=== PATIENT | female | born 1985 ===

== ENCOUNTER 2019-12-27 10:35 | Outpatient (REF) | payer MEDICARE, MEDICAID, SELFPAY ==
--- NOTE | 2019-12-27 | US_ITS ---
EXAMINATION:US transvaginal, US pelvic complete CLINICAL INFORMATION: Reason for Exam COMPLEX CYST OF LEFT OVARY COMPARISON: No priors available. LMP: End November 2019 FINDINGS: UTERUS: The uterus is anteverted. Size: 7.4 x 2.7 x 4.9 cm. Uterine mass: There is no uterine mass. Cervix: Grossly unremarkable. Endometrium: No ultrasound evidence of endometrial lesion. endometrial thickness measures 0.4 cm ADNEXA: Normal Right ovary: Normal in size. Small amount of free fluid adjacent to the ovary. Left ovary: Normal in size. Mildly complex cystic structure found in the left ovary 3.7 x 2.8 x 2.9 cm might be hemorrhagic cyst. FREE FLUID: Trace amount of free fluid. OTHER FINDINGS: None IMPRESSION: Mildly complex cystic structure in the left ovary 3.7 cm could be a hemorrhagic cyst. Attention to follow-up recommended. Consider follow-up ultrasound in 6-12 weeks Ultrasound otherwise normal.
== END 2019-12-27 10:36 | disposition home or self-care (01) ==
LOC: HO.US 10:35
PROVIDERS: Visit Provider Obstetrics & Gynecology
DX: N83.292 Other ovarian cyst, left side (principal)
CPT/HCPCS: 76830; 76856

== ENCOUNTER 2020-01-10 15:30 | Outpatient (REF) | payer MEDICARE, MEDICAID, SELFPAY ==
[2020-01-12 22:27] LABS: CA-125 14 U/mL (<35)
== END 2020-01-10 15:31 | disposition home or self-care (01) ==
LOC: HO.LAB 15:30
PROVIDERS: PCP Internal Medicine; Referring Provider Internal Medicine; Visit Provider Obstetrics & Gynecology
DX: N83.292 Other ovarian cyst, left side (principal)
CPT/HCPCS: 86304; 99212

== ENCOUNTER 2020-03-04 12:41 | Outpatient (REF) | payer MEDICARE, MEDICAID, SELFPAY ==
--- NOTE | 2020-03-04 | US_ITS ---
EXAMINATION: US PELVIS COMPLETE US PELVIS TRANSVAGINAL CLINICAL INFORMATION: Follow up left ovarian cyst. COMPARISON: Ultrasound pelvis 12/27/2019. TECHNIQUE: Transabdominal and transvaginal ultrasound of the pelvis is performed. FINDINGS: The uterus is anteverted measuring 8.4 cm in length, 3.2 cm in AP and 5.0 cm in transverse dimension. Endometrial thickness is 0.7 cm. The uterus is homogeneous in echotexture. The right ovary measures 3.1 x 2.5 x 1.8 cm and volume 7.3 mL. There is a prominent follicular cyst measuring 1.6 x 1.3 x 1.3 cm. Previously, the right ovary measured 3.3 x 3.0 2.8 cm and volume 14.8 mL. The left ovary measures 4.5 x 2.8 x 3.2 cm and volume 21.1 mL. There is a complex cyst measuring 2.3 x 2.3 x 2.7 cm. Previously, the cyst measured 3.7 x 2.8 x 2.9 cm. There is trace free fluid in the right adnexa. US/US transvaginal IMPRESSION: 1. Slight improvement in left ovarian complex cyst from 3.7 to 2.7 cm. 2. Small follicular right ovarian cyst measuring 1.6 cm. 3. Minimal free fluid in the right adnexa. 4. Unremarkable uterus.
--- NOTE | 2020-03-04 | US_ITS ---
EXAMINATION: US PELVIS COMPLETE US PELVIS TRANSVAGINAL CLINICAL INFORMATION: Follow up left ovarian cyst. COMPARISON: Ultrasound pelvis 12/27/2019. TECHNIQUE: Transabdominal and transvaginal ultrasound of the pelvis is performed. FINDINGS: The uterus is anteverted measuring 8.4 cm in length, 3.2 cm in AP and 5.0 cm in transverse dimension. Endometrial thickness is 0.7 cm. The uterus is homogeneous in echotexture. The right ovary measures 3.1 x 2.5 x 1.8 cm and volume 7.3 mL. There is a prominent follicular cyst measuring 1.6 x 1.3 x 1.3 cm. Previously, the right ovary measured 3.3 x 3.0 2.8 cm and volume 14.8 mL. The left ovary measures 4.5 x 2.8 x 3.2 cm and volume 21.1 mL. There is a complex cyst measuring 2.3 x 2.3 x 2.7 cm. Previously, the cyst measured 3.7 x 2.8 x 2.9 cm. There is trace free fluid in the right adnexa. US/US pelvic complete IMPRESSION: 1. Slight improvement in left ovarian complex cyst from 3.7 to 2.7 cm. 2. Small follicular right ovarian cyst measuring 1.6 cm. 3. Minimal free fluid in the right adnexa. 4. Unremarkable uterus.
== END 2020-03-04 12:42 | disposition home or self-care (01) ==
LOC: HO.US 12:41
PROVIDERS: PCP Internal Medicine; Visit Provider Obstetrics & Gynecology Gynecologic Oncology
DX: N83.292 Other ovarian cyst, left side (principal)
CPT/HCPCS: 76830; 76856

== ENCOUNTER 2020-04-25 08:10 | Outpatient (REF) | payer MEDICARE, MEDICAID, SELFPAY ==
[2020-04-25 11:23] LABS: MANUAL DIFF FLAG NO
[2020-04-25 11:35] LABS: Basophils Absolute Auto 0.1 X10*3/uL (0.0-0.2); Basophils Percent Auto 0.6 % (0-2); Eosinophils Absolute Auto 0.3 X10*3/uL (0.0-0.4); Eosinophils Percent Auto 3.7 % (0-4); Hemoglobin 12.5 g/dl (12.0-16.0); Imm Gran Abs Auto 0.02 X10*3/uL (0.00-0.03); Imm Gran Pct Auto 0.3 % (0.0-0.4); Lymphocytes Absolute Auto 3.9 X10*3/uL (1.2-4.9); Lymphocytes Percent Auto 49.7 % (20-40); Mean Corpuscular HGB Conc 32.1 g/dl (31.0-35.0); Mean Corpuscular Hemoglobin 30.3 pg (27.0-33.0); Mean Corpuscular Volume 94.4 fL (80-98); Mean Platelet Volume 12.1 fL (9.4-12.3); Monocytes Absolute Auto 0.5 X10*3/uL (0.1-1.2); Monocytes Percent Auto 6.2 % (2-11); Neutrophils Absolute Auto 3.1 X10*3/uL (2.0-8.3); Neutrophils Percent Auto 39.5 % (45-73); Platelet Count 190 X10*3/uL (160-400); Red Blood Count 4.13 X10*6/uL (4.20-5.50); White Blood Count 7.9 X10*3/uL (4.8-10.8)
[2020-04-25 11:56] LABS: Alanine Aminotransferase 13 U/L (0-31); Albumin Level 4.2 g/dL (3.5-5.0); Alkaline Phosphatase 55 U/L (39-117); Anion Gap 11 (12-20); Aspartate Amino Transferase 12 U/L (5-31); Bilirubin Total 0.5 mg/dL (0.0-1.0); Blood Urea Nitrogen 14 mg/dL (9-16); Calcium 8.9 mg/dL (8.4-10.2); Carbon Dioxide 29 mmol/L (22-29); Chloride 103 mmol/L (96-108); Estimated Glomerular Filt Rate > 60; Glucose Fasting 82 mg/dL (60-99); Potassium 3.6 mmol/L (3.3-5.1); Sodium 139 mmol/L (135-145); Total Protein 6.8 g/dL (6.5-8.0)
[2020-04-25 12:21] LABS: Ferritin 21 ng/mL (10-122); TSH reflex Free T4 0.63 uIU/mL (0.32-4.0)
[2020-05-01 11:11] LABS: Vitamin D 25-OH, D2 <4 ng/mL; Vitamin D 25-OH, D3 13 ng/mL; Vitamin D 25-OH, Total 13 ng/mL (30-100)
== END 2020-04-25 08:11 | disposition home or self-care (01) ==
LOC: HO.HMGCLDS 08:10
PROVIDERS: PCP Internal Medicine; Visit Provider Nurse Practitioner Family
DX: R42 Dizziness and giddiness (principal)
CPT/HCPCS: 36415; 80053; 82306; 82728; 84443; 85025

== ENCOUNTER 2020-05-13 15:39 | Outpatient (REF) | payer MEDICARE, MEDICAID, SELFPAY ==
--- NOTE | ~2020-05-13 | XR_ITS ---
EXAMINATION: XR CHEST CLINICAL INFORMATION: Chest pain. COMPARISON: CT chest 04/30/2019 and chest x-ray 04/30/2019 TECHNIQUE: 2 views of the chest were obtained. FINDINGS: No significant abnormality is noted involving the heart, lungs, mediastinum, bony thorax or soft tissues. XR/XR chest 2V IMPRESSION: Unremarkable chest exam.
== END 2020-05-13 15:40 | disposition home or self-care (01) ==
LOC: HO.HMGCX 15:39
PROVIDERS: PCP Internal Medicine; Visit Provider Nurse Practitioner Family
DX: R07.89 Other chest pain (principal)
CPT/HCPCS: 71046

== ENCOUNTER 2020-05-22 09:11 | Outpatient (REF) | payer MEDICARE, MEDICAID, SELFPAY ==
[2020-05-23 09:19] LABS: BV Int Neg Control Negative (Negative); BV Int Pos Control Positive (Positive)
== END 2020-05-22 09:12 | disposition home or self-care (01) ==
LOC: HO.LAB 09:11
PROVIDERS: PCP Internal Medicine; Visit Provider Obstetrics & Gynecology
DX: Z01.419 Encounter for gynecological examination (general) (routine) without abnormal findings (principal); N83.292 Other ovarian cyst, left side; N89.8 Other specified noninflammatory disorders of vagina; Z91.040 Latex allergy status; Z88.5 Allergy status to narcotic agent; Z88.8 Allergy status to other drugs, medicaments and biological substances; Z91.018 Allergy to other foods
CPT/HCPCS: 87480; 87510; 87660

== ENCOUNTER 2020-06-12 07:59 | Outpatient (REF) | payer MEDICARE, MEDICAID, SELFPAY ==
--- NOTE | ~2020-06-12 | XR_ITS ---
EXAMINATION: RIGHT HIP AND RIGHT KNEE CLINICAL INFORMATION: Pain right hip and right knee. COMPARISON: Right-sided 05/11/2017 TECHNIQUE: 2 views right hip. 4 views right knee. FINDINGS: RIGHT HIP: There is no visible acute fracture, dislocation or subluxation seen. No bony erosive changes. The soft tissues are normal. RIGHT KNEE: There is no visible acute fracture, dislocation or subluxation seen. No abnormal joint effusion. No bony erosive changes. XR/XR hip RT min 2V IMPRESSION: Unremarkable right hip exam. Unremarkable right knee exam.
--- NOTE | ~2020-06-12 | XR_ITS ---
EXAMINATION: RIGHT HIP AND RIGHT KNEE CLINICAL INFORMATION: Pain right hip and right knee. COMPARISON: Right-sided 05/11/2017 TECHNIQUE: 2 views right hip. 4 views right knee. FINDINGS: RIGHT HIP: There is no visible acute fracture, dislocation or subluxation seen. No bony erosive changes. The soft tissues are normal. RIGHT KNEE: There is no visible acute fracture, dislocation or subluxation seen. No abnormal joint effusion. No bony erosive changes. XR/XR knee RT 3V IMPRESSION: Unremarkable right hip exam. Unremarkable right knee exam.
[2020-06-13 14:42] LABS: Antibody to SS-A Antigen <1.0 NEG AI (<1.0 NEG); Antibody to SS-B Antigen <1.0 NEG AI (<1.0 NEG)
== END 2020-06-12 08:00 | disposition home or self-care (01) ==
LOC: HO.LAB 07:59
PROVIDERS: PCP Internal Medicine; Visit Provider Student in an Organized Health Care Education/Training Program
DX: M25.551 Pain in right hip (principal); M25.561 Pain in right knee; M79.7 Fibromyalgia; H04.123 Dry eye syndrome of bilateral lacrimal glands; Z79.899 Other long term (current) drug therapy
CPT/HCPCS: 36415; 73502; 73562; 86235; 99212

== ENCOUNTER → 2020-06-18 08:19 | Outpatient (BNVA) | payer MEDICARE, MEDICAID, SELFPAY | PROVIDERS: PCP Internal Medicine; Visit Provider Student in an Organized Health Care Education/Training Program | DX: M25.551 Pain in right hip (principal); M25.561 Pain in right knee; H04.123 Dry eye syndrome of bilateral lacrimal glands | CPT/HCPCS: 99212 ==

== ENCOUNTER → 2020-08-05 09:42 | Outpatient (BNVA) | payer MEDICARE, MEDICAID, SELFPAY | PROVIDERS: PCP Internal Medicine; Visit Provider Obstetrics & Gynecology | DX: R10.32 Left lower quadrant pain (principal); N92.6 Irregular menstruation, unspecified | CPT/HCPCS: 99212 ==

== ENCOUNTER 2020-08-05 10:19 | Outpatient (REF) | payer MEDICARE, MEDICAID, SELFPAY ==
[2020-08-05 15:18] LABS: HCG Quantitative < 2 mIU/mL; TSH reflex Free T4 0.14 uIU/mL (0.32-4.0)
[2020-08-06 15:47] LABS: Follicle Stimulating Hormone 5.4 mIU/mL; Prolactin 8.5 ng/mL
[2020-08-06 18:56] LABS: DHEA Sulfate 123 mcg/dL (23-266)
== END 2020-08-05 10:20 | disposition home or self-care (01) ==
LOC: HO.WFDLDS 10:19
PROVIDERS: PCP Internal Medicine; Visit Provider Obstetrics & Gynecology
DX: N91.2 Amenorrhea, unspecified (principal)
CPT/HCPCS: 36415; 82627; 83001; 83498; 84146; 84402; 84403; 84439; 84443; 84702

== ENCOUNTER 2020-08-08 14:26 | Outpatient (REF) | payer MEDICARE, MEDICAID, SELFPAY ==
--- NOTE | ~2020-08-08 | US_ITS ---
EXAMINATION: US PELVIC COMPLETE CLINICAL INFORMATION: Left ovarian cyst. COMPARISON: None TECHNIQUE: Transabdominal and transvaginal imaging of the pelvis is performed. FINDINGS: The uterus is anteverted and anteflexed measuring 8.24 cm in length, 3.4 cm AP and 5.18 cm in transverse dimension. The endometrial thickness is 0.48 cm. There is no focal lesion seen. Cervix is closed measuring 1.65 cm. The right ovary measures 3.27 x 1.78 x 2.84 cm and volume 8.66 mL. There are 2 simple cysts seen measuring 2.1 x 1.5 x 2.0 cm and 0.53 x 0.58 x 0.62 cm. Previously right ovary measured 3.1 x 2.5 x 1.8 cm. Left ovary measures 2.60 x 1.99 x 2.52 cm and volume 7.21 mL. There is a complex echogenic cyst measuring 1.5 x 1.6 x 1.5 cm and a simple anechoic cyst measuring 0.90 x 0.94 x 1.0 cm. There is no free fluid in cul-de-sac. US/US pelvic and transvaginal IMPRESSION: Simple right ovarian cyst. Simple and complex cyst left ovary. The uterus is unremarkable. There is no free fluid in the cul-de-sac.
== END 2020-08-08 14:27 | disposition home or self-care (01) ==
LOC: HO.US 14:26
PROVIDERS: PCP Internal Medicine; Visit Provider Obstetrics & Gynecology
DX: N83.292 Other ovarian cyst, left side (principal)
CPT/HCPCS: 76830; 76856

== ENCOUNTER 2020-08-15 08:00 | Outpatient (RCR) | payer MEDICARE, MEDICAID, SELFPAY ==
--- NOTE | 2020-08-15 11:34 | MHC.PT.RE ---
[facility] [place] Office [place] Office [place] Office [address] Shannan Mcmanus [address] [phone] F: [phone] F: [phone] F: [phone] F: [phone] Physical Therapy Re-evaluation Diagnosis: RIGHT KNEE AND HIP PAIN Date of Surgery: NA Date of Evaluation: 06/20/20 Treatments to Date: 10 Cancellations to Date: 0 No Shows to Date: 0 Subjective: Re eval performed today. Pt arrived after completing 8 visits of PT for her hips and back with some improvement but pain still remained. The patient reports urinary incontinence with extreme force, laughing, coughing. She wears a panty liner most days. The patient also reports painful intercourse. She feels a spasm at the end of penetrative intercourse that is painful. The patient reports intermittent sharp achiness that is felt deep in her pelvis. It limits her activity levels. She also reports a long history with IBS with constipation. The patient reports going average of 4-5 days without a BM and then sometimes she will have liquid stool for two days. Pain Score: 3 Pain Location: Objective Measures: Patient consent for treatment. Pt declined an option to have a second person in the room. Patient gave consent for internal exam today. Tightness and spasm felt on right side of ishiocavernosus, OI, and ishicoccygeus. Pt had 1/5 strength initially. Endurance 2 seconds. Repeated contraction 2 reps. quick contraction 4 reps. Pt had poor contraction in the levator ani. Assessment: Patient consent for treatment. Pt declined an option to have a second person in the room. Patient gave consent for internal exam today. Tightness and spasm felt on right side of ishiocavernosus, OI, and ishicoccygeus. Pt had 1/5 strength. No pelvic organ prolapse noted. Uterus palpable at 3 knuckles. Endurance 2 seconds. Repeated contraction 2 reps. quick contraction 4 reps. Pt had poor contraction in the levator ani. Pt has poor breathing mechanics and tends to be a chest breather. She has intermittent palpable spasms in her levator ani which relaxed with manual therapy and breathing exercises. Pt will benefit from pelvic floor PT in order to address her current pain and stress urinary incontinence. Short Term Goals: 1. Pt to be able to correctly activate her PFM to allow improved support to bowel and bladder. 2. 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 TO DEMONSTRATE FULL KNEE AND HIPROM, EQUAL STAR 2. TO DEMONSTRATE FULL LE STRENGTH, EQUAL STAR 3. TO ASCEND AND DESCEND STAIRS WITHOUT PAIN GREATER THAN 2/10 4. TO AMBULATE AD [place] ON LEVEL AND UNEVEN SURFACES FOR FITNESS WITHOUT PAIN GREATER THAN 2/10 5. LTG met for functional squat new goals for pelvic floor PT 1. The patient to be able to report no pain in her pelvis during house chore, and ADL's to help return to PLOF. 2. Pt to be able to improve PFM contraction to include a lift in the PFM to improve supportive function of the pelvic floor. 3. Pt to be able to return to normal sexual activity without pain. Frequency and Duration: The patient will be seen 2 X WEEK FOR 4 WEEKS Treatment Plan: Therapeutic Exercise Dynamic Therapeutic Activities Neuromuscular Re-ed Manual Therapies Home Exercise Program Patient Education Pelvic Floor Therapy Reviewed/ Agreed with Student Documentation: Therapist: Electronically signed by: Kirsten Barboza PT DPT Please sign and return to therapist. Thank you for your referral.
== END 2020-08-26 10:00 | disposition home or self-care (01) ==
LOC: HO.PT 08:00
PROVIDERS: Visit Provider Student in an Organized Health Care Education/Training Program
DX: M25.561 Pain in right knee (principal); M25.551 Pain in right hip
CPT/HCPCS: 97110; 97112; 97140; 97162; 97530

== ENCOUNTER → 2020-08-20 10:30 | Outpatient (BNVA) | payer MEDICARE, MEDICAID, SELFPAY | PROVIDERS: PCP Internal Medicine; Visit Provider Obstetrics & Gynecology | DX: N83.292 Other ovarian cyst, left side (principal); R79.89 Other specified abnormal findings of blood chemistry | CPT/HCPCS: Q3014 ==

== ENCOUNTER 2020-08-21 08:16 | Outpatient (REF) | payer MEDICARE, MEDICAID, SELFPAY ==
[2020-08-22 16:01] LABS: Triiodothyronine T3 Free 2.3 pg/mL (2.3-4.2)
== END 2020-08-21 08:17 | disposition home or self-care (01) ==
LOC: HO.LAB 08:16
PROVIDERS: PCP Internal Medicine; Visit Provider Obstetrics & Gynecology
DX: R94.6 Abnormal results of thyroid function studies (principal)
CPT/HCPCS: 36415; 84481

== ENCOUNTER 2020-08-23 08:09 | Outpatient (REF) | payer MEDICARE, MEDICAID, SELFPAY ==
[2020-08-27 16:08] LABS: Testosterone, Free 2.7 pg/mL (0.1-6.4); Testosterone, Total 20 ng/dL (2-45)
== END 2020-08-23 08:10 | disposition home or self-care (01) ==
LOC: HO.LAB 08:09
PROVIDERS: PCP Internal Medicine; Visit Provider Obstetrics & Gynecology
DX: N91.2 Amenorrhea, unspecified (principal)
CPT/HCPCS: 36415; 84402; 84403

== ENCOUNTER → 2020-10-09 12:16 | Outpatient (BNVA) | payer MEDICARE, MEDICAID, SELFPAY | PROVIDERS: Visit Provider Obstetrics & Gynecology | CPT/HCPCS: Q3014 ==

== ENCOUNTER 2020-10-14 09:30 | Outpatient (REF) | payer MEDICARE, MEDICAID, SELFPAY ==
[2020-10-15 09:36] LABS: CA-125 11 U/mL (<35)
== END 2020-10-14 09:31 | disposition home or self-care (01) ==
LOC: HO.LAB 09:30
PROVIDERS: PCP Internal Medicine; Visit Provider Obstetrics & Gynecology
DX: N83.299 Other ovarian cyst, unspecified side (principal)
CPT/HCPCS: 36415; 86304

== ENCOUNTER 2020-11-12 09:12 | Outpatient (REF) | payer MEDICARE, MEDICAID, SELFPAY ==
--- NOTE | ~2020-11-12 | US_ITS ---
EXAMINATION: US VENOUS ULTRASOUND WITH DOPPLER LOWER EXTREMITY, RIGHT CLINICAL INFORMATION: Pain in right leg. COMPARISON: None. TECHNIQUE: Ultrasound of the deep veins is performed from the hip to the calf with compression sonography and color and pulse Doppler assessment. Spectral analysis with color-flow imaging is performed. FINDINGS: There is normal venous compression and respiratory variation and augmented flow. The visualized common femoral vein, superficial femoral vein, profunda femoral vein, popliteal vein, and paired peroneal and posterior tibial veins show no evidence of deep venous thrombosis. There is no significant popliteal fossa cyst. US/US venous duplex LE RT IMPRESSION: No DVT demonstrated in the right lower extremity.
== END 2020-11-12 09:13 | disposition home or self-care (01) ==
LOC: HO.HMGCX 09:12
PROVIDERS: PCP Internal Medicine; Visit Provider Internal Medicine
DX: M79.604 Pain in right leg (principal)
CPT/HCPCS: 93971

== ENCOUNTER 2020-11-19 09:53 | Outpatient (REF) | payer MEDICARE, MEDICAID, SELFPAY ==
[2020-11-19 10:50] LABS: MANUAL DIFF FLAG NO
[2020-11-19 11:01] LABS: Basophils Percent Auto 0.3 % (0-2); Eosinophils Absolute Auto 0.2 X10*3/uL (0.0-0.4); Eosinophils Percent Auto 2.4 % (0-4); Hematocrit 35.7 % (37-47); Hemoglobin 11.5 g/dl (12.0-16.0); Imm Gran Abs Auto 0.01 X10*3/uL (0.00-0.03); Imm Gran Pct Auto 0.2 % (0.0-0.4); Lymphocytes Percent Auto 31.5 % (20-40); Mean Corpuscular HGB Conc 32.2 g/dl (31.0-35.0); Mean Corpuscular Hemoglobin 30.3 pg (27.0-33.0); Mean Corpuscular Volume 93.9 fL (80-98); Mean Platelet Volume 11.8 fL (9.4-12.3); Monocytes Absolute Auto 0.4 X10*3/uL (0.1-1.2); Neutrophils Absolute Auto 3.7 X10*3/uL (2.0-8.3); Neutrophils Percent Auto 59.6 % (45-73); Platelet Count 180 X10*3/uL (160-400); Red Cell Distribution Width 13.2 % (11.0-16.0); White Blood Count 6.2 X10*3/uL (4.8-10.8)
[2020-11-19 11:37] LABS: Alanine Aminotransferase 13 U/L (0-31); Albumin Level 4.1 g/dL (3.5-5.0); Alkaline Phosphatase 57 U/L (39-117); Anion Gap 8 (12-20); Aspartate Amino Transferase 11 U/L (5-31); Bilirubin Total 0.6 mg/dL (0.0-1.0); Blood Urea Nitrogen 9 mg/dL (9-16); Calcium 8.8 mg/dL (8.4-10.2); Carbon Dioxide 27 mmol/L (22-29); Chloride 105 mmol/L (96-108); Estimated Glomerular Filt Rate > 60; Glucose Random 90 mg/dL (60-115); Potassium 4.2 mmol/L (3.3-5.1); Sodium 136 mmol/L (135-145); Total Protein 6.6 g/dL (6.5-8.0)
[2020-11-19 12:03] LABS: TSH reflex Free T4 0.98 uIU/mL (0.32-4.0)
== END 2020-11-19 09:54 | disposition home or self-care (01) ==
LOC: HO.LAB 09:53
PROVIDERS: PCP Internal Medicine; Visit Provider Internal Medicine
DX: B00.1 Herpesviral vesicular dermatitis (principal); E03.8 Other specified hypothyroidism; G43.109 Migraine with aura, not intractable, without status migrainosus; J30.9 Allergic rhinitis, unspecified; J45.990 Exercise induced bronchospasm; K21.9 Gastro-esophageal reflux disease without esophagitis; R11.0 Nausea
CPT/HCPCS: 36415; 80053; 84443; 85025

== ENCOUNTER 2020-11-22 08:56 | Outpatient (REF) | payer MEDICARE, MEDICAID, SELFPAY ==
--- NOTE | ~2020-11-22 | XR_ITS ---
EXAMINATION: XR TIBIA AND FIBULA, RIGHT CLINICAL INFORMATION: Pain in right leg COMPARISON: None TECHNIQUE: AP and lateral views of the right tibia and fibula were obtained. FINDINGS: The bones and soft tissues are normal. No fracture. No osseous lesions. XR/XR tibia fibula RT 2V IMPRESSION: Normal right tibia and fibula.
== END 2020-11-22 08:57 | disposition home or self-care (01) ==
LOC: HO.HMGCX 08:56
PROVIDERS: PCP Internal Medicine; Visit Provider Internal Medicine
DX: Z13.89 Encounter for screening for other disorder (principal)
CPT/HCPCS: 73590

== ENCOUNTER 2021-01-01 09:18 | Outpatient (REF) | payer MEDICARE, MEDICAID, SELFPAY ==
--- NOTE | 2021-01-01 09:23 | EMG_ITS ---
This is a 35-year-old woman with a several year history of right lower extremity numbness and pain. PHYSICAL EXAMINATION: On examination, she is alert and oriented with normal intellectual functions. Cranial nerves II through XII are normal. Muscle tone and strength are normal. IMPRESSION: Rule out lumbar radiculopathy, rule out peripheral neuropathy. Nerve conduction EMG study: Normal electrodiagnostic study of the right lower extremity. No evidence of nerve entrapment or generalized peripheral neuropathy. Normal EMG of the right L4-S1 innervated muscles. MD AMISHA Polk/SOPHIA / [id number]
== END 2021-01-01 09:19 | disposition home or self-care (01) ==
LOC: HO.NEURO 09:18
PROVIDERS: Visit Provider Internal Medicine
DX: M79.604 Pain in right leg (principal)
CPT/HCPCS: 95886; 95910

== ENCOUNTER 2021-01-14 08:49 | Outpatient (REF) | payer MEDICARE, MEDICAID, SELFPAY ==
--- NOTE | ~2021-01-14 | MR_ITS ---
EXAMINATION: MR LUMBAR SPINE WITHOUT CONTRAST CLINICAL INFORMATION: 35-year-old with right L5-S1 radiculopathy. Persistent right lower extremity pain and cramping. COMPARISON: None. TECHNIQUE: MRI of the lumbar spine was obtained using routine sequences without contrast. FINDINGS: Coronal Alignment: Normal. Sagittal Alignment: Normal. Lumbosacral Junction: Normal. Vertebral Bodies: Normal height. Disc Spaces and Endplates: The intervertebral disc space heights are well maintained throughout the lumbar spine. There is disc desiccation at the L5-S1 level and there is a Schmorl's node along the superior endplate of L3. No significant spondylosis. Spinal Canal: No abnormal developmental findings. Bone Marrow: No significant marrow-replacing process or bone marrow edema. Conus Medullaris: Terminates at L1. Morphology and signal is normal. Intradural Nerve Roots: Within normal limits. L5-S1: No disc bulge or herniation. No significant facet arthrosis, canal or neuroforaminal stenosis. L4-L5: No disc bulge or herniation. No significant facet arthrosis, canal or neuroforaminal stenosis. The remaining lumbar levels demonstrate no disc bulge or herniation and no significant facet arthrosis, canal or neuroforaminal stenosis. Paraspinal/Retroperitoneal: The paravertebral soft tissues appear unremarkable. MR/MR lumbar spine wo con IMPRESSION: Mild discogenic degenerative changes at L5-S1. No lumbar disc bulging or herniations are identified and there is no significant DJD, canal or neuroforaminal stenosis.
== END 2021-01-14 08:50 | disposition home or self-care (01) ==
LOC: HO.MRI 08:49
PROVIDERS: Visit Provider Psychiatry & Neurology Neurology
DX: M54.16 Radiculopathy, lumbar region (principal)
CPT/HCPCS: 72148

== ENCOUNTER 2021-02-17 10:42 | Outpatient (REF) | payer MEDICARE, MEDICAID, SELFPAY ==
--- NOTE | ~2021-02-17 | US_ITS ---
EXAMINATION: US PELVIS CLINICAL INFORMATION: Ovarian cyst. COMPARISON: Ultrasound 08/08/2020. TECHNIQUE: Ultrasound of the pelvis is performed using both transabdominal and transvaginal transducers along with Doppler. Transvaginal imaging is performed due to inadequate visualization transabdominally. FINDINGS: Uterus: The uterus is anteverted, anteflexed and measures 8.7 x 3.4 x 6.0 cm. The double wall endometrial thickness is 0.5 cm. The uterus is smooth in contour and has normal myometrial echogenicity. No visible fibroid. Small nabothian cysts seen in the cervix. Adnexa: Both ovaries are visualized. There is normal color flow to the adnexa. There is no ovarian torsion. There is no pelvic ascites or fluid collection. Right ovary measures 2.6 x 2.2 x 1.9 cm and volume 5.7 mL. There is an echogenic calcification measuring 0.2 x 0.1 x 0.2 cm. Left ovary measures 3.5 x 1.9 x 1.9 cm and volume 6.6 mL. There is a corpus luteal cyst measuring 1.2 x 1.3 x 1.1 cm with surrounding increased vascularity with a simple cyst measuring 1.7 x 1.2 x 1.4 cm. US/US pelvic and transvaginal IMPRESSION: Small nabothian cysts seen in the cervix. The uterus is unremarkable. Simple cyst and a corpus luteal cyst left ovary. A simple and complex cyst was seen on the previous ultrasound 08/01/2020. Not sure if this is the same cyst. Echogenic calcification seen in the right ovary.
== END 2021-02-17 10:43 | disposition home or self-care (01) ==
LOC: HO.US 10:42
PROVIDERS: PCP Internal Medicine; Visit Provider Obstetrics & Gynecology
DX: N83.299 Other ovarian cyst, unspecified side (principal)
CPT/HCPCS: 76830; 76856

== ENCOUNTER → 2021-02-25 13:53 | Outpatient (BNVA) | payer MEDICARE, MEDICAID, SELFPAY | PROVIDERS: PCP Internal Medicine; Visit Provider Obstetrics & Gynecology | DX: N83.292 Other ovarian cyst, left side (principal) | CPT/HCPCS: Q3014 ==

== ENCOUNTER 2021-04-02 12:59 | Outpatient (REF) | payer MEDICARE, MEDICAID, SELFPAY ==
--- NOTE | ~2021-04-02 | XR_ITS ---
EXAMINATION: XR SHOULDER, RIGHT CLINICAL INFORMATION: Pain COMPARISON: Previous x-ray December 2015 TECHNIQUE: AP external rotation, Grashey, scapular Y, and axillary views of the right shoulder. FINDINGS: The bones and soft tissues are normal. No fracture. Glenohumeral and acromioclavicular alignment is anatomic with normal joint space. No abnormal soft tissue calcifications. XR/XR shoulder RT min 2V IMPRESSION: Normal right shoulder.
== END 2021-04-02 13:00 | disposition home or self-care (01) ==
LOC: HO.HMGCX 12:59
PROVIDERS: PCP Internal Medicine; Visit Provider Internal Medicine
DX: M25.511 Pain in right shoulder (principal)
CPT/HCPCS: 73030

== ENCOUNTER 2021-06-04 08:33 | Outpatient (REF) | payer MEDICARE, MEDICAID, SELFPAY ==
[2021-06-07 17:02] LABS: HPV mRNA E6/E7 rflx Not Detected (Not Detected)
== END 2021-06-04 08:34 | disposition home or self-care (01) ==
LOC: HO.LAB 08:33
PROVIDERS: PCP Internal Medicine; Visit Provider Advanced Practice Midwife
DX: Z01.419 Encounter for gynecological examination (general) (routine) without abnormal findings (principal); Z11.51 Encounter for screening for human papillomavirus (HPV)
CPT/HCPCS: 87624; 88142

== ENCOUNTER 2021-07-08 12:39 | Outpatient (REF) | payer MEDICARE, MEDICAID, SELFPAY ==
--- NOTE | ~2021-07-08 | XR_ITS ---
EXAMINATION: XR LUMBOSACRAL SPINE CLINICAL INFORMATION: Low back pain COMPARISON: Previous exam May 2014 TECHNIQUE: Three views of the lumbosacral spine. FINDINGS: The vertebral bodies and posterior elements are normal. The disc spaces are preserved and the vertebral alignment is normal. The paraspinal soft tissues are normal. XR/XR lumbar spine 2-3V IMPRESSION: Unremarkable examination.
== END 2021-07-08 12:40 | disposition home or self-care (01) ==
LOC: HO.HMGCX 12:39
PROVIDERS: PCP Internal Medicine; Visit Provider Nurse Practitioner Acute Care
DX: M54.50 Low back pain, unspecified (principal)
CPT/HCPCS: 72100

== ENCOUNTER 2021-07-22 09:08 | Outpatient (REF) | payer MEDICARE, MEDICAID, SELFPAY ==
[2021-07-22 09:21] LABS: MANUAL DIFF FLAG NO
[2021-07-22 09:53] LABS: Basophils Percent Auto 0.8 % (0-2); Eosinophils Absolute Auto 0.2 X10*3/uL (0.0-0.4); Eosinophils Percent Auto 4.7 % (0-4); Hematocrit 37.1 % (37.0-47.0); Hemoglobin 12.1 g/dl (12.0-16.0); Imm Gran Abs Auto 0.01 X10*3/uL (0.00-0.03); Imm Gran Pct Auto 0.2 % (0.0-0.4); Lymphocytes Absolute Auto 1.4 X10*3/uL (1.2-4.9); Lymphocytes Percent Auto 27.8 % (20-40); Mean Corpuscular HGB Conc 32.6 g/dl (31.0-35.0); Mean Corpuscular Hemoglobin 30.9 pg (27.0-33.0); Mean Corpuscular Volume 94.6 fL (80.0-98.0); Mean Platelet Volume 12.6 fL (9.4-12.3); Monocytes Absolute Auto 0.4 X10*3/uL (0.1-1.2); Monocytes Percent Auto 7.1 % (2-11); Neutrophils Absolute Auto 2.9 x10*3/uL (2.0-8.3); Neutrophils Percent Auto 59.4 % (45-73); Platelet Count 141 X10*3/uL (160-400); Red Blood Count 3.92 X10*6/uL (4.20-5.50); Red Cell Distribution Width 12.2 % (11.0-16.0); White Blood Count 4.9 X10*3/uL (4.8-10.8)
[2021-07-22 10:17] LABS: Anion Gap 11 (12-20); Blood Urea Nitrogen 14 mg/dL (9-16); Calcium 9.5 mg/dL (8.4-10.2); Carbon Dioxide 24 mmol/L (22-29); Chloride 109 mmol/L (96-108); Estimated Glomerular Filt Rate > 60; Glucose Random 92 mg/dL (60-115); Potassium 4.1 mmol/L (3.3-5.1); Sodium 140 mmol/L (135-145)
== END 2021-07-22 09:09 | disposition home or self-care (01) ==
LOC: HO.LAB 09:08
PROVIDERS: PCP Internal Medicine; Visit Provider Psychiatry & Neurology Neurology
DX: S49.90XA Unspecified injury of shoulder and upper arm, unspecified arm, initial encounter (principal)
CPT/HCPCS: 36415; 80048; 85025

== ENCOUNTER → 2021-08-19 10:34 | Outpatient (BNVA) | payer MEDICARE, MEDICAID, SELFPAY | PROVIDERS: PCP Internal Medicine; Visit Provider Nurse Practitioner Family | DX: M79.7 Fibromyalgia (principal) | CPT/HCPCS: 99212 ==

== ENCOUNTER 2021-08-20 08:00 | Outpatient (RCR) | payer MEDICARE, MEDICAID, SELFPAY ==
--- NOTE | 2021-06-05 09:48 | MHC.PT.EP ---
[facility] [place] Office [place] Office [place] Office [address] Shannan Mcmanus [address] [phone] F: [phone] F: [phone] F: [phone] F: [phone] Physical Therapy Plan of Care Date of Evaluation: Date of Surgery: Diagnosis: pain in R shoulder Assessment: 36 y/o RHD female referred to PT with R shoulder pain. She injured her R shoulder 6 weeks ago when reaching into backseat of car to help unbuckle her son's car seat. Currently pain and difficulty with long-lever arm positions, grooming, reaching overhead, carrying, lifting, pushing and pulling. Examination shows decreased R shoulder AROM, normal PROM, decreased R shoulder strength, pain, and impaired postural awareness. S/s consistent with strain and ?labral involvement. Recommend PT 2x/week for 6 weeks to address impairments, implement HEP, and optimize functional mobility. Frequency and Duration: The patient will be seen 2x/week for 6 weeks Short Term Goals: 3 weeks 1. I with HEP 2. Improve R shoulder AROM to 150 wiht pain < 3/10 Emergency Care Attendant Goals: 6 weeks 1. I with HEP and self management of sx 2. Pt will be able to perform grooming with B UE and pain < 3/10 3. Pt will be able to reach behind back with pain < 3/10 Treatment Plan: Modalities to reduce pain, spasms and effusion. Manual therapy to restore motion and function. Therapeutic exercise to improve strength and flexibility. Neuromuscular re-education for posture and balance. Therapeutic activities to return to functional activities of daily living. Electronically signed by: Mindy Mckeon PT Please sign and return to therapist. Thank you for your referral.
--- NOTE | 2021-08-20 09:15 | MHC.PT.DC ---
[facility] [place] Office [place] Office [place] Office [address] Shannan Mcmanus [address] [phone] F: [phone] F: [phone] F: [phone] F: [phone] Physical Therapy Discharge Report Diagnosis: pain in R shoulder Date of Surgery: Date of Evaluation: 06/05/21 Date of Discharge: 08/20/21 Treatments to Date: 14 Cancellations to Date: 2 No Shows to Date: 0 Discharge Status: Achieved Goals Improved Function Independent with HEP Discharge Summary: She continues with good exercise technique and body awareness. We discussed continuing with HEP for further gains and endurance. She is appropriate for d/c secondary to meeting all goals and I with HEP. No further questions at this time. Electronically signed by: Mindy Mckeon PT Please sign and return to therapist. Thank you for your referral.
== END 2021-08-20 09:16 | disposition home or self-care (01) ==
LOC: HO.PT 08:00
PROVIDERS: PCP Internal Medicine; Visit Provider Internal Medicine
DX: M25.511 Pain in right shoulder (principal)
CPT/HCPCS: 97110; 97112; 97140; 97161

== ENCOUNTER 2021-10-21 15:24 | Outpatient (REF) | payer MEDICARE, MEDICAID, SELFPAY ==
[2021-10-21 15:39] LABS: MANUAL DIFF FLAG NO
[2021-10-21 15:47] LABS: Basophils Absolute Auto 0.1 X10*3/uL (0.0-0.2); Basophils Percent Auto 0.9 % (0-2); Eosinophils Absolute Auto 0.2 X10*3/uL (0.0-0.4); Eosinophils Percent Auto 3.6 % (0-4); Hematocrit 37.8 % (37.0-47.0); Hemoglobin 12.3 g/dl (12.0-16.0); Imm Gran Abs Auto 0.01 X10*3/uL (0.00-0.03); Imm Gran Pct Auto 0.2 % (0.0-0.4); Lymphocytes Percent Auto 36.6 % (20-40); Mean Corpuscular HGB Conc 32.5 g/dl (31.0-35.0); Mean Corpuscular Hemoglobin 30.5 pg (27.0-33.0); Mean Corpuscular Volume 93.8 fL (80.0-98.0); Mean Platelet Volume 11.7 fL (9.4-12.3); Monocytes Absolute Auto 0.4 X10*3/uL (0.1-1.2); Monocytes Percent Auto 6.7 % (2-11); Neutrophils Absolute Auto 2.9 x10*3/uL (2.0-8.3); Platelet Count 155 X10*3/uL (160-400); Red Blood Count 4.03 X10*6/uL (4.20-5.50); White Blood Count 5.5 X10*3/uL (4.8-10.8)
[2021-10-21 16:09] LABS: Anion Gap 11 (12-20); Blood Urea Nitrogen 15 mg/dL (9-16); Calcium 9.3 mg/dL (8.4-10.2); Carbon Dioxide 28 mmol/L (22-29); Chloride 104 mmol/L (96-108); Estimated Glomerular Filt Rate > 60; Glucose Random 81 mg/dL (60-115); Iron 63 mcg/dL (30-160); Percent Iron Saturation 20 % (15-50); Potassium 4.2 mmol/L (3.3-5.1); Sodium 139 mmol/L (135-145); Total Iron Binding Capacity 313 mcg/dL (228-428); Unsaturated Iron Binding 250 ug/dL
[2021-10-21 16:30] LABS: Thyroid Stimulating Hormone 2.29 uIU/mL (0.32-4.0)
[2021-10-21 16:46] LABS: Erythrocyte Sedimentation Rate 13 MM/HR (0-20)
== END 2021-10-21 15:25 | disposition home or self-care (01) ==
LOC: HO.LAB 15:24
PROVIDERS: PCP Internal Medicine; Visit Provider Psychiatry & Neurology Neurology
DX: G43.909 Migraine, unspecified, not intractable, without status migrainosus (principal)
CPT/HCPCS: 36415; 80048; 83540; 84443; 85025; 85652

== ENCOUNTER 2021-11-26 11:38 | Outpatient (REF) | payer MEDICARE, MEDICAID, SELFPAY ==
[2021-11-26 12:35] LABS: Alanine Aminotransferase 15 U/L (0-31); Albumin Level 4.3 g/dL (3.5-5.0); Alkaline Phosphatase 82 U/L (39-117); Amylase 72 U/L (28-100); Anion Gap 12 (12-20); Aspartate Amino Transferase 15 U/L (5-31); Bilirubin Total 0.5 mg/dL (0.0-1.0); Blood Urea Nitrogen 12 mg/dL (9-16); Calcium 9.1 mg/dL (8.4-10.2); Carbon Dioxide 25 mmol/L (22-29); Chloride 105 mmol/L (96-108); Estimated Glomerular Filt Rate > 60; Glucose Random 91 mg/dL (60-115); Lipase 30 U/L (8-78); Potassium 3.9 mmol/L (3.3-5.1); Sodium 138 mmol/L (135-145); Total Protein 7.1 g/dL (6.5-8.0)
[2021-11-26 12:55] LABS: TSH reflex Free T4 1.31 uIU/mL (0.32-4.0)
[2021-11-28 14:02] LABS: Transglutaminase Ab IgG <1.0 U/mL; Transglutaminase IgA <1.0 U/mL
== END 2021-11-26 11:39 | disposition home or self-care (01) ==
LOC: HO.LAB 11:38
PROVIDERS: Visit Provider Nurse Practitioner
DX: R10.13 Epigastric pain (principal); R11.0 Nausea; K59.04 Chronic idiopathic constipation; E73.9 Lactose intolerance, unspecified
CPT/HCPCS: 36415; 80053; 82150; 83690; 84443; 86364; 99202; 99212

== ENCOUNTER 2021-12-02 09:01 | Outpatient (REF) | payer MEDICARE, MEDICAID, SELFPAY ==
[2021-12-09 15:36] LABS: Pancreatic Elastase-1 >500 mcg/g
== END 2021-12-02 09:02 | disposition home or self-care (01) ==
LOC: HO.LNP 09:01
PROVIDERS: Visit Provider Nurse Practitioner
DX: R10.13 Epigastric pain (principal); R11.0 Nausea
CPT/HCPCS: 82656; 87338

== ENCOUNTER 2021-12-31 12:22 | Outpatient (REF) | payer MEDICARE, MEDICAID, SELFPAY | END 2021-12-31 12:23 | disposition home or self-care (01) | LOC: HO.LAB 12:22 | PROVIDERS: PCP Internal Medicine; Visit Provider Nurse Practitioner | DX: R10.13 Epigastric pain (principal); R10.9 Unspecified abdominal pain; R11.0 Nausea; K59.00 Constipation, unspecified | CPT/HCPCS: 36415; 86003; 99212 ==

== ENCOUNTER → 2022-01-21 12:48 | Outpatient (BNVA) | payer MEDICARE, MEDICAID, SELFPAY | PROVIDERS: PCP Internal Medicine; Visit Provider Nurse Practitioner | DX: K58.2 Mixed irritable bowel syndrome (principal); K59.04 Chronic idiopathic constipation; K21.9 Gastro-esophageal reflux disease without esophagitis; R14.0 Abdominal distension (gaseous); Z91.018 Allergy to other foods; E73.9 Lactose intolerance, unspecified | CPT/HCPCS: 99212 ==

== ENCOUNTER 2022-01-28 09:57 | Outpatient (REF) | payer MEDICARE, MEDICAID, SELFPAY ==
--- NOTE | ~2022-01-28 | US_ITS ---
EXAMINATION: US ABDOMEN COMPLETE CLINICAL INFORMATION: Constipation, unspecified. Epigastric pain. COMPARISON: CT abdomen and pelvis 03/02/2019. Renal ultrasound 01/20/2019. Ultrasound abdomen complete with elastography 01/04/2019. TECHNIQUE: Real-time imaging of the abdominal viscera. FINDINGS: PANCREAS: Normal. ABDOMINAL AORTA: The proximal, mid, and distal segments are normal in caliber. INFERIOR VENA CAVA: Visualized portions are normal. LIVER: Normal. The liver is normal in size. The liver contour is normal. Parenchymal echogenicity is normal. No focal hepatic lesion. There is no intrahepatic biliary duct dilatation seen. GALLBLADDER: Normal. The gallbladder is physiologically distended without evidence of stones, sludge, polyps, or pericholecystic fluid. COMMON BILE DUCT: Normal in caliber measuring 0.3 cm in diameter. RIGHT KIDNEY: Normal. No hydronephrosis. No renal calculi or focal parenchymal lesions. The kidney measures 11.3 cm in maximum dimension. LEFT KIDNEY: Small peripelvic cysts. No hydronephrosis. No renal calculi or focal parenchymal lesions. The kidney measures 13.0 cm in maximum dimension. SPLEEN: Normal. The spleen measures 11.1 cm in maximum dimension. FREE FLUID: None. US/US abdomen complete IMPRESSION: Small left renal peripelvic cysts.
== END 2022-01-28 09:58 | disposition home or self-care (01) ==
LOC: HO.HMGCX 09:57
PROVIDERS: PCP Internal Medicine; Visit Provider Nurse Practitioner
DX: R10.13 Epigastric pain (principal); R11.0 Nausea; K59.00 Constipation, unspecified
CPT/HCPCS: 76700

== ENCOUNTER 2022-01-29 09:00 | Outpatient (RCR) | payer MEDICARE, MEDICAID, SELFPAY ==
--- NOTE | 2021-12-29 12:47 | MHC.PT.EP ---
[facility] [place] Office [place] Office [place] Office [address] Shannan Mcmanus [address] [phone] F: [phone] F: [phone] F: [phone] F: [phone] Physical Therapy Plan of Care Date of Evaluation: Date of Surgery: Diagnosis: low back pain Assessment: Patient is pleasant 36 y.o female who presents to PT with dx of LBP that presents as occurring from muscle imbalances in R hip/low back also result of known joint hypermobility. She has pain and weakness and difficulty with prolonged sitting, standing, with cleaning (mopping, sweeping), walking. She will benefit from skilled PT to manage pain and improve mobility. Frequency and Duration: The patient will be seen 2x/week for 4 weeks Short Term Goals: 2 weeks Patient demonstrates independence with HEP to self manage symptoms. Patient demonstrates improved gait pattern, normalized. Fdc Goals: 4 weeks Patient presents with increased R hip glute med strength 4+/5 to improved prolonged standing. Patient presents with increased lumbar spine AROM extension 20 degrees to clean without symptoms. Treatment Plan: Modalities to reduce pain, spasms and effusion. Manual therapy to restore motion and function. Therapeutic exercise to improve strength and flexibility. Neuromuscular re-education for posture and balance. Therapeutic activities to return to functional activities of daily living. Electronically signed by: Ja Alberts, PT, DPT Please sign and return to therapist. Thank you for your referral.
--- NOTE | 2022-02-25 13:54 | MHC.PT.DC ---
[facility] [place] Office [place] Office [place] Office [address] Shannan Mcmanus [address] [phone] F: [phone] F: [phone] F: [phone] F: [phone] Physical Therapy Discharge Report Diagnosis: low back pain Date of Surgery: Date of Evaluation: 12/29/21 Date of Discharge: Treatments to Date: 9 Cancellations to Date: No Shows to Date: Discharge Status: Achieved Goals Independent with HEP Discharge Summary: From last session 01/29/22: Pt has met all goals and demonstrated progress with HEP and consistency with symptom management. D/C I with HEP. Electronically signed by: Ja Alberts, PT, DPT Please sign and return to therapist. Thank you for your referral.
== END 2022-02-25 13:56 | disposition home or self-care (01) ==
LOC: HO.PT 09:00
PROVIDERS: Visit Provider Nurse Practitioner Family
DX: M54.50 Low back pain, unspecified (principal)
CPT/HCPCS: 97110; 97140; 97161; 97530

== ENCOUNTER 2022-03-04 11:42 | Outpatient (REF) | payer MEDICARE, MEDICAID, SELFPAY ==
[2022-03-04 12:50] LABS: Influenza A PCR NEGATIVE (Negative); Influenza B PCR NEGATIVE (Negative); Resp Syncy Virus RNA Qual PCR NEGATIVE (Negative); SARS COV2 PCR INHOUSE POSITIVE (Negative)
== END 2022-03-04 11:43 | disposition home or self-care (01) ==
LOC: HO.LNP 11:42
PROVIDERS: Visit Provider Nurse Practitioner Family
DX: Z20.822 Contact with and (suspected) exposure to COVID-19 (principal); R09.89 Other specified symptoms and signs involving the circulatory and respiratory systems
CPT/HCPCS: 0241U

== ENCOUNTER → 2022-04-09 07:52 | Outpatient (BNVA) | payer MEDICARE, MEDICAID, SELFPAY | PROVIDERS: PCP Internal Medicine; Referring Provider Internal Medicine; Visit Provider Nurse Practitioner | DX: K58.2 Mixed irritable bowel syndrome (principal); R14.0 Abdominal distension (gaseous) | CPT/HCPCS: 99212 ==

== ENCOUNTER 2022-04-11 10:56 | Outpatient (REF) | payer MEDICARE, MEDICAID, SELFPAY ==
--- NOTE | ~2022-04-11 | XR_ITS ---
EXAMINATION: XR RIBS, RIGHT CLINICAL INFORMATION: Pleurodynia COMPARISON: Chest x-ray May 13, 2020 TECHNIQUE: 3 views of the right ribs were obtained. FINDINGS: Cardiac silhouette is normal in size. The lungs are well aerated. There is no lobar consolidation. No pleural effusion or pneumothorax. No right-sided rib fracture. XR/XR ribs RT min 3V w CXR1V IMPRESSION: No right-sided rib fracture.
== END 2022-04-11 10:57 | disposition home or self-care (01) ==
LOC: HO.HMGCX 10:56
PROVIDERS: PCP Internal Medicine; Visit Provider Nurse Practitioner Family
DX: R07.81 Pleurodynia (principal)
CPT/HCPCS: 71101

== ENCOUNTER 2022-05-29 13:28 | Outpatient (REF) | payer MEDICARE, MEDICAID, SELFPAY ==
--- NOTE | ~2022-05-29 | XR_ITS ---
EXAMINATION: XR HAND, LEFT CLINICAL INFORMATION: Pain in left fingers. COMPARISON: None available. TECHNIQUE: PA, lateral, and oblique views of the left hand. FINDINGS: The bones and soft tissues are normal. No fracture. Alignment is anatomic. Joint spaces are maintained. No erosions or soft tissue calcifications. XR/XR hand LT min 3V IMPRESSION: Unremarkable left hand.
[2022-05-29 15:03] LABS: TSH reflex Free T4 12.38 uIU/mL (0.32-4.0)
== END 2022-05-29 13:29 | disposition home or self-care (01) ==
LOC: HO.HMGCLDS 13:28
PROVIDERS: Visit Provider Internal Medicine
DX: M79.645 Pain in left finger(s) (principal); R79.89 Other specified abnormal findings of blood chemistry; E03.9 Hypothyroidism, unspecified
CPT/HCPCS: 36415; 73130; 84439; 84443

== ENCOUNTER → 2022-06-04 08:43 | Outpatient (BNVA) | payer MEDICARE, MEDICAID, SELFPAY | PROVIDERS: PCP Internal Medicine; Visit Provider Nurse Practitioner | DX: K58.2 Mixed irritable bowel syndrome (principal); K21.9 Gastro-esophageal reflux disease without esophagitis; R10.9 Unspecified abdominal pain | CPT/HCPCS: 36415; 80053; 84439; 84443; 85025; 86800; 99212 ==

== ENCOUNTER 2022-06-04 09:49 | Outpatient (REF) | payer MEDICARE, MEDICAID, SELFPAY ==
[2022-06-04 09:59] LABS: MANUAL DIFF FLAG NO
[2022-06-04 10:44] LABS: Basophils Absolute Auto 0.1 X10*3/uL (0.0-0.2); Basophils Percent Auto 1.1 % (0-2); Eosinophils Absolute Auto 0.1 X10*3/uL (0.0-0.4); Eosinophils Percent Auto 2.7 % (0-4); Hematocrit 38.2 % (37.0-47.0); Hemoglobin 12.2 g/dl (12.0-16.0); Imm Gran Abs Auto 0.01 X10*3/uL (0.00-0.03); Imm Gran Pct Auto 0.2 % (0.0-0.4); Lymphocytes Absolute Auto 1.6 X10*3/uL (1.2-4.9); Lymphocytes Percent Auto 30.5 % (20-40); Mean Corpuscular HGB Conc 31.9 g/dl (31.0-35.0); Mean Corpuscular Hemoglobin 30.5 pg (27.0-33.0); Mean Corpuscular Volume 95.5 fL (80.0-98.0); Mean Platelet Volume 12.1 fL (9.4-12.3); Monocytes Absolute Auto 0.4 X10*3/uL (0.1-1.2); Monocytes Percent Auto 6.7 % (2-11); Neutrophils Absolute Auto 3.1 x10*3/uL (2.0-8.3); Neutrophils Percent Auto 58.8 % (45-73); Platelet Count 162 X10*3/uL (160-400); Red Cell Distribution Width 12.7 % (11.0-16.0); White Blood Count 5.3 X10*3/uL (4.8-10.8)
[2022-06-04 11:21] LABS: Alanine Aminotransferase 14 U/L (0-31); Albumin Level 4.6 g/dL (3.5-5.0); Alkaline Phosphatase 78 U/L (39-117); Anion Gap 12 (12-20); Aspartate Amino Transferase 17 U/L (5-31); Bilirubin Total 0.6 mg/dL (0.0-1.0); Blood Urea Nitrogen 13 mg/dL (9-16); Carbon Dioxide 25 mmol/L (22-29); Chloride 106 mmol/L (96-108); Estimated Glomerular Filt Rate > 60; Glucose Random 88 mg/dL (60-115); Potassium 4.4 mmol/L (3.3-5.1); Sodium 139 mmol/L (135-145); Total Protein 7.4 g/dL (6.5-8.0)
[2022-06-04 11:26] LABS: TSH reflex Free T4 5.56 uIU/mL (0.32-4.0)
[2022-06-04 12:22] LABS: Free T4 (Free Thyroxine) 0.94 ng/dL (0.71-1.85)
[2022-06-09 11:33] LABS: Thyroglobulin Antibodies 1 IU/mL (< or = 1)
== END 2022-06-04 09:50 | disposition home or self-care (01) ==
LOC: HO.LAB 09:49
PROVIDERS: PCP Internal Medicine; Visit Provider Internal Medicine
DX: Z13.89 Encounter for screening for other disorder (principal)
CPT/HCPCS: 36415; 80053; 84439; 84443; 85025; 86800

== ENCOUNTER → 2022-06-10 08:56 | Outpatient (BNVA) | payer MEDICARE, MEDICAID, SELFPAY | PROVIDERS: PCP Internal Medicine; Visit Provider Advanced Practice Midwife ==

== ENCOUNTER 2022-06-17 09:36 | Outpatient (REF) | payer MEDICARE, MEDICAID, SELFPAY ==
[2022-06-17 11:14] LABS: TSH reflex Free T4 2.84 uIU/mL (0.32-4.0)
== END 2022-06-17 09:37 | disposition home or self-care (01) ==
LOC: HO.LAB 09:36
PROVIDERS: PCP Internal Medicine; Visit Provider Internal Medicine
DX: R94.6 Abnormal results of thyroid function studies (principal)
CPT/HCPCS: 36415; 84443

== ENCOUNTER 2022-06-25 13:03 | Outpatient (REF) | payer MEDICARE, MEDICAID, SELFPAY ==
[2022-06-25 15:04] LABS: Free T4 (Free Thyroxine) 1.11 ng/dL (0.71-1.85); Thyroid Stimulating Hormone 1.65 uIU/mL (0.32-4.0)
[2022-06-29 13:24] LABS: Thyroglobulin Antibodies 1 IU/mL (< or = 1); Thyroid Peroxidase Antibodies 470 IU/mL (<9)
[2022-07-01 14:53] LABS: Thyrotropin Receptor Antibody 1.06 IU/L (<=2.00)
[2022-07-01 15:53] LABS: Thyroid Stimulating Immunoglob 160 % baseline (<140)
== END 2022-06-25 13:04 | disposition home or self-care (01) ==
LOC: HO.LAB 13:03
PROVIDERS: PCP Internal Medicine; Visit Provider Internal Medicine
DX: E03.9 Hypothyroidism, unspecified (principal); E04.9 Nontoxic goiter, unspecified
CPT/HCPCS: 36415; 83520; 84439; 84443; 84445; 86376; 86800; 99212

== ENCOUNTER 2022-07-14 08:22 | Outpatient (REF) | payer MEDICARE, MEDICAID, SELFPAY ==
--- NOTE | ~2022-07-14 | US_ITS ---
EXAMINATION: US THYROID CLINICAL INFORMATION: Hypothyroidism, unspecified. COMPARISON: None available. TECHNIQUE: Linear transducer grayscale and color Doppler examination with attention to the region of the thyroid. FINDINGS: SIZE: Measurements of the thyroid lobes and nodules are given in sagittal, anteroposterior and transverse dimensions respectively. Right Thyroid Lobe: 2.5 x 0.7 x 0.8 cm, volume 0.7 mL. Parenchyma: The gland echotexture is heterogeneous. Thyroid vascularity is increased. Left Thyroid Lobe: 4.0 x 1.0 x 1.0 cm, volume 2.1 mL. Parenchyma: The gland echotexture is heterogeneous. Thyroid vascularity is increased. Isthmus: 0.2 cm in maximum AP dimension. No focal thyroid nodule is seen. NODES: No lymphadenopathy is seen in the tissue surrounding the thyroid gland. US/US thyroid IMPRESSION: Heterogeneous hypervascular thyroid compatible with thyroiditis. ACR TI-RADS RECOMMENDATION REFERENCE: Ultrasound-guided fine-needle aspiration, followup ultrasound, no further follow up. * TR1 (0 point) and TR2 (2 points): No FNA or follow up. * TR3 (3 points): FNA if more than or equal to 2.5 cm in maximum dimension, followup ultrasound in 1, 3 and 5 years if 1.5 to 2.4 cm in maximum dimension. * TR4 (4-6 points): FNA if more than or equal to 1.5 cm in maximum dimension, followup ultrasound in 1, 2, 3 and 5 years if 1 to 1.4 cm in maximum dimension. * TR5 (more than or equal to 7 points): FNA if more than or equal to 1 cm in maximum dimension, followup ultrasound every year for 5 years if 0.5 to 0.9 cm in maximum dimension. * TR3, TR4 or TR5 nodules that are below the size threshold for followup receive no follow up.
--- NOTE | ~2022-07-14 | CT_ITS ---
EXAMINATION: CT SOFT TISSUE NECK WITHOUT CONTRAST CLINICAL INFORMATION: Goiter COMPARISON: Previous thyroid ultrasound from the same day TECHNIQUE: Helical imaging was performed in the axial plane with generation of coronal and sagittal reformatted images. This CT examination was performed using dose optimization techniques as appropriate, variously including the following: *Automated exposure control *Adjustment of mA and/or kV according to patient size (this includes techniques or standardized protocols for targeted exams where dose is matched to indication/reason for exam; i.e. extremities or head) *Use of iterative reconstruction technique DLP: 284 mGy-cm FINDINGS: The thyroid gland is small. Note nodule is appreciated. There is diffuse shotty cervical lymphadenopathy. No enlarged cervical lymph nodes. There is mild soft tissue opacification of the sphenoid sinus. There is minimal soft tissue opacification of the left frontal and bilateral ethmoid sinuses. The maxillary sinuses, mastoid air cells and middle ear are clear. Visualized intracranial structures are normal. The visualized orbits are normal. The temporomandibular joints are normal. The naso, parker-and hypopharynx and larynx are normal. The salivary glands are normal. The superior mediastinum is normal. Visualized lung apices are clear. Bony structures are normal. CT/CT soft tissue neck wo IV con IMPRESSION: Small thyroid gland. No thyroid nodule appreciated by CT. Diffuse shotty cervical lymphadenopathy. Mild sinus disease, greatest in the sphenoid sinus.
== END 2022-07-14 08:23 | disposition home or self-care (01) ==
LOC: HO.US 08:22
PROVIDERS: PCP Internal Medicine; Visit Provider Internal Medicine
DX: E03.9 Hypothyroidism, unspecified (principal); E04.9 Nontoxic goiter, unspecified
CPT/HCPCS: 70490; 76536

== ENCOUNTER 2022-07-15 09:00 | Outpatient (RCR) | payer MEDICARE, MEDICAID, SELFPAY | END 2022-07-15 11:55 | disposition home or self-care (01) | LOC: HO.OT 09:00 | PROVIDERS: PCP Internal Medicine; Visit Provider Internal Medicine | DX: M79.645 Pain in left finger(s) (principal) | CPT/HCPCS: 29130; 97018; 97110; 97165; 97760 ==

== ENCOUNTER → 2022-07-30 10:40 | Outpatient (BNVA) | payer MEDICARE, MEDICAID, SELFPAY | PROVIDERS: PCP Internal Medicine; Visit Provider Nurse Practitioner | DX: K58.2 Mixed irritable bowel syndrome (principal); K21.9 Gastro-esophageal reflux disease without esophagitis; R10.13 Epigastric pain | CPT/HCPCS: 99212 ==

== ENCOUNTER 2022-08-06 07:56 | Outpatient (REF) | payer MEDICARE, MEDICAID, SELFPAY ==
[2022-08-06 09:14] LABS: Free T4 (Free Thyroxine) 0.93 ng/dL (0.71-1.85); Thyroid Stimulating Hormone 3.82 uIU/mL (0.32-4.0)
[2022-08-08 12:39] LABS: Triiodothyronine T3 Total 64 ng/dL (76-181)
== END 2022-08-06 07:57 | disposition home or self-care (01) ==
LOC: HO.LAB 07:56
PROVIDERS: PCP Internal Medicine; Visit Provider Internal Medicine
DX: E03.9 Hypothyroidism, unspecified (principal)
CPT/HCPCS: 36415; 84439; 84443; 84480

== ENCOUNTER 2022-08-21 08:56 | Outpatient (REF) | payer MEDICARE, MEDICAID, SELFPAY ==
[2022-08-21 14:13] LABS: CT PCR NOT DETECTED (Not Detect.); NG PCR NOT DETECTED (Not Detect.)
== END 2022-08-21 08:57 | disposition home or self-care (01) ==
LOC: HO.LNP 08:56
PROVIDERS: PCP Internal Medicine; Visit Provider Advanced Practice Midwife
DX: Z30.430 Encounter for insertion of intrauterine contraceptive device (principal); Z20.2 Contact with and (suspected) exposure to infections with a predominantly sexual mode of transmission
CPT/HCPCS: 0353U; 58300; 81025; 99212; J7298

== ENCOUNTER → 2022-09-10 09:15 | Outpatient (BNVA) | payer MEDICARE, MEDICAID, SELFPAY | PROVIDERS: PCP Internal Medicine; Visit Provider Internal Medicine Rheumatology | DX: M79.7 Fibromyalgia (principal); M79.671 Pain in right foot; M79.672 Pain in left foot; M70.61 Trochanteric bursitis, right hip | CPT/HCPCS: 99212 ==

== ENCOUNTER 2022-09-11 07:40 | Outpatient (REF) | payer MEDICARE, MEDICAID, SELFPAY ==
--- NOTE | ~2022-09-11 | XR_ITS ---
EXAMINATION: XR foot LT min 3V, XR foot RT min 3V CLINICAL INFORMATION: None COMPARISON: None TECHNIQUE: 3 views of the bilateral feet FINDINGS: RIGHT FOOT: No fracture or dislocation. Mild hallux valgus deformity with soft tissue swelling overlying the medial first MTP joint and minimal associated degenerative change. No cortical erosion. No joint effusion. LEFT FOOT: No fracture or dislocation. Hallux valgus deformity with mild degenerative changes of the first metatarsophalangeal joint and soft tissue swelling along the medial aspect of the toe. No cortical erosion. No joint effusion. XR/XR foot LT min 3V IMPRESSION: 1. Bilateral hallux valgus deformity, left greater than right with mild degenerative changes of the first metatarsophalangeal joints and mild soft tissue swelling medial to the first MTP joints.
--- NOTE | ~2022-09-11 | XR_ITS ---
EXAMINATION: XR foot LT min 3V, XR foot RT min 3V CLINICAL INFORMATION: None COMPARISON: None TECHNIQUE: 3 views of the bilateral feet FINDINGS: RIGHT FOOT: No fracture or dislocation. Mild hallux valgus deformity with soft tissue swelling overlying the medial first MTP joint and minimal associated degenerative change. No cortical erosion. No joint effusion. LEFT FOOT: No fracture or dislocation. Hallux valgus deformity with mild degenerative changes of the first metatarsophalangeal joint and soft tissue swelling along the medial aspect of the toe. No cortical erosion. No joint effusion. XR/XR foot RT min 3V IMPRESSION: 1. Bilateral hallux valgus deformity, left greater than right with mild degenerative changes of the first metatarsophalangeal joints and mild soft tissue swelling medial to the first MTP joints.
== END 2022-09-11 07:41 | disposition home or self-care (01) ==
LOC: HO.XRAY 07:40
PROVIDERS: PCP Internal Medicine; Visit Provider Internal Medicine Rheumatology
DX: M79.671 Pain in right foot (principal); M79.672 Pain in left foot
CPT/HCPCS: 73630

== ENCOUNTER 2022-09-17 07:26 | Outpatient (REF) | payer MEDICARE, MEDICAID, SELFPAY | END 2022-09-17 07:27 | disposition home or self-care (01) | LOC: HO.LAB 07:26 | PROVIDERS: PCP Internal Medicine; Visit Provider Internal Medicine | DX: E03.9 Hypothyroidism, unspecified (principal) | CPT/HCPCS: 36415; 84439; 84443 ==

== ENCOUNTER 2022-10-01 10:06 | Outpatient (AMB) | payer MEDICARE, MEDICAID, SELFPAY ==
[2022-10-01 10:15] VITALS: BP 117/61; PULSE 69; BMI 29.9
--- NOTE | 2022-10-01 10:15 | A.OFFVIS_ITS ---
Intake Vital Signs 10/01/22 10:15 Height 5 ft 11 in Weight 214 lb 11.684 oz BMI 29.9 BP 117/61 Blood Pressure Location Lt brachial Position Sitting Pulse 69 Intake Visit Reasons: 8 weeks F/U Intake Note: Kayla presents in the office as a 8 week follow up. CC: She reports Creon's new dose has been helping when she eats. She states her BM get worse when she is in her period. She had IUD inserted on August 21 and had only one light period after that. Denies other GI symptoms. 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 Allergies adhesive tape Allergy (Mild, Verified 09/10/22 09:23) RASH ketorolac [From TORADOL] Allergy (Mild, Verified 09/10/22 09:23) HIVES latex [LATEX] Allergy (Mild, Verified 09/10/22 09:23) RASH oxycodone Allergy (Unknown, Verified 09/10/22 09:23) itching FRUIT Allergy (Intermediate, Uncoded 09/10/22 09:23) HIVES Adhesive Bandages Allergy (Unknown, Uncoded 09/10/22 09:23) rash, swelling adhesive tape Allergy (Unknown, Uncoded 09/10/22 09:23) hives apples, citrus, vegatables w s Allergy (Unknown, Uncoded 09/10/22 09:23) hives Ketorolac & Bupivacaine & Lido Allergy (Unknown, Uncoded 09/10/22 09:23) hives HPI 8 weeks F/U HPI Details Assessment & Plan (1) Irritable bowel syndrome with both constipation and diarrhea: ?Code(s): K58.2 - Mixed irritable bowel syndrome ?Plan: She is doing better with her bowel regularity, taking 2 senna qhs and at times 1 during the day - which is fine. She even had one week of daily BM s. But she still has trouble with lettuce and dairy products with loose stools. She may be dosed too low on the creon at 6,000, she is agreeable to increasing the dose. She also continues on dicyclomine, omeprazole and famotidine because if I wake up at noc with HB I can breath fire! The weeks of her menses really throws her bowels off with multiple BM's. ROV 8 weeks. (2) Epigastric pain: ?Code(s): R10.13 - Epigastric pain (3) Chronic GERD: ?Code(s): K21.9 - Gastro-esophageal reflux disease without esophagitis ? ? ? Medications: New blocua-grwlfnvx-gj ylase 24,000-76,00 0 -120,000 unit (Lesia peterson) ?? administe r with meals and/o r snacks 1 cap? PO QID 30 d ays 120 caps 6RF K58.9 - Irritable bowel syndrome wit hout diarrhea ? Changed From sennosides (senna) 17.2 mg (2 x 8.6 m g) PO BID PRN 120 tabs 6RF constipat ion K58.2 - Mixed irri table bowel syndro me ? To sennosides (senna) 25.8 mg (3 x 8.6 m g) PO BID PRN 120 tabs 6RF constipat ion K58.2 - Mixed irri table bowel syndro me ? From sennosides (senna) 25.8 mg (3 x 8.6 m g) PO BID PRN 120 tabs 6RF constipat ion K58.2 - Mixed irri table bowel syndro me ? To sennosides (senna) 25.8 mg (3 x 8.6 m g) PO BID 120 tabs 6RF constipation C K58.2 - Mixed irri table bowel syndro me ? Refilled famotidine 40 mg? PO BEDTIME 30 days 30 tabs 6R F ? ? omeprazole 20 mg? PO DAILY 30 caps 6RF ? ? dicyclomine 40 mg (2 x 20 mg) PO TID 30 days 180 tabs 6RF R10.9 - Unspecifie d abdominal pain ? Discontinued xuvxxt-flwycejo-iv ylase 6,000-19,000 -30,000 unit (Cre on) ?? do not exce ed 10,000 unit/kg lipase per 24 hrs ?? Discontinued Re ason:? Doctor's Or jerald 1 cap? PO .tidac 9 0 caps 6RF K58.2 - Mixed irri table bowel syndro me ? TODAY'S VISIT She has been very busy and fatigued running her children around for their summer activities. Her daughter is getting ready to go to college. She is having trouble titrating the senna, alt with CIC vs diarrhea after hard stools. She has taken 2 senna qhs and at times 1 qam. I think the senna may be too weak to allow complete 1 time bowel movement, we will try progressing to bisacodyl. She received the creon and this has helped with the overnight GERD and she is no longer breathing fire. She continues on her omeprazole, dicyclomine and famotidine. She just had an IUD placed for her severe menses cramps, this may help with the hormonal severe cramping and diarrhea. She has not been through a cycle to manager progressive care this now. ROV 3 mos [facility] Medical History (Updated 10/01/22 @ 10:24 by RIDGE Kevin) Abnormal thyroid stimulating hormone (TSH) level Asthma Cervical cancer screening Chest pain Constipation Constipation Eczema Elevated TSH Epigastric pain Fibromyalgia Goiter Heart murmur Hypothyroidism Ill feeling Knee pain Medicare annual wellness visit, initial Medicare annual wellness visit, subsequent Migraines Neck pain Patella francisco j Well woman exam with routine gynecological exam Surgical History H/O shoulder surgery History of appendectomy [place] teeth removed Family History Mother Graves disease Hypothyroidism Father CHF (congestive heart failure) Other Substance use disorder Social History Housing: Apartment Alcohol intake: never Patient Tobacco Use Status: Never used Tobacco e-Cigarette/Vaping Use: Never Used Second Hand Smoke Exposure: Yes (as a child only) service: No Current occupational status: disabled Sexual orientation: Straight/Heterosexual Gender identity: Female Cognitive needs: No Hearing needs: No Vision needs: Yes Female Reproductive History Menstrual Age of Menarche: 15 Review of Systems Const Denies fatigue, Denies fever(s), Denies night sweats, Denies poor appetite and Denies weight loss Eyes Details: glasses Reports requires corrective lenses ENT Reports Normal hearing present, Denies dental pain, Denies dysphagia, Denies hearing loss, Denies mouth pain, Denies odynophagia, Denies throat swelling, Denies tongue swelling and Reports other (Dentition adequate) Card Reports no additional complaints Resp Reports no additional complaints GI Denies abdominal pain, Denies melena, Reports bloating, Denies hematochezia, Reports constipation, Reports GI cramping, Denies dysphagia, Denies excessive flatus, Denies early satiety, Reports heartburn, Reports diarrhea, Denies nausea, Denies odynophagia, Denies vomiting and Denies hematemesis Skin/Breast Denies pruritus, Denies lesions, Denies rash and Denies jaundice Neuro Reports Normal hearing present and Denies Abnormal speech present Endo Denies fatigue Aller/Immun Denies throat swelling and Denies tongue swelling Physical Exam Vital Signs: Last Vital Signs Pulse 69 10/01/22 10:15 BP 117/61 10/01/22 10:15 BMI result Body Mass Index 29.9 Const General: cooperative, no acute distress, well developed and well groomed Nutritional Appearance: well nourished and overweight Orientation/consciousness: oriented to person, oriented to place and oriented to time Limitations: No language barrier HEENT Head: Yes normocephalic and Yes atraumatic Eyes General: appearance normal, both eyes and all related structures Pupils: Equal, round and reactive pupils present Neck Neck: Yes normal visual inspection and Yes no lymphadenopathy Thyroid: Thyroid normal Resp Effort & Inspection: normal respiratory effort and able to speak in complete sentences Auscultation: clear to auscultation bilaterally Cardio Rate: regular rate Rhythm: regular rhythm Heart sounds: Normal, physiologic split S2 sound present Peripheral pulses: radial pulses present and posterior tibial pulses present GI Inspection: No distended, No Abdominal panniculus present and Yes obesity Palpation (GI): Soft to palpation, nontender, no guarding, not rigid and No hepatosplenomegaly present Percussion: Yes normal to percussion Auscultation: normal bowel sounds Rectal Exam - Female: deferred Skin General skin exam: no rashes or lesions noted, turgor normal, skin not dry, no jaundice, No spider nevi and no striae Rashes: no rashes Nails: normal Neuro General: oriented to person, oriented to place and oriented to time Cranial nerves: Yes Equal, round and reactive pupils present and Yes Normal hearing present Speech: No Abnormal speech present Extrem General: Yes normal to inspection, No clubbing, No cyanosis and No edema Psych Appearance: grossly normal and well kempt Mental Status: mental status grossly normal Speech and movement: Normal speech and movement present Affect: normal affect Attitude: cooperative Thought process: Normal thought process present and not confabulating Thought content: Normal thought content present Insight: Fair insight present (Psych) Judgement: Fair judgement present (Psych) Assessment & Plan Assessment & Plan (1) Irritable bowel syndrome with both constipation and diarrhea: Code(s): K58.2 - Mixed irritable bowel syndrome Plan: She has been very busy and fatigued running her children around for their summer activities. Her daughter is getting ready to go to college. She is having trouble titrating the senna, alt with CIC vs diarrhea after hard s tools. She has taken 2 senna qhs and at times 1 qam. I think the senna may be too weak to allow complete 1 time bowel movement, we will try progressing to bisacodyl. She received the creon and this has helped with the overnight GERD and she is no longer breathing fire. She continues on her omeprazole, dicyclomine and famotidine. She just had an IUD placed for her severe menses cramps, this may help with the hormonal severe cramping and diarrhea. She has not been through a cycle to manager progressive care this now. ROV 3 mos (2) Epigastric discomfort: Code(s): R10.13 - Epigastric pain (3) Chronic GERD: Code(s): K21.9 - Gastro-esophageal reflux disease without esophagitis (4) Lactose intolerance: Code(s): E73.9 - Lactose intolerance, unspecified (5) Multiple food allergies: Code(s): Z91.018 - Allergy to other foods Medications: New bisacodyl (Dulcolax (bisacodyl)) 10 mg (2 x 5 mg) PO BEDTIME 30 days 60 tabs 3RF K58.2 - Mixed irritable bowel syndrome On Hold sennosides (senna) Hold Comment: Doctor's Order 25.8 mg (3 x 8.6 mg) PO BID 120 tabs 6RF constipation K58.2 - Mixed irritable bowel syndrome Coding Level of Care Code Est Pt Level 3 (89096) Diagnoses Irritable bowel syndrome with both constipation and diarrhea K58.2 Epigastric discomfort R10.13 Chronic GERD K21.9 Lactose intolerance E73.9 Multiple food allergies Z91.018
== END 2022-10-01 10:43 | disposition home or self-care (01) ==
PROVIDERS: PCP Internal Medicine; Visit Provider Nurse Practitioner
DX: K58.2 Mixed irritable bowel syndrome (principal); R10.13 Epigastric pain; K21.9 Gastro-esophageal reflux disease without esophagitis; E73.9 Lactose intolerance, unspecified; Z91.018 Allergy to other foods
CPT/HCPCS: 99213

== ENCOUNTER → 2022-10-01 10:06 | Outpatient (BNVA) | payer MEDICARE, MEDICAID, SELFPAY | PROVIDERS: PCP Internal Medicine; Visit Provider Nurse Practitioner | DX: K58.2 Mixed irritable bowel syndrome (principal); R10.13 Epigastric pain; K21.9 Gastro-esophageal reflux disease without esophagitis; E73.9 Lactose intolerance, unspecified; Z91.018 Allergy to other foods | CPT/HCPCS: 99212 ==

== ENCOUNTER 2022-10-08 10:41 | Outpatient (AMB) | payer MEDICARE, MEDICAID, SELFPAY ==
--- NOTE | 2022-10-08 10:42 | A.OFFVIS_ITS ---
Intake Intake Visit Reasons: F/U Hypothyroidism, needs 30 minutes Allergies adhesive tape Allergy (Mild, Verified 10/08/22 12:17) RASH ketorolac [From TORADOL] Allergy (Mild, Verified 10/08/22 12:17) HIVES latex [LATEX] Allergy (Mild, Verified 10/08/22 12:17) RASH oxycodone Allergy (Unknown, Verified 10/08/22 12:17) itching FRUIT Allergy (Intermediate, Uncoded 10/08/22 12:17) HIVES Adhesive Bandages Allergy (Unknown, Uncoded 10/08/22 12:17) rash, swelling adhesive tape Allergy (Unknown, Uncoded 10/08/22 12:17) hives apples, citrus, vegatables w s Allergy (Unknown, Uncoded 10/08/22 12:17) hives Ketorolac & Bupivacaine & Lido Allergy (Unknown, Uncoded 10/08/22 12:17) hives Medication List - Last Reconciled 10/08/22 by Pastora Mobley DO acetaminophen-codeine 300-30 mg 1 tab PO BID PRN albuterol sulfate 90 mcg/actuation (Ventolin HFA) 1 inh inhalation QID PRN 30 days amitriptyline 25 mg PO BEDTIME azelastine intranasal betamethasone, augmented 0.05 % topical bisacodyl (Dulcolax (bisacodyl)) 10 mg (2 x 5 mg) PO BEDTIME 30 days dicyclomine 40 mg (2 x 20 mg) PO TID 30 days diphenhydramine HCl (Benadryl Allergy) 25 mg PO BID epinephrine IM famotidine 40 mg PO BEDTIME 30 days fluticasone furoate-vilanterol 100-25 mcg/dose (Breo Ellipta) 1 inh inhalation DAILY 60 days [IB Guard 1 cap PO .qac] levothyroxine (Synthroid) 125 mcg PO DAILY 30 days vvklwb-mvugcrtw-tdickhg 24,000-76,000 -120,000 unit (Creon) 1 cap PO QID 30 days omeprazole 20 mg PO DAILY ondansetron HCl 8 mg PO ONCE PRN 30 days sennosides (senna) 25.8 mg (3 x 8.6 mg) PO BID sodium chloride 0.65% (Saline Nasal) 1 spray intranasal BID PRN 4 days topiramate (Topamax) 50 mg PO BID valacyclovir 2,000 mg PO BID HPI HPI Comments History of Present Illness Details 37 YO Female with a PMHx of hypothyroidism who is seen in F/U. Patient developed hyperthyroidism shortly after delivery of her daughter 18 years ago. This then progressed to hypothyroidism, and it was thought she developed thyroiditis which then progressed. She was started on levothyroxine 112 mcg PO daily and has continued on this usp. In late May 2022 labs were checked routinely and this revealed hypothyroidism with TSH of 12. Labs were repeated 1 week later, and TSH had declined to 5. Labs were repeated 1-2 weeks later and were WNL with TSH of 2.84. She does report multiple symptoms such as fatigue, hyperactivity, insomnia, as well as hair loss. She also reports night sweats. She also reports hoarseness of voice. CT of the neck revealed a small thyroid. Thyroid antibodies were assessed, with elevated TPO and TSI antibodies. Mom has a history of Grave's disease, but otherwise no other family members with thyroid disease. CT Neck: 07/14/2022 FINDINGS: The thyroid gland is small. Note nodule is appreciated. There is diffuse shotty cervical lymphadenopathy. No enlarged cervical lymph nodes. There is mild soft tissue opacification of the sphenoid sinus. There is minimal soft tissue opacification of the left frontal and bilateral ethmoid sinuses. The maxillary sinuses, mastoid air cells and middle ear are clear. Visualized intracranial structures are normal. The visualized orbits are normal. The temporomandibular joints are normal. The naso, parker-and hypopharynx and larynx are normal. The salivary glands are normal. The superior mediastinum is normal. Visualized lung apices are clear. Bony structures are normal. CT/CT soft tissue neck wo IV con IMPRESSION: Small thyroid gland. No thyroid nodule appreciated by CT. Diffuse shotty cervical lymphadenopathy. Mild sinus disease, greatest in the sphenoid sinus. Labs: Laboratory Tests 06/25/22 09/17/22 13:53 07:34 TSH 5.35 H Free T4 0.89 Thyroid Stim Immun oglob 160 H Thyroglobulin Anti body 1 Thyroid Peroxidase Ab 470 H TSH Receptor Ab 1.06 [facility] Medical History Abnormal thyroid stimulating hormone (TSH) level Asthma Cervical cancer screening Chest pain Constipation Constipation Eczema Elevated TSH Epigastric pain Fibromyalgia Goiter Heart murmur Hypothyroidism Ill feeling Knee pain Medicare annual wellness visit, initial Medicare annual wellness visit, subsequent Migraines Neck pain Patella francisco j Well woman exam with routine gynecological exam Surgical History H/O shoulder surgery History of appendectomy [place] teeth removed Family History Mother Graves disease Hypothyroidism Father CHF (congestive heart failure) Other Substance use disorder Social History Housing: Apartment Alcohol intake: never Patient Tobacco Use Status: Never used Tobacco e-Cigarette/Vaping Use: Never Used Second Hand Smoke Exposure: Yes (as a child only) service: No Current occupational status: disabled Sexual orientation: Straight/Heterosexual Gender identity: Female Cognitive needs: No Hearing needs: No Vision needs: Yes Female Reproductive History Menstrual Age of Menarche: 15 Assessment & Plan Assessment & Plan (1) Hypothyroidism: Code(s): E03.9 - Hypothyroidism, unspecified Plan: Patient with a history of hypothyroidism. She has a adeline-grave's picture which is leading to frequent fluctuations in her thyroid function depending on which antibodies are dominant. We did increase her levothyroxine to 125 mcg PO daily as labs revealed hypothyroidism. Will repeat levels in 6 weeks and I will call her with results. She will then F/U in 3 months time. All questions were answered. She is in agreement with this plan of care. I spent 20 minutes in reviewing the record, seeing the patient and documenting in the medical record, including 5 minutes on the phone with the Patient. Telehealth Telehealth Location of provider rendering services: practice address Location of patient: address on file Patient Identification confirmed using: Name, : Yes Telehealth method: voice only Patient verbally consented to treatment: Yes Patient verbally consented to billing insurance company: Yes Patient informed of any privacy concerns related to visit: Yes Coding Level of Care Code Tele Est Pt Level 3 (21523) Diagnoses Hypothyroidism E03.9
== END 2022-10-08 13:04 | disposition home or self-care (01) ==
LOC: HO.ENCR 10:41
PROVIDERS: PCP Internal Medicine; Visit Provider Internal Medicine
DX: E03.9 Hypothyroidism, unspecified (principal)
CPT/HCPCS: 99441

== ENCOUNTER → 2022-10-08 10:41 | Outpatient (BNVA) | payer MEDICARE, MEDICAID, SELFPAY | PROVIDERS: PCP Internal Medicine; Visit Provider Internal Medicine ==

== ENCOUNTER 2022-10-14 07:31 | Outpatient (REF) | payer MEDICARE, MEDICAID, SELFPAY ==
--- NOTE | ~2022-10-14 | XR_ITS ---
EXAMINATION: XR RIGHT HIP WITH AP PELVIS CLINICAL INFORMATION: Pain in unspecified hip COMPARISON: None available. TECHNIQUE: AP view of the pelvis and single views of each hip were obtained. FINDINGS: No fracture. Hip joint spaces are maintained. Alignment is anatomic. Sacroiliac joints and pubic symphysis are normal. No abnormal soft tissue calcifications. A T-shaped IUD is seen in the center the pelvis. A few surgical clips are seen in the right side of the abdomen and pelvis XR/XR hip RT w PEL1V IMPRESSION: No bony abnormality.
== END 2022-10-14 07:32 | disposition home or self-care (01) ==
LOC: HO.HOSX 07:31
PROVIDERS: Visit Provider Physician Assistant
DX: M70.61 Trochanteric bursitis, right hip (principal)
CPT/HCPCS: 73502; 99202

== ENCOUNTER 2022-10-14 11:26 | Outpatient (AMB) | payer MEDICARE, MEDICAID, SELFPAY ==
[2022-10-14 11:30] VITALS: BMI 29.8
--- NOTE | 2022-10-14 11:30 | A.OFFVIS_ITS ---
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 Hx of PT/home exercises with mild relief. No Hx of injection. Patient reports having ongoing pain for many years. She states that her pain is mostly located on the lateral aspect of her right hip but can occasionally radiate into the groin area. She states that she is unable to sleep at night due to having a burning sensation in her hip when she lays on that area. The patient states that she does spend a fair amount of time on the floor at home playing with her 8-year-old son. Allergies adhesive tape Allergy (Mild, Verified 10/14/22 11:33) RASH ketorolac [From TORADOL] Allergy (Mild, Verified 10/14/22 11:33) HIVES latex [LATEX] Allergy (Mild, Verified 10/14/22 11:33) RASH oxycodone Allergy (Unknown, Verified 10/14/22 11:33) itching FRUIT Allergy (Intermediate, Uncoded 10/08/22 12:17) HIVES Adhesive Bandages Allergy (Unknown, Uncoded 10/08/22 12:17) rash, swelling adhesive tape Allergy (Unknown, Uncoded 10/08/22 12:17) hives apples, citrus, vegatables w s Allergy (Unknown, Uncoded 10/08/22 12:17) hives Ketorolac & Bupivacaine & Lido Allergy (Unknown, Uncoded 10/08/22 12:17) hives ON LICENSE OF [facility] Medical History Abnormal thyroid stimulating hormone (TSH) level Asthma Cervical cancer screening Chest pain Constipation Constipation Eczema Elevated TSH Epigastric pain Fibromyalgia Goiter Heart murmur Hypothyroidism Ill feeling Knee pain Medicare annual wellness visit, initial Medicare annual wellness visit, subsequent Migraines Neck pain Patella francisco j Well woman exam with routine gynecological exam Surgical History H/O shoulder surgery History of appendectomy [place] teeth removed Family History Mother Graves disease Hypothyroidism Father CHF (congestive heart failure) Other Substance use disorder Social History Housing: Apartment Alcohol intake: never Patient Tobacco Use Status: Never used Tobacco e-Cigarette/Vaping Use: Never Used Second Hand Smoke Exposure: Yes (as a child only) service: No Current occupational status: disabled Sexual orientation: Straight/Heterosexual Gender identity: Female Cognitive needs: No Hearing needs: No Vision needs: Yes Female Reproductive History Menstrual Age of Menarche: 15 Physical Exam Vital Signs: BMI result Body Mass Index 29.8 Const Other: Well-nourished well-developed very friendly female awake alert and oriented x3 in no acute distress Extrem Other: Bilateral lower extremity examination shows good capillary refill, no skin lesions noted, normal sensation light touch Right hip examination shows decreased range of motion when compared to her left hip, minimal discomfort with range of motion, tenderness over her bursa, no overlying skin lesions Results Reviewed Results Reviewed: X-rays of the patient's right hip taken today show mild diffuse joint space narrowing, no acute bony abnormalities Assessment & Plan Assessment & Plan (1) Trochanteric bursitis of right hip: Code(s): M70.61 - Trochanteric bursitis, right hip Plan Ms. Ortega presents with right hip pain most likely due to greater trochanteric bursitis. I had a lengthy discussion with the patient regarding the treatment options. I did give her a prescription for a Medrol Dosepak. We will hold off on a cortisone injection for now. She will continue with her home stretching program. She will follow up with me on an as-needed basis should her symptoms not plateau at an unacceptable level over the next few weeks. At that time we will further discuss the risks and benefits of a cortisone injection. If she fails continued non operative treatments I will order an MRI of her right hip to rule out avascular necrosis of her femoral head. Feel free to call me at any time should questions regarding her orthopedic management arise. Thank you very much for asking me to see this very friendly patient. Orders: Orders XR hip RT w [id number] Today M25.559 - Pain in unspecified hip Darwin-Shelly Jones PA-C XR hip RT min 2V Today M25.551 - Pain in right hip Isai Driver MD Medications: New methylprednisolone (Medrol (Jayy)) PO PER PKG DIR 21 ea 0RF Isai Driver MD Coding Level of Care Code New Pt Level 2 (60831) Diagnoses Trochanteric bursitis of right hip M70.61
== END 2022-10-14 12:23 | disposition home or self-care (01) ==
PROVIDERS: PCP Internal Medicine; Visit Provider Orthopaedic Surgery
DX: M70.61 Trochanteric bursitis, right hip (principal)
CPT/HCPCS: 99202

== ENCOUNTER 2022-11-10 07:02 | Outpatient (REF) | payer MEDICARE, MEDICAID, SELFPAY ==
[2022-11-10 07:57] LABS: Free T4 (Free Thyroxine) 0.89 ng/dL (0.71-1.85); Thyroid Stimulating Hormone 2.76 uIU/mL (0.32-4.0)
== END 2022-11-10 07:03 | disposition home or self-care (01) ==
LOC: HO.LAB 07:02
PROVIDERS: PCP Internal Medicine; Visit Provider Internal Medicine
DX: E03.8 Other specified hypothyroidism (principal)
CPT/HCPCS: 36415; 84439; 84443

== ENCOUNTER 2022-11-11 08:46 | Outpatient (AMB) | payer MEDICARE, MEDICAID, SELFPAY ==
--- NOTE | 2022-11-11 08:47 | MHC.OFFVIS ---
Intake Vital Signs 11/11/22 08:50 Height 5 ft 11 in Weight 214 lb BMI 29.8 Intake Visit Reasons: Right Hip Intake Note: Kayla is a 37 year old female who presents today for a follow up for her right hip pain. She describes her hip pain as severe and sharp in nature. Most of her pain is along the anterior and lateral aspects of her hip. She has tried Tylenol, anti-inflammatory medicines as well as a Medrol Dosepak which gave her only temporary relief. The patient has done physical therapy for 12 weeks over the last 6 months which aggravated her pain. She has had injections in the past which gave her minimal relief. Allergies adhesive tape Allergy (Mild, Verified 11/11/22 08:49) RASH ketorolac [From TORADOL] Allergy (Mild, Verified 11/11/22 08:49) HIVES latex [LATEX] Allergy (Mild, Verified 11/11/22 08:49) RASH oxycodone Allergy (Unknown, Verified 11/11/22 08:49) itching FRUIT Allergy (Intermediate, Uncoded 10/08/22 12:17) HIVES Adhesive Bandages Allergy (Unknown, Uncoded 10/08/22 12:17) rash, swelling adhesive tape Allergy (Unknown, Uncoded 10/08/22 12:17) hives apples, citrus, vegatables w s Allergy (Unknown, Uncoded 10/08/22 12:17) hives Ketorolac & Bupivacaine & Lido Allergy (Unknown, Uncoded 10/08/22 12:17) hives Medication List - Last Reconciled 11/11/22 by Isai Driver MD acetaminophen-codeine 300-30 mg 1 tab PO BID PRN albuterol sulfate 90 mcg/actuation (Ventolin HFA) 1 inh inhalation QID PRN 30 days amitriptyline 25 mg PO BEDTIME azelastine intranasal betamethasone, augmented 0.05 % topical bisacodyl (Dulcolax (bisacodyl)) 10 mg (2 x 5 mg) PO BEDTIME 30 days dicyclomine 40 mg (2 x 20 mg) PO TID 30 days diphenhydramine HCl (Benadryl Allergy) 25 mg PO BID epinephrine IM famotidine 40 mg PO BEDTIME 30 days fluticasone furoate-vilanterol 100-25 mcg/dose (Breo Ellipta) 1 inh inhalation DAILY 60 days [IB Guard 1 cap PO .qac] levothyroxine (Synthroid) 125 mcg PO DAILY 30 days [id number] 24,000-76,000 -120,000 unit (Creon) 1 cap PO QID 30 days methylprednisolone (Medrol (Jayy)) PO PER PKG DIR omeprazole 20 mg PO DAILY ondansetron HCl 8 mg PO ONCE PRN 30 days sennosides (senna) 25.8 mg (3 x 8.6 mg) PO BID sodium chloride 0.65% (Saline Nasal) 1 spray intranasal BID PRN 4 days topiramate (Topamax) 50 mg PO BID valacyclovir 2,000 mg PO BID PFSH Medical History Abnormal thyroid stimulating hormone (TSH) level Asthma Cervical cancer screening Chest pain Constipation Constipation Eczema Elevated TSH Epigastric pain Fibromyalgia Goiter Heart murmur Hypothyroidism Ill feeling Knee pain Medicare annual wellness visit, initial Medicare annual wellness visit, subsequent Migraines Neck pain Patella francisco j Well woman exam with routine gynecological exam Surgical History H/O shoulder surgery History of appendectomy [place] teeth removed Family History Mother Graves disease Hypothyroidism Father CHF (congestive heart failure) Other Substance use disorder Social History Housing: Apartment Alcohol intake: never Patient Tobacco Use Status: Never used Tobacco e-Cigarette/Vaping Use: Never Used Second Hand Smoke Exposure: Yes (as a child only) service: No Current occupational status: disabled Sexual orientation: Straight/Heterosexual Gender identity: Female Cognitive needs: No Hearing needs: No Vision needs: Yes Female Reproductive History Menstrual Age of Menarche: 15 Physical Exam Vital Signs: BMI result Body Mass Index 29.8 Const Other: Well-nourished well-developed very friendly female awake alert and oriented x3 in no acute distress Extrem Other: Bilateral lower extremity examination shows good capillary refill, no skin lesions noted, normal sensation light touch Right hip examination shows decreased range of motion when compared to her left hip, pain with range of motion, increased pain with forward flexion and internal rotation, mild tenderness to palpation over her greater trochanteric bursa, no overlying skin lesions Results Reviewed Results Reviewed: X-rays of the patient's right hip show mild diffuse joint space narrowing, no acute bony abnormalities Assessment & Plan Assessment & Plan (1) Acetabular labrum tear: Code(s): S73.199A - Other sprain of unspecified hip, initial encounter Plan: Ms. Ortega presents with progressively worsening right hip pain most likely due to an acetabular labral tear. Thus, I will send her for an MRI arthrogram of her right hip. I will contact her by phone once the MRI results are available. She will continue with her activity modifications in the meantime. Feel free to call me at any time should questions regarding her orthopedic management arise. I spent 22 minutes in reviewing the patient's records and imaging studies, seeing the patient and documenting in the medical record. Orders: Orders MR hip RT wo/w con Today S73.199A - Other sprain of unspecified hip, initial encounter [place] arthrogram hip RT Today S73.199A - Other sprain of unspecified hip, initial encounter Coding Level of Care Code Est Pt Level 2 (36882) Diagnoses Acetabular labrum tear S73.199A
[2022-11-11 08:50] VITALS: BMI 29.8
== END 2022-11-11 09:11 | disposition home or self-care (01) ==
PROVIDERS: PCP Internal Medicine; Visit Provider Orthopaedic Surgery
DX: S73.199A Other sprain of unspecified hip, initial encounter (principal)
CPT/HCPCS: 99212

== ENCOUNTER → 2022-11-11 08:46 | Outpatient (BNVA) | payer MEDICARE, MEDICAID, SELFPAY | PROVIDERS: PCP Internal Medicine; Visit Provider Orthopaedic Surgery | DX: S73.191A Other sprain of right hip, initial encounter (principal) | CPT/HCPCS: 99212 ==

== ENCOUNTER 2022-11-19 10:35 | Outpatient (AMB) | payer MEDICARE, MEDICAID, SELFPAY ==
--- NOTE | 2022-11-19 10:37 | A.OFFVIS_ITS ---
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 ([place]) Allergies adhesive tape Allergy (Mild, Verified 11/19/22 10:41) RASH ketorolac [From TORADOL] Allergy (Mild, Verified 11/19/22 10:41) HIVES latex [LATEX] Allergy (Mild, Verified 11/19/22 10:41) RASH oxycodone Allergy (Unknown, Verified 11/19/22 10:41) itching FRUIT Allergy (Intermediate, Uncoded 10/08/22 12:17) HIVES Adhesive Bandages Allergy (Unknown, Uncoded 10/08/22 12:17) rash, swelling adhesive tape Allergy (Unknown, Uncoded 10/08/22 12:17) hives apples, citrus, vegatables w s Allergy (Unknown, Uncoded 10/08/22 12:17) hives Ketorolac & Bupivacaine & Lido Allergy (Unknown, Uncoded 10/08/22 12:17) hives Medication List - Last Reconciled 11/19/22 by Kayy Gross CNM acetaminophen-codeine 300-30 mg 1 tab PO BID PRN albuterol sulfate 90 mcg/actuation (Ventolin HFA) 1 inh inhalation QID PRN 30 days amitriptyline 25 mg PO BEDTIME azelastine intranasal betamethasone, augmented 0.05 % topical bisacodyl (Dulcolax (bisacodyl)) 10 mg (2 x 5 mg) PO BEDTIME 30 days dicyclomine 40 mg (2 x 20 mg) PO TID 30 days diphenhydramine HCl (Benadryl Allergy) 25 mg PO BID epinephrine IM famotidine 40 mg PO BEDTIME 30 days fluticasone furoate-vilanterol 100-25 mcg/dose (Breo Ellipta) 1 inh inhalation DAILY 60 days [IB Guard 1 cap PO .qac] levonorgestrel (Mirena) intrauterine levothyroxine (Synthroid) 125 mcg PO DAILY 30 days knhqit-ggtxleco-howoqri 24,000-76,000 -120,000 unit (Creon) 1 cap PO QID 30 days omeprazole 20 mg PO DAILY ondansetron HCl 8 mg PO ONCE PRN 30 days sennosides (senna) 25.8 mg (3 x 8.6 mg) PO BID sodium chloride 0.65% (Saline Nasal) 1 spray intranasal BID PRN 4 days topiramate (Topamax) 50 mg PO BID valacyclovir 2,000 mg PO BID Is last menstrual period known: Yes (bled for 16 days) Last menstrual period: 10/20/22 HPI iud check HPI Details Patient is here for an IUD check she had her IUD inserted August 21. She had some spotting from October 20 to about the and she did have sharp issue little pain on her left side around the 17 see the teen. The spotting was around the time she would have expected her menses but it just lasted longer. She has not had any difficulty with the Mirena. [facility] Medical History Abnormal thyroid stimulating hormone (TSH) level Asthma Cervical cancer screening Chest pain Constipation Constipation Eczema Elevated TSH Epigastric pain Fibromyalgia Goiter Heart murmur Hypothyroidism Ill feeling Knee pain Medicare annual wellness visit, initial Medicare annual wellness visit, subsequent Migraines Neck pain Patella francisco j Well woman exam with routine gynecological exam Surgical History H/O shoulder surgery History of appendectomy [place] teeth removed Family History Mother Graves disease Hypothyroidism Father CHF (congestive heart failure) Other Substance use disorder Social History Housing: Apartment Alcohol intake: never Patient Tobacco Use Status: Never used Tobacco e-Cigarette/Vaping Use: Never Used Second Hand Smoke Exposure: Yes (as a child only) service: No Current occupational status: disabled Sexual orientation: Straight/Heterosexual Gender identity: Female Cognitive needs: No Hearing needs: No Vision needs: Yes Female Reproductive History Menstrual Age of Menarche: 15 Date of last menstrual period: 10/20/22 control method: progestin IUCD (Mirena 08/21/22) Physical Exam Vital Signs: BMI result Body Mass Index 29.8 Other: Cervix multiparous pink healthy clear mucus Mirena string visible no abnormal discharge. External Female Exam: normal external appearance and normal appearance of the urethra Speculum Exam - Vagina: normal appearance of the vagina and normal vaginal discharge Speculum Exam - Cervix: normal appearance of the cervix and Cervical os closed Assessment & Plan Assessment & Plan (1) History of irregular menstrual cycles: Code(s): Z87.42 - Personal history of other diseases of the female genital tract (2) Presence of 52 mg levonorgestrel-releasing intrauterine device (IUD): Code(s): Z97.5 - Presence of (intrauterine) contraceptive device Plan Reviewed the side effects of the Mirena and what she seems to be experiencing sounds in line with what is the usual to be expected. She she will keep an eye on any other untoward symptoms that might happen and call us for any problems but otherwise can see her in a year for her annual exam which she has already scheduled. She is a [id number] mom been doing very well and her daughter has just started college at [employer] and is in close contact with her which is very reassuring. Discussed her excellent self-care and stretching. RTC next year. Coding Level of Care Code Est Pt Level 3 (46477) Diagnoses History of irregular menstrual cycles Z87.42 Presence of 52 mg levonorgestrel-releasing intrauterine device (IUD) Z97.5
[2022-11-19 10:40] VITALS: BP 126/82; BMI 29.8
== END 2022-11-19 11:05 | disposition home or self-care (01) ==
PROVIDERS: PCP Internal Medicine; Visit Provider Advanced Practice Midwife
DX: Z87.42 Personal history of other diseases of the female genital tract (principal); Z97.5 Presence of (intrauterine) contraceptive device
CPT/HCPCS: 99213

== ENCOUNTER → 2022-11-19 10:35 | Outpatient (BNVA) | payer MEDICARE, MEDICAID, SELFPAY | PROVIDERS: PCP Internal Medicine; Visit Provider Advanced Practice Midwife | DX: Z97.5 Presence of (intrauterine) contraceptive device (principal); Z87.42 Personal history of other diseases of the female genital tract | CPT/HCPCS: 99212 ==

== ENCOUNTER 2022-12-01 08:45 | Outpatient (AMB) | payer MEDICARE, MEDICAID, SELFPAY ==
--- NOTE | 2022-12-01 08:56 | MHC.OFFVIS ---
Intake Vital Signs 12/01/22 08:57 Height 5 ft 11 in Weight 214 lb BMI 29.8 Intake Visit Reasons: OV - MRI review, right hip Intake Note: Kayla is a 37 year old female who presents today for a follow up for her right hip pain. She describes her hip pain as severe and sharp in nature. Most of her pain is along the anterior and lateral aspects of her hip. She has tried Tylenol, anti-inflammatory medicines as well as a Medrol Dosepak which gave her only temporary relief. The patient has done physical therapy for 12 weeks over the last 6 months which aggravated her pain. She has had injections in the past which gave her minimal relief. Allergies adhesive tape Allergy (Mild, Verified 12/01/22 08:57) RASH ketorolac [From TORADOL] Allergy (Mild, Verified 12/01/22 08:57) HIVES latex [LATEX] Allergy (Mild, Verified 12/01/22 08:57) RASH oxycodone Allergy (Unknown, Verified 12/01/22 08:57) itching FRUIT Allergy (Intermediate, Uncoded 12/01/22 08:57) HIVES Adhesive Bandages Allergy (Unknown, Uncoded 12/01/22 08:57) rash, swelling adhesive tape Allergy (Unknown, Uncoded 12/01/22 08:57) hives apples, citrus, vegatables w s Allergy (Unknown, Uncoded 12/01/22 08:57) hives Ketorolac & Bupivacaine & Lido Allergy (Unknown, Uncoded 12/01/22 08:57) hives [facility] Medical History Abnormal thyroid stimulating hormone (TSH) level Asthma Cervical cancer screening Chest pain Constipation Constipation Eczema Elevated TSH Epigastric pain Fibromyalgia Goiter Heart murmur Hypothyroidism Ill feeling Knee pain Medicare annual wellness visit, initial Medicare annual wellness visit, subsequent Migraines Neck pain Patella francisco j Well woman exam with routine gynecological exam Surgical History H/O shoulder surgery [place] teeth removed History of appendectomy Family History Mother Graves disease Hypothyroidism Father CHF (congestive heart failure) Other Substance use disorder Social History Housing: Apartment Alcohol intake: never Patient Tobacco Use Status: Never used Tobacco e-Cigarette/Vaping Use: Never Used Second Hand Smoke Exposure: Yes (as a child only) service: No Current occupational status: disabled Sexual orientation: Straight/Heterosexual Gender identity: Female Cognitive needs: No Hearing needs: No Vision needs: Yes Female Reproductive History Menstrual Age of Menarche: 15 Physical Exam Vital Signs: BMI result Body Mass Index 29.8 Const Other: Well-nourished well-developed very friendly female awake alert and oriented x3 in no acute distress Extrem Other: Bilateral lower extremity examination shows good capillary refill, no skin lesions noted, normal sensation light touch Right hip examination shows decreased range of motion when compared to left hip, pain with range of motion, minimal tenderness over her bursa, increased pain with right hip forward flexion and internal rotation Results Reviewed Results Reviewed: MRI arthrogram of the patient's right hip shows a small tear in the anterior labrum, no evidence of acute bony abnormality or avascular necrosis Assessment & Plan Assessment & Plan (1) Acetabular labrum tear: Code(s): S73.199A - Other sprain of unspecified hip, initial encounter Plan: Ms. Ortega presents with right hip pain most likely due to an anterior labral tear. I had a lengthy discussion with the patient regarding the treatment options. At this point she appears to be failing continued non operative treatments. She may be a candidate for right hip arthroscopic surgery. I did give her the contact information for to orthopedic surgeons to perform this type of surgery. She will contact our offices to make a follow-up appointment. She will follow up with me on an as-needed basis. Feel free to call me at any time should questions regarding her orthopedic management arise. I spent 22 minutes in reviewing the patient's records and imaging studies, seeing the patient and documenting in the medical record. Coding Level of Care Code Est Pt Level 2 (02470) Diagnoses Acetabular labrum tear S73.199A
[2022-12-01 08:57] VITALS: BMI 29.8
== END 2022-12-01 09:23 | disposition home or self-care (01) ==
PROVIDERS: PCP Internal Medicine; Visit Provider Orthopaedic Surgery
DX: S73.199A Other sprain of unspecified hip, initial encounter (principal)
CPT/HCPCS: 99212

== ENCOUNTER → 2022-12-01 08:45 | Outpatient (BNVA) | payer MEDICARE, MEDICAID, SELFPAY | PROVIDERS: PCP Internal Medicine; Visit Provider Orthopaedic Surgery | DX: M25.551 Pain in right hip (principal); S73.191A Other sprain of right hip, initial encounter; X58.XXXA Exposure to other specified factors, initial encounter; Y93.9 Activity, unspecified; Y92.9 Unspecified place or not applicable; Y99.8 Other external cause status | CPT/HCPCS: 99212 ==

== ENCOUNTER 2023-01-19 14:44 | Outpatient (AMB) | payer MEDICARE, MEDICAID, SELFPAY ==
[2023-01-19 14:45] VITALS: BP 128/76; PULSE 77; O2SAT 99; BMI 32.0
--- NOTE | 2023-01-19 14:45 | A.OFFPC_ITS ---
Vital Signs 01/19/23 14:45 Height 5 ft 11 in Weight 229 lb 4 oz BMI 32.0 BP 128/76 Blood Pressure Location Rt brachial Position Sitting Pulse 77 Pulse Source Pulse Oximeter Pulse Oximetry (%) 99 Oxygen Delivery Method Room Air Intake Visit Reasons: Flutters In Chest~ Allergies adhesive tape Allergy (Mild, Verified 01/19/23 14:45) RASH ketorolac [From TORADOL] Allergy (Mild, Verified 01/19/23 14:45) HIVES latex [LATEX] Allergy (Mild, Verified 01/19/23 14:45) RASH oxycodone Allergy (Unknown, Verified 01/19/23 14:45) itching FRUIT Allergy (Intermediate, Uncoded 12/01/22 08:57) HIVES Adhesive Bandages Allergy (Unknown, Uncoded 12/01/22 08:57) rash, swelling adhesive tape Allergy (Unknown, Uncoded 12/01/22 08:57) hives apples, citrus, vegatables w s Allergy (Unknown, Uncoded 12/01/22 08:57) hives Ketorolac & Bupivacaine & Lido Allergy (Unknown, Uncoded 12/01/22 08:57) hives Medication List - Last Reconciled 01/19/23 by Karen Broussard MD acetaminophen-codeine 300-30 mg 1 tab PO BID PRN albuterol sulfate 90 mcg/actuation (Ventolin HFA) 1 inh inhalation QID PRN 30 days amitriptyline 25 mg PO BEDTIME azelastine intranasal betamethasone, augmented 0.05 % topical bisacodyl (Dulcolax (bisacodyl)) 10 mg (2 x 5 mg) PO BEDTIME 30 days dicyclomine 40 mg (2 x 20 mg) PO TID 30 days diphenhydramine HCl (Benadryl Allergy) 25 mg PO BID epinephrine IM famotidine 40 mg PO BEDTIME 30 days fluticasone furoate-vilanterol 100-25 mcg/dose (Breo Ellipta) 1 inh inhalation DAILY 60 days levonorgestrel (Mirena) intrauterine yohair-ekutewmn-gvyymdw 24,000-76,000 -120,000 unit (Creon) 1 cap PO QID 30 days omeprazole 20 mg PO DAILY ondansetron HCl 8 mg PO ONCE PRN 30 days sennosides (senna) 25.8 mg (3 x 8.6 mg) PO BID sodium chloride 0.65% (Saline Nasal) 1 spray intranasal BID PRN 4 days Synthroid (levothyroxine) 125 mcg PO DAILY NS topiramate (Topamax) 50 mg PO BID valacyclovir 1,000 mg PO BID Tobacco use date assessed: 01/19/23 Dental Screening Dental Screen Date: 01/19/23 Did you have a dental visit in the last 12 months?: Yes Did you have a dental problem in the last 6 months where you did not have access to dental care?: No Was dental information given to patient?: Patient has dentist HPI Flutters In Chest~ HPI Details Patient is a 37-year-old female came in today to be evaluated for fluttering/palpitations patient is having for the past 10 days Patient says that she has had palpitations before but this time they are different When it happened, she loses her breath and feels pain but they only last for few seconds In between she is fine We did the EKG today which shows normal sinus rhythm 74 beats per minute R are better in in lead 3 and aVL I have ordered a Holter monitor for the patient And she will be seeing cardiology for further evaluation [facility] Medical History Goiter Elevated TSH Medicare annual wellness visit, subsequent Constipation Ill feeling Epigastric pain Constipation Cervical cancer screening Well woman exam with routine gynecological exam Medicare annual wellness visit, initial Abnormal thyroid stimulating hormone (TSH) level Patella francisco j Knee pain Neck pain Chest pain Migraines Eczema Fibromyalgia Heart murmur Asthma Hypothyroidism Surgical History H/O shoulder surgery [place] teeth removed History of appendectomy Family History Mother Graves disease Hypothyroidism Father CHF (congestive heart failure) Other Substance use disorder Social History Housing: Apartment Alcohol intake: never Patient Tobacco Use Status: Never used Tobacco e-Cigarette/Vaping Use: Never Used Second Hand Smoke Exposure: Yes (as a child only) service: No Current occupational status: disabled Sexual orientation: Straight/Heterosexual Gender identity: Female Cognitive needs: No Hearing needs: No Vision needs: Yes Female Reproductive History Menstrual Age of Menarche: 15 Questionnaire PHQ-9 Over the last 2 weeks, how often have you been bothered by any of the following problems? 1. Little interest or pleasure in doing things: several days 2. Feeling down, depressed, or hopeless: several days 3. Trouble falling or staying asleep, or sleeping too much: several days 4. Feeling tired or having little energy: several days 5. Poor appetite or overeating: several days 6. Feeling bad about yourself - or that you are a failure or have let yourself or your family down: not at all 7. Trouble concentrating on things, such as reading the newspaper or watching television: several days 8. Moving or speaking so slowly that other people could have noticed. Or the opposite - being so fidgety or restless that you have been moving around a lot more than usual: not at all 9. Thoughts that you would be better off or of hurting yourself in some way: not at all Total score: 6 Depression Screening Interpretation: Negative Depression Screening Done: Yes 26654 - PHQ-9 Billing: Yes Source: Developed by Drs. Oswald Alexandre, Raquel Kelly, Sascha Milton and colleagues, with an educational chai from [employer]. Thrive Questionnaire Date Thrive assessed: 01/19/23 I am a: Patient What is your living situation today?: I have a steady place to live Within the past 12 months, did the food you bought not last and you didn't have the money to get more?: Never true Within the past 12 months, did you worry whether your food would run out before you got money to buy more?: Never true Do you have trouble paying for medicines?: No Do you have trouble getting transportation to medical appointments?: No Do you have trouble paying your heating and electricity bill?: No Do you have trouble taking care of your child, family member or friend?: No Do you have trouble with day-to-day activities such as bathing, preparing meals, shopping, managing finances, etc.?: No Are you currently unemployed and looking for a job?: No Are you interested in more education?: No Please select the resources that you would like help with: None Currently or been in a relationship where the following occur: no concerns reported AUDIT C Alcohol Use Questionnaire (AUDIT-C) 1. How often do you have a drink containing alcohol?: Never 3. How often do you have six or more drinks on one occasion?: Never Total Score: 0 Score Reviewed/Action Taken: Yes LAW-7 AMB Questionnaire LAW-7 Date LAW - 7 assessed: 01/19/23 Feeling nervous, anxious, or on edge: 1 = Several days Not being able to stop or control worryin = Not at all Worrying too much about different things: 0 = Not at all Trouble relaxin = Several days Being so restless that it is hard to sit still: 1 = Several days Becoming easily annoyed or irritable: 1 = Several days Feeling afraid as if something awful might happen: 0 = Not at all Total LAW-7 score (0-4 normal; 5-9 mild; 10-14 moderate; 15-21 severe): 4 Source: Developed by Drs. Oswald Alexandre, Raquel Kelly, Sascha Milton and colleagues, with an educational chai from [employer]. LAW-7 Assessment Billing LAW-7 Assessment Tool: LAW-7 Assessment 45024 Review of Systems Const Denies chills and Denies fever(s) ENT Denies epistaxis and Denies nasal discharge Resp Denies chest congestion, Denies cough and Denies hemoptysis GI Denies diarrhea and Denies nausea Skin/Breast Denies rash Neuro Reports no additional complaints Psych Reports no additional complaints Endo Reports no additional complaints Physical exam (Primary Care) Vital Signs: Last Vital Signs Pulse 77 01/19/23 14:45 BP 128/76 01/19/23 14:45 Pulse Ox 99 01/19/23 14:45 Oxygen Delivery Method Room Air 01/19/23 14:45 BMI result Body Mass Index 32.0 Tobacco/Smoking Status: Tobacco use Status Tobacco use date assessed 01/19/23 01/19/23 14:47 Patient Tobacco Use Status Never used Tobacco 01/19/23 14:47 e-Cigarette/Vaping Use Never Used 01/19/23 14:47 PHQ-9: PHQ-9 Score PHQ-9: Total score 6 01/19/23 15:18 Depression Screening Interpretation: Negative Thrive Assessment: Date of Thrive Assessment Date Thrive assessed 01/19/23 01/19/23 15:18 Currently or been in a relationship where the following occur: no concerns reported Const General: cooperative, comfortable and no acute distress Orientation/consciousness: patient oriented x3 HENMT Head: Yes normocephalic Eyes General: appearance normal, both eyes and all related structures Neck Neck: Yes supple Resp Effort & Inspection: normal respiratory effort, no cough and no stridor Cardio Rhythm: regular rhythm Heart sounds: S1 normal heart sound present and S2 normal heart sound present Skin General skin exam: turgor normal Neuro General: patient oriented x3, tone normal and moves all extremities Extrem Right lower extremity: no edema Left lower extremity: no edema Office Procedures EKG [id number], Complete Assessment and Plan Assessment & Plan (1) Palpitations: Code(s): R00.2 - Palpitations (2) Abnormal EKG: Code(s): R94.31 - Abnormal electrocardiogram [ECG] [EKG] Plan Patient is a 37-year-old female came in today to be evaluated for fluttering/palpitations patient is having for the past 10 days Patient says that she has had palpitations before but this time they are differe nt When it happened, she loses her breath and feels pain but they only last for few seconds In between she is fine We did the EKG today which shows normal sinus rhythm 74 beats per minute R are better in in lead 3 and aVL I have ordered a Holter monitor for the patient And she will be seeing cardiology for further evaluation Orders: Orders ECG holter monitor 24 hour Today R00.2 - Palpitations, R94.31 - Abnormal electrocardiogram [ECG] [EKG] AMB EKG-In Office Today R00.2 - Palpitations Referrals Cardiology Referral R00.2 - Palpitations, R94.31 - Abnormal electrocardiogram [ECG] [EKG] Coding Level of Care Code Est Pt Level 4 (55832) Diagnoses Palpitations R00.2 Abnormal EKG R94.31 CPT Codes EKG - CPT: 13164-[id number], Complete ([id number]) Additional Codes LAW-7 Assessment Billing - LAW-7 Assessment Tool: LAW-7 Assessment 36634 ([id number])
== END 2023-01-19 16:06 | disposition home or self-care (01) ==
PROVIDERS: PCP Internal Medicine; Visit Provider Internal Medicine
DX: R00.2 Palpitations (principal); R94.31 Abnormal electrocardiogram [ECG] [EKG]
CPT/HCPCS: 93000; 99214

== ENCOUNTER → 2023-01-22 11:25 | Outpatient (REF) | payer MEDICARE, MEDICAID, SELFPAY ==
--- NOTE | 2023-01-22 14:30 | HM_ITS ---
Conclusion: 1. Patient was monitored for total period of 1 day 2. Baseline was normal sinus rhythm with average heart of 72 beats per minute 3. No significant pauses noted 4. No significant arrhythmias noted 5. Patient marked events 5 time with symptoms of palpitation sharp pain all correlating with sinus rhythm MTDD
== END ==
LOC: HO.CARD 11:25
PROVIDERS: PCP Internal Medicine; Visit Provider Internal Medicine
DX: R00.2 Palpitations (principal); R94.31 Abnormal electrocardiogram [ECG] [EKG]
CPT/HCPCS: 93225

== ENCOUNTER → 2023-01-22 14:30 | Outpatient (BNV) | payer MEDICARE, MEDICAID, SELFPAY | PROVIDERS: PCP Internal Medicine; Visit Provider Internal Medicine Cardiovascular Disease | DX: R00.2 Palpitations (principal); R94.31 Abnormal electrocardiogram [ECG] [EKG] | CPT/HCPCS: 93227 ==

== ENCOUNTER 2023-02-12 12:25 | Outpatient (AMB) | payer MEDICARE, MEDICAID, SELFPAY ==
[2023-02-12 12:32] VITALS: BP 124/78; PULSE 60; O2SAT 100; BMI 32.1
--- NOTE | 2023-02-12 12:32 | A.OFFPC_ITS ---
Vital Signs 02/12/23 12:32 Height 5 ft 11 in Weight 230 lb 8 oz BMI 32.1 BP 124/78 Blood Pressure Location Rt brachial Position Sitting Pulse 60 Pulse Source Pulse Oximeter Pulse Oximetry (%) 100 Oxygen Delivery Method Room Air Intake Visit Reasons: Annual PE/Sec insurance covers Allergies adhesive tape Allergy (Mild, Verified 02/12/23 12:33) RASH ketorolac [From TORADOL] Allergy (Mild, Verified 02/12/23 12:33) HIVES latex [LATEX] Allergy (Mild, Verified 02/12/23 12:33) RASH oxycodone Allergy (Unknown, Verified 02/12/23 12:33) itching FRUIT Allergy (Intermediate, Uncoded 12/01/22 08:57) HIVES Adhesive Bandages Allergy (Unknown, Uncoded 12/01/22 08:57) rash, swelling adhesive tape Allergy (Unknown, Uncoded 12/01/22 08:57) hives apples, citrus, vegatables w s Allergy (Unknown, Uncoded 12/01/22 08:57) hives Ketorolac & Bupivacaine & Lido Allergy (Unknown, Uncoded 12/01/22 08:57) hives Medication List - Last Reconciled 02/12/23 by Karen Broussard MD acetaminophen-codeine 300-30 mg 1 tab PO BID PRN albuterol sulfate 90 mcg/actuation (Ventolin HFA) 1 inh inhalation QID PRN 30 d ays amitriptyline 25 mg PO BEDTIME azelastine intranasal bisacodyl (Laxative (bisacodyl)) 10 mg (2 x 5 mg) PO BEDTIME dicyclomine 40 mg (2 x 20 mg) PO TID 30 days epinephrine IM famotidine 40 mg PO BEDTIME 30 days fluticasone furoate-vilanterol 100-25 mcg/dose (Breo Ellipta) 1 inh inhalation DAILY 60 days levonorgestrel (Mirena) intrauterine qzvcka-vonneixs-orbbckw 24,000-76,000 -120,000 unit (Creon) 1 cap PO QID omeprazole 20 mg PO DAILY ondansetron HCl 8 mg PO ONCE PRN 30 days propranolol 80 mg PO BID sennosides (senna) 25.8 mg (3 x 8.6 mg) PO BID sodium chloride 0.65% (Saline Nasal) 1 spray intranasal BID PRN 4 days Synthroid (levothyroxine) 125 mcg PO DAILY NS topiramate (Topamax) 50 mg PO BID valacyclovir 1,000 mg PO BID Tobacco use date assessed: 02/12/23 Dental Screening Dental Screen Date: 02/12/23 Did you have a dental visit in the last 12 months?: Yes Did you have a dental problem in the last 6 months where you did not have access to dental care?: No Was dental information given to patient?: Patient has dentist HPI Annual PE/Sec insurance covers HPI Details Patient is a 38-year-old female Established with OBGYN for breast exam and Pap smear Seeing Endocrinology [facility] for hypothyroidism Asthma is stable History of migraine headache palpitations arthrosis, IBS, GERD, recurrent cold sores Obesity with BMI of 32.1 Patient has developed right-sided hip labral tear she is under care of orthopedic and is in need of surgery MRI was done November of this year Medication list reviewed [facility] Medical History Goiter Elevated TSH Medicare annual wellness visit, subsequent Constipation Ill feeling Epigastric pain Constipation Cervical cancer screening Well woman exam with routine gynecological exam Medicare annual wellness visit, initial Abnormal thyroid stimulating hormone (TSH) level Patella francisco j Knee pain Neck pain Chest pain Migraines Eczema Fibromyalgia Heart murmur Asthma Hypothyroidism Surgical History H/O shoulder surgery [place] teeth removed History of appendectomy Family History Mother Graves disease Hypothyroidism Father CHF (congestive heart failure) Other Substance use disorder Social History Housing: Apartment Alcohol intake: never Patient Tobacco Use Status: Never used Tobacco e-Cigarette/Vaping Use: Never Used Second Hand Smoke Exposure: Yes (as a child only) service: No Current occupational status: disabled Sexual orientation: Straight/Heterosexual Gender identity: Female Cognitive needs: No Hearing needs: No Vision needs: Yes Female Reproductive History Menstrual Age of Menarche: 15 Questionnaire Thrive Questionnaire Date Thrive assessed: 01/19/23 AUDIT C Alcohol Use Questionnaire (AUDIT-C) 1. How often do you have a drink containing alcohol?: Never 3. How often do you have six or more drinks on one occasion?: Never Total Score: 0 Score Reviewed/Action Taken: Yes LAW-7 AMB Questionnaire LAW-7 Date LAW - 7 assessed: 01/19/23 Source: Developed by Drs. Oswald Alexandre, Raquel Kelly, Sascha Milton and colleagues, with an educational chai from [employer]. Review of Systems Const Denies chills, Denies fever(s) and Denies headache(s) Eyes Denies blurry vision ENT Denies headache(s), Denies nasal discharge, Denies nasal obstruction, Denies odynophagia and Denies sinus pain Card Denies chest pain at rest and Denies chest pain with activity Resp Denies cough and Denies hemoptysis GI Denies diarrhea, Denies odynophagia, Denies vomiting and Denies hematemesis Reports as per HPI Musc Denies abnormal gait Skin/Breast Reports as per HPI Neuro Denies Neuro-related abnormal movements, Denies Abnormal speech present, Denies abnormal gait, Denies headache(s) and Denies Sensory deficit (Neuro) Psych Denies mood swings and Denies paranoia Endo Reports as per HPI Sixto/Lymph Reports as per HPI Aller/Immun Reports as per HPI Physical exam (Primary Care) Vital Signs: Last Vital Signs Pulse 60 02/12/23 12:32 BP 124/78 02/12/23 12:32 Pulse Ox 100 02/12/23 12:32 Oxygen Delivery Method Room Air 02/12/23 12:32 BMI result Body Mass Index 32.1 Tobacco/Smoking Status: Tobacco use Status Tobacco use date assessed 02/12/23 02/12/23 12:35 Patient Tobacco Use Status Never used Tobacco 02/12/23 12:35 e-Cigarette/Vaping Use Never Used 02/12/23 12:35 Thrive Assessment: Date of Thrive Assessment Date Thrive assessed 01/19/23 02/12/23 12:35 Const General: cooperative, comfortable and no acute distress Orientation/consciousness: patient oriented x3 HENMT Head: Yes normocephalic and Yes atraumatic Eyes General: appearance normal, both eyes and all related structures Pupils: Equal, round and reactive pupils present EOM: EOMs intact bilaterally Neck Neck: Yes supple and No lymphadenopathy Thyroid: Thyroid normal Lymphatic: no lymphadenopathy noted Resp Effort & Inspection: normal respiratory effort and able to speak in complete sentences Auscultation: clear to auscultation bilaterally Cardio Heart sounds: S1 normal heart sound present and S2 normal heart sound present GI Palpation (GI): Soft to palpation and nontender Auscultation: normal bowel sounds General: Yes no CVA tenderness Back/Spine/Pelvis Back: no CVA tenderness Skin General skin exam: elasticity normal and turgor normal Neuro General: patient oriented x3 and gait normal Cranial nerves: Yes Equal, round and reactive pupils present Speech: No Abnormal speech present Sensory Exam: No Sensory deficit (Neuro) Coordination: tandem gait normal and Romberg test negative Extrem Other: Limited range of motion right hip secondary to pain General: Yes normal exam except as noted and No edema Assessment and Plan Assessment & Plan (1) Encounter for general adult medical examination with abnormal findings: Code(s): Z00.01 - Encounter for general adult medical examination with abnormal findings (2) Palpitations: Code(s): R00.2 - Palpitations (3) Hypothyroidism: Code(s): E03.9 - Hypothyroidism, unspecified Qualifiers: Hypothyroidism type: unspecified Qualified Code(s): E03.9 - Hypothyroidism, unspecified (4) Goiter: Code(s): E04.9 - Nontoxic goiter, unspecified (5) Labral tear of right hip joint: Code(s): S73.191A - Other sprain of right hip, initial encounter Qualifiers: Encounter type: sequela Qualified Code(s): S73.191S - Other sprain of right hip, sequela (6) Eczema: Code(s): L30.9 - Dermatitis, unspecified Qualifiers: Eczema type: intrinsic Qualified Code(s): L20.84 - Intrinsic (allergic) eczema (7) Asthma, moderate persistent: Code(s): J45.40 - Moderate persistent asthma, uncomplicated Qualifiers: Asthma complication type: uncomplicated Qualified Code(s): J45.40 - Moderate persistent asthma, uncomplicated (8) Irritable bowel syndrome with both constipation and diarrhea: Code(s): K58.2 - Mixed irritable bowel syndrome (9) Lactose intolerance: Code(s): E73.9 - Lactose intolerance, unspecified (10) Multiple food allergies: Code(s): Z91.018 - Allergy to other foods (11) Fibromyalgia: Code(s): M79.7 - Fibromyalgia (12) Arthrosis: Code(s): M19.90 - Unspecified osteoarthritis, unspecified site (13) Migraine headache with aura: Code(s): G43.109 - Migraine with aura, not intractable, without status migrainosus Qualifiers: Status migrainosus presence: without status migrainosus Intractability: intractable Qualified Code(s): G43.119 - Migraine with aura, intractable, without status migrainosus (14) Allergic rhinitis: Code(s): J30.9 - Allergic rhinitis, unspecified Qualifiers: Allergic rhinitis trigger: pollen Allergic rhinitis seasonality: non- seasonal Qualified Code(s): J30.1 - Allergic rhinitis due to pollen (15) Chronic GERD: Code(s): K21.9 - Gastro-esophageal reflux disease without esophagitis (16) Shortness of breath: Code(s): R06.02 - Shortness of breath Plan Patient is a 38-year-old female Established with OBGYN for breast exam and Pap smear Seeing Endocrinology [facility] for hypothyroidism Asthma is stable History of migraine headache palpitations arthrosis, IBS, GERD, recurrent cold sores Obesity with BMI of 32.1 Asthma, in spite of taking Breo inhaler regularly continued to feel short of breath, I have ordered pulmonary function test Patient will be seeing software test specialist after that Patient has developed right-sided hip labral tear she is under care of orthopedic and is in need of surgery MRI was done November of this year Medication list reviewed Orders: Orders Comprehensive [place]. Panel Fast Today E03.9 - Hypothyroidism, unspecified, E04.9 - Nontoxic goiter, unspecified, E73.9 - Lactose intolerance, unspecified, G43.109 - Migraine with aura, not intractable, without status migrainosus, J30.9 - Allergic rhinitis, unspecified, J45.40 - Moderate persistent asthma, uncomplicated, K21.9 - Gastro-esophageal reflux disease without esophagitis, K58.2 - Mixed irritable bowel syndrome, L30.9 - Dermatitis, unspecified, M19.90 - Unspecified osteoarthritis, unspecified site, M79.7 - Fibromyalgia, R00.2 - Palpitations, Z00.01 - Encounter for general adult medical examination with abnormal findings, Z91.018 - Allergy to other foods Lipid Panel Today E03.9 - Hypothyroidism, unspecified, E04.9 - Nontoxic goiter, unspecified, E73.9 - Lactose intolerance, unspecified, G43.109 - Migraine with aura, not intractable, without status migrainosus, J30.9 - Allergic rhinitis, unspecified, J45.40 - Moderate persistent asthma, uncomplicated, K21.9 - Gastro- esophageal reflux disease without esophagitis, K58.2 - Mixed irritable bowel syndrome, L30.9 - Dermatitis, unspecified, M19.90 - Unspecified osteoarthritis, unspecified site, M79.7 - Fibromyalgia, R00.2 - Palpitations, Z00.01 - Encounter for general adult medical examination with abnormal findings, Z91.018 - Allergy to other foods Complete Blood Count Auto Diff Today E03.9 - Hypothyroidism, unspecified, E04.9 - Nontoxic goiter, unspecified, E73.9 - Lactose intolerance, unspecified, G43.109 - Migraine with aura, not intractable, without status migrainosus, J30.9 - Allergic rhinitis, unspecified, J45.40 - Moderate persistent asthma, uncom plicated, K21.9 - Gastro-esophageal reflux disease without esophagitis, K58.2 - Mixed irritable bowel syndrome, L30.9 - Dermatitis, unspecified, M19.90 - Unspecified osteoarthritis, unspecified site, M79.7 - Fibromyalgia, R00.2 - Palpitations, Z00.01 - Encounter for general adult medical examination with abnormal findings, Z91.018 - Allergy to other foods PFT pulmonary function test Today J45.40 - Moderate persistent asthma, uncomplicated, R06.02 - Shortness of breath Referrals Pulmonary Medicine Referral J45.40 - Moderate persistent asthma, uncomplicated, R06.02 - Shortness of breath Coding Level of Care Code Est Pt [facility] Care 18-39y([id number]) Diagnoses Encounter for general adult medical examination with abnormal findings Z00.01 Palpitations R00.2 Hypothyroidism, unspecified type E03.9 Hypothyroidism type: unspecified Goiter E04.9 Tear of right acetabular labrum, sequela S73.191S Encounter type: sequela Intrinsic eczema L20.84 Eczema type: intrinsic Moderate persistent asthma without complication J45.40 Asthma complication type: uncomplicated Irritable bowel syndrome with both constipation and diarrhea K58.2 Lactose intolerance E73.9 Multiple food allergies Z91.018 Fibromyalgia M79.7 Arthrosis M19.90 Intractable migraine with aura without status migrainosus G43.119 Status migrainosus presence: without status migrainosus Intractability: intractable Non-seasonal allergic rhinitis due to pollen J30.1 Allergic rhinitis trigger: pollen Allergic rhinitis seasonality: non-seasonal Chronic GERD K21.9 Shortness of breath R06.02
== END 2023-02-12 14:29 | disposition home or self-care (01) ==
PROVIDERS: PCP Internal Medicine; Visit Provider Internal Medicine
DX: Z00.01 Encounter for general adult medical examination with abnormal findings (principal); R00.2 Palpitations; E03.9 Hypothyroidism, unspecified; E04.9 Nontoxic goiter, unspecified; S73.191S Other sprain of right hip, sequela; L20.84 Intrinsic (allergic) eczema; J45.40 Moderate persistent asthma, uncomplicated; K58.2 Mixed irritable bowel syndrome; E73.9 Lactose intolerance, unspecified; R06.02 Shortness of breath; Z91.018 Allergy to other foods; M79.7 Fibromyalgia
CPT/HCPCS: 99395

== ENCOUNTER 2023-02-15 07:58 | Outpatient (REF) | payer MEDICARE, MEDICAID, SELFPAY ==
[2023-02-15 08:10] LABS: MANUAL DIFF FLAG NO
[2023-02-15 08:36] LABS: Basophils Absolute Auto 0.1 X10*3/uL (0.0-0.2); Eosinophils Absolute Auto 0.1 X10*3/uL (0.0-0.4); Eosinophils Percent Auto 2.4 % (0-4); Hematocrit 37.2 % (37.0-47.0); Hemoglobin 11.9 g/dl (12.0-16.0); Imm Gran Abs Auto 0.01 X10*3/uL (0.00-0.03); Imm Gran Pct Auto 0.2 % (0.0-0.4); Lymphocytes Absolute Auto 1.7 X10*3/uL (1.2-4.9); Lymphocytes Percent Auto 34.3 % (20-40); Mean Corpuscular Hemoglobin 29.9 pg (27.0-33.0); Mean Corpuscular Volume 93.5 fL (80.0-98.0); Mean Platelet Volume 11.7 fL (9.4-12.3); Monocytes Absolute Auto 0.4 X10*3/uL (0.1-1.2); Neutrophils Absolute Auto 2.8 x10*3/uL (2.0-8.3); Neutrophils Percent Auto 55.1 % (45-73); Platelet Count 163 X10*3/uL (160-400); Red Blood Count 3.98 X10*6/uL (4.20-5.50); Red Cell Distribution Width 13.2 % (11.0-16.0)
[2023-02-15 09:01] LABS: Alanine Aminotransferase 13 U/L (0-31); Albumin Level 4.1 g/dL (3.5-5.0); Alkaline Phosphatase 70 U/L (39-117); Anion Gap 9 (12-20); Aspartate Amino Transferase 13 U/L (5-31); Bilirubin Total 0.4 mg/dL (0.0-1.0); Blood Urea Nitrogen 13 mg/dL (9-16); Calcium 9.1 mg/dL (8.4-10.2); Carbon Dioxide 23 mmol/L (22-29); Chloride 111 mmol/L (96-108); Cholesterol 162 mg/dL (<200); Estimated Glomerular Filt Rate > 60; Glucose Fasting 94 mg/dL (60-99); HDL Cholesterol 67 mg/dL (>40); LDL Cholesterol Calculated 84 mg/dL (<100); Potassium 4.1 mmol/L (3.3-5.1); Sodium 139 mmol/L (135-145); Total Protein 7.1 g/dL (6.5-8.0); Triglycerides 58 mg/dL (<150)
== END 2023-02-15 07:59 | disposition home or self-care (01) ==
LOC: HO.LAB 07:58
PROVIDERS: PCP Internal Medicine; Visit Provider Internal Medicine
DX: Z00.01 Encounter for general adult medical examination with abnormal findings (principal); R00.2 Palpitations; E03.9 Hypothyroidism, unspecified; E04.9 Nontoxic goiter, unspecified; L30.9 Dermatitis, unspecified; J45.40 Moderate persistent asthma, uncomplicated; K58.2 Mixed irritable bowel syndrome; M79.7 Fibromyalgia; G43.109 Migraine with aura, not intractable, without status migrainosus; K21.9 Gastro-esophageal reflux disease without esophagitis
CPT/HCPCS: 36415; 80053; 80061; 85025

== ENCOUNTER 2023-02-16 09:57 | Outpatient (AMB) | payer MEDICARE, MEDICAID, SELFPAY ==
[2023-02-16 10:00] VITALS: BP 108/62; PULSE 52; O2SAT 100; BMI 32.4
--- NOTE | 2023-02-16 10:00 | A.OFFVIS_ITS ---
Intake Vital Signs 02/16/23 10:00 Height 5 ft 11 in Weight 232 lb BMI 32.4 BP 108/62 Blood Pressure Location Rt brachial Position Sitting Pulse 52 Pulse Source Pulse Oximeter Pulse Oximetry (%) 100 Oxygen Delivery Method Room Air Intake Visit Reasons: short of breath Support Representative Required: No Paper Latcher: Paper Latcher offered & declined Accompanied by: Self / Same As Patient Allergies adhesive tape Allergy (Mild, Verified 02/16/23 10:06) RASH ketorolac [From TORADOL] Allergy (Mild, Verified 02/16/23 10:06) HIVES latex [LATEX] Allergy (Mild, Verified 02/16/23 10:06) RASH oxycodone Allergy (Unknown, Verified 02/16/23 10:06) itching FRUIT Allergy (Intermediate, Uncoded 02/16/23 10:06) HIVES Adhesive Bandages Allergy (Unknown, Uncoded 02/16/23 10:06) rash, swelling adhesive tape Allergy (Unknown, Uncoded 02/16/23 10:06) hives apples, citrus, vegatables w s Allergy (Unknown, Uncoded 02/16/23 10:06) hives Ketorolac & Bupivacaine & Lido Allergy (Unknown, Uncoded 02/16/23 10:06) hives Medication List - Last Reconciled 02/16/23 by Pastora Kim LPN acetaminophen-codeine 300-30 mg 1 tab PO BID PRN albuterol sulfate 90 mcg/actuation (Ventolin HFA) 1 inh inhalation QID PRN 30 days amitriptyline 25 mg PO BEDTIME azelastine intranasal bisacodyl (Laxative (bisacodyl)) 10 mg (2 x 5 mg) PO BEDTIME dicyclomine 40 mg (2 x 20 mg) PO TID 30 days epinephrine IM famotidine 40 mg PO BEDTIME levonorgestrel (Mirena) intrauterine kadulu-vpvlruwu-kjoatbb 24,000-76,000 -120,000 unit (Creon) 1 cap PO QID omeprazole 20 mg PO DAILY ondansetron HCl 8 mg PO ONCE PRN 30 days propranolol 80 mg PO BID sennosides (senna) 25.8 mg (3 x 8.6 mg) PO BID sodium chloride 0.65% (Saline Nasal) 1 spray intranasal BID PRN 4 days Synthroid (levothyroxine) 125 mcg PO DAILY NS topiramate (Topamax) 50 mg PO BID valacyclovir 1,000 mg PO BID HPI short of breath HPI Details Kayla is a pleasant 38 year old female, never smoker, with underlying asthma since teenager, atopic dermatitis, environmental allergies, allergic rhinitis and GERD. She was referred by her PCP for pulmonary evaluation. She is under the care of ENT receiving immunotherapy to multiple environmental allergens and uses Flonase/Azelastine with moderate effect. GERD is managed by GI with omeprazole and famotidine. She continues to report heartburn and sourtaste in mouth, but denies cough. At baseline, she has been using symbicort 160 with suboptimal effect. She reports persistent wheezing and chest tightness as well as intermittent pleuritic chest pain. She uses her albuterol infrequently due to tremors and h/o palpitations which increase with use. She denies any pertinent family history. She denies any occupational exposures. She also reports loud snoring, PND and daytime fatigue. [facility] Medical History Goiter Elevated TSH Medicare annual wellness visit, subsequent Constipation Ill feeling Epigastric pain Constipation Cervical cancer screening Well woman exam with routine gynecological exam Medicare annual wellness visit, initial Abnormal thyroid stimulating hormone (TSH) level Patella francisco j Knee pain Neck pain Chest pain Migraines Eczema Fibromyalgia Heart murmur Asthma Hypothyroidism Surgical History H/O shoulder surgery [place] teeth removed History of appendectomy Family History Mother Graves disease Hypothyroidism Father CHF (congestive heart failure) Other Substance use disorder Social History (Updated 02/16/23 @ 10:14 by Pastora Kim LPN) Housing: Apartment Alcohol intake: never Patient Tobacco Use Status: Never used Tobacco e-Cigarette/Vaping Use: Never Used Second Hand Smoke Exposure: Yes (as a child only) service: No Current occupational status: disabled Sexual orientation: Straight/Heterosexual Gender identity: Female Cognitive needs: No Hearing needs: No Vision needs: Yes Female Reproductive History Menstrual Age of Menarche: 15 Review of Systems Const Denies chills, Denies excessive sweating, Denies fever(s), Denies headache(s), Denies night sweats and Reports snoring Eyes Denies dry eyes, Denies irritation and Denies itchy eyes ENT Reports Normal hearing present, Denies headache(s), Reports nasal congestion, Denies nasal discharge, Reports post nasal drip and Denies sore throat Card Denies chest pain at rest, Denies chest pain with activity, Denies claudication, Denies leg edema, Reports dyspnea on exertion, Reports orthopnea and Reports paroxysmal nocturnal dyspnea Resp Denies chest congestion, Denies cough, Denies excessive phlegm production, Denies pain with cough, Reports dyspnea on exertion, Reports snoring, Denies stridor and Denies wheezing Musc Denies myalgias Neuro Reports Normal hearing present and Denies headache(s) Endo Denies excessive sweating Sixto/Lymph Denies lymphadenopathy Aller/Immun Denies itchy eyes, Denies seasonal rhinorrhea and Denies wheezing Physical Exam Vital Signs: Last Vital Signs Pulse 52 02/16/23 10:00 BP 108/62 02/16/23 10:00 Pulse Ox 100 02/16/23 10:00 Oxygen Delivery Method Room Air 02/16/23 10:00 BMI result Body Mass Index 32.4 Const General: cooperative, healthy appearing, comfortable, no acute distress, well developed and alert Orientation/consciousness: patient oriented x3 Limitations: no limitations HEENT Head: Yes normal to inspection, Yes normocephalic and Yes atraumatic Ears: hearing grossly normal bilaterally and external ears normal Eyes General: appearance normal, both eyes and all related structures Eyelids: Yes eyelids normal Sclerae: sclerae normal EOM: EOMs intact bilaterally Neck Neck: Yes normal visual inspection and Yes no lymphadenopathy Lymphatic: no lymphadenopathy noted Chest Chest palpation & inspection: normal inspection of the chest Resp Effort & Inspection: normal respiratory effort, able to speak in complete sentences, no audible wheezes, no cough, no stridor, not tachypneic, no tripod positioning and no use of accessory muscles Auscultation: clear to auscultation bilaterally Cardio Jugular venous distension: no JVD Rate: regular rate Rhythm: regular rhythm Skin Other: warm, dry General skin exam: no rashes or lesions noted Neuro General: patient oriented x3 Cranial nerves: Yes Normal hearing present Cognition (Neuro): normal cognition Gait exam (Neuro): Normal gait present Extrem General: Yes normal to inspection, Yes capillary refill normal, Yes no clubbing, cyanosis or edema and Yes no pedal edema Psych Appearance: grossly normal and well kempt Speech and movement: Normal speech and movement present and Clear speech present Affect: normal affect Attitude: cooperative Thought process: Normal thought process present Thought content: Normal thought content present Insight: Good insight present (Psych) Judgement: Good judgement present (Psych) Assessment & Plan Assessment & Plan (1) Asthma, moderate persistent: Code(s): J45.40 - Moderate persistent asthma, uncomplicated Qualifiers: Asthma complication type: uncomplicated Qualified Code(s): J45.40 - Moderate persistent asthma, uncomplicated (2) Chronic GERD: Code(s): K21.9 - Gastro-esophageal reflux disease without esophagitis (3) Pleuritic pain: Code(s): R07.81 - Pleurodynia (4) Environmental allergies: Code(s): Z91.09 - Other allergy status, other than to drugs and biological substances (5) Daytime somnolence: Code(s): R40.0 - Somnolence Plan Kayla's symptoms are likely related to poorly controlled asthma with an allergic component. Her PCP has already entered an order for PFT, will follow up to review results. At this time, advised patient to continue symbicort and will send in levalbuterol MDI as well as solution for nebulizer to use in place of albuterol MDI PRN. She notes h/o palpitations which worsen with albuterol use. She was given a nebulizer in office and signed required paperwork. Will send for RAST and IgE, as she may be a candidate for biologics. Will also send for home sleep study as she reports symptoms suggestive of DESIREE. Patient also reported intermittent pleuritic chest pain, will send for CXR. All questions were answered and patient is in agreement of plan. Will follow up in 4-6 weeks. Orders: Orders XR chest 2V Today R07.81 - Pleurodynia Immunoglobulin E Today Z91.09 - Other allergy status, other than to drugs and biological substances RT home sleep study Today R40.0 - Somnolence Rast Allergen Today Z91.09 - Other allergy status, other than to drugs and biological substances Medications: New levalbuterol tartrate 45 mcg/actuation 1 puff inhalation Q4-6H PRN 15 grams 3RF shortness of breath levalbuterol HCl 1.25 mg (3 mL) inhalation Q4-6H PRN 75 mL 0RF shortness of breath or wheezing Coding Level of Care Code New Pt Level 4 (21950) Diagnoses Moderate persistent asthma without complication J45.40 Asthma complication type: uncomplicated Chronic GERD K21.9 Pleuritic pain R07.81 Environmental allergies Z91.09 Daytime somnolence R40.0
== END 2023-02-16 10:51 | disposition home or self-care (01) ==
PROVIDERS: PCP Internal Medicine; Referring Provider Internal Medicine; Visit Provider Nurse Practitioner Family
DX: J45.40 Moderate persistent asthma, uncomplicated (principal); K21.9 Gastro-esophageal reflux disease without esophagitis; R07.81 Pleurodynia; Z91.09 Other allergy status, other than to drugs and biological substances; R40.0 Somnolence
CPT/HCPCS: 99204; 99214

== ENCOUNTER 2023-02-16 09:57 | Outpatient (REF) | payer MEDICARE, MEDICAID, SELFPAY ==
--- NOTE | ~2023-02-16 | XR_ITS ---
EXAMINATION: XR CHEST CLINICAL INFORMATION: Pleurodynia COMPARISON: Chest radiograph from 05/13/2020 TECHNIQUE: 2 views of the chest were obtained. FINDINGS: No focal consolidation. No pneumothorax. Trachea is midline. Cardiac mediastinal silhouette is not enlarged. No large pleural effusion. Osseous structures are intact. Soft tissues are unremarkable. XR/XR chest 2V IMPRESSION: No acute cardiopulmonary process.
== END 2023-02-16 09:58 | disposition home or self-care (01) ==
LOC: HO.XRAY 09:57
PROVIDERS: PCP Internal Medicine; Referring Provider Internal Medicine; Visit Provider Nurse Practitioner Family
DX: R07.81 Pleurodynia (principal); J45.40 Moderate persistent asthma, uncomplicated; K21.9 Gastro-esophageal reflux disease without esophagitis; R40.0 Somnolence; Z91.09 Other allergy status, other than to drugs and biological substances
CPT/HCPCS: 36415; 71046; 82785; 86003; 99202

== ENCOUNTER 2023-02-16 11:02 | Outpatient (REF) | payer MEDICARE, MEDICAID, SELFPAY ==
[2023-02-19 15:48] LABS: Immunoglobulin E 103 kU/L (<OR=114)
== END 2023-02-16 11:03 | disposition home or self-care (01) ==
LOC: HO.WFDLDS 11:02
PROVIDERS: Visit Provider Nurse Practitioner Family
DX: Z13.89 Encounter for screening for other disorder (principal)
CPT/HCPCS: 36415; 82785

== ENCOUNTER 2023-02-19 08:50 | Outpatient (AMB) | payer MEDICARE, MEDICAID, SELFPAY ==
--- NOTE | 2023-02-19 08:55 | A.OFFVIS_ITS ---
Intake Vital Signs 02/19/23 09:00 Height 5 ft 11 in Weight 230 lb 2.601 oz BMI 32.1 BP 116/78 Blood Pressure Location Lt brachial Position Sitting Pulse 60 Intake Visit Reasons: Follow up 3 months Intake Note: Kayla presents in the office today in 3 months follow up. CC: She reports she continues to do the same and is sometimes able to eat without taking her medication without having pain. She states occasional constipation. Denies any new GI symptoms. Furniture Removalist'S Assistant Required: No Accompanied by: Self / Same As Patient Allergies adhesive tape Allergy (Mild, Verified 02/19/23 09:12) RASH ketorolac [From TORADOL] Allergy (Mild, Verified 02/19/23 09:12) HIVES latex [LATEX] Allergy (Mild, Verified 02/19/23 09:12) RASH oxycodone Allergy (Unknown, Verified 02/19/23 09:12) itching FRUIT Allergy (Intermediate, Uncoded 02/16/23 10:06) HIVES Adhesive Bandages Allergy (Unknown, Uncoded 02/16/23 10:06) rash, swelling adhesive tape Allergy (Unknown, Uncoded 02/16/23 10:06) hives apples, citrus, vegatables w s Allergy (Unknown, Uncoded 02/16/23 10:06) hives Ketorolac & Bupivacaine & Lido Allergy (Unknown, Uncoded 02/16/23 10:06) hives HPI Follow up 3 months HPI Details Assessment & Plan (1) Irritable bowel syndrome with both c onstipation and diarrhea: ?Code(s): K58.2 - Mixed irritable bowel syndrome ?Plan: She is doing better with her bowel regularity, taking 2 senna qhs and at times 1 during the day - which is fine. She even had one week of daily BM s. But she still has trouble with lettuce and dairy products with loose stools. She may be dosed too low on the creon at 6,000, she is agreeable to increasing the dose. She also continues on dicyclomine, omeprazole and famotidine because if I wake up at noc with HB I can breath fire! The weeks of her menses really throws her bowels off with multiple BM's. ROV 8 weeks. (2) Epigastric pain: ?Code(s): R10.13 - Epigastric pain (3) Chronic GERD: ?Code(s): K21.9 - Gastro-esophageal reflux disease without esophagitis ? ? ? Medications: New qskysm-ncigzcxy-wb ylase 24,000-76,00 0 -120,000 unit (Lesia peterson) ?? administe r with meals and/o r snacks 1 cap? PO QID 30 d ays 120 caps 6RF K58.9 - Irritable bowel syndrome wit hout diarrhea ? Changed From sennosides (senna) 17.2 mg (2 x 8.6 m g) PO BID PRN 120 tabs 6RF constipat ion K58.2 - Mixed irri table bowel syndro me ? To sennosides (senna) 25.8 mg (3 x 8.6 m g) PO BID PRN 120 tabs 6RF constipat ion K58.2 - Mixed irri table bowel syndro me ? From sennosides (senna) 25.8 mg (3 x 8.6 m g) PO BID PRN 120 tabs 6RF constipat ion K58.2 - Mixed irri table bowel syndro me ? To sennosides (senna) 25.8 mg (3 x 8.6 m g) PO BID 120 tabs 6RF constipation D K58.2 - Mixed irri table bowel syndro me ? Refilled famotidine 40 mg? PO BEDTIME 30 days 30 tabs 6R F ? ? omeprazole 20 mg? PO DAILY 30 caps 6RF ? ? dicyclomine 40 mg (2 x 20 mg) PO TID 30 days 180 tabs 6RF R10.9 - Unspecifie d abdominal pain ? Discontinued qbeolv-aiywcdhy-qr ylase 6,000-19,000 -30,000 unit (Cre on) ?? do not exce ed 10,000 unit/kg lipase per 24 hrs ?? Discontinued Re ason:? Doctor's Or jerald 1 cap? PO .tidac 9 0 caps 6RF K58.2 - Mixed irri table bowel syndro me ? TODAY'S VISIT She is doing better generally with postprandial borborygmi S and urgency, she has even been able to skip her meds when she forgets to take it with her and get away with it at times. So this is good progress. Her biggest problem now is that she still has nausea and severe heartburn at night ?like I breathing fire. ? It is when she eats her largest meal so I think were going to try changing her from omeprazole 20 mg to pantoprazole 40 mg and add a small dose of Reglan at bedtime. We also review the fact that she can take the Creon 2 tabs the morning and 2 tabs at night to simplify the dosing regimen. Unfortunately I can not do the same with the dicyclomine. She still struggling with constipation alternating with diarrhea even though this was improving in the past. However she has been under quite a lot of life time stressors lately her daughter has a lot of GI problems and her son is autistic and in new school and of course it is the holiday season! This causes us to discuss the relationship between the neural hormonal reaction to the fight or flight instinct and the gut. This is a harder thing to treat. She also has noticed that she has gained an abnormal amount of weight. This is despite the fact she has not changed her diet and she works out twice a day. She has gained 16 lb or more since May. It is hard to say since she is a hypothyroid patient if this is related to insufficient medication, or to some other hormonal fluctuations since she just had Mirena installed in May. We will get some thyroid test to see where she is at. She also had a period of time where she was switch from brand name Synthroid to levothyroxine; and as we know this can make a dramatic difference with absorption with this particular medication. She does not have any other symptoms of hypothyroid such as dry skin thinning hair etc.. Return office visit in 6-8 weeks to evaluate her response. [facility], [facility] Medical History (Updated 02/19/23 @ 09:48 by RIDGE Kevin) Encounter for general adult medical examination with abnormal findings Encounter for IUD insertion Nausea Upper respiratory infection Leg pain, right Nausea Other specified hypothyroidism Otitis media Right hip pain Chest wall pain Lightheaded Acute sinusitis Goiter Elevated TSH Medicare annual wellness visit, subsequent Constipation Ill feeling Epigastric pain Constipation Cervical cancer screening Well woman exam with routine gynecological exam Medicare annual wellness visit, initial Abnormal thyroid stimulating hormone (TSH) level Patella francisco j Knee pain Neck pain Chest pain Migraines Eczema Fibromyalgia Heart murmur Asthma Hypothyroidism Surgical History H/O shoulder surgery [place] teeth removed History of appendectomy Family History Mother Graves disease Hypothyroidism Father CHF (congestive heart failure) Other Substance use disorder Social History (Updated 02/16/23 @ 10:14 by Pastora Kim LPN) Housing: Apartment Alcohol intake: never Patient Tobacco Use Status: Never used Tobacco e-Cigarette/Vaping Use: Never Used Second Hand Smoke Exposure: Yes (as a child only) service: No Current occupational status: disabled Sexual orientation: Straight/Heterosexual Gender identity: Female Cognitive needs: No Hearing needs: No Vision needs: Yes Female Reproductive History Menstrual Age of Menarche: 15 Review of Systems Const Denies fatigue, Denies fever(s), Denies night sweats, Denies poor appetite, Reports weight gain and Denies weight loss Eyes Details: glasses Reports requires corrective lenses ENT Reports Normal hearing present, Denies dental pain, Denies dysphagia, Denies hearing loss, Denies mouth pain, Denies odynophagia, Denies throat swelling, Denies tongue swelling and Reports other (Dentition adequate) Card Reports no additional complaints Resp Reports no additional complaints GI Denies abdominal pain, Denies melena, Denies bloating, Denies hematochezia, Reports constipation, Denies GI cramping, Denies dysphagia, Denies excessive flatus, Denies early satiety, Reports heartburn, Reports diarrhea, Reports nausea, Denies odynophagia, Denies vomiting and Denies hematemesis Musc Reports arthralgias Skin/Breast Denies pruritus, Denies lesions, Denies rash and Denies jaundice Neuro Reports Normal hearing present and Denies Abnormal speech present Psych Reports anxiety Endo Denies fatigue Aller/Immun Denies throat swelling and Denies tongue swelling Physical Exam Vital Signs: Last Vital Signs Pulse 60 02/19/23 09:00 BP 116/78 02/19/23 09:00 BMI result Body Mass Index 32.1 Const General: cooperative, no acute distress, well developed and well groomed Nutritional Appearance: well nourished and obese Orientation/consciousness: oriented to person, oriented to place and oriented to time Limitations: No language barrier HEENT Head: Yes normocephalic and Yes atraumatic Eyes General: appearance normal, both eyes and all related structures Pupils: Equal, round and reactive pupils present Neck Neck: Yes normal visual inspection and Yes no lymphadenopathy Thyroid: Thyroid normal Resp Effort & Inspection: normal respiratory effort and able to speak in complete sentences Auscultation: clear to auscultation bilaterally Cardio Rate: regular rate Rhythm: regular rhythm Heart sounds: Normal, physiologic split S2 sound present Peripheral pulses: radial pulses present and posterior tibial pulses present GI Inspection: No distended, Yes Abdominal panniculus present and Yes obesity Palpation (GI): Soft to palpation, nontender, no guarding, not rigid and No hepatosplenomegaly present Percussion: Yes normal to percussion Auscultation: normal bowel sounds Rectal Exam - Female: deferred Skin General skin exam: no rashes or lesions noted, turgor normal, skin not dry, no jaundice, No spider nevi and no striae Rashes: no rashes Nails: normal Neuro General: oriented to person, oriented to place and oriented to time Cranial nerves: Yes Equal, round and reactive pupils present and Yes Normal hearing present Speech: No Abnormal speech present Extrem General: Yes normal to inspection, No clubbing, No cyanosis and No edema Psych Appearance: grossly normal and well kempt Mental Status: mental status grossly normal Speech and movement: Normal speech and movement present Affect: normal affect Attitude: cooperative Thought process: Normal thought process present and not confabulating Thought content: Normal thought content present Insight: Fair insight present (Psych) Judgement: Fair judgement present (Psych) Assessment & Plan Assessment & Plan (1) Irritable bowel syndrome with both constipation and diarrhea: Code(s): K58.2 - Mixed irritable bowel syndrome (2) Chronic GERD: Code(s): K21.9 - Gastro-esophageal reflux disease without esophagitis (3) Epigastric discomfort: Code(s): R10.13 - Epigastric pain (4) Multiple food allergies: Code(s): Z91.018 - Allergy to other foods (5) Lactose intolerance: Code(s): E73.9 - Lactose intolerance, unspecified (6) Abnormal weight gain: Code(s): R63.5 - Abnormal weight gain Plan She is doing better generally with postprandial borborygmi S and urgency, she has even been able to skip her meds when she forgets to take it with her and get away with it at times. So this is good progress. Her biggest problem now is that she still has nausea and severe heartburn at night ?like I breathing fire. ? It is when she eats her largest meal so I think were going to try changing her from omeprazole 20 mg to pantoprazole 40 mg and add a small dose of Reglan at bedtime. We also review the fact that she can take the Creon 2 tabs the morning and 2 tabs at night to simplify the dosing regimen. Unfortunately I can not do the same with the dicyclomine. She still struggling with constipation alternating with diarrhea even though this was improving in the past. However she has been under quite a lot of life time stressors lately her daughter has a lot of GI problems and her son is autistic and in new school and of course it is the holiday season! This causes us to discuss the relationship between the neural hormonal reaction to the fight or flight instinct and the gut. This is a harder thing to treat. She also has noticed that she has gained an abnormal amount of weight. This is despite the fact she has not changed her diet and she works out twice a day. She has gained 16 lb or more since May. It is hard to say since she is a hypothyroid patient if this is related to insufficient medication, or to some other hormonal fluctuations since she just had Mirena installed in May. We will get some thyroid test to see where she is at. She also had a period of time where she was switch from brand name Synthroid to levothyroxine; and as we know this can make a dramatic difference with absorption with this particular medication. She does not have any other symptoms of hypothyroid such as dry skin thinning hair etc.. Return office visit in 6-8 weeks to evaluate her response. Orders: Orders TSH reflex Free T4 Today R63.5 - Abnormal weight gain Medications: New pantoprazole (Protonix) 40 mg PO DAILY 30 days 30 tabs 6RF K21.9 - Gastro- esophageal reflux disease without esophagitis metoclopramide HCl (Reglan) 5 mg PO BEDTIME 30 tabs 3RF K21.9 - Gastro- esophageal reflux disease without esophagitis Refilled dicyclomine 40 mg (2 x 20 mg) PO TID 30 days 180 tabs 6RF R10.9 - Unspecified abdominal pain Discontinued ondansetron HCl Discontinued Reason: Doctor's Order 8 mg PO ONCE 30 days PRN 30 tabs 0RF nausea and vomiting R11.0 - Nausea omeprazole Discontinued Reason: Doctor's Order 20 mg PO DAILY 90 caps 2RF Resumed sennosides (senna) 25.8 mg (3 x 8.6 mg) PO BID 120 tabs 6RF constipation K58.2 - Mixed irritable bowel syndrome Coding Level of Care Code Est Pt Level 4 (17535) Diagnoses Irritable bowel syndrome with both constipation and diarrhea K58.2 Chronic GERD K21.9 Epigastric discomfort R10.13 Multiple food allergies Z91.018 Lactose intolerance E73.9 Abnormal weight gain R63.5
[2023-02-19 09:00] VITALS: BP 116/78; PULSE 60; BMI 32.1
== END 2023-02-19 10:49 | disposition home or self-care (01) ==
PROVIDERS: PCP Internal Medicine; Visit Provider Nurse Practitioner
DX: K58.2 Mixed irritable bowel syndrome (principal); K21.9 Gastro-esophageal reflux disease without esophagitis; R10.13 Epigastric pain; Z91.018 Allergy to other foods; E73.9 Lactose intolerance, unspecified; R63.5 Abnormal weight gain
CPT/HCPCS: 99214

== ENCOUNTER → 2023-02-19 08:50 | Outpatient (BNVA) | payer MEDICARE, MEDICAID, SELFPAY | PROVIDERS: PCP Internal Medicine; Visit Provider Nurse Practitioner | DX: K58.2 Mixed irritable bowel syndrome (principal); K21.9 Gastro-esophageal reflux disease without esophagitis; R10.13 Epigastric pain; E73.9 Lactose intolerance, unspecified; R63.5 Abnormal weight gain; Z91.018 Allergy to other foods | CPT/HCPCS: 99212 ==

== ENCOUNTER 2023-02-22 08:02 | Outpatient (REF) | payer MEDICARE, MEDICAID, SELFPAY ==
[2023-02-22 11:07] LABS: TSH reflex Free T4 1.47 uIU/mL (0.32-4.0)
== END 2023-02-22 08:03 | disposition home or self-care (01) ==
LOC: HO.LAB 08:02
PROVIDERS: PCP Internal Medicine; Visit Provider Nurse Practitioner
DX: R63.5 Abnormal weight gain (principal)
CPT/HCPCS: 36415; 84443

== ENCOUNTER → 2023-03-31 07:21 | Outpatient (BNV) | payer MEDICARE, MEDICAID, SELFPAY | PROVIDERS: PCP Internal Medicine; Visit Provider Psychiatry & Neurology Neurology | DX: R06.83 Snoring (principal) | CPT/HCPCS: 95806 ==

== ENCOUNTER → 2023-03-31 14:47 | Outpatient (REF) | payer MEDICARE, MEDICAID, SELFPAY | LOC: HO.SL 14:47 | PROVIDERS: PCP Internal Medicine; Visit Provider Nurse Practitioner Family | DX: G47.33 Obstructive sleep apnea (adult) (pediatric) (principal) | CPT/HCPCS: 95806 ==

== ENCOUNTER 2023-04-06 12:50 | Outpatient (AMB) | payer MEDICARE, MEDICAID, SELFPAY ==
--- NOTE | 2023-04-06 12:51 | A.OFFVIS_ITS ---
Intake Vital Signs 04/06/23 12:56 Height 5 ft 11 in Weight 233 lb 11.04 oz BMI 32.6 BP 132/62 Blood Pressure Location Lt brachial Position Sitting Pulse 65 Intake Visit Reasons: NPV/Abnormal EKG/Bobo Intake Note: NPV Orientation And Mobility Specialist Required: No Accompanied by: Self / Same As Patient Allergies adhesive tape Allergy (Mild, Verified 04/06/23 12:56) RASH ketorolac [From TORADOL] Allergy (Mild, Verified 04/06/23 12:56) HIVES latex [LATEX] Allergy (Mild, Verified 04/06/23 12:56) RASH oxycodone Allergy (Unknown, Verified 04/06/23 12:56) itching FRUIT Allergy (Intermediate, Uncoded 04/06/23 12:56) HIVES Adhesive Bandages Allergy (Unknown, Uncoded 04/06/23 12:56) rash, swelling adhesive tape Allergy (Unknown, Uncoded 04/06/23 12:56) hives apples, citrus, vegatables w s Allergy (Unknown, Uncoded 04/06/23 12:56) hives Ketorolac & Bupivacaine & Lido Allergy (Unknown, Uncoded 04/06/23 12:56) hives Medication List - Last Reconciled 04/06/23 by Juan Pablo Conroy MD acetaminophen-codeine 300-30 mg 1 tab PO BID PRN albuterol sulfate 90 mcg/actuation (Ventolin HFA) 1 inh inhalation QID PRN 30 days amitriptyline 25 mg PO BEDTIME azelastine intranasal bisacodyl (Laxative (bisacodyl)) 10 mg (2 x 5 mg) PO BEDTIME dicyclomine 40 mg (2 x 20 mg) PO TID 30 days epinephrine IM famotidine 40 mg PO BEDTIME galcanezumab-gnlm (Emgality Pen) mg subcut levalbuterol HCl 1.25 mg (3 mL) inhalation Q4-6H PRN levalbuterol tartrate 45 mcg/actuation 1 puff inhalation Q4-6H PRN levonorgestrel (Mirena) intrauterine fcwfjm-yaqpxywy-tjhwvov 24,000-76,000 -120,000 unit (Creon) 1 cap PO QID metoclopramide HCl (Reglan) 5 mg PO BEDTIME pantoprazole (Protonix) 40 mg PO DAILY 30 days propranolol 60 mg PO BID sennosides (senna) 25.8 mg (3 x 8.6 mg) PO BID sodium chloride 0.65% (Saline Nasal) 1 spray intranasal BID PRN 4 days Synthroid (levothyroxine) 125 mcg PO DAILY NS topiramate (Topamax) 50 mg PO BID valacyclovir 1,000 mg PO BID HPI HPI Comments History of Present Illness Details Kayla is here for consultation regarding palpitations and question of abnormal EKG. She is clearly overweight. No known cardiac issues in the past. She states that she gets random sensations of chest pains where she feels as though there is a sharp twinge in the chest. This can happen any time. Nothing exertional. She also feels her heart fluttering frequently. When she had the Holter monitor on, she was complaining of palpitations but underlying rhythm was still sinus only. Otherwise, some shortness of breath off and on but she states that she also has asthma. [facility] Medical History (Updated 04/06/23 @ 13:25 by Juan Pablo Conroy MD) Encounter for general adult medical examination with abnormal findings Encounter for IUD insertion Nausea Upper respiratory infection Leg pain, right Nausea Other specified hypothyroidism Otitis media Right hip pain Chest wall pain Lightheaded Acute sinusitis Goiter Elevated TSH Medicare annual wellness visit, subsequent Constipation Ill feeling Epigastric pain Constipation Cervical cancer screening Well woman exam with routine gynecological exam Medicare annual wellness visit, initial Abnormal thyroid stimulating hormone (TSH) level Patella francisco j Knee pain Neck pain Chest pain Migraines Eczema Fibromyalgia Heart murmur Asthma Hypothyroidism Surgical History H/O shoulder surgery [place] teeth removed History of appendectomy Family History (Updated 04/06/23 @ 12:57 by Katalina Kilpatrick) Mother Graves disease Hypothyroidism Father CHF (congestive heart failure) Other Substance use disorder Social History Housing: Apartment Alcohol intake: never Patient Tobacco Use Status: Never used Tobacco e-Cigarette/Vaping Use: Never Used Second Hand Smoke Exposure: Yes (as a child only) service: No Current occupational status: disabled Sexual orientation: Straight/Heterosexual Gender identity: Female Cognitive needs: No Hearing needs: No Vision needs: Yes Female Reproductive History Menstrual Age of Menarche: 15 Review of Systems Const Denies chills, Denies daytime sleepiness, Denies fatigue, Denies fever(s), Denies frequent falls, Denies night sweats, Denies snoring, Denies weakness, Denies weight gain and Denies weight loss Eyes Denies loss of vision ENT Denies dizziness and Denies hearing loss Card Denies chest pain, Denies chest pain with activity, Denies syncope, Denies rapid heart rate, Denies edema, Denies claudication, Denies leg edema, Denies lightheadedness, Denies palpitations and Denies orthopnea Resp Denies cough, Denies excessive phlegm production, Denies snoring and Denies wheezing GI Denies abdominal pain, Denies hematochezia, Denies change in bowel habits, Denies change in stool character, Denies heartburn, Denies nausea and Denies vomiting Denies hematuria, Denies urinary frequency and Denies dysuria Musc Denies arthralgias, Denies muscle weakness, Denies numbness and Denies tingling Skin/Breast Denies nail changes and Denies rash Neuro Denies Abnormal speech present, Denies dizziness, Denies syncope, Denies frequent falls, Denies loss of vision, Denies memory loss, Denies numbness, Denies tingling and Denies weakness Psych Denies depression and Denies memory loss Endo Denies fatigue and Denies palpitations Aller/Immun Denies wheezing Physical Exam Vital Signs: Last Vital Signs Pulse 65 04/06/23 12:56 BP 132/62 04/06/23 12:56 BMI result Body Mass Index 32.6 Const General: comfortable and no acute distress Orientation/consciousness: patient oriented x3 HEENT Other: Unremarkable Head: Yes normal to inspection Neck Neck: Yes normal visual inspection Chest Chest palpation & inspection: normal inspection of the chest Resp Auscultation: clear to auscultation bilaterally Cardio Palpation: normal PMI Heart sounds: S1 normal heart sound present, S2 normal heart sound present, no gallops, no murmurs and no rubs GI Palpation (GI): Soft to palpation Back/Spine/Pelvis Other: unremarkable Skin General skin exam: no rashes or lesions noted Neuro General: patient oriented x3 Speech: No Abnormal speech present Extrem General: Yes normal to inspection Psych Mental Status: mental status grossly normal Assessment & Plan Assessment & Plan (1) Palpitations: Code(s): R00.2 - Palpitations (2) Atypical chest pain: Code(s): R07.89 - Other chest pain (3) Shortness of breath: Code(s): R06.02 - Shortness of breath Plan EKG shows underlying sinus rhythm at 74/Min; can not exclude old anterior infarct but much more likely from body habitus. Normal MT and corrected QT. In the Holter, underlying rhythm was sinus average rate of 72/Min. Extremely rare PVCs. Episodes of palpitations, pain described in diary correlate with sinus rhythm. Findings discussed with patient and also showed her the strips where she complained of various symptoms but the rhythm was still sinus only. Anxiety could certainly play a role. We will also get an echocardiogram to ensure there is no structural findings. Otherwise, mainly reassurance. Orders: Orders CA echo transthoracic complete Today R06.02 - Shortness of breath Coding Level of Care Code New Pt Level 3 (06841) Diagnoses Palpitations R00.2 Atypical chest pain R07.89 Shortness of breath R06.02
[2023-04-06 12:56] VITALS: BP 132/62; PULSE 65; BMI 32.6
== END 2023-04-06 13:14 | disposition home or self-care (01) ==
PROVIDERS: PCP Internal Medicine; Visit Provider Internal Medicine
DX: R00.2 Palpitations (principal); R07.89 Other chest pain; R06.02 Shortness of breath
CPT/HCPCS: 99203

== ENCOUNTER → 2023-04-06 12:50 | Outpatient (BNVA) | payer MEDICARE, MEDICAID, SELFPAY | PROVIDERS: PCP Internal Medicine; Visit Provider Internal Medicine | DX: R00.2 Palpitations (principal); R07.89 Other chest pain; R06.02 Shortness of breath | CPT/HCPCS: 99202 ==

== ENCOUNTER 2023-04-10 07:49 | Outpatient (REF) | payer MEDICARE, MEDICAID, SELFPAY ==
--- NOTE | 2023-04-10 08:38 | PFT_ITS ---
Flows: FEV1: 90 % of predicted at 3.47 L FVC: 93 % of predicted at 4.41 L FEV1/FVC: 79 % Bronchodilator response: Absent Volumes: Total lung capacity: 81 % of predicted at 5.29 L Residual volume: 73 % of predicted at 1.17 L Slow vital capacity: 83 % of predicted at 4.12 L Expiratory reserve volume: 60 % of predicted at 1.16 L Diffusion capacity: Normal Impression: No obstructive or restrictive ventilatory defect. No bronchodilator response. Essentially normal pulmonary function test. MTDD
== END 2023-04-10 07:50 | disposition home or self-care (01) ==
LOC: HO.RESP 07:49
PROVIDERS: PCP Internal Medicine; Visit Provider Internal Medicine
DX: J45.40 Moderate persistent asthma, uncomplicated (principal); R06.02 Shortness of breath
CPT/HCPCS: 94010; 94727; 94729

== ENCOUNTER → 2023-04-10 08:38 | Outpatient (BNV) | payer MEDICARE, MEDICAID, SELFPAY | PROVIDERS: PCP Internal Medicine; Visit Provider Internal Medicine Pulmonary Disease | DX: J45.40 Moderate persistent asthma, uncomplicated (principal) | CPT/HCPCS: 94060; 94727; 94729 ==

== ENCOUNTER 2023-04-16 12:52 | Outpatient (AMB) | payer MEDICARE, MEDICAID, SELFPAY ==
[2023-04-16 12:59] VITALS: BP 130/80; PULSE 58; TEMP 36.4; O2SAT 99; BMI 33.1
--- NOTE | 2023-04-16 12:59 | MHC.OFFWIV ---
Intake Vital Signs 04/16/23 12:59 Height 5 ft 11 in Weight 237 lb BMI 33.1 BP 130/80 Blood Pressure Location Lt brachial Position Sitting Pulse 58 Pulse Source Pulse Oximeter Temp 97.6 F Temp Source Temporal Artery Scan Pulse Oximetry (%) 99 Oxygen Delivery Method Room Air Intake Visit Reasons: EP Sinus pressure/Ear Intake Note: pt is here today for sinus pressure and ear started Patient Tobacco Use Status: Never used Tobacco Allergies adhesive tape Allergy (Mild, Verified 04/16/23 12:59) RASH ketorolac [From TORADOL] Allergy (Mild, Verified 04/16/23 12:59) HIVES latex [LATEX] Allergy (Mild, Verified 04/16/23 12:59) RASH oxycodone Allergy (Unknown, Verified 04/16/23 12:59) itching FRUIT Allergy (Intermediate, Uncoded 04/06/23 12:56) HIVES Adhesive Bandages Allergy (Unknown, Uncoded 04/06/23 12:56) rash, swelling adhesive tape Allergy (Unknown, Uncoded 04/06/23 12:56) hives apples, citrus, vegatables w s Allergy (Unknown, Uncoded 04/06/23 12:56) hives Ketorolac & Bupivacaine & Lido Allergy (Unknown, Uncoded 04/06/23 12:56) hives Do you need a note to return to daycare/school/sports/work: Yes HPI HPI Comments History of Present Illness Details 38 y/o female patient presents to walk in clinic with c/o URI symptoms. Reports throat pain with swallowing and talking. Chest pain with coughing, wheezing. H/o Asthma, has been using Rescue inhaler frequently. Denies fevers or chills. Denies Anorexia. [facility] Medical History (Updated 04/06/23 @ 13:25 by Juan Pablo Conroy MD) Encounter for general adult medical examination with abnormal findings Encounter for IUD insertion Nausea Upper respiratory infection Leg pain, right Nausea Other specified hypothyroidism Otitis media Right hip pain Chest wall pain Lightheaded Acute sinusitis Goiter Elevated TSH Medicare annual wellness visit, subsequent Constipation Ill feeling Epigastric pain Constipation Cervical cancer screening Well woman exam with routine gynecological exam Medicare annual wellness visit, initial Abnormal thyroid stimulating hormone (TSH) level Patella francisco j Knee pain Neck pain Chest pain Migraines Eczema Fibromyalgia Heart murmur Asthma Hypothyroidism Surgical History H/O shoulder surgery [place] teeth removed History of appendectomy Family History (Updated 04/06/23 @ 12:57 by Katalina Kilpatrick) Mother Graves disease Hypothyroidism Father CHF (congestive heart failure) Other Substance use disorder Social History Housing: Apartment Alcohol intake: never Patient Tobacco Use Status: Never used Tobacco e-Cigarette/Vaping Use: Never Used Second Hand Smoke Exposure: Yes (as a child only) service: No Current occupational status: disabled Sexual orientation: Straight/Heterosexual Gender identity: Female Cognitive needs: No Hearing needs: No Vision needs: Yes Female Reproductive History Menstrual Age of Menarche: 15 Review of Systems Const All systems reviewed & are unremarkable except as noted in HPI and below Physical Exam Vital Signs: Last Vital Signs Temp 97.6 F 04/16/23 12:59 Pulse 58 04/16/23 12:59 BP 130/80 04/16/23 12:59 Pulse Ox 99 04/16/23 12:59 Oxygen Delivery Method Room Air 04/16/23 12:59 BMI result Body Mass Index 33.1 Const General: comfortable and no acute distress HEENT Head: Yes normocephalic Ears: external ears normal and TM's normal bilaterally General nose exam: Normal external nose present, No nasal polyps present, Abnormal mucous membranes and turbinates present boggy and erythematous and Nasal discharge present Face and sinus: Yes sinuses nontender Mouth: Abnormal oral and palatal mucosa present erythematous and white patches Throat: Yes posterior oropharynx normal and Yes postnasal drainage Resp Effort & Inspection: normal respiratory effort Auscultation: clear to auscultation bilaterally Cardio Rate: regular rate Rhythm: regular rhythm Assessment & Plan Assessment & Plan (1) Acute rhinosinusitis: Code(s): J01.90 - Acute sinusitis, unspecified Plan: - OTC cold remedies -rest - warm fluids - RTC if symptoms worse in 72 hours (2) Cough in adult: Code(s): R05.9 - Cough, unspecified Plan: -OTC couugh/cold remedies -warm fluids -rest - Acetaminophen for pain relief Orders: Orders SARS-CoV2/FLU/RSV Today J01.90 - Acute sinusitis, unspecified Medications: New kwbckwkxwjwqt-LS-jmqvengirpx 5-10-100 mg/5 mL (Adult Robitussin Peak Cold M-S) 10 mL PO Q4H PRN 237 mL 0RF cold symptoms R05.9 - Cough, unspecified benzonatate 200 mg (2 x 100 mg) PO TID 90 caps 0RF R05.9 - Cough, unspecified Coding Level of Care Code Est Pt Level 3 (83333) Diagnoses Acute rhinosinusitis J01.90 Cough in adult R05.9 Time Spent (min) 15
== END 2023-04-16 13:36 | disposition home or self-care (01) ==
PROVIDERS: PCP Internal Medicine; Visit Provider Nurse Practitioner Family
DX: J01.90 Acute sinusitis, unspecified (principal); R05.9 Cough, unspecified
CPT/HCPCS: 99213

== ENCOUNTER 2023-04-16 17:06 | Outpatient (REF) | payer MEDICARE, MEDICAID, SELFPAY ==
[2023-04-16 17:51] LABS: Influenza A PCR NEGATIVE (Negative); Influenza B PCR NEGATIVE (Negative); Resp Syncy Virus RNA Qual PCR NEGATIVE (Negative); SARS COV2 PCR INHOUSE NEGATIVE (Negative)
== END 2023-04-16 17:07 | disposition home or self-care (01) ==
LOC: HO.HMGCLNP 17:06
PROVIDERS: Visit Provider Nurse Practitioner Family
DX: Z11.52 Encounter for screening for COVID-19 (principal); Z20.822 Contact with and (suspected) exposure to COVID-19; J01.90 Acute sinusitis, unspecified
CPT/HCPCS: 0241U

== ENCOUNTER 2023-04-20 09:29 | Outpatient (AMB) | payer MEDICARE, MEDICAID, SELFPAY ==
[2023-04-20 09:30] VITALS: BP 112/60; PULSE 66; O2SAT 100; BMI 33.1
--- NOTE | 2023-04-20 09:30 | A.OFFVIS_ITS ---
Intake Vital Signs 04/20/23 09:30 Height 5 ft 11 in Weight 237 lb BMI 33.1 BP 112/60 Blood Pressure Location Rt brachial Position Sitting Pulse 66 Pulse Source Pulse Oximeter Pulse Oximetry (%) 100 Intake Visit Reasons: asthma: f/u results Metal Box Maker Required: No Extension Service Specialist: Extension Service Specialist offered & declined Accompanied by: Self / Same As Patient Allergies adhesive tape Allergy (Mild, Verified 04/16/23 12:59) RASH ketorolac [From TORADOL] Allergy (Mild, Verified 04/16/23 12:59) HIVES latex [LATEX] Allergy (Mild, Verified 04/16/23 12:59) RASH oxycodone Allergy (Unknown, Verified 04/16/23 12:59) itching FRUIT Allergy (Intermediate, Uncoded 04/06/23 12:56) HIVES Adhesive Bandages Allergy (Unknown, Uncoded 04/06/23 12:56) rash, swelling adhesive tape Allergy (Unknown, Uncoded 04/06/23 12:56) hives apples, citrus, vegatables w s Allergy (Unknown, Uncoded 04/06/23 12:56) hives Ketorolac & Bupivacaine & Lido Allergy (Unknown, Uncoded 04/06/23 12:56) hives Medication List - Last Reconciled 04/20/23 by Pastora Kim LPN acetaminophen-codeine 300-30 mg 1 tab PO BID PRN albuterol sulfate 90 mcg/actuation (Ventolin HFA) 1 inh inhalation QID PRN 30 days amitriptyline 25 mg PO BEDTIME azelastine intranasal benzonatate 200 mg (2 x 100 mg) PO TID cyclosporine 0.05% (Restasis) drps ophthalmic (eye) dicyclomine 40 mg (2 x 20 mg) PO TID 30 days epinephrine IM famotidine 40 mg PO BEDTIME galcanezumab-gnlm (Emgality Pen) mg subcut levalbuterol HCl 1.25 mg (3 mL) inhalation Q4-6H PRN levalbuterol tartrate 45 mcg/actuation 1 puff inhalation Q4-6H PRN levonorgestrel (Mirena) intrauterine rhjcba-aiusvgsj-rwuxmeq 24,000-76,000 -120,000 unit (Creon) 1 cap PO QID metoclopramide HCl (Reglan) 5 mg PO BEDTIME pantoprazole (Protonix) 40 mg PO DAILY 30 days veybamdgpantu-LK-vdrhplbzjjn 5-10-100 mg/5 mL (Adult Robitussin Peak Cold M-S) 10 mL PO Q4H PRN propranolol 60 mg PO BID sennosides (senna) 25.8 mg (3 x 8.6 mg) PO BID sodium chloride 0.65% (Saline Nasal) 1 spray intranasal BID PRN 4 days Synthroid (levothyroxine) 125 mcg PO DAILY NS topiramate (Topamax) 50 mg PO BID valacyclovir 1,000 mg PO BID HPI asthma: f/u results HPI Details Kayla is a pleasant 38 year old female, never smoker, with underlying asthma since teenager, atopic dermatitis, environmental allergies, allergic rhinitis and GERD. She is under the care of ENT receiving immunotherapy to multiple environmental allergens and uses Flonase/Azelastine with moderate effect. GERD is managed by GI with omeprazole and famotidine. Since the last visit, she has been using symbicort once daily with suboptimal control. Of note. she was recently seen in urgent care with sinusitis, increased wheezing, dyspnea and productive cough with yellowish sputum. Supportive measures recommended. Today she presents to review home sleep study, RAST and PFT results. [facility] Medical History (Updated 04/06/23 @ 13:25 by Juan Pablo Conroy MD) Encounter for general adult medical examination with abnormal findings Encounter for IUD insertion Nausea Upper respiratory infection Leg pain, right Nausea Other specified hypothyroidism Otitis media Right hip pain Chest wall pain Lightheaded Acute sinusitis Goiter Elevated TSH Medicare annual wellness visit, subsequent Constipation Ill feeling Epigastric pain Constipation Cervical cancer screening Well woman exam with routine gynecological exam Medicare annual wellness visit, initial Abnormal thyroid stimulating hormone (TSH) level Patella francisco j Knee pain Neck pain Chest pain Migraines Eczema Fibromyalgia Heart murmur Asthma Hypothyroidism Surgical History H/O shoulder surgery [place] teeth removed History of appendectomy Family History (Updated 04/06/23 @ 12:57 by Katalina Kilpatrick) Mother Graves disease Hypothyroidism Father CHF (congestive heart failure) Other Substance use disorder Social History (Updated 04/20/23 @ 09:37 by Pastora Kim LPN) Housing: Apartment Alcohol intake: never Patient Tobacco Use Status: Never used Tobacco e-Cigarette/Vaping Use: Never Used Second Hand Smoke Exposure: Yes (as a child only) service: No Current occupational status: disabled Sexual orientation: Straight/Heterosexual Gender identity: Female Cognitive needs: No Hearing needs: No Vision needs: Yes Female Reproductive History Menstrual Age of Menarche: 15 Review of Systems Const Denies chills, Denies excessive sweating, Denies fever(s) and Denies night sweats Eyes Denies dry eyes, Denies irritation and Denies itchy eyes ENT Reports Normal hearing present, Denies nasal discharge and Denies post nasal drip Card Denies chest pain, Denies chest pain at rest, Denies chest pain with activity, Denies claudication, Denies leg edema, Denies orthopnea and Denies paroxysmal nocturnal dyspnea Resp Denies excessive phlegm production, Denies pain on inspiration, Denies pain with cough and Denies stridor Musc Denies myalgias Neuro Reports Normal hearing present Endo Denies excessive sweating Sixto/Lymph Denies lymphadenopathy Aller/Immun Denies itchy eyes and Denies seasonal rhinorrhea Physical Exam Vital Signs: Last Vital Signs Pulse 66 04/20/23 09:30 BP 112/60 04/20/23 09:30 Pulse Ox 100 04/20/23 09:30 BMI result Body Mass Index 33.1 Const General: cooperative, healthy appearing, comfortable, no acute distress, well developed and alert Nutritional Appearance: obese Orientation/consciousness: patient oriented x3 Limitations: no limitations HEENT Head: Yes normal to inspection, Yes normocephalic and Yes atraumatic Ears: hearing grossly normal bilaterally and external ears normal Eyes General: appearance normal, both eyes and all related structures Eyelids: Yes eyelids normal Sclerae: sclerae normal EOM: EOMs intact bilaterally Neck Neck: Yes normal visual inspection and Yes no lymphadenopathy Lymphatic: no lymphadenopathy noted Chest Chest palpation & inspection: normal inspection of the chest Resp Effort & Inspection: normal respiratory effort, able to speak in complete sentences, no audible wheezes, no cough, no stridor, not tachypneic, no tripod positioning and no use of accessory muscles Auscultation: clear to auscultation bilaterally Cardio Jugular venous distension: no JVD Rate: regular rate Rhythm: regular rhythm Skin Other: warm, dry General skin exam: no rashes or lesions noted Neuro General: patient oriented x3 Cranial nerves: Yes Normal hearing present Cognition (Neuro): normal cognition Gait exam (Neuro): Normal gait present Extrem General: Yes normal to inspection, Yes capillary refill normal, Yes no clubbing, cyanosis or edema and Yes no pedal edema Psych Appearance: grossly normal and well kempt Speech and movement: Normal speech and movement present and Clear speech present Affect: normal affect Attitude: cooperative Thought process: Normal thought process present Thought content: Normal thought content present Insight: Good insight present (Psych) Judgement: Good judgement present (Psych) Assessment & Plan Assessment & Plan (1) Asthma, moderate persistent: Code(s): J45.40 - Moderate persistent asthma, uncomplicated Qualifiers: Asthma complication type: uncomplicated Qualified Code(s): J45.40 - Moderate persistent asthma, uncomplicated (2) Chronic GERD: Code(s): K21.9 - Gastro-esophageal reflux disease without esophagitis (3) Environmental allergies: Code(s): Z91.09 - Other allergy status, other than to drugs and biological substances Plan Will treat bronchitic symptoms with azithromyin. Patient is aware if symptoms do not improve to call office. Advised patient to use symbicort 2 inhalations BID for better asthma control. Will send in refills. Reviewed home sleep study which was negative for DESIREE. Reviewed PFT which did not reveal an obstructive or restrictive defect. There was no response to bronchodilators, except in small to medium airways. TLC and DLCO normal. Reviewed RAST which revealed multiple allergens. Will follow up in 3 months to review response to symbicort or sooner if needed. All questions were answered and patient is in agreement of plan. Medications: New azithromycin For 250 mg dose pack: take 500 mg today (day 1), then 250 mg for 4 days (days 2-5) PO 6 tabs 0RF budesonide-formoterol 160-4.5 mcg/actuation (Symbicort) 2 puffs inhalation Q12H 10.2 grams 3RF Coding Level of Care Code Est Pt Level 4 (43644) Diagnoses Moderate persistent asthma without complication J45.40 Asthma complication type: uncomplicated Chronic GERD K21.9 Environmental allergies Z91.09
== END 2023-04-20 10:00 | disposition home or self-care (01) ==
PROVIDERS: PCP Internal Medicine; Visit Provider Nurse Practitioner Family
DX: J45.40 Moderate persistent asthma, uncomplicated (principal); K21.9 Gastro-esophageal reflux disease without esophagitis; Z91.09 Other allergy status, other than to drugs and biological substances
CPT/HCPCS: 99214

== ENCOUNTER → 2023-04-20 09:29 | Outpatient (BNVA) | payer MEDICARE, MEDICAID, SELFPAY | PROVIDERS: PCP Internal Medicine; Visit Provider Nurse Practitioner Family | DX: J45.40 Moderate persistent asthma, uncomplicated (principal); K21.9 Gastro-esophageal reflux disease without esophagitis; Z91.09 Other allergy status, other than to drugs and biological substances | CPT/HCPCS: 99212 ==

== ENCOUNTER → 2023-04-29 09:59 | Outpatient (REF) | payer MEDICARE, MEDICAID, SELFPAY ==
--- NOTE | 2023-04-29 10:02 | CA_ITS ---
Transthoracic Echocardiogram Patient (Last, First, Middle): Kayla Ortega, Gender: Female Date of : 1985 Age: 38 Procedure Date: 04/29/2023 Procedure Type: Transthoracic Echocardiogram Location: OP Height: 180.34 cm Weight: 103.87 kg BSA: 2.23 m2 Heart Rate: bpm BP: 110 / 70 mmHg User Experience Manager: TO Referring MD: Juan Pablo Conroy MD Banking Attorney: Brandon Alanis MD Symptoms: R06.02 - Shortness of breath Study Quality: Adequate ECG Rhythm: Sinus Conclusions: - Normal study Findings Left Ventricle Normal left ventricular size, thickness, and systolic function. The visually estimated ejection fraction is between 55-60%. Spectral Doppler is indicative of a normal filling pattern. Peak GLS is -18.8%, within normal limits. Right Ventricle Normal right ventricular cavity size and systolic function. Atria Both atria are normal in size. There is no evidence of interatrial shunt. Aortic Valve Normal aortic valve structure and function. There is no aortic valve stenosis. There is no aortic valve regurgitation. Mitral Valve Normal mitral valve structure and function. There is trace mitral valve regurgitation. There is no mitral valve stenosis. Pulmonic Valve The pulmonic valve is likely normal. Tricuspid Valve Normal tricuspid valve structure. There is trace tricuspid valve regurgitation. The right ventricular systolic pressure is normal. The right ventricular systolic pressure is 21 mmHg. Normal right atrial pressure. There is no evidence of pulmonary hypertension. Great Vessels All visible segments of the aorta are normal in size. The pulmonary artery was not well visualized. Venous The inferior vena cava is normal in size and collapses greater than 50% with inspiration. Pericardium/Pleural There is no evidence of pericardial effusion. Measurements 2D Linear Measurements IVSd: 0.94 0.6-0.9/0.6-1.0 cm LVIDd: 4.98 3.9-5.3/4.2-5.9 cm LVIDd Index: 2.23 2.4-3.2/2.2-3.1 cm/m2 LVIDs: 3.70 2.0-3.6 cm LVPWd: 0.87 0.7-1.1 cm LA Diam: 3.50 2.7-3.8/3.0-4.0 cm LAIDs Index: 1.57 1.5-2.3 cm/m2 LV Mass: 196.69 67-162/88-224 g LV Mass Index: 88.20 43-95/49-115 g/m2 LVOT Diam: 2.20 3.0+(-)1.3 cm 2D Systolic Function EF 4C: 57.00 >55% EF 2C: 57.00 >55% EF BiP: 58.00 >55% Mitral Valve MV Pk E: 0.62 MV PK A: 0.37 MV Decel Time: 223.00 E/A: 1.70 E'Lateral: 12.10 E'Medial: 8.16 E/E' Med: 7.60 E/E' Lat: 5.10 PHT: 65.00 MVA PHT: 3.38 Decel [place]: 2.79 Aortic Valve AoV Pk Kiran: 1.23 AoV Mn Kiran: 0.77 AoV VTI: 0.29 AoV Pk Grad: 6.00 Aov Mn Grad: 3.00 MAR Cont.VTI: 2.80 LVOT LVOT Pk Kiran: 0.89 LVOT Mn Kiran: 0.59 LVOT VTI: 0.22 LVOT Pk Grad: 3.00 LVOT Mn Grad: 2.00 LVOT Diam: 2.20 LVOT Area: 3.80 Diastolic Function MV Pk E: 0.62 MV Pk A: 0.37 E/A: 1.70 E'Medial: 8.16 E/E' Med: 7.60 E' Laterial: 12.10 E/E' Lat: 5.10 Right Ventricle TAPSE (mm): 23.50 TVS' Kiran: 12.50 Tricuspid Valve TR Pk Kiran: 1.79 TR Pk Grad: 13.00 RA Press: 8.00 RVSP: 21.00 Great Vessels Aorta Sinus of Valsalva: 3.35 2.0-3.5 cm Ao Asc: 3.00 2.1-3.4 cm Ao Arch: 2.90 Updated in Other Vendor System with Status of Final Brandon Alanis MD electronically signed on 04/30/2023 2:35:28 PM with status of Final
== END ==
LOC: HO.CARD 09:59
PROVIDERS: PCP Internal Medicine; Visit Provider Internal Medicine
DX: R06.02 Shortness of breath (principal)
CPT/HCPCS: 93306; 93356

== ENCOUNTER → 2023-04-29 10:02 | Outpatient (BNV) | payer MEDICARE, MEDICAID, SELFPAY | PROVIDERS: PCP Internal Medicine; Visit Provider Internal Medicine Cardiovascular Disease | DX: R06.02 Shortness of breath (principal) | CPT/HCPCS: 93306 ==

== ENCOUNTER 2023-05-20 08:48 | Outpatient (AMB) | payer MEDICARE, MEDICAID, SELFPAY ==
--- NOTE | 2023-05-20 08:51 | A.OFFVIS_ITS ---
Intake Vital Signs 05/20/23 08:52 Height 5 ft 11 in Weight 233 lb 11.04 oz BMI 32.6 BP 119/60 Blood Pressure Location Lt brachial Position Sitting Pulse 71 Intake Visit Reasons: Weight loss Intake Note: Kayla presents in the office today in follow up of GERD. CC: She c/o really bad heartburn despite taking her Famotidine and Pantoprazole. Denies other GI symptoms today. Club Licensee Required: No Accompanied by: Self / Same As Patient Allergies adhesive tape Allergy (Mild, Verified 05/20/23 09:05) RASH ketorolac [From TORADOL] Allergy (Mild, Verified 05/20/23 09:05) HIVES latex [LATEX] Allergy (Mild, Verified 05/20/23 09:05) RASH oxycodone Allergy (Unknown, Verified 05/20/23 09:05) itching FRUIT Allergy (Intermediate, Uncoded 04/06/23 12:56) HIVES Adhesive Bandages Allergy (Unknown, Uncoded 04/06/23 12:56) rash, swelling adhesive tape Allergy (Unknown, Uncoded 04/06/23 12:56) hives apples, citrus, vegatables w s Allergy (Unknown, Uncoded 04/06/23 12:56) hives Ketorolac & Bupivacaine & Lido Allergy (Unknown, Uncoded 04/06/23 12:56) hives HPI Weight loss HPI Details Assessment & Plan (1) Irritable bowel syndrome with both c onstipation and diarrhea: Code(s): K58.2 - Mixed irritable bowel syndrome (2) Chronic GERD: Code(s): K21.9 - Gastro-esophageal reflux disease without esophagitis (3) Epigastric discomfort: Code(s): R10.13 - Epigastric pain (4) Multiple food allergies: Code(s): Z91.018 - Allergy to other foods (5) Lactose intolerance: Code(s): E73.9 - Lactose intolerance, unspecified (6) Abnormal weight gain: Code(s): R63.5 - Abnormal weight gain Plan She is doing better generally with postprandial borborygmi S and urgency, she has even been able to skip her meds when she forgets to take it with her and get away with it at times. So this is good progress. Her biggest problem now is that she still has nausea and severe heartburn at night ?like I breathing fire. ? It is when she eats her largest meal so I think were going to try changing her from omeprazole 20 mg to pantoprazole 40 mg and add a small dose of Reglan at bedtime. We also review the fact that she can take the Creon 2 tabs the morning and 2 tabs at night to simplify the dosing regimen. Unfortunately I can not do the same with the dicyclomine. She still struggling with constipation alternating with diarrhea even though this was improving in the past. However she has been under quite a lot of life time stressors lately her daughter has a lot of GI problems and her son is autistic and in new school and of course it is the holiday season! This causes us to discuss the relationship between the neural hormonal reaction to the fight or flight instinct and the gut. This is a harder thing to treat. She also has noticed that she has gained an abnormal amount of weight. This is despite the fact she has not changed her diet and she works out twice a day. She has gained 16 lb or more since May. It is hard to say since she is a hypothyroid patient if this is related to insufficient medication, or to some other hormonal fluctuations since she just had Mirena installed in May. We will get some thyroid test to see where she is at. She also had a period of time where she was switch from brand name Synthroid to levothyroxine; and as we know this can make a dramatic difference with absorption with this particular medication. She does not have any other symptoms of hypothyroid such as dry skin thinning hair etc.. Return office visit in 6-8 weeks to evaluate her response. Orders: Orders TSH reflex Free T4 Today R63.5 - Abnormal w eight gain Medications: New pantoprazole (Prot ute) 40 mg PO DAILY 30 days 30 tabs 6RF K21.9 - Gastro-eso phageal reflux dis ease without esoph agitis metoclopramide HCl (Reglan) 5 mg PO BEDTIME 3 0 tabs 3RF K21.9 - Gastro-eso phageal reflux dis ease without esoph agitis Refilled dicyclomine 40 mg (2 x 20 mg) PO TID 30 days 180 tabs 6RF R10.9 - Unspecifie d abdominal pain Discontinued ondansetron HCl Discontinued Reas on: Doctor's Orde r 8 mg PO ONCE 30 d ays PRN 30 tabs 0R F nausea and vomit ing R11.0 - Nausea omeprazole Disc ontinued Reason: Doctor's Order 20 mg PO DAILY 90 caps 2RF Resumed sennosides (senna) 25.8 mg (3 x 8.6 m g) PO BID 120 tabs 6RF constipation K58.2 - Mixed irri table bowel syndro me LABS: Laboratory Tests 02/22/23 08:17 TSH 1.47 TODAY'S VISIT Her current regimen consists dicyclomine 40 mg 3 times a day, famotidine at bedtime, Creon 2 tabs twice a day, Reglan 5 mg at bedtime, pantoprazole 40 mg in the morning, senna 3 tabs twice a day. Using the pantoprazole and the qhs reglan worked at first, but then my HB came back with a vengeance. The only change is weight gain and increasing her propra nolol. She also had to stop her allergy shots because they are fearful they will not detect any tachycardia of an adverse reaction to injections. She struggles to lose weight but is not finding success. We review her TSH which is normal now. Will order EGD to assess her odyonophagia with food and burning just below the sternal notch. Consider barium swallow going forward depending on results. Changing form pantroprazole to lansoprazole and increasing reglan to 10mg qhs. She will be going for surgery in 2 weeks for a hip labral tear. [facility], [facility] Medical History (Updated 05/20/23 @ 10:40 by RIDGE Kevin) Chronic GERD Encounter for general adult medical examination with abnormal findings Encounter for IUD insertion Nausea Upper respiratory infection Leg pain, right Nausea Other specified hypothyroidism Otitis media Right hip pain Chest wall pain Lightheaded Acute sinusitis Goiter Elevated TSH Medicare annual wellness visit, subsequent Constipation Ill feeling Epigastric pain Constipation Cervical cancer screening Well woman exam with routine gynecological exam Medicare annual wellness visit, initial Abnormal thyroid stimulating hormone (TSH) level Patella francisco j Knee pain Neck pain Chest pain Migraines Eczema Fibromyalgia Heart murmur Asthma Hypothyroidism Surgical History H/O shoulder surgery [place] teeth removed History of appendectomy Family History Mother Graves disease Hypothyroidism Father CHF (congestive heart failure) Other Substance use disorder Social History Housing: Apartment Alcohol intake: never Patient Tobacco Use Status: Never used Tobacco e-Cigarette/Vaping Use: Never Used Second Hand Smoke Exposure: Yes (as a child only) service: No Current occupational status: disabled Sexual orientation: Straight/Heterosexual Gender identity: Female Cognitive needs: No Hearing needs: No Vision needs: Yes Female Reproductive History Menstrual Age of Menarche: 15 Review of Systems Const Denies fatigue, Denies fever(s), Denies night sweats, Denies poor appetite, Reports weight gain and Denies weight loss Eyes Details: glasses Reports itchy eyes and Reports requires corrective lenses ENT Reports Normal hearing present, Denies dental pain, Denies dysphagia, Denies hearing loss, Denies mouth pain, Denies odynophagia, Denies throat swelling, Denies tongue swelling and Reports other (Dentition adequate) Card Reports no additional complaints Resp Reports no additional complaints GI Details: Denies abdominal pain, Denies melena, Denies bloating, Denies hematochezia, Reports constipation, Denies GI cramping, Denies dysphagia, Denies excessive flatus, Denies early satiety, Reports heartburn, Denies diarrhea, Denies nausea, Denies odynophagia, Denies vomiting and Denies hematemesis Skin/Breast Denies pruritus, Denies lesions, Denies rash and Denies jaundice Neuro Reports Normal hearing present and Denies Abnormal speech present Psych Reports anxiety Endo Denies fatigue Aller/Immun Reports itchy eyes, Reports seasonal rhinorrhea, Denies throat swelling and Denies tongue swelling Physical Exam Vital Signs: Last Vital Signs Pulse 71 05/20/23 08:52 BP 119/60 05/20/23 08:52 BMI result Body Mass Index 32.6 Const General: cooperative, no acute distress, well developed and well groomed Nutritional Appearance: well nourished and obese Orientation/consciousness: oriented to person, oriented to place and oriented to time Limitations: No language barrier HEENT Head: Yes normocephalic and Yes atraumatic Eyes General: appearance normal, both eyes and all related structures Pupils: Equal, round and reactive pupils present Neck Neck: Yes normal visual inspection and Yes no lymphadenopathy Thyroid: Thyroid normal Resp Effort & Inspection: normal respiratory effort and able to speak in complete s entences Auscultation: clear to auscultation bilaterally Cardio Rate: regular rate Rhythm: regular rhythm Heart sounds: Normal, physiologic split S2 sound present Peripheral pulses: radial pulses present and posterior tibial pulses present GI Inspection: No distended, No Abdominal panniculus present and Yes obesity Palpation (GI): Soft to palpation, nontender, no guarding, not rigid and No hepatosplenomegaly present Percussion: Yes normal to percussion Auscultation: normal bowel sounds Rectal Exam - Female: deferred Skin General skin exam: no rashes or lesions noted, turgor normal, skin not dry, no jaundice, No spider nevi and no striae Rashes: no rashes Nails: normal Neuro General: oriented to person, oriented to place and oriented to time Cranial nerves: Yes Equal, round and reactive pupils present and Yes Normal hearing present Speech: No Abnormal speech present Extrem General: Yes normal to inspection, No clubbing, No cyanosis and No edema Psych Appearance: grossly normal and well kempt Mental Status: mental status grossly normal Speech and movement: Normal speech and movement present Affect: normal affect Attitude: cooperative Thought process: Normal thought process present and not confabulating Thought content: Normal thought content present Insight: Fair insight present (Psych) Judgement: Fair judgement present (Psych) Results Reviewed Results Reviewed: Laboratory Tests 02/15/23 08:05 WBC 5.0 RBC 3.98 L Hgb 11.9 L Hct 37.2 MCV 93.5 Plt Count 163 Estimated GFR > 60 Total Bilirubin 0.4 AST 13 ALT 13 Alkaline Phosphatase 70 02/22/23 08:17TSH 1.47 Assessment & Plan Assessment & Plan (1) Irritable bowel syndrome with both constipation and diarrhea: Code(s): K58.2 - Mixed irritable bowel syndrome (2) Epigastric discomfort: Code(s): R10.13 - Epigastric pain (3) Abnormal weight gain: Code(s): R63.5 - Abnormal weight gain (4) GERD with esophagitis: Code(s): K21.00 - Gastro-esophageal reflux disease with esophagitis, without bleeding (5) Odynophagia: Code(s): R13.10 - Dysphagia, unspecified (6) Pre-op examination: Code(s): Z01.818 - Encounter for other preprocedural examination Plan Her current regimen consists dicyclomine 40 mg 3 times a day, famotidine at bedtime, Creon 2 tabs twice a day, Reglan 5 mg at bedtime, pantoprazole 40 mg in the morning, senna 3 tabs twice a day. Using the pantoprazole and the qhs reglan worked at first, but then my HB came back with a vengeance. The only change is weight gain and increasing her propranolol. She also had to stop her allergy shots because they are fearful t hey will not detect any tachycardia of an adverse reaction to injections. She struggles to lose weight but is not finding success. We review her TSH which is normal now. Will order EGD to assess her odyonophagia with food and burning just below the sternal notch. Consider barium swallow going forward depending on results. Changing form pantroprazole to lansoprazole and increasing reglan to 10mg qhs. She will be going for surgery in 2 weeks for a hip labral tear. Orders: Orders EGD with Che - GI Use Only Today R13.10 - Dysphagia, unspecified Medications: New lansoprazole 30 mg PO BID 30 caps 3RF K21.00 - Gastro-esophageal reflux disease with esophagitis, without bleeding, R63.5 - Abnormal weight gain metoclopramide HCl (Reglan) 10 mg PO BEDTIME 30 tabs 3RF K21.00 - Gastro- esophageal reflux disease with esophagitis, without bleeding On Hold pantoprazole (Protonix) Hold Comment: Doctor's Order 40 mg PO DAILY 30 days 30 tabs 6RF K21.9 - Gastro-esophageal reflux disease without esophagitis metoclopramide HCl (Reglan) Hold Comment: Doctor's Order 5 mg PO BEDTIME 30 tabs 3RF K21.9 - Gastro- esophageal reflux disease without esophagitis Coding Level of Care Code Est Pt Level 4 (30278) Diagnoses Irritable bowel syndrome with both constipation and diarrhea K58.2 Epigastric discomfort R10.13 Abnormal weight gain R63.5 GERD with esophagitis K21.00 Odynophagia R13.10 Pre-op examination Z01.818
[2023-05-20 08:52] VITALS: BP 119/60; PULSE 71; BMI 32.6
== END 2023-05-20 09:34 | disposition home or self-care (01) ==
PROVIDERS: PCP Internal Medicine; Visit Provider Nurse Practitioner
DX: K58.2 Mixed irritable bowel syndrome (principal); R10.13 Epigastric pain; R63.5 Abnormal weight gain; K21.00 Gastro-esophageal reflux disease with esophagitis, without bleeding; R13.10 Dysphagia, unspecified; Z01.818 Encounter for other preprocedural examination
CPT/HCPCS: 99214

== ENCOUNTER → 2023-05-20 08:48 | Outpatient (BNVA) | payer MEDICARE, MEDICAID, SELFPAY | PROVIDERS: PCP Internal Medicine; Visit Provider Nurse Practitioner | DX: Z01.818 Encounter for other preprocedural examination (principal); K58.2 Mixed irritable bowel syndrome; K21.00 Gastro-esophageal reflux disease with esophagitis, without bleeding; R10.13 Epigastric pain; R63.5 Abnormal weight gain; R13.10 Dysphagia, unspecified | CPT/HCPCS: 99212 ==

== ENCOUNTER 2023-05-25 11:17 | Outpatient (AMB) | payer MEDICARE, MEDICAID, SELFPAY ==
--- NOTE | 2023-05-25 11:20 | A.OFFVIS_ITS ---
Intake Vital Signs 05/25/23 11:21 Height 5 ft 11 in Weight 234 lb BMI 32.6 BP 120/68 Intake Visit Reasons: Vaginal Discharge Intake Note: Has been having some pale yellow discharge and thicker than her normal discharge on going for a week now nd very constant and irritating. Underwear feels wet and having skin irritation Psychological Assistant Required: No Information Interpreted: non-clinical & clinical Retail Link Analyst: Retail Link Analyst Present (Aidyn) Allergies adhesive tape Allergy (Mild, Verified 05/25/23 11:28) RASH ketorolac [From TORADOL] Allergy (Mild, Verified 05/25/23 11:28) HIVES latex [LATEX] Allergy (Mild, Verified 05/25/23 11:28) RASH oxycodone Allergy (Unknown, Verified 05/25/23 11:28) itching FRUIT Allergy (Intermediate, Uncoded 05/25/23 11:28) HIVES Adhesive Bandages Allergy (Unknown, Uncoded 05/25/23 11:28) rash, swelling adhesive tape Allergy (Unknown, Uncoded 05/25/23 11:28) hives apples, citrus, vegatables w s Allergy (Unknown, Uncoded 05/25/23 11:28) hives Ketorolac & Bupivacaine & Lido Allergy (Unknown, Uncoded 05/25/23 11:28) hives Medication List - Last Reconciled 05/25/23 by Kayy Gross CNM acetaminophen-codeine 300-30 mg 1 tab PO BID PRN albuterol sulfate 90 mcg/actuation (Ventolin HFA) 1 inh inhalation QID PRN 30 days amitriptyline 25 mg PO BEDTIME azelastine intranasal cyclosporine 0.05% (Restasis) drps ophthalmic (eye) dicyclomine 40 mg (2 x 20 mg) PO TID 30 days epinephrine IM famotidine 40 mg PO BEDTIME fluticasone furoate-vilanterol 200-25 mcg/dose (Breo Ellipta) 1 inh inhalation DAILY galcanezumab-gnlm (Emgality Pen) mg subcut lansoprazole 30 mg PO BID levalbuterol HCl 1.25 mg (3 mL) inhalation Q4-6H PRN levalbuterol tartrate 45 mcg/actuation 1 puff inhalation Q4-6H PRN levonorgestrel (Mirena) intrauterine rmxgvj-[id number]-kljeygb 24,000-76,000 -120,000 unit (Creon) 1 cap PO QID metoclopramide HCl (Reglan) 5 mg PO BEDTIME metoclopramide HCl (Reglan) 10 mg PO BEDTIME pantoprazole (Protonix) 40 mg PO DAILY 30 days [id number] 5-10-100 mg/5 mL (Adult Robitussin Peak Cold M-S) 10 mL PO Q4H PRN propranolol 60 mg PO BID sennosides (senna) 25.8 mg (3 x 8.6 mg) PO BID sodium chloride 0.65% (Saline Nasal) 1 spray intranasal BID PRN 4 days Synthroid (levothyroxine) 125 mcg PO DAILY NS topiramate (Topamax) 50 mg PO BID valacyclovir 1,000 mg PO BID Is last menstrual period known: No (no menses Mirena) Post menopausal: No HPI Vaginal Discharge HPI Details Patient is here because she has been having a yellowish discharge and her vagina has felt kind of wet all the time plus sort of hot she does not have itching. No particular worries about anything else. Other than she is getting surgery on her hip next Wednesday that has been a long-time getting evaluated and giving her trouble she has a labral tear. She has a Mirena IUD that was inserted last summer and seems to be doing fine. The end of the visit she shared that she has been wearing nylon briefs at night and when she got uncomfortable with this discharge she switch to cotton and that is when things started getting better, in the last few days her symptoms have resolved somewhat but she still wanted to get checked. [facility] Medical History Chronic GERD Encounter for general adult medical examination with abnormal findings Encounter for IUD insertion Nausea Upper respiratory infection Leg pain, right Nausea Other specified hypothyroidism Otitis media Right hip pain Chest wall pain Lightheaded Acute sinusitis Goiter Elevated TSH Medicare annual wellness visit, subsequent Constipation Ill feeling Epigastric pain Constipation Cervical cancer screening Well woman exam with routine gynecological exam Medicare annual wellness visit, initial Abnormal thyroid stimulating hormone (TSH) level Patella francisco j Knee pain Neck pain Chest pain Migraines Eczema Fibromyalgia Heart murmur Asthma Hypothyroidism Surgical History H/O shoulder surgery [place] teeth removed History of appendectomy Family History Mother Graves disease Hypothyroidism Father CHF (congestive heart failure) Other Substance use disorder Social History Housing: Apartment Alcohol intake: never Patient Tobacco Use Status: Never used Tobacco e-Cigarette/Vaping Use: Never Used Second Hand Smoke Exposure: Yes (as a child only) service: No Current occupational status: disabled Sexual orientation: Straight/Heterosexual Gender identity: Female Cognitive needs: No Hearing needs: No Vision needs: Yes Female Reproductive History Menstrual Age of Menarche: 15 control method: progestin IUCD Total pregnancies: 2 Full term: 2 Number of Living Children: 2 Date of last pap smear: 06/05/21 (negative) History of abnormal pap smear: Yes (2006 [facility]) Physical Exam Vital Signs: Last Vital Signs BP 120/68 05/25/23 11:21 BMI result Body Mass Index 32.6 Other: There is a slight whitish liquidy discharge in vagina with white curds consistent with yeast. External Female Exam: normal external appearance and normal appearance of the urethra Speculum Exam - Vagina: normal appearance of the vagina and normal vaginal discharge Speculum Exam - Cervix: normal appearance of the cervix and Cervical os closed Assessment & Plan Assessment & Plan (1) Labral tear of right hip joint: Code(s): S73.191A - Other sprain of right hip, initial encounter Qualifiers: Encounter type: sequela Qualified Code(s): S73.191S - Other sprain of right hip, sequela (2) Presence of 52 mg levonorgestrel-releasing intrauterine device (IUD): Code(s): Z97.5 - Presence of (intrauterine) contraceptive device (3) Yeast infection of the vagina: Code(s): B37.31 - Acute candidiasis of vulva and vagina Plan Discussed her upcoming surgery She has not due for Pap smear I did see the Mirena string so she can put off her next visit. Her symptoms and visual description are completely consistent with yeast which is now getting better because she switched from the nylon underwear. Discussed how it traps moisture and encourages yeast I am giving her prescriptions with refills for Monistat 7 that she can use until she feels better and any time she feels symptoms return. She is going to reschedule her June appointment to further out past surgery. Medications: New miconazole nitrate 2% (Miconazole-7) 1 appful vaginal BEDTIME 7 days 45 grams 2RF Coding Level of Care Code Est Pt Level 3 (48761) Diagnoses Tear of right acetabular labrum, sequela S73.191S Encounter type: sequela Presence of 52 mg levonorgestrel-releasing intrauterine device (IUD) Z97.5 Yeast infection of the vagina B37.31
[2023-05-25 11:21] VITALS: BP 120/68; BMI 32.6
== END 2023-05-25 13:38 | disposition home or self-care (01) ==
LOC: HO.HWSM 11:17
PROVIDERS: PCP Internal Medicine; Visit Provider Advanced Practice Midwife
DX: B37.31 Acute candidiasis of vulva and vagina (principal); Z97.5 Presence of (intrauterine) contraceptive device
CPT/HCPCS: 99213

== ENCOUNTER 2023-05-25 11:17 | Outpatient (REF) | payer MEDICARE, MEDICAID, SELFPAY ==
[2023-05-26 06:12] LABS: CT PCR NOT DETECTED (Not Detect.); NG PCR NOT DETECTED (Not Detect.)
[2023-05-26 13:36] LABS: BV Int Neg Control Negative (Negative); BV Int Pos Control Positive (Positive)
== END 2023-05-25 11:18 | disposition home or self-care (01) ==
LOC: HO.LNP 11:17
PROVIDERS: PCP Internal Medicine; Visit Provider Advanced Practice Midwife
DX: B37.31 Acute candidiasis of vulva and vagina (principal); N89.8 Other specified noninflammatory disorders of vagina; Z97.5 Presence of (intrauterine) contraceptive device
CPT/HCPCS: 0353U; 87480; 87510; 87660; 99212

== ENCOUNTER 2023-06-17 09:05 | Outpatient (REF) | payer MEDICARE, MEDICAID, SELFPAY ==
[2023-06-17 11:03] LABS: Free T4 (Free Thyroxine) 1.02 ng/dL (0.71-1.85); Thyroid Stimulating Hormone 2.98 uIU/mL (0.32-4.0)
== END 2023-06-17 09:06 | disposition home or self-care (01) ==
LOC: HO.LAB 09:05
PROVIDERS: PCP Internal Medicine; Visit Provider Internal Medicine Endocrinology, Diabetes & Metabolism
DX: E03.9 Hypothyroidism, unspecified (principal)
CPT/HCPCS: 36415; 84439; 84443

== ENCOUNTER 2023-06-24 08:33 | Outpatient (AMB) | payer MEDICARE, MEDICAID, SELFPAY ==
[2023-06-24 08:39] VITALS: BP 128/82; PULSE 65
--- NOTE | 2023-06-24 08:39 | A.OFFVIS_ITS ---
Intake Vital Signs 06/24/23 08:39 Height 5 ft 11 in BMI Reason not done Patient refused/unable BP 128/82 Blood Pressure Location Lt brachial Position Sitting Pulse 65 Pulse Source Pulse Oximeter Intake Visit Reasons: Hypothyroidism-left message Intake Note: Patient present today for Hypothyroidism follow up visit. 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 Accompanied by: Self / Same As Patient Allergies adhesive tape Allergy (Mild, Verified 06/24/23 08:40) RASH ketorolac [From TORADOL] Allergy (Mild, Verified 06/24/23 08:40) HIVES latex [LATEX] Allergy (Mild, Verified 06/24/23 08:40) RASH oxycodone Allergy (Unknown, Verified 06/24/23 08:40) itching FRUIT Allergy (Intermediate, Uncoded 06/24/23 08:40) HIVES Adhesive Bandages Allergy (Unknown, Uncoded 06/24/23 08:40) rash, swelling adhesive tape Allergy (Unknown, Uncoded 06/24/23 08:40) hives apples, citrus, vegatables w s Allergy (Unknown, Uncoded 06/24/23 08:40) hives Ketorolac & Bupivacaine & Lido Allergy (Unknown, Uncoded 06/24/23 08:40) hives HPI HPI Comments History of Present Illness Details 38 YO Female with a PMHx of hypothyroidi who is seen in F/U. The patient last saw Dr. Galo on 10/08/2022 Patient developed hyperthyroidism shortly after delivery of her daughter 18 years ago. This then progressed to hypothyroidism, and it was thought she developed thyroiditis which then progressed. She was started on levothyroxine 112 mcg PO daily and has continued on this retirement. In late May 2022 labs were checked routinely and this revealed hypothyroidism with TSH of 12. Labs were repeated 1 week later, and TSH had declined to 5. Labs were repeated 1-2 weeks later and were WNL with TSH of 2.84. She is currently on Synthroid 125 mcg QD She does report multiple symptoms such as fatigue, hyperactivity, insomnia, as well as hair loss. She also reports night sweats. She also reports hoarseness of voice. CT of the neck revealed a small thyroid. Thyroid antibodies were assessed, with elevated TPO and TSI antibodies. Mom has a history of Grave's disease, but otherwise no other family members with thyroid disease. CT Neck: 07/14/2022 FINDINGS: The thyroid gland is small. Note nodule is appreciated. There is diffuse shotty cervical lymphadenopathy. No enlarged cervical lymph nodes. There is mild soft tissue opacification of the sphenoid sinus. There is minimal soft tissue opacification of the left frontal and bilateral ethmoid sinuses. The maxillary sinuses, mastoid air cells and middle ear are clear. Visualized intracranial structures are normal. The visualized orbits are normal. The temporomandibular joints are normal. The naso, parker-and hypopharynx and larynx are normal. The salivary glands are normal. The superior mediastinum is normal. Visualized lung apices are clear. Bony structures are normal. CT/CT soft tissue neck wo IV con IMPRESSION: Small thyroid gland. No thyroid nodule appreciated by CT. Diffuse shotty cervical lymphadenopathy. Mild sinus disease, greatest in the sphenoid sinus. Labs: Laboratory Tests 06/25/22 09/17/22 13:53 07:34 TSH 5.35 H Free T4 0.89 Thyroid Stim Immun oglob 160 H Thyroglobulin Anti body 1 Thyroid Peroxidase Ab 470 H TSH Receptor Ab 1.06 PFSH Medical History (Updated 05/25/23 @ 12:00 by Kayy Gross CNM) Chronic GERD Encounter for general adult medical examination with abnormal findings Encounter for IUD insertion Nausea Upper respiratory infection Leg pain, right Nausea Other specified hypothyroidism Otitis media Right hip pain Chest wall pain Lightheaded Acute sinusitis Goiter Elevated TSH Medicare annual wellness visit, subsequent Constipation Ill feeling Epigastric pain Constipation Cervical cancer screening Well woman exam with routine gynecological exam Medicare annual wellness visit, initial Abnormal thyroid stimulating hormone (TSH) level Patella francisco j Knee pain Neck pain Chest pain Migraines Eczema Fibromyalgia Heart murmur Asthma Hypothyroidism Surgical History History of hip surgery H/O shoulder surgery [place] teeth removed History of appendectomy Family History Mother Graves disease Hypothyroidism Father CHF (congestive heart failure) Other Substance use disorder Social History Housing: Apartment Alcohol intake: never Patient Tobacco Use Status: Never used Tobacco e-Cigarette/Vaping Use: Never Used Second Hand Smoke Exposure: Yes (as a child only) service: No Current occupational status: disabled Sexual orientation: Straight/Heterosexual Gender identity: Female Cognitive needs: No Hearing needs: No Vision needs: Yes Female Reproductive History Menstrual Age of Menarche: 15 Physical Exam Const Other: Thyroid gland is normal size weighs about 15 g. There are no thyroid nodules palpable Assessment & Plan Assessment & Plan (1) Hypothyroidism: Code(s): E03.9 - Hypothyroidism, unspecified Qualifiers: Hypothyroidism type: unspecified Qualified Code(s): E03.9 - Hypothyroidism, unspecified Plan: This is a 38-year-old female with a history of hypothyroidism due to Di's thyroiditis. She appears to be clinically and biochemically euthyroid on Synthroid 125 mcg Plan is to continue the current therapy. At this point, patient returned to the care of her primary care provider returned back to endocrinology as necessary Coding Level of Care Code Est Pt Level 3 (99385) Diagnoses Hypothyroidism, unspecified type E03.9 Hypothyroidism type: unspecified
== END 2023-06-24 09:12 | disposition home or self-care (01) ==
PROVIDERS: PCP Internal Medicine; Visit Provider Internal Medicine Endocrinology, Diabetes & Metabolism
DX: E03.9 Hypothyroidism, unspecified (principal)
CPT/HCPCS: 99213

== ENCOUNTER → 2023-06-24 08:33 | Outpatient (BNVA) | payer MEDICARE, MEDICAID, SELFPAY | PROVIDERS: PCP Internal Medicine; Visit Provider Internal Medicine Endocrinology, Diabetes & Metabolism | DX: E03.9 Hypothyroidism, unspecified (principal); Z79.899 Other long term (current) drug therapy | CPT/HCPCS: 99212 ==

== ENCOUNTER 2023-07-21 10:01 | Day surgery (SDC) | payer MEDICARE, MEDICAID, SELFPAY ==
[2023-07-20 07:45] VITALS: BMI 32.5
--- NOTE | 2023-07-20 08:34 | P.CONAN_ITS ---
Documented by User: Kassy Malcolm NP 07/20/23 08:35 HPI - Anesthesia Eval Consult details Narrative: 38yo F for Upper Endoscopy PMFSH Active Problems Active Problems: All Active Problems Yeast infection of the vagina (Acute) Pre-op examination (Acute) Odynophagia (Acute) GERD with esophagitis (Acute) Atypical chest pain (Acute) Abnormal weight gain (Acute) Daytime somnolence (Acute) Environmental allergies (Acute) Pleuritic pain (Acute) Labral tear of right hip joint (Acute) Shortness of breath (Acute) Abnormal EKG (Acute) Palpitations (Acute) Presence of 52 mg levonorgestrel-releasing intrauterine device (IUD) (Acute) Acetabular labrum tear (Acute) Trochanteric bursitis of right hip (Acute) Foot pain, bilateral (Acute) Contusion of chest (Acute) Goiter (Acute) Hypothyroidism (Acute) Eczema (Acute) History of irregular menstrual cycles (Acute) Asthma, moderate persistent (Acute) Pain of left thumb (Acute) Rib pain on right side (Acute) Bilateral otitis media with effusion (Acute) Irritable bowel syndrome with both constipation and diarrhea (Acute) Abdominal cramping (Acute) Left shoulder strain (Acute) Lactose intolerance (Acute) Epigastric discomfort (Acute) Multiple food allergies (Acute) Bloating (Acute) Cellulitis (Acute) Fibromyalgia (Acute) Acute lumbar back pain (Acute) Right shoulder pain (Acute) Arthrosis (Acute) Lumbar radiculopathy (Acute) Metrorrhagia (Acute) Herpes labialis (Acute) Migraine headache with aura (Acute) Exercise-induced asthma (Acute) Allergic rhinitis (Acute) Amenorrhea (Acute) Dry eyes (Acute) Right knee pain (Acute) Complex cyst of left ovary (Acute) Past Medical History Medical History Chronic GERD Encounter for general adult medical examination with abnormal findings Encounter for IUD insertion Nausea Upper respiratory infection Leg pain, right Nausea Other specified hypothyroidism Otitis media Right hip pain Chest wall pain Lightheaded Acute sinusitis Goiter Elevated TSH Medicare annual wellness visit, subsequent Constipation Ill feeling Epigastric pain Constipation Cervical cancer screening Well woman exam with routine gynecological exam Medicare annual wellness visit, initial Abnormal thyroid stimulating hormone (TSH) level Patella francisco j Knee pain Neck pain Chest pain Migraines Eczema Fibromyalgia Heart murmur Asthma Hypothyroidism Family History Family History Mother Graves disease Hypothyroidism Father CHF (congestive heart failure) Other Substance use disorder Surgical History Surgical History History of hip surgery H/O shoulder surgery [place] teeth removed History of appendectomy Social History Social History Housing: Apartment Alcohol intake: never Patient Tobacco Use Status: Never used Tobacco e-Cigarette/Vaping Use: Never Used Second Hand Smoke Exposure: Yes (as a child only) Are you DNR?: No Advance Directives: No Advance Directives Information Provided: Yes Nutrition Risks: No Nutritional Risk service: No Current occupational status: disabled Sexual orientation: Straight/Heterosexual Gender identity: Female Cognitive needs: No Hearing needs: No Vision needs: Yes Meds Allergies Allergy/AdvReac Type Severity Reaction Status Date / Time oxycodone Allergy Intermediate itching Verified 07/20/23 07:49 adhesive tape Allergy Mild RASH Verified 06/24/23 08:40 ketorolac [From TORADOL] Allergy Mild HIVES Verified 06/24/23 08:40 latex [LATEX] Allergy Mild RASH Verified 06/24/23 08:40 fruit with skin Allergy Intermediate Hives Uncoded 07/20/23 07:41 Home Medications ?Medication ?Instructions ?Recorded ?Confirmed ?Last Taken ?Type acetaminophen 300 mg-codeine 30 mg 1 tab PO BID PRN Pain 02/09/20 07/20/23 Unknown History tablet topiramate 50 mg tablet (Topamax) 50 mg PO BID 06/12/20 07/20/23 Unknown History epinephrine 0.3 mg/0.3 mL 0.3 mg IM ONCE PRN Anaphylaxis 08/19/21 07/20/23 Unknown History injection, auto-injector amitriptyline 25 mg tablet 25 mg PO BEDTIME 11/26/21 07/20/23 Unknown History azelastine 137 mcg (0.1 %) nasal 1 spray intranasal DAILY 06/04/22 07/20/23 Unknown History spray aerosol levonorgestrel 21 mcg/24 hours (8 intrauterine 11/19/22 05/25/23 Unknown History yrs) 52 mg intrauterine device (Mirena) galcanezumab-gnlm 120 mg/mL mg subcut 02/19/23 05/25/23 Unknown History subcutaneous pen injector (Emgality Pen) propranolol 60 mg tablet 60 mg PO BID 04/06/23 07/20/23 Unknown History cyclosporine 0.05 % eye drops in a drp ophthalmic (eye) 04/16/23 05/25/23 Unknown History dropperette (Restasis) Exam Height,Weight and Vital Signs: Height 5 ft 11 in Weight 105.687 kg Assessment and Plan Assessment Anesthesia Assessment: Chart Reviewed Documented by User: Yancy Castillo MD 07/21/23 10:44 PMFSH Past Medical History Medical History Chronic GERD Encounter for general adult medical examination with abnormal findings Encounter for IUD insertion Nausea Upper respiratory infection Leg pain, right Nausea Other specified hypothyroidism Otitis media Right hip pain Chest wall pain Lightheaded Acute sinusitis Goiter Elevated TSH Medicare annual wellness visit, subsequent Constipation Ill feeling Epigastric pain Constipation Cervical cancer screening Well woman exam with routine gynecological exam Medicare annual wellness visit, initial Abnormal thyroid stimulating hormone (TSH) level Patella francisco j Knee pain Neck pain Chest pain Migraines Eczema Fibromyalgia Heart murmur Asthma Hypothyroidism Family History Family History Mother Graves disease Hypothyroidism Father CHF (congestive heart failure) Other Substance use disorder Surgical History Surgical History History of hip surgery H/O shoulder surgery [place] teeth removed History of appendectomy History of Problems with Anesthesia: No Social History Social History Housing: Apartment Alcohol intake: never Patient Tobacco Use Status: Never used Tobacco e-Cigarette/Vaping Use: Never Used Second Hand Smoke Exposure: Yes (as a child only) Are you DNR?: No Advance Directives: No Advance Directives Information Provided: Yes Nutrition Risks: No Nutritional Risk service: No Current occupational status: disabled Sexual orientation: Straight/Heterosexual Gender identity: Female Cognitive needs: No Hearing needs: No Vision needs: Yes Meds Allergies Allergy/AdvReac Type Severity Reaction Status Date / Time oxycodone Allergy Intermediate itching Verified 07/20/23 07:49 adhesive tape Allergy Mild RASH Verified 06/24/23 08:40 ketorolac [From TORADOL] Allergy Mild HIVES Verified 06/24/23 08:40 latex [LATEX] Allergy Mild RASH Verified 06/24/23 08:40 fruit with skin Allergy Intermediate Hives Uncoded 07/20/23 07:41 Home Medications ?Medication ?Instructions ?Recorded ?Confirmed ?Last Taken ?Type acetaminophen 300 mg-codeine 30 mg 1 tab PO BID PRN Pain 02/09/20 07/20/23 Unknown History tablet topiramate 50 mg tablet (Topamax) 50 mg PO BID 06/12/20 07/20/23 Unknown History epinephrine 0.3 mg/0.3 mL 0.3 mg IM ONCE PRN Anaphylaxis 08/19/21 07/20/23 Unknown History injection, auto-injector amitriptyline 25 mg tablet 25 mg PO BEDTIME 11/26/21 07/20/23 Unknown History azelastine 137 mcg (0.1 %) nasal 1 spray intranasal DAILY 06/04/22 07/20/23 Unknown History spray aerosol levonorgestrel 21 mcg/24 hours (8 intrauterine 11/19/22 05/25/23 Unknown History yrs) 52 mg intrauterine device (Mirena) galcanezumab-gnlm 120 mg/mL mg subcut 02/19/23 05/25/23 Unknown History subcutaneous pen injector (Emgality Pen) propranolol 60 mg tablet 60 mg PO BID 04/06/23 07/20/23 Unknown History cyclosporine 0.05 % eye drops in a drp ophthalmic (eye) 04/16/23 05/25/23 Unknown History dropperette (Restasis) Exam Airway Mallampati Class: II TM Dist: >3cm Neck ROM: Full Loose/Missing/Broken Teeth: No Heart: RRR Lungs: CTA Assessment and Plan Assessment Anesthesia Assessment: Anesthesia Plan Discussed Final Anesthetic Review History of Problems with Anesthesia: No NPO: Yes ASA Class: II Final Preanesthetic Review: Meds/Allgs Chart Reviewed, Consent Obtained/Reviewed and Anes Risks/Benef Reviewed Patient Risk: Low Procedure Risk: Intermediate Anesthetic Plan Anesthetic Plan: MAC: Disposition: Standard PACU
[2023-07-21 10:22] VITALS: BP 122/75; PULSE 71; RESP 18; TEMP 36.1; O2SAT 99; BMI 32.7
[2023-07-21 10:22] LABS: UPreg QC Valid YES; Urine Pregnancy NEGATIVE (NEGATIVE)
[2023-07-21] MEDS: Lactated Ringers 1,000 ML 100 ML IVCONT (10:37)
--- NOTE | 2023-07-21 10:43 | MHC.SHP ---
Pre-Procedural Eval Section A - 24 Hr Update-Section A only Date of Service: 07/21/23 Section B - Complete if H&P > 30 days Chief Complaint: Dysphagia, unspecified Relevant Family History (Specify if Yes): No Relevant Social History: None Present Medications: see Short Stay Collaborative assessment Medical History: Significant History (Chronic GERD Encounter for general adult medical examination with abnormal findings Encounter for IUD insertion Nausea Upper respiratory infection Leg pain, right Nausea Other specified hypothyroidism Otitis media Right hip pain Chest wall pain Lightheaded Acute sinusitis Goiter Elevated TSH Medicar) History of Previous Operations: Relevant previous surgery/procedure and date(s) (History of hip surgery H/O shoulder surgery [place] teeth removed History of appendectomy) Allergies: Allergies Allergy/AdvReac Type Severity Reaction Status Date / Time oxycodone Allergy Intermediate itching Verified 07/20/23 07:49 adhesive tape Allergy Mild RASH Verified 06/24/23 08:40 ketorolac [From TORADOL] Allergy Mild HIVES Verified 06/24/23 08:40 latex [LATEX] Allergy Mild RASH Verified 06/24/23 08:40 fruit with skin Allergy Intermediate Hives Uncoded 07/20/23 07:41 Review of Systems Sugical H&P ROS: Negative: Constitution, Cardiovascular, Respiratory, Neurological, Psychiatric, Hem-Onc, Allergic/Immunologic, Gastrointestinal, Genitourinary, Musculoskeletal, Integumentary, Endocrine and Eyes/Ears/Nose/Throat Exam Surgical H&P Exam: Normal: HEENT, Normal: Heart, Normal: Lungs, Normal: Extremities, Normal: Abdomen, Normal: Skin and Normal: Neurological Plan Diagnosis/Plan: Unchanged I have reviewed the history and physical and performed a pertinent physical examination on my patient. No changes have occurred unless specified. Time Spent With Patient Time: Total time managing care of this patient today ____ minutes.
--- NOTE | 2023-07-21 10:45 | W.PM.OPN ---
Operative Note Operative Note Date of Service: 07/21/23 Narrative: Procedure Description: EGD Indication: dysphagia Anesthesia: MAC FLEXIBLE TRANSORAL UPPER GASTROINTESTINAL ENDOSCOPY UPPER ENDOSCOPY Consent: Indications for the procedure and potential complications of bleeding, perforation, reaction to medications and missed diagnosis were discussed with the patient and informed consent was obtained. Instrument: Olympus GIF H 190 J mid size upper endoscope Monitoring: Vital signs and clinical assessment, continuous EKG monitoring, Pulse oximetry, Carbon Dioxide monitoring and blood pressure monitoring were done throughout the procedure. Procedure: The patient was placed in the left lateral decubitis position and pre-procedure medications were administered and a bite block was placed. The endoscope was inserted into the mouth and advanced under direct vision to the third part of duodenum. A careful inspection was made as the upper endoscope was withdrawn including a retroflexed examination of the proximal stomach; Findings and interventions are described below. Findings: Larynx:normal Esophagus: GE junction at 40 cm, diaphragm hiatus at 40 cm, normal mucosa, bx taken from GEJ, distal and proximal esophagus in separate jars --balloon dilation done at LES and UEs to 19 mm, no tears seen--LES was patulous Stomach: patchy erythema and edema in antrum and mid body . Biopsies were obtained. Grade 2 flap valve on retroflexed examination of the cardia. The pyloric outlet was tight, inflated with balloon to 19 mm, no tears seen. Duodenum: Normal bulb and descending duodenum, bx taken Intervention: Biopsies as noted above, balloon dilation Impression/Findings: gastritis patulous GEJ PLAN: ensure compliance with [facility] GERD precautions
[2023-07-21 11:32] VITALS: BP 122/64; PULSE 63; RESP 18; TEMP 36.8; O2SAT 100
[2023-07-21 11:47] VITALS: BP 131/60; PULSE 63; RESP 16; TEMP 36.2; O2SAT 100
[2023-07-21 12:02] VITALS: BP 126/68; PULSE 68; RESP 18; TEMP 36.2; O2SAT 100
== END 2023-07-21 12:11 | disposition home or self-care (01) ==
PROVIDERS: Nurse Practitioner; PCP Internal Medicine; Visit Provider Internal Medicine Gastroenterology
PROC: 0DJ08ZZ Inspection of Upper Intestinal Tract, Via Natural or Artificial Opening Endoscopic (ICD-10-PCS; CPT 43235; principal; 2023-07-21 12:40)
DX: R13.10 Dysphagia, unspecified (principal); K21.00 Gastro-esophageal reflux disease with esophagitis, without bleeding; K29.70 Gastritis, unspecified, without bleeding; Q40.3 Congenital malformation of stomach, unspecified; Z88.5 Allergy status to narcotic agent
CPT/HCPCS: 43249; 43239; 43245; 81025; 88305; 88313; 88342; C1726; J2704

== ENCOUNTER → 2023-07-21 10:01 | Outpatient (BNV) | payer MEDICARE, MEDICAID, SELFPAY | PROVIDERS: PCP Internal Medicine; Visit Provider Internal Medicine Gastroenterology | DX: R13.10 Dysphagia, unspecified (principal); K29.70 Gastritis, unspecified, without bleeding; K22.89 Other specified disease of esophagus | CPT/HCPCS: 43239; 43249 ==

== ENCOUNTER 2023-07-27 09:56 | Outpatient (AMB) | payer MEDICARE, MEDICAID, SELFPAY ==
--- NOTE | 2023-07-27 10:00 | A.OFFVIS_ITS ---
Vital Signs 07/27/23 10:02 Height 5 ft 11 in Weight 246 lb BMI 34.3 BP 110/78 Blood Pressure Location Lt brachial Position Sitting Pulse 69 Pulse Source Pulse Oximeter Pulse Oximetry (%) 100 Oxygen Delivery Method Room Air Intake Visit Reasons: asthma Allergies oxycodone Allergy (Intermediate, Verified 07/27/23 10:05) itching adhesive tape Allergy (Mild, Verified 07/27/23 10:05) RASH ketorolac [From TORADOL] Allergy (Mild, Verified 07/27/23 10:05) HIVES latex [LATEX] Allergy (Mild, Verified 07/27/23 10:05) RASH fruit with skin Allergy (Intermediate, Uncoded 07/27/23 10:05) Hives HPI HPI asthma: Details: Kayla is a pleasant 38 year old female, never smoker, with underlying asthma si nce teens, atopic dermatitis, environmental allergies, allergic rhinitis and GERD. She is under the care of ENT receiving immunotherapy to multiple environmental allergens and uses Flonase/Azelastine with moderate effect. GERD is managed by GI with omeprazole and famotidine. She was previously using symbicort once daily with suboptimal control and at the last visit increased to twice daily. She reports improvements however continues to report being triggered by allergies with intermittent dyspnea with exertion and chest tightness. She uses albuterol infrequently. She denies any cough or wheezing. Of note, she recently underwent repair of right labral tear so has been less active and attributes some symptoms to deconditioning. [facility] Medical History Chronic GERD Encounter for general adult medical examination with abnormal findings Encounter for IUD insertion Nausea Upper respiratory infection Leg pain, right Nausea Other specified hypothyroidism Otitis media Right hip pain Chest wall pain Lightheaded Acute sinusitis Goiter Elevated TSH Medicare annual wellness visit, subsequent Constipation Ill feeling Epigastric pain Constipation Cervical cancer screening Well woman exam with routine gynecological exam Medicare annual wellness visit, initial Abnormal thyroid stimulating hormone (TSH) level Patella francisco j Knee pain Neck pain Chest pain Migraines Eczema Fibromyalgia Heart murmur Asthma Hypothyroidism Surgical History History of hip surgery H/O shoulder surgery [place] teeth removed History of appendectomy Family History Mother Graves disease Hypothyroidism Father CHF (congestive heart failure) Other Substance use disorder Social History Housing: Apartment Alcohol intake: never Patient Tobacco Use Status: Never used Tobacco e-Cigarette/Vaping Use: Never Used Second Hand Smoke Exposure: Yes (as a child only) service: No Current occupational status: disabled Sexual orientation: Straight/Heterosexual Gender identity: Female Cognitive needs: No Hearing needs: No Vision needs: Yes Female Reproductive History Menstrual Age of Menarche: 15 Review of Systems Const Denies chills, Denies excessive sweating, Denies fever(s) and Denies night sweats Eyes Denies dry eyes, Denies irritation and Denies itchy eyes ENT Reports Normal hearing present, Denies nasal discharge and Denies post nasal drip Card Denies chest pain, Denies chest pain at rest, Denies chest pain with activity, Denies claudication, Denies leg edema, Denies orthopnea and Denies paroxysmal nocturnal dyspnea Resp Denies excessive phlegm production, Denies pain on inspiration, Denies pain with cough and Denies stridor Musc Denies myalgias Neuro Reports Normal hearing present Endo Denies excessive sweating Sixto/Lymph Denies lymphadenopathy Aller/Immun Denies itchy eyes and Denies seasonal rhinorrhea Physical Exam Vital Signs: Last Vital Signs Pulse 69 07/27/23 10:02 BP 110/78 07/27/23 10:02 Pulse Ox 100 07/27/23 10:02 Oxygen Delivery Method Room Air 07/27/23 10:02 BMI result Body Mass Index 34.3 Const General: cooperative, healthy appearing, comfortable, no acute distress, well developed and alert Nutritional Appearance: obese Orientation/consciousness: patient oriented x3 Limitations: no limitations HEENT Head: Yes normal to inspection, Yes normocephalic and Yes atraumatic Ears: hearing grossly normal bilaterally and external ears normal Eyes General: appearance normal, both eyes and all related structures Eyelids: Yes eyelids normal Sclerae: sclerae normal EOM: EOMs intact bilaterally Neck Neck: Yes normal visual inspection and Yes no lymphadenopathy Lymphatic: no lymphadenopathy noted Chest Chest palpation & inspection: normal inspection of the chest Resp Effort & Inspection: normal respiratory effort, able to speak in complete sentences, no audible wheezes, no cough, no stridor, not tachypneic, no tripod positioning and no use of accessory muscles Auscultation: clear to auscultation bilaterally Cardio Jugular venous distension: no JVD Rate: regular rate Rhythm: regular rhythm Skin Other: warm, dry General skin exam: no rashes or lesions noted Neuro General: patient oriented x3 Cranial nerves: Yes Normal hearing present Cognition (Neuro): normal cognition Gait exam (Neuro): Normal gait present Extrem General: Yes normal to inspection, Yes capillary refill normal, Yes no clubbing, cyanosis or edema and Yes no pedal edema Psych Appearance: grossly normal and well kempt Speech and movement: Normal speech and movement present and Clear speech present Affect: normal affect Attitude: cooperative Thought process: Normal thought process present Thought content: Normal thought content present Insight: Good insight present (Psych) Judgement: Good judgement present (Psych) Assessment & Plan Assessment & Plan (1) Asthma, moderate persistent: Code(s): J45.40 - Moderate persistent asthma, uncomplicated Category: Medical Qualifiers: Asthma complication type: uncomplicated Qualified Code(s): J45.40 - Moderate persistent asthma, uncomplicated (2) Chronic GERD: Code(s): K21.9 - Gastro-esophageal reflux disease without esophagitis Category: Medical (3) Environmental allergies: Code(s): Z91.09 - Other allergy status, other than to drugs and biological substances Category: Medical Plan Advised patient to continue symbicort as well as albuterol PRN. Will add singulair. If patient continues with suboptimal response will consider biologics in the future. All questions were answered and patient is in agreement of plan. Will follow up in three months or sooner if needed. Medications: New montelukast (Singulair) 10 mg PO BEDTIME 30 tabs 3RF Discontinued albuterol sulfate 90 mcg/actuation (Ventolin HFA) Discontinued Reason: Patient Completed Course 1 inh inhalation QID 30 days PRN 8.5 grams 5RF shortness of breath or wheezing Coding Level of Care Code Est Pt Level 4 (88403) Diagnoses Moderate persistent asthma without complication J45.40 Asthma complication type: uncomplicated Chronic GERD K21.9 Environmental allergies Z91.09
[2023-07-27 10:02] VITALS: BP 110/78; PULSE 69; O2SAT 100; BMI 34.3
== END 2023-07-27 10:45 | disposition home or self-care (01) ==
PROVIDERS: PCP Internal Medicine; Visit Provider Nurse Practitioner Family
DX: J45.40 Moderate persistent asthma, uncomplicated (principal); K21.9 Gastro-esophageal reflux disease without esophagitis; Z91.09 Other allergy status, other than to drugs and biological substances
CPT/HCPCS: 99214

== ENCOUNTER → 2023-07-27 09:56 | Outpatient (BNVA) | payer MEDICARE, MEDICAID, SELFPAY | PROVIDERS: PCP Internal Medicine; Visit Provider Nurse Practitioner Family | DX: J45.40 Moderate persistent asthma, uncomplicated (principal); K21.9 Gastro-esophageal reflux disease without esophagitis; Z91.09 Other allergy status, other than to drugs and biological substances | CPT/HCPCS: 99212 ==

== ENCOUNTER 2023-08-05 08:00 | Outpatient (AMB) | payer MEDICARE, MEDICAID, SELFPAY ==
--- NOTE | 2023-08-05 08:14 | MHC.OFFVIS ---
Intake Visit Reasons: S/p egd Intake Note: Provider roomed patient Allergies oxycodone Allergy (Intermediate, Verified 07/27/23 10:05) itching adhesive tape Allergy (Mild, Verified 07/27/23 10:05) RASH ketorolac [From TORADOL] Allergy (Mild, Verified 07/27/23 10:05) HIVES latex [LATEX] Allergy (Mild, Verified 07/27/23 10:05) RASH fruit with skin Allergy (Intermediate, Uncoded 07/27/23 10:05) Hives HPI HPI S/p egd: Details: Assessment & Plan (1) Irritable bowel syndrome with both constipation and diarrhea: Code(s): K58.2 - Mixed irritable bowel syndrome (2) Epigastric discomfort: Code(s): R10.13 - Epigastric pain (3) Abnormal weight gain: Code(s): R63.5 - Abnormal weight gain (4) GERD with esophagitis: Code(s): K21.00 - Gastro-esophageal reflux disease with esophagitis, without bleeding (5) Odynophagia: Code(s): R13.10 - Dysphagia, unspecified (6) Pre-op examination: Code(s): Z01.818 - Encounter for other preprocedural examination Plan Her current regimen consists dicyclomine 40 mg 3 times a day, famotidine at bedtime, Creon 2 tabs twice a day, Reglan 5 mg at bedtime, pantoprazole 40 mg in the morning, senna 3 tabs twice a day. Using the pantoprazole and the qhs reglan worked at first, but then my HB came back with a vengeance. The only change is weight gain and increasing her propranolol. She also had to stop her allergy shots because they are fearful they will not detect any tachycardia of an adverse reaction to injections. She struggles to lose weight but is not finding success. We review her TSH which is normal now. Will order EGD to assess her odyonophagia with food and burning just below the sternal notch. Consider barium swallow going forward depending on results. Changing form pantroprazole to lansoprazole and increasing reglan to 10mg qhs. She will be going for surgery in 2 weeks for a hip labral tear. Orders: Orders EGD with Che - GI Use Only Today R13.10 - Dysphagia, unspecified Medications: New lansoprazole 30 mg PO BID 30 caps 3RF K21.00 - Gastro-esophageal reflux disease with esophagitis, without bleeding, R63.5 - Abnormal weight gain metoclopramide HCl (Reglan) 10 mg PO BEDTIME 30 tabs 3RF K21.00 - Gastro-esophageal reflux disease with esophagitis, without bleeding On Hold pantoprazole (Protonix) Hold Comment: Doctor's Order 40 mg PO DAILY 30 days 30 tabs 6RF K21.9 - Gastro-esophageal reflux disease without esophagitis metoclopramide HCl (Reglan) Hold Comment: Doctor's Order 5 mg PO BEDTIME 30 tabs 3RF K21.9 - Gastro-esophageal reflux disease without esophagitis EGD 07/21/23 Findings: Larynx:normal Esophagus: GE junction at 40 cm, diaphragm hiatus at 40 cm, normal mucosa, bx taken from GEJ, distal and proximal esophagus in separate jars --balloon dilation done at LES and UEs to 19 mm, no tears seen--LES was patulous Stomach: patchy erythema and edema in antrum and mid body . Biopsies were obtained. Grade 2 flap valve on retroflexed examination of the cardia. The pyloric outlet was tight, inflated with balloon to 19 mm, no tears seen. Duodenum: Normal bulb and descending duodenum, bx taken Intervention: Biopsies as noted above, balloon dilation Impression/Findings: gastritis patulous GEJ PLAN: ensure compliance with PPi GERD precautions BIOPSY Received: 07/21/23 Diagnosis A. Duodenum, biopsy: Duodenal mucosa within normal limits. B. Stomach, biopsy: Antral-type and oxyntic mucosa with moderate chronic inactive inflammation; no Helicobacter organisms seen. C. GE junction, biopsy: - Cardiac-type mucosa with moderate chronic inactive inflammation; no intestinal metaplasia seen. - Active esophagitis (few eosinophils). D. Esophagus, distal, biopsy: Squamous epithelium within normal limits; no inflammation seen. E. Esophagus, proximal, biopsy: Squamous epithelium within normal limits; no inflammation seen TODAY'S VISIT She has not had any significant relief and her food still sits mid sternally after dilation and trial of bentyl. Will get barium swallow and trial of cardizem to relax the smooth muscles of the esophagus. She was told my esophagus is too loose by Dr. Cifuentes s/p procedure. she just had hip surgery and is already standing slowly - educated re: [place] with cardizem. She is less CIC since her migraine medications have been decreased. She had a history of being on propanolol but she is off that for now which is probably good given the fact that were going to give a trial of Cardizem. Increasing pantoprazole to BID already has famotidine qhs. She continues on her Reglan and after increasing it to 10 mg she has had no adverse effects but she is also uncertain how much it is helping the symptoms. Consider surgery if large HH and not medically responding. Insurance denies Lansoprazole. We could consider PA going forward depending on results of the barium swallow. ROV 4 weeks. [facility] Medical History (Updated 08/05/23 @ 15:58 by RIDGE Kevin) Amenorrhea Metrorrhagia Bloating Epigastric discomfort Shortness of breath Pre-op examination Contusion of chest Exercise-induced asthma Pain of left thumb Rib pain on right side Bilateral otitis media with effusion Left shoulder strain Cellulitis Acute lumbar back pain Right shoulder pain Arthrosis Right knee pain Complex cyst of left ovary Chronic GERD Encounter for general adult medical examination with abnormal findings Encounter for IUD insertion Nausea Upper respiratory infection Leg pain, right Nausea Other specified hypothyroidism Otitis media Right hip pain Chest wall pain Lightheaded Acute sinusitis Goiter Elevated TSH Medicare annual wellness visit, subsequent Constipation Ill feeling Epigastric pain Constipation Cervical cancer screening Well woman exam with routine gynecological exam Medicare annual wellness visit, initial Abnormal thyroid stimulating hormone (TSH) level Patella francisco j Knee pain Neck pain Chest pain Migraines Eczema Fibromyalgia Heart murmur Asthma Hypothyroidism Surgical History History of hip surgery H/O shoulder surgery [place] teeth removed History of appendectomy Family History Mother Graves disease Hypothyroidism Father CHF (congestive heart failure) Other Substance use disorder Social History Housing: Apartment Alcohol intake: never Patient Tobacco Use Status: Never used Tobacco e-Cigarette/Vaping Use: Never Used Second Hand Smoke Exposure: Yes (as a child only) service: No Current occupational status: disabled Sexual orientation: Straight/Heterosexual Gender identity: Female Cognitive needs: No Hearing needs: No Vision needs: Yes Female Reproductive History Menstrual Age of Menarche: 15 Review of Systems Const Denies fatigue, Denies fever(s), Denies night sweats, Denies poor appetite and Denies weight loss Eyes Details: glasses Reports requires corrective lenses ENT Reports Normal hearing present, Denies dental pain, Denies dysphagia, Denies hearing loss, Denies mouth pain, Denies odynophagia, Denies throat swelling, Denies tongue swelling and Reports other (Dentition adequate) Card Reports no additional complaints Resp Reports no additional complaints GI Details: Reports abdominal pain, Denies melena, Reports bloating, Denies hematochezia, Reports constipation, Reports GI cramping, Denies dysphagia, Denies excessive flatus, Denies early satiety, Reports heartburn, Reports diarrhea, Denies nausea, Denies odynophagia, Denies vomiting and Denies hematemesis Musc Reports back pain, Reports myalgias, Reports arthralgias, Reports radiating pain into limb and Reports stiffness Skin/Breast Denies pruritus, Denies lesions, Denies rash and Denies jaundice Neuro Reports Normal hearing present and Denies Abnormal speech present Endo Denies fatigue Aller/Immun Denies throat swelling and Denies tongue swelling Physical Exam Const General: cooperative, no acute distress, well developed and well groomed Nutritional Appearance: well nourished and obese Orientation/consciousness: oriented to person, oriented to place and oriented to time Limitations: No language barrier HEENT Head: Yes normocephalic and Yes atraumatic Eyes General: appearance normal, both eyes and all related structures Pupils: Equal, round and reactive pupils present Neck Neck: Yes normal visual inspection and Yes no lymphadenopathy Thyroid: Thyroid normal Resp Effort & Inspection: normal respiratory effort and able to speak in complete sentences Auscultation: clear to auscultation bilaterally Cardio Rate: regular rate Rhythm: regular rhythm Heart sounds: Normal, physiologic split S2 sound present Peripheral pulses: radial pulses present and posterior tibial pulses present GI Inspection: No distended, No Abdominal panniculus present and Yes obesity Palpation (GI): Soft to palpation, nontender, no guarding, not rigid and No hepatosplenomegaly present Percussion: Yes normal to percussion Auscultation: normal bowel sounds Rectal Exam - Female: deferred Skin General skin exam: no rashes or lesions noted, turgor normal, skin not dry, no jaundice, No spider nevi and no striae Rashes: no rashes Nails: normal Neuro General: oriented to person, oriented to place and oriented to time Cranial nerves: Yes Equal, round and reactive pupils present and Yes Normal hearing present Speech: No Abnormal speech present Extrem General: Yes normal to inspection, No clubbing, No cyanosis and No edema Psych Appearance: grossly normal and well kempt Mental Status: mental status grossly normal Speech and movement: Normal speech and movement present Affect: normal affect Attitude: cooperative Thought process: Normal thought process present and not confabulating Thought content: Normal thought content present Insight: Fair insight present (Psych) and Limited insight present (Psych) Judgement: Fair judgement present (Psych) and Limited judgement present (Psych) Results Reviewed Results Reviewed: EGD 07/21/23 Findings: Larynx:normal Esophagus: GE junction at 40 cm, diaphragm hiatus at 40 cm, normal mucosa, bx taken from GEJ, distal and proximal esophagus in separate jars --balloon dilation done at LES and UEs to 19 mm, no tears seen--LES was patulous Stomach: patchy erythema and edema in antrum and mid body . Biopsies were obtained. Grade 2 flap valve on retroflexed examination of the cardia. The pyloric outlet was tight, inflated with balloon to 19 mm, no tears seen. Duodenum: Normal bulb and descending duodenum, bx taken Intervention: Biopsies as noted above, balloon dilation Impression/Findings: gastritis patulous GEJ PLAN: ensure compliance with PPi GERD precautions BIOPSY Received: 07/21/23 Diagnosis A. Duodenum, biopsy: Duodenal mucosa within normal limits. B. Stomach, biopsy: Antral-type and oxyntic mucosa with moderate chronic inactive inflammation; no Helicobacter organisms seen. C. GE junction, biopsy: - Cardiac-type mucosa with moderate chronic inactive inflammation; no intestinal metaplasia seen. - Active esophagitis (few eosinophils). D. Esophagus, distal, biopsy: Squamous epithelium within normal limits; no inflammation seen. E. Esophagus, proximal, biopsy: Squamous epithelium within normal limits; no inflammation seen Assessment & Plan Assessment & Plan (1) Esophageal spasm: Comment: ? waiting to confirm via barium swallow Code(s): K22.4 - Dyskinesia of esophagus Category: Medical (2) GERD with esophagitis: Code(s): K21.00 - Gastro-esophageal reflux disease with esophagitis, without bleeding Category: Medical (3) Odynophagia: Code(s): R13.10 - Dysphagia, unspecified Category: Medical (4) Irritable bowel syndrome with both constipation and diarrhea: Code(s): K58.2 - Mixed irritable bowel syndrome Category: Medical Plan She has not had any significant relief and her food still sits mid sternally after dilation and trial of bentyl. Will get barium swallow and trial of cardizem to relax the smooth muscles of the esophagus. She was told my esophagus is too loose by Dr. Cifuentes s/p procedure. she just had hip surgery and is already standing slowly - educated re: [place] with cardizem. She is less CIC since her migraine medications have been decreased. She had a history of being on propanolol but she is off that for now which is probably good given the fact that were going to give a trial of Cardizem. Increasing pantoprazole to BID already has famotidine qhs. She continues on her Reglan and after increasing it to 10 mg she has had no adverse effects but she is also uncertain how much it is helping the symptoms. Consider surgery if large HH and not medically responding. Insurance denies Lansoprazole. We could consider PA going forward depending on results of the barium swallow. ROV 4 weeks. Orders: Orders [place] barium swallow Today K22.4 - Dyskinesia of esophagus Medications: New diltiazem HCl CD 120 mg PO DAILY 30 caps 3RF K22.4 - Dyskinesia of esophagus Discontinued dicyclomine Discontinued Reason: Doctor's Order 40 mg (2 x 20 mg) PO TID 30 days 180 tabs 6RF R10.9 - Unspecified abdominal pain Resumed pantoprazole (Protonix) 40 mg PO BID 60 tabs 6RF 30 days K21.9 - Gastro-esophageal reflux disease without esophagitis pantoprazole (Protonix) 40 mg PO DAILY 30 days 30 tabs 6RF K21.9 - Gastro-esophageal reflux disease without esophagitis Coding Level of Care Code Est Pt Level 3 (39588) Diagnoses Esophageal spasm K22.4 GERD with esophagitis K21.00 Odynophagia R13.10 Irritable bowel syndrome with both constipation and diarrhea K58.2
== END 2023-08-05 08:38 | disposition home or self-care (01) ==
PROVIDERS: PCP Internal Medicine; Visit Provider Nurse Practitioner
DX: K22.4 Dyskinesia of esophagus (principal); K21.00 Gastro-esophageal reflux disease with esophagitis, without bleeding; R13.10 Dysphagia, unspecified; K58.2 Mixed irritable bowel syndrome
CPT/HCPCS: 99213

== ENCOUNTER → 2023-08-05 08:00 | Outpatient (BNVA) | payer MEDICARE, MEDICAID, SELFPAY | PROVIDERS: PCP Internal Medicine; Visit Provider Nurse Practitioner | DX: K22.4 Dyskinesia of esophagus (principal); K21.00 Gastro-esophageal reflux disease with esophagitis, without bleeding; K58.2 Mixed irritable bowel syndrome; R13.10 Dysphagia, unspecified | CPT/HCPCS: 99212 ==

== ENCOUNTER 2023-08-06 08:53 | Outpatient (AMB) | payer MEDICARE, MEDICAID, SELFPAY ==
--- NOTE | 2023-08-06 08:53 | AM.OFFWIN_ITS ---
Intake Vital Signs 08/06/23 09:02 Height 5 ft 11 in Weight 246 lb BMI 34.3 BP 112/74 Blood Pressure Location Rt brachial Position Sitting Pulse 70 Pulse Source Pulse Oximeter Temp 97.9 F Temp Source Temporal Artery Scan Pulse Oximetry (%) 98 Intake Visit Reasons: EP Right Foot ankle Swollen Intake Note: pt is here for c/o right swollen ankle Patient Tobacco Use Status: Never used Tobacco Allergies oxycodone Allergy (Intermediate, Verified 08/06/23 09:02) itching adhesive tape Allergy (Mild, Verified 08/06/23 09:02) RASH ketorolac [From TORADOL] Allergy (Mild, Verified 08/06/23 09:02) HIVES latex [LATEX] Allergy (Mild, Verified 08/06/23 09:02) RASH fruit with skin Allergy (Intermediate, Uncoded 07/27/23 10:05) Hives Do you need a note to return to daycare/school/sports/work: No HPI EP Right Foot ankle Swollen HPI Details 38-year-old female patient presents toda with right ankle tenderness and swelling for the last several days. She had labral surgery on her hip back on 06/01, and has been attending PT since then. She recently was given the clearance to stop using crutch, and increase activity. She went for about a 1 mile walk this past Wednesday on a bike trail, and subsequently developed ankle tenderness and swelling. No acute trauma to ankle. Has been icing, elevating and using ibuprofen with some mild relief. [facility] Medical History Amenorrhea Metrorrhagia Bloating Epigastric discomfort Shortness of breath Pre-op examination Contusion of chest Exercise-induced asthma Pain of left thumb Rib pain on right side Bilateral otitis media with effusion Left shoulder strain Cellulitis Acute lumbar back pain Right shoulder pain Arthrosis Right knee pain Complex cyst of left ovary Chronic GERD Encounter for general adult medical examination with abnormal findings Encounter for IUD insertion Nausea Upper respiratory infection Leg pain, right Nausea Other specified hypothyroidism Otitis media Right hip pain Chest wall pain Lightheaded Acute sinusitis Goiter Elevated TSH Medicare annual wellness visit, subsequent Constipation Ill feeling Epigastric pain Constipation Cervical cancer screening Well woman exam with routine gynecological exam Medicare annual wellness visit, initial Abnormal thyroid stimulating hormone (TSH) level Patella francisco j Knee pain Neck pain Chest pain Migraines Eczema Fibromyalgia Heart murmur Asthma Hypothyroidism Surgical History History of hip surgery H/O shoulder surgery [place] teeth removed History of appendectomy Family History Mother Graves disease Hypothyroidism Father CHF (congestive heart failure) Other Substance use disorder Social History Housing: Apartment Alcohol intake: never Patient Tobacco Use Status: Never used Tobacco e-Cigarette/Vaping Use: Never Used Second Hand Smoke Exposure: Yes (as a child only) service: No Current occupational status: disabled Sexual orientation: Straight/Heterosexual Gender identity: Female Cognitive needs: No Hearing needs: No Vision needs: Yes Female Reproductive History Menstrual Age of Menarche: 15 Review of Systems Const All systems reviewed & are unremarkable except as noted in HPI and below Physical Exam Vital Signs: Last Vital Signs Temp 97.9 F 08/06/23 09:02 Pulse 70 08/06/23 09:02 BP 112/74 08/06/23 09:02 Pulse Ox 98 08/06/23 09:02 BMI result Body Mass Index 34.3 Const General: cooperative, healthy appearing and no acute distress Resp Effort & Inspection: normal respiratory effort Skin General skin exam: no rashes or lesions noted Extrem Other: Right ankle with mild swelling, particularly around medial malleolus. Mildly tender to palpation. Patient able to bear weight. Ankle ROM wnl. +DP, PT pulses. No warmth or erythema. Psych Appearance: grossly normal Mental Status: mental status grossly normal Speech and movement: Normal speech and movement present Assessment & Plan Assessment & Plan (1) Pain and swelling of right ankle: Code(s): M25.571 - Pain in right ankle and joints of right foot; M25.471 - Effusion, right ankle Plan: XR obtained in the office was normal - no fracture or dislocation. Likely mild medial sprain. We discussed use of conservative measures including NSAIDs, ice, elevation. I applied HELIO wrap in the office today. I will start her on a short course of meloxicam. She states that she took this following hip surgery with good effect. We reviewed indications, use, possible side effects of medication. Encouraged gentle ROM as tolerated, and to inform her Physical Therapist of this at next visit. If she does not improve with time and conservative measures, she should return to clinic or PCP for further evaluation. She verbalizes understanding and agrees to plan. Medications: New meloxicam 15 mg PO DAILY 7 days 7 tabs 0RF M25.471 - Effusion, right ankle, M25.571 - Pain in right ankle and joints of right foot Coding Level of Care Code Est Pt Level 4 (68418) Diagnoses Pain and swelling of right ankle M25.571; M25.471
[2023-08-06 09:02] VITALS: BP 112/74; PULSE 70; TEMP 36.6; O2SAT 98; BMI 34.3
== END 2023-08-06 10:12 | disposition home or self-care (01) ==
PROVIDERS: PCP Internal Medicine; Visit Provider Nurse Practitioner Family
DX: M25.571 Pain in right ankle and joints of right foot (principal); M25.471 Effusion, right ankle
CPT/HCPCS: 99214

== ENCOUNTER 2023-08-06 09:36 | Outpatient (REF) | payer MEDICARE, MEDICAID, SELFPAY ==
--- NOTE | ~2023-08-06 | XR_ITS ---
EXAMINATION: XR ANKLE, RIGHT CLINICAL INFORMATION: Right ankle pain. COMPARISON: 09/11/2022 TECHNIQUE: AP, lateral, and mortise views of the right ankle. FINDINGS: Alignment is anatomic. Ankle mortise is maintained. The talar dome is intact. No displaced fracture or dislocation. There is mild medial soft tissue swelling and edema. XR/XR ankle RT min 3V IMPRESSION: No acute bony abnormality.
== END 2023-08-06 09:37 | disposition home or self-care (01) ==
LOC: HO.HMGCX 09:36
PROVIDERS: PCP Internal Medicine; Visit Provider Nurse Practitioner Family
DX: M25.571 Pain in right ankle and joints of right foot (principal)
CPT/HCPCS: 73610

== ENCOUNTER 2023-08-13 08:29 | Outpatient (AMB) | payer MEDICARE, MEDICAID, SELFPAY ==
[2023-08-13 08:37] VITALS: BP 116/70; PULSE 71; TEMP 36.2; O2SAT 95; BMI 33.6
--- NOTE | 2023-08-13 08:37 | AM.OFFWIN_ITS ---
Intake Vital Signs 08/13/23 08:37 Height 5 ft 11 in Weight 241 lb BMI 33.6 BP 116/70 Blood Pressure Location Lt brachial Position Sitting Pulse 71 Pulse Source Pulse Oximeter Temp 97.2 F Temp Source Temporal Artery Scan Pulse Oximetry (%) 95 Oxygen Delivery Method Room Air Intake Visit Reasons: Est/ sinus aniya/ ear pain (lobby) Intake Note: pt is here today for sinus congestion and ear pain started yesterday Patient Tobacco Use Status: Never used Tobacco Allergies oxycodone Allergy (Intermediate, Verified 08/13/23 08:40) itching adhesive tape Allergy (Mild, Verified 08/13/23 08:40) RASH ketorolac [From TORADOL] Allergy (Mild, Verified 08/13/23 08:40) HIVES latex [LATEX] Allergy (Mild, Verified 08/13/23 08:40) RASH fruit with skin Allergy (Intermediate, Uncoded 07/27/23 10:05) Hives Do you need a note to return to daycare/school/sports/work: No HPI HPI Comments History of Present Illness Details 38 y/o female patient who presents to [facility] walk in clinic with c/o sinus congestion x 2 days. Pt has h/o Seasonal allergies. [facility] Medical History Amenorrhea Metrorrhagia Bloating Epigastric discomfort Shortness of breath Pre-op examination Contusion of chest Exercise-induced asthma Pain of left thumb Rib pain on right side Bilateral otitis media with effusion Left shoulder strain Cellulitis Acute lumbar back pain Right shoulder pain Arthrosis Right knee pain Complex cyst of left ovary Chronic GERD Encounter for general adult medical examination with abnormal findings Encounter for IUD insertion Nausea Upper respiratory infection Leg pain, right Nausea Other specified hypothyroidism Otitis media Right hip pain Chest wall pain Lightheaded Acute sinusitis Goiter Elevated TSH Medicare annual wellness visit, subsequent Constipation Ill feeling Epigastric pain Constipation Cervical cancer screening Well woman exam with routine gynecological exam Medicare annual wellness visit, initial Abnormal thyroid stimulating hormone (TSH) level Patella francisco j Knee pain Neck pain Chest pain Migraines Eczema Fibromyalgia Heart murmur Asthma Hypothyroidism Surgical History History of hip surgery H/O shoulder surgery [place] teeth removed History of appendectomy Family History Mother Graves disease Hypothyroidism Father CHF (congestive heart failure) Other Substance use disorder Social History Housing: Apartment Alcohol intake: never Patient Tobacco Use Status: Never used Tobacco e-Cigarette/Vaping Use: Never Used Second Hand Smoke Exposure: Yes (as a child only) service: No Current occupational status: disabled Sexual orientation: Straight/Heterosexual Gender identity: Female Cognitive needs: No Hearing needs: No Vision needs: Yes Female Reproductive History Menstrual Age of Menarche: 15 Review of Systems Const All systems reviewed & are unremarkable except as noted in HPI and below Physical Exam Vital Signs: Last Vital Signs Temp 97.2 F 08/13/23 08:37 Pulse 71 08/13/23 08:37 BP 116/70 08/13/23 08:37 Pulse Ox 95 08/13/23 08:37 Oxygen Delivery Method Room Air 08/13/23 08:37 BMI result Body Mass Index 33.6 Const General: comfortable and no acute distress Nutritional Appearance: obese Orientation/consciousness: patient oriented x3 HEENT Head: Yes normocephalic Ears: external ears normal and TM abnormal bulging, with fluid behind the TM bilateral and retracted; not bullous and not perforated General nose exam: No nasal discharge present Face and sinus: Yes sinuses nontender Mouth: moist mucous membranes Throat: Yes posterior oropharynx normal Neuro General: patient oriented x3 Assessment & Plan Assessment & Plan (1) Allergic rhinitis: Code(s): J30.9 - Allergic rhinitis, unspecified Qualifiers: Allergic rhinitis trigger: pollen Allergic rhinitis seasonality: non- seasonal Qualified Code(s): J30.1 - Allergic rhinitis due to pollen Plan: - F/u with an [employer] Supervisor if symptom do not improve Medications: New pseudoephedrine HCl ER (Sudafed 12 Hour) 120 mg PO Q12H 60 tabs 0RF J30.1 - Allergic rhinitis due to pollen cetirizine (Zyrtec) 10 mg PO DAILY PRN 60 tabs 0RF allergy symptoms J30.1 - Allergic rhinitis due to pollen Coding Level of Care Code Est Pt Level 3 (09799) Diagnoses Non-seasonal allergic rhinitis due to pollen J30.1 Allergic rhinitis trigger: pollen Allergic rhinitis seasonality: non-seasonal Time Spent (min) 15
== END 2023-08-13 12:40 | disposition home or self-care (01) ==
PROVIDERS: PCP Internal Medicine; Visit Provider Nurse Practitioner Family
DX: J30.1 Allergic rhinitis due to pollen (principal)
CPT/HCPCS: 99213

== ENCOUNTER 2023-08-17 08:37 | Outpatient (AMB) | payer MEDICARE, MEDICAID, SELFPAY ==
[2023-08-17 08:42] VITALS: BP 118/84; PULSE 66; O2SAT 98; BMI 34.8
--- NOTE | 2023-08-17 08:42 | MHC.OFFVIS ---
Vital Signs 08/17/23 08:42 Height 5 ft 10 in Weight 242 lb 6 oz BMI 34.8 BP 118/84 Blood Pressure Location Rt brachial Position Sitting Pulse 66 Pulse Source Pulse Oximeter Pulse Oximetry (%) 98 Oxygen Delivery Method Room Air Intake Visit Reasons: SOB, congestion Allergies oxycodone Allergy (Intermediate, Verified 08/17/23 08:45) itching adhesive tape Allergy (Mild, Verified 08/17/23 08:45) RASH ketorolac [From TORADOL] Allergy (Mild, Verified 08/17/23 08:45) HIVES latex [LATEX] Allergy (Mild, Verified 08/17/23 08:45) RASH fruit with skin Allergy (Intermediate, Uncoded 08/17/23 08:45) Hives HPI HPI SOB, congestion: Details: Kayla is a pleasant 38 year old female, never smoker, with underlying asthma since teens, atopic dermatitis, environmental allergies, allergic rhinitis and GERD. She is under the care of ENT receiving immunotherapy to multiple environmental allergens and uses Flonase/Azelastine with moderate effect. GERD is managed by GI with omeprazole and famotidine. She was previously using symbicort once daily with suboptimal control and at the last visit increased to twice daily. She reports good control with symbicort and singulair. Today she presents for an acute visit. She reports worsening respiratory symptoms over the last week with sinus pressure, persistent nonproductive cough, chest congestion, wheezing and dyspnea. She denies fever or chills. She reports son recently sick with URI. She has been using nebulizer with minimal effect. FORMERLY [facility], [facility] Medical History Amenorrhea Metrorrhagia Bloating Epigastric discomfort Shortness of breath Pre-op examination Contusion of chest Exercise-induced asthma Pain of left thumb Rib pain on right side Bilateral otitis media with effusion Left shoulder strain Cellulitis Acute lumbar back pain Right shoulder pain Arthrosis Right knee pain Complex cyst of left ovary Chronic GERD Encounter for general adult medical examination with abnormal findings Encounter for IUD insertion Nausea Upper respiratory infection Leg pain, right Nausea Other specified hypothyroidism Otitis media Right hip pain Chest wall pain Lightheaded Acute sinusitis Goiter Elevated TSH Medicare annual wellness visit, subsequent Constipation Ill feeling Epigastric pain Constipation Cervical cancer screening Well woman exam with routine gynecological exam Medicare annual wellness visit, initial Abnormal thyroid stimulating hormone (TSH) level Patella francisco j Knee pain Neck pain Chest pain Migraines Eczema Fibromyalgia Heart murmur Asthma Hypothyroidism Surgical History History of hip surgery H/O shoulder surgery [place] teeth removed History of appendectomy Family History Mother Graves disease Hypothyroidism Father CHF (congestive heart failure) Other Substance use disorder Social History Housing: Apartment Alcohol intake: never Patient Tobacco Use Status: Never used Tobacco e-Cigarette/Vaping Use: Never Used Second Hand Smoke Exposure: Yes (as a child only) service: No Current occupational status: disabled Sexual orientation: Straight/Heterosexual Gender identity: Female Cognitive needs: No Hearing needs: No Vision needs: Yes Female Reproductive History Menstrual Age of Menarche: 15 Review of Systems Const Denies chills, Denies excessive sweating, Denies fever(s), Denies headache(s) and Denies night sweats Eyes Denies dry eyes, Denies irritation and Denies itchy eyes ENT Reports Normal hearing present, Denies headache(s), Denies nasal congestion, Denies nasal discharge, Denies post nasal drip and Denies sore throat Card Denies chest pain, Denies chest pain at rest, Denies chest pain with activity, Denies claudication, Denies leg edema, Denies orthopnea and Denies paroxysmal nocturnal dyspnea Resp Denies chest congestion, Denies excessive phlegm production, Denies pain on inspiration, Denies pain with cough and Denies stridor Musc Denies myalgias Neuro Reports Normal hearing present and Denies headache(s) Endo Denies excessive sweating Sixto/Lymph Denies lymphadenopathy Aller/Immun Denies itchy eyes and Denies seasonal rhinorrhea Physical Exam Vital Signs: Last Vital Signs Pulse 66 08/17/23 08:42 BP 118/84 08/17/23 08:42 Pulse Ox 98 08/17/23 08:42 Oxygen Delivery Method Room Air 08/17/23 08:42 BMI result Body Mass Index 34.8 Const General: cooperative, no acute distress, well developed and alert Nutritional Appearance: obese Orientation/consciousness: patient oriented x3 Limitations: no limitations HEENT Head: Yes normal to inspection, Yes normocephalic and Yes atraumatic Ears: hearing grossly normal bilaterally and external ears normal Eyes General: appearance normal, both eyes and all related structures Eyelids: Yes eyelids normal Sclerae: sclerae normal EOM: EOMs intact bilaterally Neck Neck: Yes normal visual inspection and Yes no lymphadenopathy Lymphatic: no lymphadenopathy noted Chest Chest palpation & inspection: normal inspection of the chest Resp Other: postexhalation cough, persistent dry cough throughout visit Effort & Inspection: normal respiratory effort, able to speak in complete sentences, no audible wheezes, no stridor, not tachypneic, no tripod positioning and no use of accessory muscles Auscultation: no crackles and diminished lung sounds Cardio Jugular venous distension: no JVD Rate: regular rate Rhythm: regular rhythm Skin Other: warm, dry General skin exam: no rashes or lesions noted Neuro General: patient oriented x3 Cranial nerves: Yes Normal hearing present Cognition (Neuro): normal cognition Gait exam (Neuro): Normal gait present Extrem General: Yes normal to inspection, Yes capillary refill normal, Yes no clubbing, cyanosis or edema and Yes no pedal edema Psych Appearance: grossly normal and well kempt Speech and movement: Normal speech and movement present and Clear speech present Affect: normal affect Attitude: cooperative Thought process: Normal thought process present Thought content: Normal thought content present Insight: Good insight present (Psych) Judgement: Good judgement present (Psych) Assessment & Plan Assessment & Plan (1) Asthma, moderate persistent: Code(s): J45.40 - Moderate persistent asthma, uncomplicated Category: Medical Qualifiers: Asthma complication type: uncomplicated Qualified Code(s): J45.40 - Moderate persistent asthma, uncomplicated (2) Chronic GERD: Code(s): K21.9 - Gastro-esophageal reflux disease without esophagitis Category: Medical (3) Environmental allergies: Code(s): Z91.09 - Other allergy status, other than to drugs and biological substances Category: Medical Plan Will treat bronchitic symptoms with zpak and prednisone. Advised patient to continue current regimen. She is aware to call if symptoms do not improve. All questions were answered and patient is in agreement of plan. Will follow up for regularly scheduled appointment or sooner if needed. Medications: New azithromycin For 250 mg dose pack: take 500 mg today (day 1), then 250 mg for 4 days (days 2-5) PO 6 tabs 0RF prednisone 40 mg (2 x 20 mg) PO DAILY 10 tabs 0RF Coding Level of Care Code Est Pt Level 3 (97315) Diagnoses Moderate persistent asthma without complication J45.40 Asthma complication type: uncomplicated Chronic GERD K21.9 Environmental allergies Z91.09
== END 2023-08-17 09:28 | disposition home or self-care (01) ==
PROVIDERS: PCP Internal Medicine; Visit Provider Nurse Practitioner Family
DX: J45.40 Moderate persistent asthma, uncomplicated (principal); K21.9 Gastro-esophageal reflux disease without esophagitis; Z91.09 Other allergy status, other than to drugs and biological substances
CPT/HCPCS: 99213

== ENCOUNTER → 2023-08-17 08:37 | Outpatient (BNVA) | payer MEDICARE, MEDICAID, SELFPAY | PROVIDERS: PCP Internal Medicine; Visit Provider Nurse Practitioner Family | DX: J45.40 Moderate persistent asthma, uncomplicated (principal); K21.9 Gastro-esophageal reflux disease without esophagitis; Z91.09 Other allergy status, other than to drugs and biological substances | CPT/HCPCS: 99212 ==

== ENCOUNTER 2023-09-02 08:00 | Outpatient (AMB) | payer MEDICARE, MEDICAID, SELFPAY ==
[2023-09-02 08:09] VITALS: BP 119/63; PULSE 64; BMI 34.7
--- NOTE | 2023-09-02 08:09 | A.OFFVIS_ITS ---
Vital Signs 09/02/23 08:09 Height 5 ft 10 in Weight 242 lb BMI 34.7 BP 119/63 Blood Pressure Location Lt brachial Position Sitting Pulse 64 Intake Visit Reasons: 4 week follow up Intake Note: Kayla presents in the office as a 4 week follow up CC: She states that her weight is a concern - she states that she gained weight one time and has not gone down since - she said it was exactly a year ago. Offensive Coordinator Required: No Allergies oxycodone Allergy (Intermediate, Verified 09/02/23 08:12) itching adhesive tape Allergy (Mild, Verified 09/02/23 08:12) RASH ketorolac [From TORADOL] Allergy (Mild, Verified 09/02/23 08:12) HIVES latex [LATEX] Allergy (Mild, Verified 09/02/23 08:12) RASH fruit with skin Allergy (Intermediate, Uncoded 09/02/23 08:12) Hives HPI HPI 4 week follow up: Details: Assessment & Plan (1) Esophageal spasm: Comment: ? waiting to confirm via barium swallow Code(s): K22.4 - Dyskinesia of esophagus Category: Medical (2) GERD with esophagitis: Code(s): K21.00 - Gastro-esophageal reflux disease with esophagitis, without bleeding Category: Medical (3) Odynophagia: Code(s): R13.10 - Dysphagia, unspecified Category: Medical (4) Irritable bowel syndrome with both constipation and diarrhea: Code(s): K58.2 - Mixed irritable bowel syndrome Category: Medical Plan She has not had any significant relief and her food still sits mid sternally after dilation and trial of bentyl. Will get barium swallow and trial of cardizem to relax the smooth muscles of the esophagus. She was told my esophagus is too loose by Dr. Cifuentes s/p procedure. she just had hip surgery and is already standing slowly - educated re: [place] with cardizem. She is less CIC since her migraine medications have been decreased. She had a history of being on propanolol but she is off that for now which is probably good given the fact that were going to give a trial of Cardizem. Increasing pantoprazole to BID already has famotidine qhs. She continues on her Reglan and after increasing it to 10 mg she has had no adverse effects but she is also uncertain how much it is helping the symptoms. Consider surgery if large HH and not medically responding. Insurance denies Lansoprazole. We could consider PA going forward depending on results of the barium swallow. ROV 4 weeks. Orders: Orders [place] barium swallow Today K22.4 - Dyskinesia of esophagus Medications: New diltiazem HCl CD 120 mg PO DAILY 30 caps 3RF K22.4 - Dyskinesia of esophagus Discontinued dicyclomine Discontinued Reason: Doctor's Order 40 mg (2 x 20 mg) PO TID 30 days 180 tabs 6RF R10.9 - Unspecified abdominal pain Resumed pantoprazole (Protonix) 40 mg PO BID 60 tabs 6RF 30 days K21.9 - Gastro- esophageal reflux disease without esophagitis pantoprazole (Protonix) 40 mg PO DAILY 30 days 30 tabs 6RF K21.9 - Gastro- esophageal reflux disease without esophagitis BARIUM SWALLOW Scheduled for 10/07/2023 TODAY'S VISIT She is uncertain if the cardizem is helping. The barium swallow is coming up and this may be telling - to see if this is dyskinesia of the esophagus or if her HH is large and surgery should be considered. At least she has had no major choking incident so far. She continues on her pantoprazole and famotidine along with senna and Reglan. We have a long talk about wt mgmt, she has challenges r/t multiple food allergies and intolerances. We discuss lactose free protein shakes and she wants referral to Medical wt mgmt - referred to Mary. She is trying to exercise. She really gained quite a bit of weight prior to her hip replacement because she was unable to exercise. ROV after barium swallow FORMERLY [facility], [facility] Medical History Amenorrhea Metrorrhagia Bloating Epigastric discomfort Shortness of breath Pre-op examination Contusion of chest Exercise-induced asthma Pain of left thumb Rib pain on right side Bilateral otitis media with effusion Left shoulder strain Cellulitis Acute lumbar back pain Right shoulder pain Arthrosis Right knee pain Complex cyst of left ovary Chronic GERD Encounter for general adult medical examination with abnormal findings Encounter for IUD insertion Nausea Upper respiratory infection Leg pain, right Nausea Other specified hypothyroidism Otitis media Right hip pain Chest wall pain Lightheaded Acute sinusitis Goiter Elevated TSH Medicare annual wellness visit, subsequent Constipation Ill feeling Epigastric pain Constipation Cervical cancer screening Well woman exam with routine gynecological exam Medicare annual wellness visit, initial Abnormal thyroid stimulating hormone (TSH) level Patella francisco j Knee pain Neck pain Chest pain Migraines Eczema Fibromyalgia Heart murmur Asthma Hypothyroidism Surgical History History of hip surgery H/O shoulder surgery [place] teeth removed History of appendectomy Family History Mother Graves disease Hypothyroidism Father CHF (congestive heart failure) Other Substance use disorder Social History Housing: Apartment Alcohol intake: never Patient Tobacco Use Status: Never used Tobacco e-Cigarette/Vaping Use: Never Used Second Hand Smoke Exposure: Yes (as a child only) service: No Current occupational status: disabled Sexual orientation: Straight/Heterosexual Gender identity: Female Cognitive needs: No Hearing needs: No Vision needs: Yes Female Reproductive History Menstrual Age of Menarche: 15 Review of Systems Const Denies fatigue, Denies fever(s), Denies night sweats, Denies poor appetite, Reports weight gain and Denies weight loss Eyes Details: glasses Reports requires corrective lenses ENT Reports Normal hearing present, Denies dental pain, Reports dysphagia, Denies hearing loss, Denies mouth pain, Denies odynophagia, Denies throat swelling, Denies tongue swelling and Reports other (Dentition adequate) Card Reports no additional complaints Resp Reports no additional complaints GI Details: Denies abdominal pain, Denies melena, Denies bloating, Denies hematochezia, Reports constipation, Denies GI cramping, Reports dysphagia, Denies excessive flatus, Reports early satiety, Reports heartburn, Denies diarrhea, Denies nausea, Denies odynophagia, Denies vomiting and Denies hematemesis Skin/Breast Denies pruritus, Denies lesions, Denies rash and Denies jaundice Neuro Reports Normal hearing present and Denies Abnormal speech present Endo Denies fatigue Aller/Immun Denies throat swelling and Denies tongue swelling Physical Exam Vital Signs: Last Vital Signs Pulse 64 09/02/23 08:09 BP 119/63 09/02/23 08:09 BMI result Body Mass Index 34.7 Const General: cooperative, no acute distress, well developed and well groomed Nutritional Appearance: well nourished and obese Orientation/consciousness: oriented to person, oriented to place and oriented to time Limitations: No language barrier HEENT Head: Yes normocephalic and Yes atraumatic Eyes General: appearance normal, both eyes and all related structures Pupils: Equal, round and reactive pupils present Neck Neck: Yes normal visual inspection and Yes no lymphadenopathy Thyroid: Thyroid normal Resp Effort & Inspection: normal respiratory effort and able to speak in complete sentences Auscultation: clear to auscultation bilaterally Cardio Rate: regular rate Rhythm: regular rhythm Heart sounds: Normal, physiologic split S2 sound present Peripheral pulses: radial pulses present and posterior tibial pulses present GI Inspection: No distended, No Abdominal panniculus present and Yes obesity Palpation (GI): Soft to palpation, nontender, no guarding, not rigid and No hepatosplenomegaly present Percussion: Yes normal to percussion Auscultation: normal bowel sounds Rectal Exam - Female: deferred Skin General skin exam: no rashes or lesions noted, turgor normal, skin not dry, no jaundice, No spider nevi and no striae Rashes: no rashes Nails: normal Neuro General: oriented to person, oriented to place and oriented to time Cranial nerves: Yes Equal, round and reactive pupils present and Yes Normal hearing present Speech: No Abnormal speech present Extrem General: Yes normal to inspection, No clubbing, No cyanosis and No edema Psych Appearance: grossly normal and well kempt Mental Status: mental status grossly normal Speech and movement: Normal speech and movement present Affect: normal affect Attitude: cooperative Thought process: Normal thought process present and not confabulating Thought content: Normal thought content present Insight: Fair insight present (Psych) Judgement: Fair judgement present (Psych) Assessment & Plan Assessment & Plan (1) Esophageal spasm: Comment: ? waiting to confirm via barium swallow Code(s): K22.4 - Dyskinesia of esophagus Category: Medical (2) Obesity (BMI 30-39.9): Code(s): E66.9 - Obesity, unspecified Category: Medical (3) GERD with esophagitis: Code(s): K21.00 - Gastro-esophageal reflux disease with esophagitis, without bleeding Category: Medical (4) Odynophagia: Code(s): R13.10 - Dysphagia, unspecified Category: Medical (5) Irritable bowel syndrome with both constipation and diarrhea: Code(s): K58.2 - Mixed irritable bowel syndrome Category: Medical Plan She is uncertain if the cardizem is helping. The barium swallow is coming up and this may be telling - to see if this is dyskinesia of the esophagus or if her HH is large and surgery should be considered. At least she has had no major choking incident so far. She continues on her pantoprazole and famotidine along with senna and Reglan. We have a long talk about wt mgmt, she has challenges r/t multiple food allerg ies and intolerances. We discuss lactose free protein shakes and she wants referral to Medical wt mgmt - referred to Mary. She is trying to exercise. She really gained quite a bit of weight prior to her hip replacement because she was unable to exercise. ROV after barium swallow Orders: Referrals Medical Weight Management Referral E66.9 - Obesity, unspecified Coding Level of Care Code Est Pt Level 3 (12594) Diagnoses Esophageal spasm K22.4 Obesity (BMI 30-39.9) E66.9 GERD with esophagitis K21.00 Odynophagia R13.10 Irritable bowel syndrome with both constipation and diarrhea K58.2
== END 2023-09-02 08:43 | disposition home or self-care (01) ==
PROVIDERS: PCP Internal Medicine; Visit Provider Nurse Practitioner
DX: K22.4 Dyskinesia of esophagus (principal); E66.9 Obesity, unspecified; K21.00 Gastro-esophageal reflux disease with esophagitis, without bleeding; R13.10 Dysphagia, unspecified; K58.2 Mixed irritable bowel syndrome
CPT/HCPCS: 99213

== ENCOUNTER → 2023-09-02 08:00 | Outpatient (BNVA) | payer MEDICARE, MEDICAID, SELFPAY | PROVIDERS: PCP Internal Medicine; Visit Provider Nurse Practitioner | DX: K22.4 Dyskinesia of esophagus (principal); K21.00 Gastro-esophageal reflux disease with esophagitis, without bleeding; K58.2 Mixed irritable bowel syndrome; R13.10 Dysphagia, unspecified; E66.9 Obesity, unspecified; Z68.34 Body mass index [BMI] 34.0-34.9, adult | CPT/HCPCS: 99212 ==

== ENCOUNTER 2023-09-07 13:44 | Outpatient (AMB) | payer MEDICARE, MEDICAID, SELFPAY ==
--- NOTE | 2023-09-07 13:48 | MHC.OFFWIV ---
Intake Vital Signs 09/07/23 13:50 Height 5 ft 10 in Weight 242 lb BMI 34.7 BP 118/70 Blood Pressure Location Rt brachial Position Sitting Pulse 76 Pulse Source Pulse Oximeter Temp 98.6 F Temp Source Oral Pulse Oximetry (%) 97 Oxygen Delivery Method Room Air Intake Visit Reasons: EP ear ache/Sinus pressure/asthma Intake Note: pt is here for ear pain and sinus pressure Patient Tobacco Use Status: Never used Tobacco Allergies oxycodone Allergy (Intermediate, Verified 09/07/23 13:51) itching adhesive tape Allergy (Mild, Verified 09/07/23 13:51) RASH ketorolac [From TORADOL] Allergy (Mild, Verified 09/07/23 13:51) HIVES latex [LATEX] Allergy (Mild, Verified 09/07/23 13:51) RASH fruit with skin Allergy (Intermediate, Uncoded 09/02/23 08:12) Hives Do you need a note to return to daycare/school/sports/work: No HPI HPI Comments History of Present Illness Details 38-year-old female presents today complaining of sinus pain and pressure an exacerbation of her asthma the last few weeks. She states she has been using her rescue inhaler 2 or 3 times a day which is not common. FORMERLY [facility] Medical History Amenorrhea Metrorrhagia Bloating Epigastric discomfort Shortness of breath Pre-op examination Contusion of chest Exercise-induced asthma Pain of left thumb Rib pain on right side Bilateral otitis media with effusion Left shoulder strain Cellulitis Acute lumbar back pain Right shoulder pain Arthrosis Right knee pain Complex cyst of left ovary Chronic GERD Encounter for general adult medical examination with abnormal findings Encounter for IUD insertion Nausea Upper respiratory infection Leg pain, right Nausea Other specified hypothyroidism Otitis media Right hip pain Chest wall pain Lightheaded Acute sinusitis Goiter Elevated TSH Medicare annual wellness visit, subsequent Constipation Ill feeling Epigastric pain Constipation Cervical cancer screening Well woman exam with routine gynecological exam Medicare annual wellness visit, initial Abnormal thyroid stimulating hormone (TSH) level Patella francisco j Knee pain Neck pain Chest pain Migraines Eczema Fibromyalgia Heart murmur Asthma Hypothyroidism Surgical History History of hip surgery H/O shoulder surgery [place] teeth removed History of appendectomy Family History Mother Graves disease Hypothyroidism Father CHF (congestive heart failure) Other Substance use disorder Social History Housing: Apartment Alcohol intake: never Patient Tobacco Use Status: Never used Tobacco e-Cigarette/Vaping Use: Never Used Second Hand Smoke Exposure: Yes (as a child only) service: No Current occupational status: disabled Sexual orientation: Straight/Heterosexual Gender identity: Female Cognitive needs: No Hearing needs: No Vision needs: Yes Female Reproductive History Menstrual Age of Menarche: 15 Review of Systems Const All systems reviewed & are unremarkable except as noted in HPI and below Eyes Reports no additional complaints ENT Reports nasal discharge, Reports sinus pain and Reports sinus pressure Card Reports no additional complaints Resp Reports cough and Reports wheezing GI Reports no additional complaints Aller/Immun Reports wheezing Physical Exam Vital Signs: Last Vital Signs Temp 98.6 F 09/07/23 13:50 Pulse 76 09/07/23 13:50 BP 118/70 09/07/23 13:50 Pulse Ox 97 09/07/23 13:50 Oxygen Delivery Method Room Air 09/07/23 13:50 BMI result Body Mass Index 34.7 HEENT Head: Yes normal to inspection, Yes normocephalic and Yes atraumatic Ears: hearing grossly normal bilaterally, TM's normal bilaterally and EAC's normal General nose exam: Normal external nose present Face and sinus: Yes sinus tenderness and Yes Facial tenderness on exam of face and sinuses Throat: Yes posterior oropharynx normal and Yes postnasal drainage Resp Effort & Inspection: normal respiratory effort Auscultation: clear to auscultation bilaterally Cardio Rate: regular rate Rhythm: regular rhythm Heart sounds: S1 normal heart sound present and S2 normal heart sound present Assessment & Plan Assessment & Plan (1) Sinusitis: Code(s): J32.9 - Chronic sinusitis, unspecified Plan: The patient is put on antibiotic to treat her sinusitis. Also put her on a prednisone taper to calm her asthma exacerbation. She will follow up as needed Plan See plan Medications: New amoxicillin 875 mg PO BID 7 days 14 tabs 0RF prednisone prednisone 5 mg: take 8 tablets (40 mg) on Day 1; 7 tablets (35 mg) on Day 2; then decrease by 1 tablet every day until finished PO 36 ea 0RF Coding Level of Care Code Est Pt Level 3 (27502) Diagnoses Sinusitis J32.9
[2023-09-07 13:50] VITALS: BP 118/70; PULSE 76; TEMP 37; O2SAT 97; BMI 34.7
== END 2023-09-07 14:28 | disposition home or self-care (01) ==
PROVIDERS: PCP Internal Medicine; Visit Provider Physician Assistant Medical
DX: J32.9 Chronic sinusitis, unspecified (principal)
CPT/HCPCS: 99213

== ENCOUNTER 2023-09-08 10:36 | Outpatient (AMB) | payer MEDICARE, MEDICAID, SELFPAY ==
[2023-09-08 10:39] VITALS: BP 120/72; PULSE 78; BMI 34.6
--- NOTE | 2023-09-08 10:39 | A.OFFVIS_ITS ---
Vital Signs 09/08/23 10:39 Height 5 ft 10 in Weight 240 lb 15.444 oz BMI 34.6 BP 120/72 Blood Pressure Location Rt brachial Position Sitting Pulse 78 Pulse Source Pulse Oximeter Intake Visit Reasons: Fibromyalgia/cm Intake Note: Patient present today for Fibromyalgia follow up visit. Child And Adolescent Psychologist Required: No Accompanied by: Self / Same As Patient Allergies oxycodone Allergy (Intermediate, Verified 09/08/23 10:44) itching adhesive tape Allergy (Mild, Verified 09/08/23 10:44) RASH ketorolac [From TORADOL] Allergy (Mild, Verified 09/08/23 10:44) HIVES latex [LATEX] Allergy (Mild, Verified 09/08/23 10:44) RASH fruit with skin Allergy (Intermediate, Uncoded 09/08/23 10:44) Hives Medication List - Last Reconciled 09/08/23 by Milla Atkins MD acetaminophen-codeine 300-30 mg 1 tab PO BID PRN amitriptyline 25 mg PO BEDTIME amoxicillin 875 mg PO BID 7 days azelastine 1 spray intranasal DAILY cyclosporine 0.05% (Restasis) drps ophthalmic (eye) diltiazem HCl CD 120 mg PO DAILY epinephrine 0.3 mg IM ONCE PRN famotidine 40 mg PO BEDTIME fluticasone furoate-vilanterol 200-25 mcg/dose (Breo Ellipta) 1 inh inhalation DAILY galcanezumab-gnlm (Emgality Pen) mg subcut hydrocodone-acetaminophen 10-325 mg tabs PO levalbuterol HCl 1.25 mg (3 mL) inhalation Q4-6H PRN levalbuterol tartrate 45 mcg/actuation 1 puff inhalation Q4-6H PRN levonorgestrel (Mirena) intrauterine baxhun-qbzaigfj-bdnsobd 24,000-76,000 -120,000 unit (Creon) 1 cap PO QID metoclopramide HCl (Reglan) 10 mg PO BEDTIME montelukast (Singulair) 10 mg PO BEDTIME pantoprazole 40 mg PO DAILY prednisone prednisone 5 mg: take 8 tablets (40 mg) on Day 1; 7 tablets (35 mg) on Day 2; then decrease by 1 tablet every day until finished PO propranolol 60 mg PO BID sennosides (senna) 25.8 mg (3 x 8.6 mg) PO BID Synthroid (levothyroxine) 125 mcg PO DAILY NS topiramate (Topamax) 50 mg PO BID valacyclovir 1,000 mg PO BID HPI Comments Details: This is a 38-year-old female fibromyalgia who presents for follow-up. She was last seen about a year ago. She states that she is s/p right hip labral tear repair 05/2023. She states that she is recovering from that. She states that she has not been as active as she used to be since the procedure. She is working with PT. she states that she has significant dry eyes , she uses cyclosporin eyedrops and punctal plugs. Her heel cutter suggested Sjogren's testing. Denies to have intermittent body aches. Continues to have dry mouth but she chews gum regularly. She had a sleep study earlier this year and it came out unremarkable. [facility] Medical History Amenorrhea Metrorrhagia Bloating Epigastric discomfort Shortness of breath Pre-op examination Contusion of chest Exercise-induced asthma Pain of left thumb Rib pain on right side Bilateral otitis media with effusion Left shoulder strain Cellulitis Acute lumbar back pain Right shoulder pain Arthrosis Right knee pain Complex cyst of left ovary Chronic GERD Encounter for general adult medical examination with abnormal findings Encounter for IUD insertion Nausea Upper respiratory infection Leg pain, right Nausea Other specified hypothyroidism Otitis media Right hip pain Chest wall pain Lightheaded Acute sinusitis Goiter Elevated TSH Medicare annual wellness visit, subsequent Constipation Ill feeling Epigastric pain Constipation Cervical cancer screening Well woman exam with routine gynecological exam Medicare annual wellness visit, initial Abnormal thyroid stimulating hormone (TSH) level Patella francisco j Knee pain Neck pain Chest pain Migraines Eczema Fibromyalgia Heart murmur Asthma Hypothyroidism Surgical History History of hip surgery H/O shoulder surgery [place] teeth removed History of appendectomy Family History Mother Graves disease Hypothyroidism Father CHF (congestive heart failure) Other Substance use disorder Social History Housing: Apartment Alcohol intake: never Patient Tobacco Use Status: Never used Tobacco e-Cigarette/Vaping Use: Never Used Second Hand Smoke Exposure: Yes (as a child only) service: No Current occupational status: disabled Sexual orientation: Straight/Heterosexual Gender identity: Female Cognitive needs: No Hearing needs: No Vision needs: Yes Female Reproductive History Menstrual Age of Menarche: 15 Review of Systems Const Reports weakness Eyes Reports dry eyes ENT Reports dry mouth Musc Reports back pain, Reports myalgias and Reports arthralgias Neuro Reports weakness Physical Exam Vital Signs: Last Vital Signs Pulse 78 09/08/23 10:39 BP 120/72 09/08/23 10:39 BMI result Body Mass Index 34.6 Const General: cooperative, healthy appearing and comfortable Nutritional Appearance: obese Orientation/consciousness: patient oriented x3 Limitations: no limitations HEENT Head: Yes normocephalic and Yes atraumatic Mouth: moist mucous membranes Resp Effort & Inspection: normal respiratory effort and able to speak in complete sentences Auscultation: clear to auscultation bilaterally Cardio Rate: regular rate Rhythm: regular rhythm Skin General skin exam: no rashes or lesions noted Neuro General: patient oriented x3 Extrem Other: No active synovitis Normal nailfold capillaroscopy Assessment & Plan Assessment & Plan (1) Fibromyalgia: Code(s): M79.7 - Fibromyalgia Category: Medical Plan: This is a 38-year-old female with fibromyalgia who presents for follow-up. Her symptoms have been a little worse her right hip labral repair surgery. She has not been able to do her routine exercises. She states that she had a sleep study earlier this year and it was unremarkable. She follows up regularly with her psychotherapist and psychiatrist. Advised patient to try to keep up with her exercises as much as possible Follow-up p.r.n. (2) Dry eye syndrome: Code(s): H04.129 - Dry eye syndrome of unspecified lacrimal gland Category: Medical Qualifiers: Laterality: bilateral Qualified Code(s): H04.123 - Dry eye syndrome of bilateral lacrimal glands Plan: Patient uses Restasis eyedrops and ductal plugs. Her heel cutter recommended Sjogren's testing. Patient had negative Sjogren's antibodies in 2020. I do not think there is a role for further blood work however I suggested a lip biopsy to rule out Sjogren's. Patient Will think about it Plan I spent 25 minutes reviewing patient's chart, evaluating patient, counseling patient and documenting in the chart Coding Level of Care Code Est Pt Level 4 (32910) Diagnoses Fibromyalgia M79.7 Dry eye syndrome of both eyes H04.123 Laterality: bilateral
== END 2023-09-08 11:37 | disposition home or self-care (01) ==
PROVIDERS: PCP Internal Medicine; Visit Provider Student in an Organized Health Care Education/Training Program
DX: M79.7 Fibromyalgia (principal); H04.123 Dry eye syndrome of bilateral lacrimal glands
CPT/HCPCS: 99214

== ENCOUNTER → 2023-09-08 10:36 | Outpatient (BNVA) | payer MEDICARE, MEDICAID, SELFPAY | PROVIDERS: PCP Internal Medicine; Visit Provider Student in an Organized Health Care Education/Training Program | DX: M79.7 Fibromyalgia (principal) | CPT/HCPCS: 99212 ==

== ENCOUNTER 2023-09-13 09:53 | Outpatient (REF) | payer MEDICARE, MEDICAID, SELFPAY ==
[2023-09-13 10:09] LABS: MANUAL DIFF FLAG NO
[2023-09-13 10:47] LABS: Basophils Percent Auto 0.3 % (0-2); Eosinophils Absolute Auto 0.1 X10*3/uL (0.0-0.4); Eosinophils Percent Auto 0.7 % (0-4); Hematocrit 38.3 % (37.0-47.0); Hemoglobin 12.4 g/dl (12.0-16.0); Imm Gran Abs Auto 0.04 X10*3/uL (0.00-0.03); Imm Gran Pct Auto 0.4 % (0.0-0.4); Lymphocytes Absolute Auto 2.8 X10*3/uL (1.2-4.9); Lymphocytes Percent Auto 31.7 % (20-40); Mean Corpuscular HGB Conc 32.4 g/dl (31.0-35.0); Mean Corpuscular Hemoglobin 30.6 pg (27.0-33.0); Mean Corpuscular Volume 94.6 fL (80.0-98.0); Mean Platelet Volume 11.7 fL (9.4-12.3); Monocytes Absolute Auto 0.7 X10*3/uL (0.1-1.2); Monocytes Percent Auto 7.5 % (2-11); Neutrophils Absolute Auto 5.3 x10*3/uL (2.0-8.3); Neutrophils Percent Auto 59.4 % (45-73); Platelet Count 190 X10*3/uL (160-400); Red Blood Count 4.05 X10*6/uL (4.20-5.50); Red Cell Distribution Width 12.7 % (11.0-16.0); White Blood Count 8.9 X10*3/uL (4.8-10.8)
[2023-09-13 11:34] LABS: T4 Thyroxine 8.3 ug/dL (4.5-12.0); Thyroid Stimulating Hormone 1.12 uIU/mL (0.32-4.0)
== END 2023-09-13 09:54 | disposition home or self-care (01) ==
LOC: HO.LAB 09:53
PROVIDERS: PCP Internal Medicine; Visit Provider Registered Nurse
DX: G43.909 Migraine, unspecified, not intractable, without status migrainosus (principal)
CPT/HCPCS: 36415; 84436; 84443; 85025

== ENCOUNTER 2023-10-07 08:43 | Outpatient (REF) | payer MEDICARE, MEDICAID, SELFPAY ==
--- NOTE | ~2023-10-07 | FL_ITS ---
EXAMINATION: XR FLUOROSCOPY UPPER GI WITH AIR CLINICAL INFORMATION: Dysphagia COMPARISON: None TECHNIQUE: Fluoroscopic air contrast upper GI examination was performed utilizing standard techniques with thin and thick barium and effervescent granules. Numerous spot images were obtained. FINDINGS: Lateral cine images of the oropharynx and hypopharynx demonstrate normal swallow mechanism with normal epiglottic inversion and soft palate elevation. No tracheal penetration, glottic or subglottic aspiration identified. No nasopharyngeal reflux present. Hypopharyngeal structures appear normal without evidence of mass or diverticulum. There was no significant cricopharyngeal achalasia. Dual and single contrast images of the esophagus demonstrate normal caliber, contour, and mucosal pattern. No evidence of stricture, mass, or ulcerations identified. A small type I hiatal hernia is present. Significant gastroesophageal reflux is seen above the thoracic inlet. Dual contrast and single contrast images of the stomach demonstrated normal contour and mucosal pattern without evidence of mass, ulceration, or other abnormality. Contrast freely passed into the gastric antrum and duodenal bulb without delay. Single and air-contrast images of the duodenal bulb demonstrate no abnormality. The duodenal sweep has a normal appearance, course, and mucosal fold appearance. The imaged proximal jejunum has a normal fold pattern and caliber. FLUOROSCOPY TIME: 5 minutes Number of Spot Images: 11 Number of Cine: 16 DOSE AREA PRODUCT: 3746 uGy-m2 (microgray-meter squared) FL/FL barium swallow with air IMPRESSION: 1. Small type I hiatal hernia 2. Severe gastroesophageal reflux This procedure was performed by Carlos Mathews PA-C, and supervised by Dr. Triana
== END 2023-10-07 08:44 | disposition home or self-care (01) ==
LOC: HO.XRAY 08:43
PROVIDERS: Visit Provider Nurse Practitioner
DX: K22.4 Dyskinesia of esophagus (principal)
CPT/HCPCS: 74221

== ENCOUNTER → 2023-10-07 08:45 | Outpatient (BNV) | payer MEDICARE, MEDICAID, SELFPAY | PROVIDERS: Visit Provider Physician Assistant Surgical | DX: R13.10 Dysphagia, unspecified (principal) | CPT/HCPCS: 74246 ==

== ENCOUNTER 2023-10-20 10:30 | Outpatient (AMB) | payer MEDICARE, MEDICAID, SELFPAY ==
[2023-10-20 10:32] VITALS: BP 117/60; PULSE 57; BMI 35.0
--- NOTE | 2023-10-20 10:32 | A.OFFVIS_ITS ---
Vital Signs 10/20/23 10:32 Height 5 ft 10 in Weight 243 lb 13.3 oz BMI 35.0 BP 117/60 Blood Pressure Location Lt brachial Position Sitting Pulse 57 Intake Visit Reasons: barium swallow follow up Intake Note: Kayla presents to in office today in follow up of barium swallow. CC: Senior Technical Trainer Required: No Accompanied by: Self / Same As Patient Allergies oxycodone Allergy (Intermediate, Verified 10/20/23 10:39) itching adhesive tape Allergy (Mild, Verified 10/20/23 10:39) RASH ketorolac [From TORADOL] Allergy (Mild, Verified 10/20/23 10:39) HIVES latex [LATEX] Allergy (Mild, Verified 10/20/23 10:39) RASH fruit with skin Allergy (Intermediate, Uncoded 09/08/23 10:44) Hives HPI HPI barium swallow follow up: Details: Assessment & Plan (1) Esophageal spasm: Comment: ? waiting to confirm via barium swallow Code(s): K22.4 - Dyskinesia of esophagus Category: Medical (2) Obesity (BMI 30-39.9): Code(s): E66.9 - Obesity, unspecified Category: Medical (3) GERD with esophagitis: Code(s): K21.00 - Gastro-esophageal reflux disease with esophagitis, without bleeding Category: Medical (4) Odynophagia: Code(s): R13.10 - Dysphagia, unspecified Category: Medical (5) Irritable bowel syndrome with both constipation and diarrhea: Code(s): K58.2 - Mixed irritable bowel syndrome Category: Medical Plan She is uncertain if the cardizem is helping. The barium swallow is coming up and this may be telling - to see if this is dyskinesia of the esophagus or if her HH is large and surgery should be considered. At least she has had no major choking incident so far. She continues on her pantoprazole and famotidine along with senna and Reglan. We have a long talk about wt mgmt, she has challenges r/t multiple food allergies and intolerances. We discuss lactose free protein shakes and she wants referral to Medical wt mgmt - referred to Mary. She is trying to exercise. She really gained quite a bit of weight prior to her hip replacement because she was unable to exercise. ROV after barium swallow Orders: Referrals Medical Weight Management Referral E66.9 - Obesity, unspecified BARIUM SWALLOW 10/18/23 FINDINGS: Lateral cine images of the oropharynx and hypopharynx demonstrate normal swallow mechanism with normal epiglottic inversion and soft palate elevation. No tracheal penetration, glottic or subglottic aspiration identified. No nasopharyngeal reflux present. Hypopharyngeal structures appear normal without evidence of mass or diverticulum. There was no significant cricopharyngeal achalasia. Dual and single contrast images of the esophagus demonstrate normal caliber, contour, and mucosal pattern. No evidence of stricture, mass, or ulcerations identified. A small type I hiatal hernia is present. Significant gastroesophageal reflux is seen above the thoracic inlet. Dual contrast and single contrast images of the stomach demonstrated normal contour and mucosal pattern without evidence of mass, ulceration, or other abnormality. Contrast freely passed into the gastric antrum and duodenal bulb without delay. Single and air-contrast images of the duodenal bulb demonstrate no abnormality. The duodenal sweep has a normal appearance, course, and mucosal fold appearance. The imaged proximal jejunum has a normal fold pattern and caliber. FLUOROSCOPY TIME: 5 minutes Number of Spot Images: 11 Number of Cine: 16 DOSE AREA PRODUCT: 3746 uGy-m2 (microgray-meter squared) FL/FL barium swallow with air IMPRESSION: 1. Small type I hiatal hernia 2. Severe gastroesophageal reflux TODAY'S VISIT The barium swallow shows severe GERD. She saw wt mgmt and they are very concerned that she get the GERD under control prior to considering surgery. They are discussing phentermine, vs ozempic vs gastric sleeve. She still has a lot of reflux [place] when laying down at night. She felt things like water come back up into my mouth. Her HH is very small, so I'm not sure how much surgery may impact this. I think a trial of phentermine first is best. She is already on topamax for migraines. She DID have a tight appearing pyloric outlet on the EGD. THis could be c/f. We discussed things like putting blocks under the head of the bed and of course limiting eating after a certain. WIll get GES and HIDA and discuss blocks under HOB. CHange pantoprazole to Dexilant and continue qhs reglan. Stooling 3 days good BM's with 3 days not much - this is her baseline fxn ? if c/f. She continues on the cardizem. She can try stopping this and see if it makes a difference in swallowing/GERD. ROV 8 weeks. [facility] Medical History (Updated 10/20/23 @ 10:51 by RIDGE Kevin) Acetabular labrum tear Herpes labialis Dry eyes Yeast infection of the vagina Amenorrhea Metrorrhagia Bloating Epigastric discomfort Shortness of breath Pre-op examination Contusion of chest Exercise-induced asthma Pain of left thumb Rib pain on right side Bilateral otitis media with effusion Left shoulder strain Cellulitis Acute lumbar back pain Right shoulder pain Arthrosis Right knee pain Complex cyst of left ovary Chronic GERD Encounter for general adult medical examination with abnormal findings Encounter for IUD insertion Nausea Upper respiratory infection Leg pain, right Nausea Other specified hypothyroidism Otitis media Right hip pain Chest wall pain Lightheaded Acute sinusitis Goiter Elevated TSH Medicare annual wellness visit, subsequent Constipation Ill feeling Epigastric pain Constipation Cervical cancer screening Well woman exam with routine gynecological exam Medicare annual wellness visit, initial Abnormal thyroid stimulating hormone (TSH) level Patella francisco j Knee pain Neck pain Chest pain Migraines Eczema Fibromyalgia Heart murmur Asthma Hypothyroidism Surgical History History of hip surgery H/O shoulder surgery [place] teeth removed History of appendectomy Family History Mother Graves disease Hypothyroidism Father CHF (congestive heart failure) Other Substance use disorder Social History Housing: Apartment Alcohol intake: never Patient Tobacco Use Status: Never used Tobacco e-Cigarette/Vaping Use: Never Used Second Hand Smoke Exposure: Yes (as a child only) service: No Current occupational status: disabled Sexual orientation: Straight/Heterosexual Gender identity: Female Cognitive needs: No Hearing needs: No Vision needs: Yes Female Reproductive History Menstrual Age of Menarche: 15 Review of Systems Const Denies fatigue, Denies fever(s), Denies night sweats, Denies poor appetite and Denies weight loss Eyes Details: glasses Reports requires corrective lenses ENT Reports Normal hearing present, Denies dental pain, Denies dysphagia, Denies hearing loss, Denies mouth pain, Denies odynophagia, Denies throat swelling, Denies tongue swelling and Reports other (Dentition adequate) Card Reports no additional complaints Resp Reports no additional complaints GI Details: Denies abdominal pain, Denies melena, Denies bloating, Denies hematochezia, Denies constipation, Denies GI cramping, Denies dysphagia, Denies excessive flatus, Denies early satiety, Reports heartburn, Denies diarrhea, Denies nausea, Denies odynophagia, Denies vomiting and Denies hematemesis Skin/Breast Denies pruritus, Denies lesions, Denies rash and Denies jaundice Neuro Reports Normal hearing present and Denies Abnormal speech present Endo Denies fatigue Aller/Immun Denies throat swelling and Denies tongue swelling Physical Exam Vital Signs: Last Vital Signs Pulse 57 10/20/23 10:32 BP 117/60 10/20/23 10:32 BMI result Body Mass Index 35.0 Const General: cooperative, no acute distress, well developed and well groomed Nutritional Appearance: well nourished and obese Orientation/consciousness: oriented to person, oriented to place and oriented to time Limitations: No language barrier HEENT Head: Yes normocephalic and Yes atraumatic Eyes General: appearance normal, both eyes and all related structures Pupils: Equal, round and reactive pupils present Neck Neck: Yes normal visual inspection and Yes no lymphadenopathy Thyroid: Thyroid normal Resp Effort & Inspection: normal respiratory effort and able to speak in complete sentences Auscultation: clear to auscultation bilaterally Cardio Rate: regular rate Rhythm: regular rhythm Heart sounds: Normal, physiologic split S2 sound present Peripheral pulses: radial pulses present and posterior tibial pulses present GI Inspection: No distended, No Abdominal panniculus present and Yes obesity Palpation (GI): Soft to palpation, nontender, no guarding, not rigid and No hepatosplenomegaly present Percussion: Yes normal to percussion Auscultation: normal bowel sounds Rectal Exam - Female: deferred Skin General skin exam: no rashes or lesions noted, turgor normal, skin not dry, no jaundice, No spider nevi and no striae Rashes: no rashes Nails: normal Neuro General: oriented to person, oriented to place and oriented to time Cranial nerves: Yes Equal, round and reactive pupils present and Yes Normal hearing present Speech: No Abnormal speech present Extrem General: Yes normal to inspection, No clubbing, No cyanosis and No edema Psych Appearance: grossly normal and well kempt Mental Status: mental status grossly normal Speech and movement: Normal speech and movement present Affect: normal affect Attitude: cooperative Thought process: Normal thought process present and not confabulating Thought content: Normal thought content present Insight: Fair insight present (Psych) Judgement: Fair judgement present (Psych) Assessment & Plan Assessment & Plan (1) Esophageal spasm: Comment: ? waiting to confirm via barium swallow Code(s): K22.4 - Dyskinesia of esophagus Category: Medical (2) GERD with esophagitis: Code(s): K21.00 - Gastro-esophageal reflux disease with esophagitis, without bleeding Category: Medical (3) Irritable bowel syndrome with both constipation and diarrhea: Code(s): K58.2 - Mixed irritable bowel syndrome Category: Medical (4) Lactose intolerance: Code(s): E73.9 - Lactose intolerance, unspecified Category: Medical (5) Multiple food allergies: Code(s): Z91.018 - Allergy to other foods Category: Medical (6) Odynophagia: Code(s): R13.10 - Dysphagia, unspecified Category: Medical Plan The barium swallow shows severe GERD. She saw wt mgmt and they are very concerned that she get the GERD under control prior to considering surgery. They are discussing phentermine, vs ozempic vs gastric sleeve. She still has a lot of reflux [place] when laying down at night. She felt things like water come back up into my mouth. Her HH is very small, so I'm not sure how much surgery may impact this. I think a trial of phentermine first is best. She is already on topamax for migraines. She DID have a tight appearing pyloric outlet on the EGD. THis could be c/f. We discussed things like putting blocks under the head of the bed and of course limiting eating after a certain. WIll get GES and HIDA and discuss blocks under HOB. CHange pantoprazole to Dexilant and continue qhs reglan. Stooling 3 days good BM's with 3 days not much - this is her baseline fxn ? if c/f. She continues on the cardizem. She can try stopping this and see if it makes a difference in swallowing/GERD. ROV 8 weeks. Orders: Orders NM hepatobiliary w pharm Today R10.10 - Upper abdominal pain, unspecified NM gastric emptying study Today R10.10 - Upper abdominal pain, unspecified Medications: New dexlansoprazole (Dexilant) 60 mg PO DAILY 30 caps 6RF 30 days K21.00 - Gastro- esophageal reflux disease with esophagitis, without bleeding, R13.10 - Dysphagia, unspecified Discontinued [id number]-qddpoydh-rsuwqgj 24,000-76,000 -120,000 unit (Creon) Discontinued Reason: Doctor's Order 1 cap PO QID 120 caps 6RF K58.9 - Irritable bowel syndrome without diarrhea famotidine Discontinued Reason: Doctor's Order 40 mg PO BEDTIME 90 tabs 2RF pantoprazole Discontinued Reason: Doctor's Order 40 mg PO DAILY 90 tabs 2RF K21.9 - Gastro-esophageal reflux disease without esophagitis Coding Level of Care Code Est Pt Level 3 (88801) Diagnoses Esophageal spasm K22.4 GERD with esophagitis K21.00 Irritable bowel syndrome with both constipation and diarrhea K58.2 Lactose intolerance E73.9 Multiple food allergies Z91.018 Odynophagia R13.10
== END 2023-10-20 11:30 | disposition home or self-care (01) ==
PROVIDERS: PCP Internal Medicine; Visit Provider Nurse Practitioner
DX: K22.4 Dyskinesia of esophagus (principal); K21.00 Gastro-esophageal reflux disease with esophagitis, without bleeding; K58.2 Mixed irritable bowel syndrome; E73.9 Lactose intolerance, unspecified; Z91.018 Allergy to other foods; R13.10 Dysphagia, unspecified
CPT/HCPCS: 99213

== ENCOUNTER → 2023-10-20 10:30 | Outpatient (BNVA) | payer MEDICARE, MEDICAID, SELFPAY | PROVIDERS: PCP Internal Medicine; Visit Provider Nurse Practitioner | DX: K22.4 Dyskinesia of esophagus (principal); K21.00 Gastro-esophageal reflux disease with esophagitis, without bleeding; K58.2 Mixed irritable bowel syndrome; R13.10 Dysphagia, unspecified; E73.9 Lactose intolerance, unspecified; Z91.018 Allergy to other foods | CPT/HCPCS: 99212 ==

== ENCOUNTER → 2023-10-29 07:42 | Outpatient (REF) | payer MEDICARE, MEDICAID, SELFPAY ==
--- NOTE | ~2023-10-29 | NM_ITS ---
EXAMINATION: BILIARY TRACT IMAGING STUDY WITH CCK CLINICAL INFORMATION: Right upper quadrant abdominal pain.. COMPARISON: No previous biliary scan is available for comparison. Abdominal ultrasound dated 01/28/[address] scan of the abdomen and pelvis dated 03/02/2019 are available for comparison.. TECHNIQUE: Serial gamma scintillation camera images were obtained over the abdomen for a total observation period of 91 minutes following the intravenous administration of 5 mCi Tc-99m Mebrofenin. FINDINGS: There is good concentration of activity in the liver by 5 minutes post injection. Biliary activity is visualized by 10 minutes. The gallbladder is well visualized by 30 minutes. Small bowel is well visualized by 40 minutes. At 6 minutes post radiopharmaceutical injection, a 30-minute infusion of 0.2 micrograms Sincalide was then begun and an additional 40 minutes of images were obtained. There is good emptying of the gallbladder. By the end of the study there is good clearance of activity from the liver and visualization of diffuse small bowel activity. The calculated gallbladder ejection fraction is 81% (normal gallbladder ejection fraction is greater than 35%). NM/NM hepatobiliary w pharm IMPRESSION: Visualization of the gallbladder is evidence of a patent cystic duct and strong evidence against the diagnosis of acute cholecystitis. The common bile duct is patent. Gallbladder emptying and ejection fraction are normal. Liver function appears normal.
== END ==
LOC: HO.NUCMED 07:42
PROVIDERS: PCP Internal Medicine; Visit Provider Nurse Practitioner
DX: R10.10 Upper abdominal pain, unspecified (principal)
CPT/HCPCS: 78227; A9537; J2805

== ENCOUNTER 2023-11-02 09:45 | Outpatient (AMB) | payer MEDICARE, MEDICAID, SELFPAY ==
--- NOTE | 2023-11-02 09:47 | MHC.OFFVIS ---
Vital Signs 11/02/23 09:50 Height 5 ft 10 in Weight 244 lb BMI 35.0 BP 108/70 Blood Pressure Location Rt brachial Position Sitting Pulse 66 Pulse Source Pulse Oximeter Pulse Oximetry (%) 100 Oxygen Delivery Method Room Air Intake Visit Reasons: asthma Allergies oxycodone Allergy (Intermediate, Verified 11/02/23 09:52) itching adhesive tape Allergy (Mild, Verified 11/02/23 09:52) RASH ketorolac [From TORADOL] Allergy (Mild, Verified 11/02/23 09:52) HIVES latex [LATEX] Allergy (Mild, Verified 11/02/23 09:52) RASH fruit with skin Allergy (Intermediate, Uncoded 11/02/23 09:52) Hives HPI HPI asthma: Details: Kayla is a pleasant 38 year old female, never smoker, with underlying asthma since teens, atopic dermatitis, environmental allergies, allergic rhinitis and GERD. At the last visit, she was switched from Symbicort to Breo due to insurance coverage, however she reports suboptimal effect. She continues to report dyspnea on moderate exertion and chest tightness. She denies cough or wheezing. She does feel allergies are contributing to symptoms, previously on allergen immunotherapy with good effect. She is interested in another allergy referral. She has been using singulair and Azelastine with moderate effect. Of note, she is under evaluation from GI for severe GERD. [facility] Medical History (Updated 10/20/23 @ 10:51 by RIDGE Kevin) Acetabular labrum tear Herpes labialis Dry eyes Yeast infection of the vagina Amenorrhea Metrorrhagia Bloating Epigastric discomfort Shortness of breath Pre-op examination Contusion of chest Exercise-induced asthma Pain of left thumb Rib pain on right side Bilateral otitis media with effusion Left shoulder strain Cellulitis Acute lumbar back pain Right shoulder pain Arthrosis Right knee pain Complex cyst of left ovary Chronic GERD Encounter for general adult medical examination with abnormal findings Encounter for IUD insertion Nausea Upper respiratory infection Leg pain, right Nausea Other specified hypothyroidism Otitis media Right hip pain Chest wall pain Lightheaded Acute sinusitis Goiter Elevated TSH Medicare annual wellness visit, subsequent Constipation Ill feeling Epigastric pain Constipation Cervical cancer screening Well woman exam with routine gynecological exam Medicare annual wellness visit, initial Abnormal thyroid stimulating hormone (TSH) level Patella francisco j Knee pain Neck pain Chest pain Migraines Eczema Fibromyalgia Heart murmur Asthma Hypothyroidism Surgical History History of hip surgery H/O shoulder surgery [place] teeth removed History of appendectomy Family History Mother Graves disease Hypothyroidism Father CHF (congestive heart failure) Other Substance use disorder Social History Housing: Apartment Alcohol intake: never Patient Tobacco Use Status: Never used Tobacco e-Cigarette/Vaping Use: Never Used Second Hand Smoke Exposure: Yes (as a child only) service: No Current occupational status: disabled Sexual orientation: Straight/Heterosexual Gender identity: Female Cognitive needs: No Hearing needs: No Vision needs: Yes Female Reproductive History Menstrual Age of Menarche: 15 Review of Systems Const Denies chills, Denies excessive sweating, Denies fever(s), Denies headache(s) and Denies night sweats ENT Reports Normal hearing present, Denies headache(s), Denies nasal discharge, Reports post nasal drip and Denies sore throat Card Denies chest pain, Denies chest pain at rest, Denies chest pain with activity, Denies claudication, Denies leg edema, Denies orthopnea and Denies paroxysmal nocturnal dyspnea Resp Denies chest congestion, Denies cough, Denies excessive phlegm production, Denies pain on inspiration, Denies pain with cough, Denies stridor and Denies wheezing Musc Denies myalgias Neuro Reports Normal hearing present and Denies headache(s) Endo Denies excessive sweating Sixto/Lymph Denies lymphadenopathy Aller/Immun Reports seasonal rhinorrhea and Denies wheezing Physical Exam Vital Signs: Last Vital Signs Pulse 66 11/02/23 09:50 BP 108/70 11/02/23 09:50 Pulse Ox 100 11/02/23 09:50 Oxygen Delivery Method Room Air 11/02/23 09:50 BMI result Body Mass Index 35.0 Const General: cooperative, healthy appearing, comfortable, no acute distress, well developed and alert Nutritional Appearance: obese Orientation/consciousness: patient oriented x3 Limitations: no limitations HEENT Head: Yes normal to inspection, Yes normocephalic and Yes atraumatic Ears: hearing grossly normal bilaterally and external ears normal Eyes General: appearance normal, both eyes and all related structures Eyelids: Yes eyelids normal Sclerae: sclerae normal EOM: EOMs intact bilaterally Neck Neck: Yes normal visual inspection and Yes no lymphadenopathy Lymphatic: no lymphadenopathy noted Chest Chest palpation & inspection: normal inspection of the chest Resp Effort & Inspection: normal respiratory effort, able to speak in complete sentences, no audible wheezes, no cough, no stridor, not tachypneic, no tripod positioning and no use of accessory muscles Auscultation: clear to auscultation bilaterally Cardio Jugular venous distension: no JVD Rate: regular rate Rhythm: regular rhythm Skin Other: warm, dry General skin exam: no rashes or lesions noted Neuro General: patient oriented x3 Cranial nerves: Yes Normal hearing present Cognition (Neuro): normal cognition Gait exam (Neuro): Normal gait present Extrem General: Yes normal to inspection, Yes capillary refill normal, Yes no clubbing, cyanosis or edema and Yes no pedal edema Psych Appearance: grossly normal and well kempt Speech and movement: Normal speech and movement present and Clear speech present Affect: normal affect Attitude: cooperative Thought process: Normal thought process present Thought content: Normal thought content present Insight: Good insight present (Psych) Judgement: Good judgement present (Psych) Assessment & Plan Assessment & Plan (1) Asthma, moderate persistent: Code(s): J45.40 - Moderate persistent asthma, uncomplicated Category: Medical Qualifiers: Asthma complication type: uncomplicated Qualified Code(s): J45.40 - Moderate persistent asthma, uncomplicated (2) Chronic GERD: Code(s): K21.9 - Gastro-esophageal reflux disease without esophagitis Category: Medical (3) Environmental allergies: Code(s): Z91.09 - Other allergy status, other than to drugs and biological substances Category: Medical Plan Will switch Breo to Advair. Encouraged patient to continue to use singulair and trial a daily antihistamine as well as ipratropium nasal spray. She is aware to monitor for side effects. Consider biologic in the future. Will also enter referral to interdisciplinary professor per patient request. All questions were answered and patient is in agreement of plan. Will follow up in 6-8 weeks or sooner if needed. Orders: Referrals Allergy & Immunology Referral Z91.09 - Other allergy status, other than to drugs and biological substances Medications: New ipratropium bromide administer into each nostril 2 sprays intranasal BID 30 mL 2RF fluticasone propion-salmeterol 230-21 mcg/actuation (Advair HFA) 2 puffs inhalation Q12H 12 grams 3RF Discontinued fluticasone furoate-vilanterol 200-25 mcg/dose (Breo Ellipta) Discontinued Reason: Patient Completed Course 1 inh inhalation DAILY 60 ea 3RF Coding Level of Care Code Est Pt Level 4 (93727) Diagnoses Moderate persistent asthma without complication J45.40 Asthma complication type: uncomplicated Chronic GERD K21.9 Environmental allergies Z91.09
[2023-11-02 09:50] VITALS: BP 108/70; PULSE 66; O2SAT 100; BMI 35.0
== END 2023-11-02 10:28 | disposition home or self-care (01) ==
PROVIDERS: PCP Internal Medicine; Visit Provider Nurse Practitioner Family
DX: J45.40 Moderate persistent asthma, uncomplicated (principal); K21.9 Gastro-esophageal reflux disease without esophagitis; Z91.09 Other allergy status, other than to drugs and biological substances
CPT/HCPCS: 99214

== ENCOUNTER → 2023-11-02 09:45 | Outpatient (BNVA) | payer MEDICARE, MEDICAID, SELFPAY | PROVIDERS: PCP Internal Medicine; Visit Provider Nurse Practitioner Family | DX: J45.40 Moderate persistent asthma, uncomplicated (principal); Z91.09 Other allergy status, other than to drugs and biological substances; K21.9 Gastro-esophageal reflux disease without esophagitis | CPT/HCPCS: 99212 ==

== ENCOUNTER → 2023-11-24 08:30 | Outpatient (REF) | payer MEDICARE, MEDICAID, SELFPAY ==
--- NOTE | ~2023-11-24 | NM_ITS ---
EXAMINATION: AL RADIONUCLIDE SOLID FOOD GASTRIC EMPTYING 4-HOUR STUDY CLINICAL INFORMATION: Upper abdominal pain, unspecified. COMPARISON: None TECHNIQUE: A standard meal consisting of 4 oz of Egg Beaters brand tagged with 1000 microcuries Tc-99m Sulfur Colloid, 8 oz water and 2 slices of toast with jelly was administered orally to the patient. Images were obtained using a dual head gamma camera in the anterior and posterior projections over of the stomach immediately post ingestion and at hourly intervals up to 4 hours post ingestion. The anterior and posterior counts at each time interval were averaged using the geometric mean and expressed as percentage of the immediate post ingestion counts. FINDINGS: There is good visualization of activity in the stomach immediately post ingestion. As the study progresses, there is good clearance of activity from the stomach and visualization of progressively increasing small bowel activity. By the end of the study, however, there is significant retention noted in the stomach. Retention in the stomach at each time interval was: 1 hour 100% (normal 37%-90%) 2 hours 86% (normal 30%-60%) 3 hours 72% 4 hours 44% (normal 0%-10%) NM/AL gastric emptying study IMPRESSION: Abnormal delayed (grade 3) 4-hour solid food gastric emptying study. For solid meal, rapid gastric emptying is less than 30% at 60 minutes. Delayed gastric emptying criteria is more than 60% remaining at 120 minutes or more than 10% at 240 minutes. The 4-hour value is the best discriminator of a normal or abnormal result). Gastric emptying study grading per JNMT Consensus Recommendations in 2008 (https://tech.snmjournals.org/content/36/44) Grade 1 (mild retention): 11-20% at 4h Grade 2 (moderate retention): 21-35% at 4h Grade 3 (severe retention): 36-50% at 4h Grade 4 (very severe retention): >50% retention at 4h Electronically signed by: Brianna Joaquin MD 11/24/2023 02:20 PM EDT
== END ==
LOC: HO.NUCMED 08:30
PROVIDERS: PCP Internal Medicine; Visit Provider Nurse Practitioner
DX: R10.10 Upper abdominal pain, unspecified (principal)
CPT/HCPCS: 78264; A9541

== ENCOUNTER 2023-12-06 08:16 | Outpatient (AMB) | payer MEDICARE, MEDICAID, SELFPAY ==
[2023-12-06 08:39] VITALS: BP 128/84; PULSE 75; TEMP 36.9; O2SAT 98; BMI 35.3
--- NOTE | 2023-12-06 08:39 | MHC.OFFWIV ---
Intake Vital Signs 12/06/23 08:39 Height 5 ft 10 in Weight 246 lb BMI 35.3 BP 128/84 Blood Pressure Location Lt brachial Position Sitting Pulse 75 Pulse Source Pulse Oximeter Temp 98.5 F Temp Source Oral Pulse Oximetry (%) 98 Oxygen Delivery Method Room Air Intake Visit Reasons: EP-Sinus congestion and lt ear pain Intake Note: pt c/o sinus congestion and LT ear pain. Started Wednesday Patient Tobacco Use Status: Never used Tobacco Allergies oxycodone Allergy (Intermediate, Verified 12/06/23 08:40) itching adhesive tape Allergy (Mild, Verified 12/06/23 08:40) RASH ketorolac [From TORADOL] Allergy (Mild, Verified 12/06/23 08:40) HIVES latex [LATEX] Allergy (Mild, Verified 12/06/23 08:40) RASH fruit with skin Allergy (Intermediate, Uncoded 12/06/23 08:40) Hives Do you need a note to return to daycare/school/sports/work: No HPI EP-Sinus congestion and lt ear pain HPI Details This note is constructed using voice recognition software. While every effort has been made to ensure accuracy, electrical linesworker errors may have been included. The patient is a 38 year old female who presents to the clinic today with sinus congestion and left ear pain since Wednesday. She notes that she has a chronic allergy suffer and had been getting allergy desensitization shots for 2-1/2 years when she was started on propanolol for an alternate reason and then the clinic stopped her allergy shots. She is pending with a different extension service specialist for referral. She continues to take Elma, Singulair, as well as as azelastine nasal spray. She is unable to tolerate Flonase nasal spray as it gives her a bloody nose. She denies fever, chills, body aches, cough, dyspnea. [facility] Medical History (Updated 12/06/23 @ 09:16 by Kirsten Escalera NP) Acetabular labrum tear Herpes labialis Dry eyes Yeast infection of the vagina Amenorrhea Metrorrhagia Bloating Epigastric discomfort Shortness of breath Pre-op examination Contusion of chest Exercise-induced asthma Pain of left thumb Rib pain on right side Bilateral otitis media with effusion Left shoulder strain Cellulitis Acute lumbar back pain Right shoulder pain Arthrosis Right knee pain Complex cyst of left ovary Chronic GERD Encounter for general adult medical examination with abnormal findings Encounter for IUD insertion Nausea Upper respiratory infection Leg pain, right Nausea Other specified hypothyroidism Otitis media Right hip pain Chest wall pain Lightheaded Acute sinusitis Goiter Elevated TSH Medicare annual wellness visit, subsequent Constipation Ill feeling Epigastric pain Constipation Cervical cancer screening Well woman exam with routine gynecological exam Medicare annual wellness visit, initial Abnormal thyroid stimulating hormone (TSH) level Patella francisco j Knee pain Neck pain Chest pain Migraines Eczema Fibromyalgia Heart murmur Asthma Hypothyroidism Surgical History History of hip surgery H/O shoulder surgery [place] teeth removed History of appendectomy Family History Mother Graves disease Hypothyroidism Father CHF (congestive heart failure) Other Substance use disorder Social History Housing: Apartment Alcohol intake: never Patient Tobacco Use Status: Never used Tobacco e-Cigarette/Vaping Use: Never Used Second Hand Smoke Exposure: Yes (as a child only) service: No Current occupational status: disabled Sexual orientation: Straight/Heterosexual Gender identity: Female Cognitive needs: No Hearing needs: No Vision needs: Yes Female Reproductive History Menstrual Age of Menarche: 15 Review of Systems Const All systems reviewed & are unremarkable except as noted in HPI and below Physical Exam Vital Signs: Last Vital Signs Temp 98.5 F 12/06/23 08:39 Pulse 75 12/06/23 08:39 BP 128/84 12/06/23 08:39 Pulse Ox 98 12/06/23 08:39 Oxygen Delivery Method Room Air 12/06/23 08:39 BMI result Body Mass Index 35.3 Const General: cooperative, healthy appearing, comfortable and no acute distress Orientation/consciousness: patient oriented x3 Limitations: no limitations HEENT Head: Yes normal to inspection Ears: hearing grossly normal bilaterally, external ears normal and TM abnormal retracted General nose exam: Normal external nose present, No nasal discharge present and Abnormal mucous membranes and turbinates present boggy and pale Face and sinus: Yes normal facial exam and Yes sinuses nontender Mouth: Normal oral and palatal mucosa present and moist mucous membranes Throat: Yes tonsils normal, Yes uvula midline, Yes posterior oropharynx abnormal (Erythema), Yes postnasal drainage and Yes cobblestoning Eyes General: appearance normal, both eyes and all related structures Neck Neck: Yes normal visual inspection Resp Effort & Inspection: normal respiratory effort, able to speak in complete sentences, Actively coughing, no respiratory distress, not tachypneic, no tripod positioning and no use of accessory muscles Auscultation: clear to auscultation bilaterally Cardio Rate: regular rate Rhythm: regular rhythm Heart sounds: normal S1 and S2 Skin General skin exam: no rashes or lesions noted Neuro General: patient oriented x3 Extrem General: Yes normal to inspection and Yes no clubbing, cyanosis or edema Assessment & Plan Assessment & Plan (1) Sinusitis: Code(s): J32.9 - Chronic sinusitis, unspecified Qualifiers: Sinusitis location: frontal Chronicity: acute Recurrence: non-recurrent Qualified Code(s): J01.10 - Acute frontal sinusitis, unspecified Plan: Trial steroid burst for symptomatic management. Advised patient to continue with her ongoing allergy treatment as this is likely contributing to her symptoms. Consider sinus rinse as a tool to augment her therapy. (2) Allergic rhinitis: Code(s): J30.9 - Allergic rhinitis, unspecified Qualifiers: Allergic rhinitis trigger: pollen Allergic rhinitis seasonality: non-seasonal Qualified Code(s): J30.1 - Allergic rhinitis due to pollen Plan: Supportive measures encouraged and reviewed. Continue current treatment plan. Advised consideration of sinus rinse if needed. Advised patient to follow up with primary care provider with worsening or failure to resolve. Advised to continue with plan to be evaluated with new ENT/allergy specialty. Plan See above for full details and plan. Medications: New prednisone 40 mg (2 x 20 mg) PO DAILY 5 days 10 tabs 0RF Coding Level of Care Code Est Pt Level 4 (63197) Diagnoses Acute non-recurrent frontal sinusitis J01.10 Sinusitis location: frontal Chronicity: acute Recurrence: non-recurrent Non-seasonal allergic rhinitis due to pollen J30.1 Allergic rhinitis trigger: pollen Allergic rhinitis seasonality: non-seasonal
== END 2023-12-06 09:14 | disposition home or self-care (01) ==
PROVIDERS: PCP Internal Medicine; Visit Provider Registered Nurse
DX: J01.10 Acute frontal sinusitis, unspecified (principal); J30.1 Allergic rhinitis due to pollen

== ENCOUNTER → 2023-12-06 08:16 | Outpatient (BNVA) | payer MEDICARE, MEDICAID, SELFPAY | PROVIDERS: PCP Internal Medicine | DX: J01.10 Acute frontal sinusitis, unspecified (principal); J30.1 Allergic rhinitis due to pollen | CPT/HCPCS: 99212 ==

== ENCOUNTER 2023-12-15 09:50 | Outpatient (AMB) | payer MEDICARE, MEDICAID, SELFPAY ==
--- NOTE | 2023-12-15 09:54 | A.OFFVIS_ITS ---
Vital Signs 12/15/23 09:55 Height 5 ft 10 in Weight 247 lb BMI 35.4 BP 118/70 Blood Pressure Location Rt brachial Position Sitting Pulse 55 Pulse Source Pulse Oximeter Pulse Oximetry (%) 99 Oxygen Delivery Method Room Air Intake Visit Reasons: asthma Ict Educator: Ict Educator offered & declined Accompanied by: Self / Same As Patient Allergies oxycodone Allergy (Intermediate, Verified 12/15/23 10:05) itching adhesive tape Allergy (Mild, Verified 12/15/23 10:05) RASH ketorolac [From TORADOL] Allergy (Mild, Verified 12/15/23 10:05) HIVES latex [LATEX] Allergy (Mild, Verified 12/15/23 10:05) RASH fruit with skin Allergy (Intermediate, Uncoded 12/15/23 10:05) Hives Medication List - Last Reconciled 12/15/23 by Pastora Kim LPN acetaminophen-codeine 300-30 mg 1 tab PO BID PRN amitriptyline 50 mg PO BEDTIME azelastine 1 spray intranasal DAILY cyclobenzaprine 5 mg PO BEDTIME PRN cyclosporine 0.05% (Restasis) drps ophthalmic (eye) diltiazem HCl CD 120 mg PO DAILY epinephrine 0.3 mg IM ONCE PRN famotidine 40 mg PO DAILY galcanezumab-gnlm (Emgality Pen) mg subcut Q4W ipratropium bromide 2 sprays intranasal BID levalbuterol HCl 1.25 mg (3 mL) inhalation Q4-6H PRN levalbuterol tartrate 45 mcg/actuation 1 puff inhalation Q4-6H PRN levonorgestrel (Mirena) intrauterine metoclopramide HCl (Reglan) 10 mg PO QID mometasone-formoterol 200-5 mcg/actuation (Dulera) 2 puffs inhalation BID montelukast (Singulair) 10 mg PO BEDTIME pantoprazole 40 mg PO BID propranolol 40 mg PO BID Synthroid (levothyroxine) 125 mcg PO DAILY NS topiramate (Topamax) 100 mg PO BID valacyclovir 1,000 mg PO BID PRN HPI HPI asthma: Details: Kayla is a pleasant 38 year old female, never smoker, with underlying asthma since teens, atopic dermatitis, environmental allergies, allergic rhinitis and GERD. She started Dulera at the last visit and reports respiratory symptoms have been well controlled. She does report sinus congestion, post nasal drip and ear discomfort , occasionally contributing to cough. She has been using singulair, antihistamines and nasal sprays with minimal effect. She will be following up with ENT next week to discuss. [facility] Medical History (Updated 12/06/23 @ 09:16 by Kirsten Escalera NP) Acetabular labrum tear Herpes labialis Dry eyes Yeast infection of the vagina Amenorrhea Metrorrhagia Bloating Epigastric discomfort Shortness of breath Pre-op examination Contusion of chest Exercise-induced asthma Pain of left thumb Rib pain on right side Bilateral otitis media with effusion Left shoulder strain Cellulitis Acute lumbar back pain Right shoulder pain Arthrosis Right knee pain Complex cyst of left ovary Chronic GERD Encounter for general adult medical examination with abnormal findings Encounter for IUD insertion Nausea Upper respiratory infection Leg pain, right Nausea Other specified hypothyroidism Otitis media Right hip pain Chest wall pain Lightheaded Acute sinusitis Goiter Elevated TSH Medicare annual wellness visit, subsequent Constipation Ill feeling Epigastric pain Constipation Cervical cancer screening Well woman exam with routine gynecological exam Medicare annual wellness visit, initial Abnormal thyroid stimulating hormone (TSH) level Patella francisco j Knee pain Neck pain Chest pain Migraines Eczema Fibromyalgia Heart murmur Asthma Hypothyroidism Surgical History History of hip surgery H/O shoulder surgery [place] teeth removed History of appendectomy Family History Mother Graves disease Hypothyroidism Father CHF (congestive heart failure) Other Substance use disorder Social History Housing: Apartment Alcohol intake: never Patient Tobacco Use Status: Never used Tobacco e-Cigarette/Vaping Use: Never Used Second Hand Smoke Exposure: Yes (as a child only) service: No Current occupational status: disabled Sexual orientation: Straight/Heterosexual Gender identity: Female Cognitive needs: No Hearing needs: No Vision needs: Yes Female Reproductive History Menstrual Age of Menarche: 15 Review of Systems Const Denies chills, Denies excessive sweating, Denies fever(s), Denies headache(s) and Denies night sweats Eyes Denies dry eyes and Denies irritation ENT Reports Normal hearing present, Denies headache(s) and Denies sore throat Card Denies chest pain, Denies chest pain at rest, Denies chest pain with activity, Denies claudication, Denies leg edema, Denies dyspnea, Denies dyspnea on exertion, Denies orthopnea and Denies paroxysmal nocturnal dyspnea Resp Denies chest congestion, Denies excessive phlegm production, Denies pain on inspiration, Denies pain with cough, Denies dyspnea, Denies dyspnea on exertion, Denies stridor and Denies wheezing Musc Denies myalgias Neuro Reports Normal hearing present and Denies headache(s) Endo Denies excessive sweating Sixto/Lymph Denies lymphadenopathy Aller/Immun Denies wheezing Physical Exam Vital Signs: Last Vital Signs Pulse 55 12/15/23 09:55 BP 118/70 12/15/23 09:55 Pulse Ox 99 12/15/23 09:55 Oxygen Delivery Method Room Air 12/15/23 09:55 BMI result Body Mass Index 35.4 Const General: cooperative, healthy appearing, comfortable, no acute distress, well developed and alert Nutritional Appearance: obese Orientation/consciousness: patient oriented x3 Limitations: no limitations HEENT Head: Yes normal to inspection, Yes normocephalic and Yes atraumatic Ears: hearing grossly normal bilaterally and external ears normal Eyes General: appearance normal, both eyes and all related structures Eyelids: Yes eyelids normal Sclerae: sclerae normal EOM: EOMs intact bilaterally Neck Neck: Yes normal visual inspection and Yes no lymphadenopathy Lymphatic: no lymphadenopathy noted Chest Chest palpation & inspection: normal inspection of the chest Resp Effort & Inspection: normal respiratory effort, able to speak in complete sentences, no audible wheezes, no cough, no stridor, not tachypneic, no tripod positioning and no use of accessory muscles Auscultation: clear to auscultation bilaterally Cardio Jugular venous distension: no JVD Rate: regular rate Rhythm: regular rhythm Skin Other: warm, dry General skin exam: no rashes or lesions noted Neuro General: patient oriented x3 Cranial nerves: Yes Normal hearing present Cognition (Neuro): normal cognition Gait exam (Neuro): Normal gait present Extrem General: Yes normal to inspection, Yes capillary refill normal, Yes no clubbing, cyanosis or edema and Yes no pedal edema Psych Appearance: grossly normal and well kempt Speech and movement: Normal speech and movement present and Clear speech present Affect: normal affect Attitude: cooperative Thought process: Normal thought process present Thought content: Normal thought content present Insight: Good insight present (Psych) Judgement: Good judgement present (Psych) Assessment & Plan Assessment & Plan (1) Asthma, moderate persistent: Code(s): J45.40 - Moderate persistent asthma, uncomplicated Category: Medical Qualifiers: Asthma complication type: uncomplicated Qualified Code(s): J45.40 - Moderate persistent asthma, uncomplicated (2) Chronic GERD: Code(s): K21.9 - Gastro-esophageal reflux disease without esophagitis Category: Medical (3) Environmental allergies: Code(s): Z91.09 - Other allergy status, other than to drugs and biological substances Category: Medical Plan Advised to continue current regimen as she reports good control of respiratory symptoms and encouraged to keep appointment with ENT next week. All questions were answered and patient is in agreement of plan. Will follow up in 3-6 months or sooner if needed. Coding Level of Care Code Est Pt Level 3 (17822) Diagnoses Moderate persistent asthma without complication J45.40 Asthma complication type: uncomplicated Chronic GERD K21.9 Environmental allergies Z91.09
[2023-12-15 09:55] VITALS: BP 118/70; PULSE 55; O2SAT 99; BMI 35.4
== END 2023-12-15 10:50 | disposition home or self-care (01) ==
PROVIDERS: PCP Internal Medicine; Visit Provider Nurse Practitioner Family
DX: J45.40 Moderate persistent asthma, uncomplicated (principal); K21.9 Gastro-esophageal reflux disease without esophagitis; Z91.09 Other allergy status, other than to drugs and biological substances
CPT/HCPCS: 99213

== ENCOUNTER → 2023-12-15 09:50 | Outpatient (BNVA) | payer MEDICARE, MEDICAID, SELFPAY | PROVIDERS: PCP Internal Medicine; Visit Provider Nurse Practitioner Family | DX: J45.40 Moderate persistent asthma, uncomplicated (principal); K21.9 Gastro-esophageal reflux disease without esophagitis; Z91.09 Other allergy status, other than to drugs and biological substances | CPT/HCPCS: 99212 ==

== ENCOUNTER 2023-12-21 11:45 | Outpatient (AMB) | payer MEDICARE, MEDICAID, SELFPAY ==
[2023-12-21 11:50] VITALS: BP 129/70; PULSE 64; BMI 34.8
--- NOTE | 2023-12-21 11:50 | MHC.OFFVIS ---
Vital Signs 12/21/23 11:50 Height 5 ft 10 in Weight 242 lb 8.136 oz BMI 34.8 BP 129/70 Blood Pressure Location Lt brachial Position Sitting Pulse 64 Intake Visit Reasons: Follow up 8 weeks Intake Note: Patient in office today in follow up of HIDA scan and gastric emptying. CC: Patient reports that she is about the same and have not noticed any difference with metaclopromide but she is burping a lot more. She continues to feel full all day long. Audio Visual Director Required: No Accompanied by: Self / Same As Patient Allergies oxycodone Allergy (Intermediate, Verified 12/21/23 11:59) itching adhesive tape Allergy (Mild, Verified 12/21/23 11:59) RASH ketorolac [From TORADOL] Allergy (Mild, Verified 12/21/23 11:59) HIVES latex [LATEX] Allergy (Mild, Verified 12/21/23 11:59) RASH fruit with skin Allergy (Intermediate, Uncoded 12/15/23 10:05) Hives HPI HPI Follow up 8 weeks: Details: Assessment & Plan (1) Esophageal spasm: Comment: ? waiting to confirm via barium swallow Code(s): K22.4 - Dyskinesia of esophagus Category: Medical (2) GERD with esophagitis: Code(s): K21.00 - Gastro-esophageal reflux disease with esophagitis, without bleeding Category: Medical (3) Irritable bowel syndrome with both constipation and diarrhea: Code(s): K58.2 - Mixed irritable bowel syndrome Category: Medical (4) Lactose intolerance: Code(s): E73.9 - Lactose intolerance, unspecified Category: Medical (5) Multiple food allergies: Code(s): Z91.018 - Allergy to other foods Category: Medical (6) Odynophagia: Code(s): R13.10 - Dysphagia, unspecified Category: Medical Plan The barium swallow shows severe GERD. She saw wt mgmt and they are very concerned that she get the GERD under control prior to considering surgery. They are discussing phentermine, vs ozempic vs gastric sleeve. She still has a lot of reflux [place] when laying down at night. She felt things like water come back up into my mouth. Her HH is very small, so I'm not sure how much surgery may impact this. I think a trial of phentermine first is best. She is already on topamax for migraines. She DID have a tight appearing pyloric outlet on the EGD. This could be c/f. We discussed things like putting blocks under the head of the bed and of course limiting eating after a certain. WIll get GES and HIDA and discuss blocks under HOB. CHange pantoprazole to Dexilant and continue qhs reglan. Stooling 3 days good BM's with 3 days not much - this is her baseline fxn ? if c/f. She continues on the cardizem. She can try stopping this and see if it makes a difference in swallowing/GERD. ROV 8 weeks. Orders: Orders NM hepatobiliary w pharm Today R10.10 - Upper abdominal pain, unspecified NM gastric emptying study Today R10.10 - Upper abdominal pain, unspecified Medications: New dexlansoprazole (Dexilant) 60 mg PO DAILY 30 caps 6RF 30 days K21.00 - Gastro-esophageal reflux disease with esophagitis, without bleeding, R13.10 - Dysphagia, unspecified Discontinued [id number]-[id number] 24,000-76,000 -120,000 unit (Creon) Discontinued Reason: Doctor's Order 1 cap PO QID 120 caps 6RF K58.9 - Irritable bowel syndrome without diarrhea famotidine Discontinued Reason: Doctor's Order 40 mg PO BEDTIME 90 tabs 2RF pantoprazole Discontinued Reason: Doctor's Order 40 mg PO DAILY 90 tabs 2RF K21.9 - Gastro-esophageal reflux disease without esophagitis GASTRIC EMPTYING STUDY 11/24/23 IMPRESSION: Abnormal delayed (grade 3) 4-hour solid food gastric emptying study. HIDA SCAN 10/29/23 FINDINGS: There is good concentration of activity in the liver by 5 minutes post injection. Biliary activity is visualized by 10 minutes. The gallbladder is well visualized by 30 minutes. Small bowel is well visualized by 40 minutes. At 6 minutes post radiopharmaceutical injection, a 30-minute infusion of 0.2 micrograms Sincalide was then begun and an additional 40 minutes of images were obtained. There is good emptying of the gallbladder. By the end of the study there is good clearance of activity from the liver and visualization of diffuse small bowel activity. The calculated gallbladder ejection fraction is 81% (normal gallbladder ejection fraction is greater than 35%). NM/NM hepatobiliary w pharm IMPRESSION: Visualization of the gallbladder is evidence of a patent cystic duct and strong evidence against the diagnosis of acute cholecystitis. The common bile duct is patent. Gallbladder emptying and ejection fraction are normal. Liver function appears normal. TODAY'S VISIT I started her on reglan 10g qidachs. She was taking Reglan but only once a day now she has not and a timer and she sure to be taking it 4 times a day so that it can have its maximum efficacy. She is also now on phentermine for wt loss. She is tolerating the reglan well w/o s/e. Now can drink water, moving her bowels better but this still is not consistent. She never received the Dexilant she is continuing on protonix and famotidine. I would like to have her on bid PPI ? if insurance is limiting this as they did not cover Dexilant. We can treat the constipation if we need to but I would like her to meet with a dietitian which she is doing later this week and see if she can make some natural changes 1st. This may also further improve her GERD since constipation definitely will cause gas trapping and more reflux and burping. Return office visit in 6 weeks [facility] Medical History (Updated 12/21/23 @ 12:32 by RIDGE Kevin) Sinusitis Esophageal spasm Acetabular labrum tear Herpes labialis Dry eyes Yeast infection of the vagina Amenorrhea Metrorrhagia Bloating Epigastric discomfort Shortness of breath Pre-op examination Contusion of chest Exercise-induced asthma Pain of left thumb Rib pain on right side Bilateral otitis media with effusion Left shoulder strain Cellulitis Acute lumbar back pain Right shoulder pain Arthrosis Right knee pain Complex cyst of left ovary Chronic GERD Encounter for general adult medical examination with abnormal findings Encounter for IUD insertion Nausea Upper respiratory infection Leg pain, right Nausea Other specified hypothyroidism Otitis media Right hip pain Chest wall pain Lightheaded Acute sinusitis Goiter Elevated TSH Medicare annual wellness visit, subsequent Constipation Ill feeling Epigastric pain Constipation Cervical cancer screening Well woman exam with routine gynecological exam Medicare annual wellness visit, initial Abnormal thyroid stimulating hormone (TSH) level Patella francisco j Knee pain Neck pain Chest pain Migraines Eczema Fibromyalgia Heart murmur Asthma Hypothyroidism Surgical History History of hip surgery H/O shoulder surgery [place] teeth removed History of appendectomy Family History Mother Graves disease Hypothyroidism Father CHF (congestive heart failure) Other Substance use disorder Social History Housing: Apartment Alcohol intake: never Patient Tobacco Use Status: Never used Tobacco e-Cigarette/Vaping Use: Never Used Second Hand Smoke Exposure: Yes (as a child only) service: No Current occupational status: disabled Sexual orientation: Straight/Heterosexual Gender identity: Female Cognitive needs: No Hearing needs: No Vision needs: Yes Female Reproductive History Menstrual Age of Menarche: 15 Review of Systems Const Denies fatigue, Denies fever(s), Denies night sweats, Denies poor appetite and Denies weight loss Eyes Details: glasses Reports requires corrective lenses ENT Reports Normal hearing present, Denies dental pain, Denies dysphagia, Denies hearing loss, Denies mouth pain, Denies odynophagia, Denies throat swelling, Denies tongue swelling and Reports other (Dentition adequate) Card Reports no additional complaints Resp Reports no additional complaints GI Details: Denies abdominal pain, Denies melena, Denies bloating, Denies hematochezia, Reports constipation, Denies GI cramping, Denies dysphagia, Denies excessive flatus, Reports early satiety, Reports heartburn, Denies diarrhea, Denies nausea, Denies odynophagia, Denies vomiting and Denies hematemesis Skin/Breast Denies pruritus, Denies lesions, Denies rash and Denies jaundice Neuro Reports Normal hearing present and Denies Abnormal speech present Endo Denies fatigue Aller/Immun Denies throat swelling and Denies tongue swelling Physical Exam Vital Signs: Last Vital Signs Pulse 64 12/21/23 11:50 BP 129/70 12/21/23 11:50 BMI result Body Mass Index 34.8 Const General: cooperative, no acute distress, well developed and well groomed Nutritional Appearance: well nourished and obese Orientation/consciousness: oriented to person, oriented to place and oriented to time Limitations: No language barrier HEENT Head: Yes normocephalic and Yes atraumatic Eyes General: appearance normal, both eyes and all related structures Pupils: Equal, round and reactive pupils present Neck Neck: Yes normal visual inspection and Yes no lymphadenopathy Thyroid: Thyroid normal Resp Effort & Inspection: normal respiratory effort and able to speak in complete sentences Auscultation: clear to auscultation bilaterally Cardio Rate: regular rate Rhythm: regular rhythm Heart sounds: Normal, physiologic split S2 sound present Peripheral pulses: radial pulses present and posterior tibial pulses present GI Inspection: No distended, No Abdominal panniculus present and Yes obesity Palpation (GI): Soft to palpation, nontender, no guarding, not rigid and No hepatosplenomegaly present Percussion: Yes normal to percussion Auscultation: normal bowel sounds Rectal Exam - Female: deferred Skin General skin exam: no rashes or lesions noted, turgor normal, skin not dry, no jaundice, No spider nevi and no striae Rashes: no rashes Nails: normal Neuro General: oriented to person, oriented to place and oriented to time Cranial nerves: Yes Equal, round and reactive pupils present and Yes Normal hearing present Speech: No Abnormal speech present Extrem General: Yes normal to inspection, No clubbing, No cyanosis and No edema Psych Appearance: grossly normal and well kempt Mental Status: mental status grossly normal Speech and movement: Normal speech and movement present Affect: normal affect Attitude: cooperative Thought process: Normal thought process present and not confabulating Thought content: Normal thought content present Insight: Fair insight present (Psych) Judgement: Fair judgement present (Psych) Results Reviewed Results Reviewed: GASTRIC EMPTYING STUDY 11/24/23 IMPRESSION: Abnormal delayed (grade 3) 4-hour solid food gastric emptying study. HIDA SCAN 10/29/23 FINDINGS: There is good concentration of activity in the liver by 5 minutes post injection. Biliary activity is visualized by 10 minutes. The gallbladder is well visualized by 30 minutes. Small bowel is well visualized by 40 minutes. At 6 minutes post radiopharmaceutical injection, a 30-minute infusion of 0.2 micrograms Sincalide was then begun and an additional 40 minutes of images were obtained. There is good emptying of the gallbladder. By the end of the study there is good clearance of activity from the liver and visualization of diffuse small bowel activity. The calculated gallbladder ejection fraction is 81% (normal gallbladder ejection fraction is greater than 35%). NM/NM hepatobiliary w pharm IMPRESSION: Visualization of the gallbladder is evidence of a patent cystic duct and strong evidence against the diagnosis of acute cholecystitis. The common bile duct is patent. Gallbladder emptying and ejection fraction are normal. Liver function appears normal. Assessment & Plan Assessment & Plan (1) Gastroparesis: Code(s): K31.84 - Gastroparesis Category: Medical (2) GERD with esophagitis: Code(s): K21.00 - Gastro-esophageal reflux disease with esophagitis, without bleeding Category: Medical (3) Multiple food allergies: Comment: all fruit, avocado, seeded vegetables, carrots Code(s): Z91.018 - Allergy to other foods Category: Medical (4) Lactose intolerance: Code(s): E73.9 - Lactose intolerance, unspecified Category: Medical (5) Irritable bowel syndrome with both constipation and diarrhea: Code(s): K58.2 - Mixed irritable bowel syndrome Category: Medical Plan I started her on reglan 10g qidachs. She was taking Reglan but only once a day now she has not and a timer and she sure to be taking it 4 times a day so that it can have its maximum efficacy. She is also now on phentermine for wt loss. She is tolerating the reglan well w/o s/e. Now can drink water, moving her bowels better but this still is not consistent. She never received the Dexilant she is continuing on protonix and famotidine. I would like to have her on bid PPI ? if insurance is limiting this as they did not cover Dexilant. We can treat the constipation if we need to but I would like her to meet with a dietitian which she is doing later this week and see if she can make some natural changes 1st. This may also further improve her GERD since constipation definitely will cause gas trapping and more reflux and burping. Return office visit in 6 weeks Medications: New pantoprazole 40 mg PO BID 60 tabs 6RF Refilled metoclopramide HCl (Reglan) 10 mg PO QID 120 tabs 6RF K21.00 - Gastro-esophageal reflux disease with esophagitis, without bleeding Coding Level of Care Code Est Pt Level 3 (76876) Diagnoses Gastroparesis K31.84 GERD with esophagitis K21.00 Multiple food allergies Z91.018 Lactose intolerance E73.9 Irritable bowel syndrome with both constipation and diarrhea K58.2
== END 2023-12-21 12:44 | disposition home or self-care (01) ==
PROVIDERS: PCP Internal Medicine; Visit Provider Nurse Practitioner
DX: K31.84 Gastroparesis (principal); K21.00 Gastro-esophageal reflux disease with esophagitis, without bleeding; Z91.018 Allergy to other foods; E73.9 Lactose intolerance, unspecified; K58.2 Mixed irritable bowel syndrome
CPT/HCPCS: 99213

== ENCOUNTER → 2023-12-21 11:45 | Outpatient (BNVA) | payer MEDICARE, MEDICAID, SELFPAY | PROVIDERS: PCP Internal Medicine; Visit Provider Nurse Practitioner | DX: K22.4 Dyskinesia of esophagus (principal); K21.00 Gastro-esophageal reflux disease with esophagitis, without bleeding; K58.2 Mixed irritable bowel syndrome; E73.9 Lactose intolerance, unspecified; R13.10 Dysphagia, unspecified; R10.10 Upper abdominal pain, unspecified; K58.9 Irritable bowel syndrome, unspecified; K21.9 Gastro-esophageal reflux disease without esophagitis; K31.84 Gastroparesis; Z91.018 Allergy to other foods | CPT/HCPCS: 99212 ==

== ENCOUNTER 2024-03-21 10:04 | Outpatient (AMB) | payer MEDICARE, MEDICAID, SELFPAY ==
[2024-03-21 10:26] VITALS: BP 126/70; PULSE 68; O2SAT 99; BMI 33.7
--- NOTE | 2024-03-21 10:26 | MHC.OFFVIS ---
Vital Signs 03/21/24 10:26 Height 5 ft 10 in Weight 235 lb BMI 33.7 BP 126/70 Blood Pressure Location Lt brachial Position Sitting Pulse 68 Pulse Source Pulse Oximeter Pulse Oximetry (%) 99 Oxygen Delivery Method Room Air Intake Visit Reasons: asthma Core Microarchitect Required: No Sack Cleaning Hand: Sack Cleaning Hand offered & declined Accompanied by: Self / Same As Patient Allergies oxycodone Allergy (Intermediate, Verified 03/21/24 10:28) itching adhesive tape Allergy (Mild, Verified 03/21/24 10:28) RASH ketorolac [From TORADOL] Allergy (Mild, Verified 03/21/24 10:28) HIVES latex [LATEX] Allergy (Mild, Verified 03/21/24 10:28) RASH fruit with skin Allergy (Intermediate, Uncoded 03/21/24 10:28) Hives Medication List - Last Reconciled 03/21/24 by Pastora Kim LPN acetaminophen-codeine 300-30 mg 1 tab PO BID PRN amitriptyline 50 mg PO BEDTIME azelastine 1 spray intranasal DAILY cyclobenzaprine 5 mg PO BEDTIME PRN cyclosporine 0.05% (Restasis) drps ophthalmic (eye) diltiazem HCl CD 120 mg PO DAILY epinephrine 0.3 mg IM ONCE PRN famotidine 40 mg PO DAILY [id number]-pfgvbbqy 100-62.5-25 mcg (Trelegy Ellipta) 1 inh inhalation DAILY galcanezumab-gnlm (Emgality Pen) mg subcut Q4W ipratropium bromide 2 sprays intranasal BID 90 days levalbuterol HCl 1.25 mg (3 mL) inhalation Q4-6H PRN levalbuterol tartrate 45 mcg/actuation 1 puff inhalation Q4-6H PRN levonorgestrel (Mirena) intrauterine metoclopramide HCl (Reglan) 10 mg PO QID montelukast (Singulair) 10 mg PO BEDTIME pantoprazole 40 mg PO BID phentermine 15 mg PO DAILY propranolol 40 mg PO BID Synthroid (levothyroxine) 125 mcg PO DAILY NS topiramate (Topamax) 100 mg PO BID valacyclovir 1,000 mg PO BID PRN HPI HPI asthma: Details: Kayla is a pleasant 39 year old female, never smoker, with underlying asthma since teens, atopic dermatitis, environmental allergies, allergic rhinitis and GERD. She was previously on Singulair, antihistamines, and Dulera with moderate effect however recently had allergy evaluation and was switched to Trelegy 100 mcg in addition to starting allergen immunotherapy. She reports notable improvement in the morning however as the day progresses she continues with dyspnea, chest tightness and intermittent wheezing. She does admit to using albuterol infrequently and will attempt to use more often. at the last visit and reports respiratory symptoms have been well controlled. She denies any visits to urgent care or hospitalizations since the last visit related to respiratory distress. [facility] Medical History (Updated 12/21/23 @ 12:32 by RIDGE Kevin) Sinusitis Esophageal spasm Acetabular labrum tear Herpes labialis Dry eyes Yeast infection of the vagina Amenorrhea Metrorrhagia Bloating Epigastric discomfort Shortness of breath Pre-op examination Contusion of chest Exercise-induced asthma Pain of left thumb Rib pain on right side Bilateral otitis media with effusion Left shoulder strain Cellulitis Acute lumbar back pain Right shoulder pain Arthrosis Right knee pain Complex cyst of left ovary Chronic GERD Encounter for general adult medical examination with abnormal findings Encounter for IUD insertion Nausea Upper respiratory infection Leg pain, right Nausea Other specified hypothyroidism Otitis media Right hip pain Chest wall pain Lightheaded Acute sinusitis Goiter Elevated TSH Medicare annual wellness visit, subsequent Constipation Ill feeling Epigastric pain Constipation Cervical cancer screening Well woman exam with routine gynecological exam Medicare annual wellness visit, initial Abnormal thyroid stimulating hormone (TSH) level Patella francisco j Knee pain Neck pain Chest pain Migraines Eczema Fibromyalgia Heart murmur Asthma Hypothyroidism Surgical History History of hip surgery H/O shoulder surgery [place] teeth removed History of appendectomy Family History Mother Graves disease Hypothyroidism Father CHF (congestive heart failure) Other Substance use disorder Social History Housing: Apartment Alcohol intake: never Patient Tobacco Use Status: Never used Tobacco e-Cigarette/Vaping Use: Never Used Second Hand Smoke Exposure: Yes (as a child only) service: No Current occupational status: disabled Sexual orientation: Straight/Heterosexual Gender identity: Female Cognitive needs: No Hearing needs: No Vision needs: Yes Female Reproductive History Menstrual Age of Menarche: 15 Review of Systems Const Denies chills, Denies excessive sweating, Denies fever(s), Denies headache(s) and Denies night sweats Eyes Denies dry eyes and Denies irritation ENT Reports Normal hearing present, Denies headache(s) and Denies sore throat Card Denies chest pain, Denies chest pain at rest, Denies chest pain with activity, Denies claudication, Denies leg edema, Denies dyspnea, Denies orthopnea and Denies paroxysmal nocturnal dyspnea Resp Denies chest congestion, Denies excessive phlegm production, Denies pain on inspiration, Denies pain with cough, Denies dyspnea and Denies stridor Musc Denies myalgias Neuro Reports Normal hearing present and Denies headache(s) Endo Denies excessive sweating Sixto/Lymph Denies lymphadenopathy Physical Exam Vital Signs: Last Vital Signs Pulse 68 03/21/24 10:26 BP 126/70 03/21/24 10:26 Pulse Ox 99 03/21/24 10:26 Oxygen Delivery Method Room Air 03/21/24 10:26 BMI result Body Mass Index 33.7 Const General: cooperative, healthy appearing, comfortable, no acute distress, well developed and alert Nutritional Appearance: obese Orientation/consciousness: patient oriented x3 Limitations: no limitations HEENT Head: Yes normal to inspection, Yes normocephalic and Yes atraumatic Ears: hearing grossly normal bilaterally and external ears normal Eyes General: appearance normal, both eyes and all related structures Eyelids: Yes eyelids normal Sclerae: sclerae normal EOM: EOMs intact bilaterally Neck Neck: Yes normal visual inspection and Yes no lymphadenopathy Lymphatic: no lymphadenopathy noted Chest Chest palpation & inspection: normal inspection of the chest Resp Effort & Inspection: normal respiratory effort, able to speak in complete sentences, no audible wheezes, no cough, no stridor, not tachypneic, no tripod positioning and no use of accessory muscles Auscultation: diminished lung sounds Cardio Jugular venous distension: no JVD Rate: regular rate Rhythm: regular rhythm Skin Other: warm, dry General skin exam: no rashes or lesions noted Neuro General: patient oriented x3 Cranial nerves: Yes Normal hearing present Cognition (Neuro): normal cognition Gait exam (Neuro): Normal gait present Extrem General: Yes normal to inspection, Yes capillary refill normal, Yes no clubbing, cyanosis or edema and Yes no pedal edema Psych Appearance: grossly normal and well kempt Speech and movement: Normal speech and movement present and Clear speech present Affect: normal affect Attitude: cooperative Thought process: Normal thought process present Thought content: Normal thought content present Insight: Good insight present (Psych) Judgement: Good judgement present (Psych) Assessment & Plan Assessment & Plan (1) Asthma, moderate persistent: Code(s): J45.40 - Moderate persistent asthma, uncomplicated Category: Medical Qualifiers: Asthma complication type: uncomplicated Qualified Code(s): J45.40 - Moderate persistent asthma, uncomplicated (2) Environmental allergies: Code(s): Z91.09 - Other allergy status, other than to drugs and biological substances Category: Medical Plan Advised to continue current regimen and if not effective will consider biologics. All questions were answered and patient is in agreement of plan. Will follow up in 6-8 weeks or sooner if needed. Coding Level of Care Code Est Pt Level 4 (41594) Diagnoses Moderate persistent asthma without complication J45.40 Asthma complication type: uncomplicated Environmental allergies Z91.09
--- OUTSIDE RECORDS SUMMARY | 2024-03-21 10:34 | XMS_ITS | Continuity of Care Document ---
Author Organization [place] - [facility], [facility] Address [address] [place] [address] Care Team Providers Care Glass Etcher Name Role Phone MARY NARAYAN Primary Care Provider [phone] Assessment Encounter Date Assessment Date Assessment LastModified by Organization Details LastModified Time 12/20/2023 12/20/2023 38-year-old female with a history of asthma, reflux, significant allergies presents today for follow-up on allergy. 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 Waiting to see anallergist. She is currently on montelukast, antihistamine, nasal antihistamine, nasal steroid, in addition to her asthma inhalers and just finished a prednisone course and continues to have a lot of congestion. I do not see any polyps or purulence on exam. There is some irritation of her anterior septum. She could try Medihoney and xlear as the saline tends to cause bleeding. I do think she would benefit from budesonide rinses. She would not use the nasal steroid with these. I urged her to watch out for some increased nasal mucosal irritation. Follow-up 6 months Or sooner if no improvement in the next few weeks.. [email or web address] Not available 12/20/2023 18:24:44 Plan of Treatment Reminders Order Date Submit Date Provider Last Modified By Organization Details Last Modified Time Details Appointments Establish ed 15 2024 10:30A M KEYSHA CAPPS MD Not available Not available Not available Lab None recorded. Referral None recorded. Procedures None recorded. Surgeries None recorded. Imaging None recorded. Medication Orders budesonid e 0.5 mg/2 mL suspensio n for nebulizat ion 10/07/ 2024 10/07/2 024 [id number], [address], [place], [address], 12/20/2023 12:10:20 Patient TargetsNo targets recorded. Patient InstructionsNo instructions recorded. Reason for Referral None Reported. Problems Name Problem SNOMED Code Status Onset Date Resolution Date Notes Provider Name and Address Organization Details Recorded Time Bilateral temporoma ndibular joint pain 05157861175 920674 Active 2020 Arthralgi a of bilateral temporoma ndibular joint; Note: Date Diagnosed : 08/19/2020 10:57 AM (M26.623) Not Available [facility] 4 02:15:14 Allergic rhinitis 72289075 Active 2022 Allergic rhinitis: Due to other allergen; Note: Date Diagnosed : 9:37 AM (477.8) Allergi c rhinitis: Due to other allergen; Note: Date Diagnosed : 9:53 AM (477.8) ; Start Date : 3 Allergi c rhinitis: Due to other allergen; Note: Date Diagnosed : 01/21/2023 10:11 AM (477.8) ; Start Date : 3 Allergi c rhinitis: Due to other allergen; Note: Date Diagnosed : 01/14/2023 10:29 AM (477.8) ; Start Date : Allergi c rhinitis: Due to other allergen; Note: Date Diagnosed : 9:50 AM (477.8) ; Start Date : 3 Allergi c rhinitis: Due to other allergen; Note: Date Diagnosed : 10:37 AM (477.8) ; Start Date : 3 Allergi c rhinitis: Due to other allergen; Note: Date Diagnosed : 11:30 AM (477.8) ; Start Date : 3 Allergi c rhinitis: Due to other allergen; Note: Date Diagnosed : 12/18/2022 10:44 AM (477.8) ; Start Date : 3 Allergi c rhinitis: Due to other allergen; Note: Date Diagnosed : 12/09/2022 10:26 AM (477.8) ; Start Date : 3 Allergi c rhinitis: Due to other allergen; Note: Date Diagnosed : 12/03/2022 11:07 AM (477.8) ; Start Date : 3 Allergi c rhinitis: Due to other allergen; Note: Date Diagnosed : 11/20/2022 10:22 AM (477.8) ; Start Date : Allergi c rhinitis: Due to other allergen; Note: Date Diagnosed : 11/13/2022 10:27 AM (477.8) ; Start Date : Allergi c rhinitis: Due to other allergen; Note: Date Diagnosed : 10/27/2022 2:40 PM (477.8) ; Start Date : Allergi c rhinitis: Due to other allergen; Note: Date Diagnosed : 10/22/2022 2:10 PM (477.8) ; Start Date : 3 Allergi c rhinitis: Due to other allergen; Note: Date Diagnosed : 10/14/2022 1:39 PM (477.8) ; Start Date : Allergi c rhinitis: Due to other allergen; Note: Date Diagnosed : 10/07/2022 1:36 PM (477.8) ; Start Date : Allergi c rhinitis: Due to other allergen; Note: Date Diagnosed : 10/07/2022 1:39 PM (477.8) ; Start Date : 3 Allergi c rhinitis: Due to other allergen; Note: Date Diagnosed : 10/02/2022 11:13 AM (477.8) ; Start Date : Allergi c rhinitis: Due to other allergen; Note: Date Diagnosed : 09/25/2022 10:40 AM (477.8) ; Start Date : 3 Allergi c rhinitis: Due to other allergen; Note: Date Diagnosed : 09/18/2022 12:05 PM (477.8) ; Start Date : 3 Allergi c rhinitis: Due to other allergen; Note: Date Diagnosed : 09/11/2022 9:57 AM (477.8) ; Start Date : 3 Allergi c rhinitis: Due to other allergen; Note: Date Diagnosed : 06/18/2022 10:54 AM (477.8) ; Start Date : 3 Allergi c rhinitis: Due to other allergen; Note: Date Diagnosed : 05/07/2022 11:20 AM (477.8) ; Start Date : 3 Allergi c rhinitis: Due to other allergen; Note: Date Diagnosed : 04/28/2022 10:55 AM (477.8) ; Start Date : 3 Allergi c rhinitis: Due to other allergen; Note: Date Diagnosed : 04/24/2022 10:01 AM (477.8) ; Start Date : 3 Allergi c rhinitis: Due to other allergen; Note: Date Diagnosed : 04/14/2022 10:45 AM (477.8) ; Start Date : 3 Allergi c rhinitis: Due to other allergen; Note: Date Diagnosed : 04/01/2022 11:55 AM (477.8) ; Start Date : 3 Allergi c rhinitis: Due to other allergen; Note: Date Diagnosed : 03/19/2022 11:57 AM (477.8) ; Start Date : 3 Allergi c rhinitis: Due to other allergen; Note: Date Diagnosed : 2 11:10 AM (477.8) ; Start Date : 2 Allergi c rhinitis: Due to other allergen; Note: Date Diagnosed : 2 11:13 AM (477.8) ; Start Date : 2 Allergi c rhinitis: Due to other allergen; Note: Date Diagnosed : 2 10:56 AM (477.8) ; Start Date : 2 Allergi c rhinitis: Due to other allergen; Note: Date Diagnosed : 01/16/2022 10:03 AM (477.8) ; Start Date : 2 Allergi c rhinitis: Due to other allergen; Note: Date Diagnosed : 2 11:26 AM (477.8) ; Start Date : 2 Allergi c rhinitis: Due to other allergen; Note: Date Not Available [facility] 4 02:16:00 Posterior rhinorrhe a 58012167 Active 2022 Postnasal drip; Note: Date Diagnosed : 11/09/2022 1:01 PM (R09.82) Not Available [facility] 4 02:15:19 Seasonal allergic rhinitis 027042538 Active 2020 Other seasonal allergic rhinitis; Note: Date Diagnosed : 08/19/2020 10:57 AM (J30.2) Not Available [facility] 4 02:15:54 Uncomplic ated mild persisten t asthma 400630231 Active 2022 Mild persisten t asthma, uncomplic ated; Note: Date Diagnosed : 04/24/2022 3:16 PM (J45.30) Not Available [facility] 4 02:15:40 Bilateral disorder of Eustachia n tubes 38459251892 57698 Active 2020 Other specified disorders of Eustachia n tube, bilateral ; Note: Date Diagnosed : 08/19/2020 10:27 AM (H69.83) Not Available [facility] 4 02:15:31 Migraine without aura, not refractor y 365634307 Active 2023 Migraine without aura, not intractab le, without status migrainos us; Note: Date Diagnosed : 04/30/2023 1:35 PM (G43.009) Not Available [facility] 4 02:15:48 Dysphonia 78933046 Active 2023 Hoarsenes s; Note: Date Diagnosed : 04/30/2023 1:35 PM (R49.0) Not Available [facility] 4 02:16:04 Problem Notes None recorded. Medical Equipment None Reported. Allergies Allergen ID Allergen Name Allergen Category Reaction Reaction Severity Criticality Documentation Date Start Date Code Code System Note Provider Name and Address Organization Details Recorded Time 60469 citrus flavor food other Not available Not available 07/27/2023 React ion: other react ion, Unkno wn; Not Available [facility] 4 00:53:39 11874 adhesive tape environme nt,medica tion other Not available Not available 07/27/2023 React ion: other react ion, Unkno wn; Not Available [facility] 4 00:53:42 39547 Toradol medicatio n other Not available Not available 07/27/2023 06373 RxNorm React ion: other react ion, Unkno wn; Not Available [facility] 4 00:53:46 72628 banana extract food,medi cation other Not available Not available 07/27/2023 32362 9 RxNorm React ion: other react ion, Unkno wn; Not Available [facility] 4 00:53:46 Medications Name Sig Start Date Stop Date Status Note LastModified by Organization Details LastModified Time propranol ol 80 mg tablet TAKE 1 TABLET DAILY FOR 1 WEEK, THEN TAKE 1 TABLET TWICE A DAY active Not Available Not Available No t Available cetirizin e 10 mg tablet TAKE 1 TABLET BY MOUTH EVERY DAY NEEDED FOR ALLERGIE S 12/19 completed Not Available Not Available Not Available azithromy [place] 250 mg tablet TAKE 2 TABLETS BY MOUTH TODAY, THEN TAKE 1 TABLET DAILY FOR 4 DAYS DIRECTED 12/19 completed Not Available Not Available Not Available aspirin 325 mg tablet TAKE 1 TABLET BY MOUTH EVERY DAY FOR 14 DAYS 12/19 completed Not Available Not Available Not Available valacyclo vir 1 gram tablet TAKE 1 TABLET BY MOUTH TWICE A DAY NEEDED active Not Available Not Available No t Available senna 8.6 mg tablet TAKE 2 TABLETS BY MOUTH TWICE A DAY NEEDED FOR CONSTIPA TION 12/19 completed Not Available Not Available Not Available ondansetr on HCl 8 mg tablet TAKE 1 TABLET BY MOUTH EVERY DAY NEEDED FOR NAUSEA AND VOMITING 12/19 completed Not Available Not Available Not Available meloxicam 15 mg tablet TAKE 1 TABLET BY MOUTH EVERY DAY FOR 7 DAYS 12/19 completed Not Available Not Available Not Available Synthroid 125 mcg tablet TAKE 1 TABLET BY MOUTH EVERY DAY active Not Available Not Available No t Available famotidin e 40 mg tablet TAKE 1 TABLET BY MOUTH AT BEDTIME active Not Available Not Available No t Available prednison e 20 mg tablet TAKE 2 TABLETS BY MOUTH EVERY DAY FOR 5 DAYS 12/19 completed Not Available Not Available Not Available prednison e 5 mg tablet TAKE 8 TABLETS ON DAY 1. 7 TABLETS ON DAY 2. THEN DECREASE BY 1 TABLET EVERY DAY UNTIL FINISHED 12/19 completed Not Available Not Available Not Available phentermi ne 15 mg capsule TAKE 1 CAPSULE BY MOUTH EVERY DAY IN THE MORNING active Not Available Not Available No t Available metronida zole 500 mg tablet TAKE 1 TABLET BY MOUTH 2 TIMES A DAY FOR 7 DAYS TAKE WITH FOOD, AVOID ALCOHOL AND VINEGAR PRODUCTS 12/19 completed Not Available Not Available Not Available propranol ol 60 mg tablet TAKE 1 TABLET BY MOUTH TWICE A DAY FOR 30 DAYS 12/19 completed Not Available Not Available Not Available acetamino phen 300 mg-codein e 30 mg tablet TAKE 2 TABLETS BY MOUTH NEEDED FOR HEADACHE FOR 30 DAYS active Not Available Not Available No t Available hydrocodo ne 10 mg-acetam inophen 325 mg tablet TAKE 1 TABLET BY MOUTH EVERY 12 HOURS NEEDED FOR 30 DAYS 12/19 completed Not Available Not Available Not Available amitripty line 50 mg tablet TAKE 1 TABLET BY MOUTH EVERYDAY AT BEDTIME active Not Available Not Available No t Available Miconazol e-7 2 % vaginal cream INSERT 1 APPLICAT ORFUL VAGINALL Y AT BEDTIME FOR 7 DAYS 12/19 completed Not Available Not Available Not Available propranol ol 40 mg tablet TAKE 1 TABLET BY MOUTH TWICE A DAY FOR 90 DAYS active Not Available Not Available No t Available amoxicill in 875 mg tablet TAKE 1 TABLET BY MOUTH TWICE A DAY FOR 7 DAYS 12/19 completed Not Available Not Available Not Available amitripty line 25 mg tablet TAKE 1 TABLET BY MOUTH EVERY DAY AT BEDTIME FOR 90 DAYS 12/19 completed Not Available Not Available Not Available metoclopr amide 5 mg tablet TAKE 1 TABLET BY MOUTH EVERYDAY AT BEDTIME 12/19 completed Not Available Not Available Not Available dicyclomi ne 20 mg tablet TAKE 2 TABLETS BY MOUTH 3 TIMES A DAY 12/19 completed Not Available Not Available Not Available pantopraz ole 40 mg tablet,de layed release TAKE 1 TABLET ORALLY 2 TIMES A DAY FOR 30 DAYS active Not Available Not Available No t Available omeprazol e 20 mg capsule,d elayed release TAKE 1 CAPSULE BY MOUTH EVERY DAY 12/19 completed Not Available Not Available Not Available budesonid e 0.5 mg/2 mL suspensio n for nebulizat ion USE ONE VIAL IN NASAL IRRIGATI ON DAILY active Not Available Not Available No t Available diltiazem CD 120 mg capsule,e xtended release 24 hr TAKE 1 CAPSULE BY MOUTH EVERY DAY active Not Available Not Available No t Available monteluka st 10 mg tablet TAKE 1 TABLET BY MOUTH EVERYDAY AT BEDTIME active Not Available Not Available No t Available Synthroid 112 mcg tablet 12/19 completed Medicati on ID: [id number] B rand Name: Synthroi d Send Method: E-Prescr ibed Sub s Allowed: subs OK Medic ationGen ericName : Synthroi d Not Available Not Available Not Available levalbute rol 1.25 mg/3 mL solution for nebulizat ion INHALE 1 PACKET BY MOUTH EVERY 4 TO 6 HOURS NEEDED FOR SHORTNES S OF BREATH OR WHEEZING active Not Available Not Available No t Available azelastin e 137 mcg (0.1 %) nasal spray 2 spray 2021 active Medicati on ID: [id number] D uration Value: 30 Brand Name: azelasti ne Send Method: E-Prescr ibed Sub s Allowed: subs OK Medic ationGen ericName : azelasti ne Not Available Not Available Not Available topiramat e 100 mg tablet TAKE 1 TABLET BY MOUTH TWICE A DAY FOR 90 DAYS active Not Available Not Available No t Available fluticaso ne propionat e 50 mcg/actua tion nasal spray,cynthia pension 2020 active Medicati on ID: [id number] B rand Name: fluticas one propiona te Send Method: E-Prescr ibed Sub s Allowed: subs OK Medic ationGen ericName : fluticas one propiona te Not Available Not Available Not Available amitripty line 100 mg tablet TAKE 1 TABLET BY MOUTH EVERYDAY AT BEDTIME 12/19 completed Not Available Not Available Not Available ipratropi um bromide 21 mcg (0.03 %) nasal spray SPRAY 2 SPRAYS INTO EACH NOSTRIL TWICE A DAY active Not Available Not Available No t Available metoclopr amide 10 mg tablet TAKE 1 TABLET BY MOUTH EVERYDAY AT BEDTIME active Not Available Not Available No t Available Ventolin HFA 90 mcg/actua tion aerosol inhaler INHALE 1 PUFF BY MOUTH 4 TIMES A DAY NEEDED FOR SHORTNES S OF BREATH OR WHEEZING FOR 30 DAYS 12/19 completed Not Available Not Available Not Available oxycodone 5 mg tablet TAKE 1 TABLET BY MOUTH EVERY 4 HOURS FOR 7 DAYS 12/19 completed Not Available Not Available Not Available Laxative (bisacody l) 5 mg tablet,de layed release TAKE 2 TABLETS ORALLY AT BEDTIME FOR 30 DAYS 12/19 completed Not Available Not Available Not Available cyclobenz aprine 5 mg tablet TAKE 1 TABLET BY MOUTH EVERY DAY AT BEDTIME NEEDED FOR 30 DAYS active Not Available Not Available No t Available Restasis 0.05 % eye drops in a dropperet te PLACE 1 DROP INTO EACH EYE TWICE A DAY CONTINUO USLY active Not Available Not Available No t Available topiramat e 50 mg tablet TAKE 1 TABLET BY MOUTH AT BEDTIME X1 WEEK THEN 2 TAB ORALLY ONCE A DAY AT BEDTIME 90 DAYS 12/19 completed Not Available Not Available Not Available levalbute rol HFA 45 mcg/actua tion aerosol inhaler INHALE 1 PUFF INHALED EVERY 4 TO 6 HOURS NEEDED FOR SHORTNES S OF BREATH active Not Available Not Available No t Available Symbicort 160 mcg-4.5 mcg/actua tion HFA aerosol inhaler 12/19 completed Medicati on ID: [id number] B rand Name: Symbicor t Send Method: E-Prescr ibed Sub s Allowed: subs OK Medic ationGen ericName : Symbicor t Not Available Not Available Not Available Creon 24,000-76 ,000-120, 000 unit capsule,d elayed release TAKE 1 CAPSULE BY MOUTH 4 TIMES A DAY FOR 30 DAYS ADMINIST ER WITH MEALS AND/OR SNACKS 12/19 completed Not Available Not Available Not Available Dulera 200 mcg-5 mcg/actua tion HFA aerosol inhaler INHALE 2 PUFFS BY MOUTH TWICE A DAY active Not Available Not Available No t Available EpiPen 2-Jayy 0.3 mg/0.3 mL injection , auto-inje ctor 1 pen injector 2021 active Medicati on ID: [id number] D uration Value: 1 Prescri bed By Name: Keysha [email or web address] MD Brand Name: EpiPen 2-Jayy Se nd Method: E-Prescr ibed Sub s Allowed: subs OK Medic ationGen ericName : EpiPen 2-Jayy Not Available Not Available Not Available Breo Ellipta 200 mcg-25 mcg/dose powder for inhalatio n INHALE 1 PUFF DAILY 12/19 completed Not Available Not Available Not Available Emgality Pen 120 mg/mL subcutane ous pen injector DIRECTED SUBCUTAN EOUS MONTHLY 90 DAYS active Not Available Not Available No t Available Vitals Date Recorded Body height Body mass index (BMI) Body weight Provider Name and Address Organization Details Last Updated DateTime 12/20/2023 180.34 cm 34.2 kg/m2 996078.93 g Cheryl Ann [place] - [facility] 12/20/2023 11:43:25 Social History None recorded. Functional Status None recorded. Mental Status None recorded. Family History Nothing Reported. Medical History No medical history recorded. Gynecological HistoryNo gynecological history recorded. Obstetrics History GPAL:G 0 P 0 0 0 0 Past Encounters Encounter ID Performer Location Encounter Start Date Encounter Closed Date Diagnosis/Indication Diagnosis SNOMED-CT Code Diagnosis ICD10 Code Diagnosis Note KEYSHA CAPPS MD [facility] [address] [address] 12/20/2023 11:12:43 12/20/2023 12:13:17 Posterior rhinorrhea [id number] R09.82 Uncomplica twila mild persistent asthma 592533311 J45.30 Health Concerns Section Related Observation LastModified by Organization Detai ls LastModified Time None Recorded Concern Status LastModified by Organization Details LastModified Time None Recorded Payers Encounter Date Sequence Insurance Name Policy Number Policy Stafford Covered Member ID Stafford Member ID Guarantor Name 12/20/2023 1 [place] [employer] Kayla Ortega [id number] Kayla Ortega 12/20/2023 2 [place] [facility] Kayla Ortega [id number] Kayla Ortega Notes Date Note Type Note Provider Name and Address Organization Details Recorded Time 12/20/2023 text/html On singulair and [place]. Nasal spray x 2. Some sinus congestion. Just finished prednisone course. 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 Waiting to see another executive marketing assistant. PV: 38-year-old female presents today for follow-up on allergy. Since her last visit, she did have a sinus infection and was onas he pack which helped. She is not on any steroids. She just started Breo and is using leave albuterol nebulizer.She needed to stop her immunotherapy a she is on propranolol for migraines which seems to be helping. She's also on emgality. She is been using glasses with amigraine filter which also helped.She continues to saline rinses, fluticasone, astelin. she notes her eczema has worsened since she's been off the IT.She does have significant heartburn. She is on famotidine and dicyclomine.She did bring in the images from her CT scan from [place] in July 2022 and the sinus thickening was very mild. KEYSHA CAPPS MD [address] [place] [address], [place], [id number], [place] - [facility] 12/20/2023 18:25:26 OBGyn Episode No OBEpisode recorded.
== END 2024-03-21 11:00 | disposition home or self-care (01) ==
PROVIDERS: PCP Internal Medicine; Visit Provider Nurse Practitioner Family
DX: J45.40 Moderate persistent asthma, uncomplicated (principal); Z91.09 Other allergy status, other than to drugs and biological substances
CPT/HCPCS: 99214

== ENCOUNTER → 2024-03-21 10:04 | Outpatient (BNVA) | payer MEDICARE, MEDICAID, SELFPAY | PROVIDERS: PCP Internal Medicine; Visit Provider Nurse Practitioner Family | DX: J45.40 Moderate persistent asthma, uncomplicated (principal); Z91.09 Other allergy status, other than to drugs and biological substances; Z79.899 Other long term (current) drug therapy | CPT/HCPCS: 99212 ==

== ENCOUNTER 2024-03-22 12:11 | Outpatient (AMB) | payer MEDICARE, MEDICAID, SELFPAY ==
--- OUTSIDE RECORDS SUMMARY | 2024-03-22 12:15 | XMS_ITS | Data Portability ---
Author Organization [place] - [facility], Allergy Address [address] [place] [id number] Care Team Providers Care Chief Operations Officer Name Role Phone SYLVAIN MARY Primary Care Provider Assessment Encounter Date Assessment Date Assessment LastModified [...] Details Appointments Establish ed 15 2024 10:30A Maria Luisa CAPPS MD Not available Not available Not available Lab None recorded. Referral None recorded. Procedures None recorded. Surgeries None recorded. Imaging None recorded. Medication Orders budesonid e 0.5 mg/2 mL suspensio n for nebulizat ion 2023 024 [facility] #[id number], [address] [facility], [place], [address], 12/20/2023 12:10:20 Patient TargetsNo targets recorded. Patient InstructionsNo instructions recorded. Reason for Referral None Reported. Problems Name Problem SNOMED Code Status Onset Date Resolution Date Notes Provider Name and Address Organization Details Recorded Time Bilateral temporoma ndibular joint pain 27114969197 [id number] Active 2020 Arthralgi a of bilateral temporoma ndibular joint; Note: Date Diagnosed : 08/19/2020 10:57 AM (M26.623) Not Available [facility] 02:15:14 Allergic rhinitis 93692347 Active 2022 Allergic rhinitis: Due to other [...] 10:22 AM (477.8) ; Start Date : 3 Allergi c rhinitis: Due to other allergen; Note: Date Diagnosed : 11/13/2022 10:27 AM (477.8) ; Start Date : 3 Allergi c rhinitis: Due to other allergen; Note: Date Diagnosed : 10/27/2022 2:40 PM (477.8) ; Start Date : 3 [...] 1:36 PM (477.8) ; Start Date : 3 Allergi c rhinitis: Due to other allergen; Note: Date Diagnosed : 10/07/2022 1:39 PM (477.8) ; Start Date : 3 Allergi c rhinitis: Due to other allergen; Note: Date Diagnosed : 10/02/2022 11:13 AM (477.8) ; Start Date : 3 [...] to other allergen; Note: Date Diagnosed : 11:26 AM (477.8) ; Start Date : 2 Allergi c rhinitis: Due to other allergen; Note: Date Not Available [facility] 4 02:16:00 Posterior rhinorrhe a 26125516 Active 2022 Postnasal drip; Note: Date Diagnosed : 11/09/2022 1:01 PM (R09.82) Not Available [facility] 4 02:15:19 Seasonal allergic rhinitis 331459581 Active 2020 Other seasonal allergic rhinitis; Note: Date Diagnosed : 08/19/2020 10:57 AM (J30.2) Not Available [facility] 4 02:15:54 Uncomplic ated mild persisten t asthma 286962463 Active 2022 Mild persisten t asthma, uncomplic ated; Note: Date Diagnosed : 04/24/2022 3:16 PM (J45.30) Not Available [facility] 4 02:15:40 Bilateral disorder of Eustachia n tubes 30572064530 75844 Active 2020 Other specified disorders of Eustachia n tube, bilateral ; Note: Date Diagnosed : 08/19/2020 10:27 AM (H69.83) Not Available [facility] 4 02:15:31 Migraine without aura, not refractor y 264424218 Active 2023 Migraine without aura, not intractab le, without status migrainos us; Note: Date Diagnosed : 04/30/2023 1:35 PM (G43.009) Not Available [facility] 4 02:15:48 Dysphonia 48479721 Active 2023 Hoarsenes s; Note: Date Diagnosed : 04/30/2023 1:35 PM (R49.0) Not Available [facility] 4 02:16:04 Problem Notes None recorded. Medical Equipment None Reported. Allergies Allergen ID Allergen Name Allergen Category Reaction Reaction Severity Criticality Documentation Date Start Date Code Code System Note Provider Name and Address Organization Details Recorded Time 43538 citrus flavor food other Not available Not available 07/27/2023 React ion: other react ion, Unkno wn; Not Available [facility] 4 00:53:39 97032 adhesive tape environme nt,medica tion other Not available Not available 07/27/2023 React ion: other react ion, Unkno wn; Not Available [facility] 4 00:53:42 83970 Toradol medicatio n other Not available Not available 07/27/2023 87846 RxNorm React ion: other react ion, Unkno wn; Not Available [facility] 4 00:53:46 25528 banana extract food,medi cation other Not available Not available 07/27/2023 75981 9 RxNorm React ion: other react ion, Unkno wn; Not Available [facility] 4 00:53:46 Medications Name Sig Start Date [...] mcg tablet 12/19 completed Medicati on ID: [id number] B rand Name: Synthroi d Send Method: [...] 2 spray 2021 active Medicati on ID: [id number] D uration Value: 30 Brand Name: azelasti [...] spray,cynthia pension 2020 active Medicati on ID: [id number] B rand Name: fluticas one propiona te [...] aerosol inhaler 12/19 completed Medicati on ID: [id number] B rand Name: Symbicor t Send Method: [...] pen injector 2021 active Medicati on ID: [id number] D uration Value: 1 Prescri bed By [...] Updated DateTime 12/20/2023 180.34 cm 34.2 kg/m2 753768.93 g Cheryl Ann [place] - [facility] 12/20/2023 11:43:25 Social History None recorded. Functional Status None recorded. Mental Status None recorded. Family History Nothing Reported. Medical History No medical history recorded. Gynecological HistoryNo gynecological history recorded. Obstetrics History GPAL:G 0 P 0 0 0 0 Past Encounters Encounter ID Performer Location Encounter Start Date Encounter Closed Date Diagnosis/Indication Diagnosis SNOMED-CT Code Diagnosis ICD10 Code Diagnosis Note KEYSHA CAPPS MD [facility] [address] [id number] 12/20/2023 11:12:43 12/20/2023 12:13:17 Posterior rhinorrhea 70999018 R09.82 Uncomplica twila mild persistent asthma 176974911 J45.30 Health Concerns Section Related Observation LastModified by Organization Detai ls LastModified Time None Recorded Concern Status LastModified by Organization Details LastModified Time None Recorded Advance Directives Directive None Recorded Payers Encounter Date Sequence Insurance Name Policy Number Policy Stafford Covered Member ID Stafford Member ID Guarantor Name 12/20/2023 1 [place] [employer] Kayla Ortega [id number] Kayla Ortega 12/20/2023 2 [place] [facility] Kayla Ortega [id number] Kayla Ortega Notes Date Note Type Note Provider Name and Address Organization Details Recorded Time 12/20/2023 text/html On singulair and [place]. Nasal spray x 2. Some sinus congestion. Just finished prednisone course. 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 PV: 38-year-old female presents today for follow-up [...] the images from her CT scan from [place] in July 2022 and the sinus thickening was very mild. KEYSHA CAPPS MD [address] [place] [address], [place], [address], [facility] - [facility] 12/20/2023 18:25:26 OBGyn Episode No OBEpisode recorded.
--- NOTE | 2024-03-22 12:18 | MHC.OFFVIS ---
Intake Visit Reasons: Follow up 3 months Allergies oxycodone Allergy (Intermediate, Verified 03/21/24 10:28) itching adhesive tape Allergy (Mild, Verified 03/21/24 10:28) RASH ketorolac [From TORADOL] Allergy (Mild, Verified 03/21/24 10:28) HIVES latex [LATEX] Allergy (Mild, Verified 03/21/24 10:28) RASH fruit with skin Allergy (Intermediate, Uncoded 03/21/24 10:28) Hives HPI HPI Follow up 3 months: Details: Assessment & Plan (1) Gastroparesis: Code(s): K31.84 - Gastroparesis Category: Medical (2) GERD with esophagitis: Code(s): K21.00 - Gastro-esophageal reflux disease with esophagitis, without bleeding Category: Medical (3) Multiple food allergies: Comment: all fruit, avocado, seeded vegetables, carrots Code(s): Z91.018 - Allergy to other foods Category: Medical (4) Lactose intolerance: Code(s): E73.9 - Lactose intolerance, unspecified Category: Medical (5) Irritable bowel syndrome with both constipation and diarrhea: Code(s): K58.2 - Mixed irritable bowel syndrome Category: Medical Plan I started her on reglan 10g qidachs. She was taking Reglan but only once a day now she has not and a timer and she sure to be taking it 4 times a day so that it can have its maximum efficacy. She is also now on phentermine for wt loss. She is tolerating the reglan well w/o s/e. Now can drink water, moving her bowels better but this still is not consistent. She never received the Dexilant she is continuing on protonix and famotidine. I would like to have her on bid PPI ? if insurance is limiting this as they did not cover Dexilant. We can treat the constipation if we need to but I would like her to meet with a dietitian which she is doing later this week and see if she can make some natural changes 1st. This may also further improve her GERD since constipation definitely will cause gas trapping and more reflux and burping. Return office visit in 6 weeks Medications: New pantoprazole 40 mg PO BID 60 tabs 6RF Refilled metoclopramide HCl (Reglan) 10 mg PO QID 120 tabs 6RF K21.00 - Gastro-esophageal reflux disease with esophagitis, without bleeding TODAY'S VISIT She is only getting the pantoprazole qd r/t insurance. Continues to have GERD with acid brash and hoarse voice. Is seeing ENT as well for this. We will try having her get OTC prilosec to take in the evening and a temp supply of carafate tabs to create a slurry. She IS taking the reglan qid but she is unsure if it is helping the sx. I suggest a trial w/o the reglan to see if her sx worsen to determine if we need this. Next avail. [facility] Medical History (Updated 03/22/24 @ 12:33 by RIDGE Kevin) Foot pain, bilateral Abnormal EKG Labral tear of right hip joint Abnormal weight gain Odynophagia Pleuritic pain Environmental allergies Abdominal cramping History of irregular menstrual cycles Sinusitis Esophageal spasm Acetabular labrum tear Herpes labialis Dry eyes Yeast infection of the vagina Amenorrhea Metrorrhagia Bloating Epigastric discomfort Shortness of breath Pre-op examination Contusion of chest Exercise-induced asthma Pain of left thumb Rib pain on right side Bilateral otitis media with effusion Left shoulder strain Cellulitis Acute lumbar back pain Right shoulder pain Arthrosis Right knee pain Complex cyst of left ovary Chronic GERD Encounter for general adult medical examination with abnormal findings Encounter for IUD insertion Nausea Upper respiratory infection Leg pain, right Nausea Other specified hypothyroidism Otitis media Right hip pain Chest wall pain Lightheaded Acute sinusitis Goiter Elevated TSH Medicare annual wellness visit, subsequent Constipation Ill feeling Epigastric pain Constipation Cervical cancer screening Well woman exam with routine gynecological exam Medicare annual wellness visit, initial Abnormal thyroid stimulating hormone (TSH) level Patella francisco j Knee pain Neck pain Chest pain Migraines Eczema Fibromyalgia Heart murmur Asthma Hypothyroidism Surgical History History of hip surgery H/O shoulder surgery [place] teeth removed History of appendectomy Family History Mother Graves disease Hypothyroidism Father CHF (congestive heart failure) Other Substance use disorder Social History Housing: Apartment Alcohol intake: never Patient Tobacco Use Status: Never used Tobacco e-Cigarette/Vaping Use: Never Used Second Hand Smoke Exposure: Yes (as a child only) service: No Current occupational status: disabled Sexual orientation: Straight/Heterosexual Gender identity: Female Cognitive needs: No Hearing needs: No Vision needs: Yes Female Reproductive History Menstrual Age of Menarche: 15 Review of Systems Const Denies fatigue, Denies fever(s), Denies night sweats, Denies poor appetite and Denies weight loss Eyes Details: glasses Reports requires corrective lenses ENT Reports Normal hearing present, Denies dental pain, Denies dysphagia, Denies hearing loss, Denies mouth pain, Reports odynophagia, Denies throat swelling, Denies tongue swelling and Reports other (Dentition adequate) Card Reports no additional complaints Resp Reports wheezing GI Details: Denies abdominal pain, Denies melena, Denies bloating, Denies hematochezia, Denies constipation, Denies GI cramping, Denies dysphagia, Denies excessive flatus, Denies early satiety, Reports heartburn, Denies diarrhea, Denies nausea, Reports odynophagia, Denies vomiting and Denies hematemesis Skin/Breast Denies pruritus, Denies lesions, Denies rash and Denies jaundice Neuro Reports Normal hearing present and Denies Abnormal speech present Endo Denies fatigue Aller/Immun Denies throat swelling, Denies tongue swelling and Reports wheezing Physical Exam Const General: cooperative, no acute distress, well developed and well groomed Nutritional Appearance: well nourished and overweight Orientation/consciousness: oriented to person, oriented to place and oriented to time Limitations: No language barrier HEENT Other: hoarse voice Head: Yes normocephalic and Yes atraumatic Eyes General: appearance normal, both eyes and all related structures Pupils: Equal, round and reactive pupils present Neck Neck: Yes normal visual inspection and Yes no lymphadenopathy Thyroid: Thyroid normal Resp Effort & Inspection: normal respiratory effort and able to speak in complete sentences Auscultation: clear to auscultation bilaterally Cardio Rate: regular rate Rhythm: regular rhythm Heart sounds: Normal, physiologic split S2 sound present Peripheral pulses: radial pulses present and posterior tibial pulses present GI Inspection: No distended, No Abdominal panniculus present and Yes obesity Palpation (GI): Soft to palpation, nontender, no guarding, not rigid and No hepatosplenomegaly present Percussion: Yes normal to percussion Auscultation: normal bowel sounds Rectal Exam - Female: deferred Skin General skin exam: no rashes or lesions noted, turgor normal, skin not dry, no jaundice, No spider nevi and no striae Rashes: no rashes Nails: normal Neuro General: oriented to person, oriented to place and oriented to time Cranial nerves: Yes Equal, round and reactive pupils present and Yes Normal hearing present Speech: No Abnormal speech present Extrem General: Yes normal to inspection, No clubbing, No cyanosis and No edema Psych Appearance: grossly normal and well kempt Mental Status: mental status grossly normal Speech and movement: Normal speech and movement present Affect: normal affect Attitude: cooperative Thought process: Normal thought process present and not confabulating Thought content: Normal thought content present Insight: Fair insight present (Psych) Judgement: Fair judgement present (Psych) Assessment & Plan Assessment & Plan (1) GERD with esophagitis: Code(s): K21.00 - Gastro-esophageal reflux disease with esophagitis, without bleeding Category: Medical (2) Gastroparesis: Code(s): K31.84 - Gastroparesis Category: Medical (3) Irritable bowel syndrome with both constipation and diarrhea: Code(s): K58.2 - Mixed irritable bowel syndrome Category: Medical (4) Lactose intolerance: Code(s): E73.9 - Lactose intolerance, unspecified Category: Medical (5) Multiple food allergies: Comment: all fruit, avocado, seeded vegetables, carrots Code(s): Z91.018 - Allergy to other foods Category: Medical (6) Erosive esophagitis: Code(s): K22.10 - Ulcer of esophagus without bleeding Category: Medical Plan She is only getting the pantoprazole qd r/t insurance. Continues to have GERD with acid brash and hoarse voice. Is seeing ENT as well for this. We will try having her get OTC prilosec to take in the evening and a temp supply of carafate tabs to create a slurry. She IS taking the reglan qid but she is unsure if it is helping the sx. I suggest a trial w/o the reglan to see if her sx worsen to determine if we need this. Next avail. Medications: New sucralfate (Carafate) Have pt crush tablet to create slurry 1 g PO QNOON 30 tabs 1RF K22.10 - Ulcer of esophagus without bleeding Refilled metoclopramide HCl (Reglan) 10 mg PO QID 120 tabs 6RF K21.00 - Gastro-esophageal reflux disease with esophagitis, without bleeding Coding Level of Care Code Est Pt Level 3 (52038) Diagnoses GERD with esophagitis K21.00 Gastroparesis K31.84 Irritable bowel syndrome with both constipation and diarrhea K58.2 Lactose intolerance E73.9 Multiple food allergies Z91.018 Erosive esophagitis K22.10
== END 2024-03-22 12:42 | disposition home or self-care (01) ==
PROVIDERS: PCP Internal Medicine; Visit Provider Nurse Practitioner
DX: K21.00 Gastro-esophageal reflux disease with esophagitis, without bleeding (principal); K31.84 Gastroparesis; K58.2 Mixed irritable bowel syndrome; E73.9 Lactose intolerance, unspecified; Z91.018 Allergy to other foods; K22.10 Ulcer of esophagus without bleeding
CPT/HCPCS: 99213

== ENCOUNTER → 2024-03-22 12:11 | Outpatient (BNVA) | payer MEDICARE, MEDICAID, SELFPAY | PROVIDERS: PCP Internal Medicine; Visit Provider Nurse Practitioner | DX: K21.00 Gastro-esophageal reflux disease with esophagitis, without bleeding (principal); K31.84 Gastroparesis; K58.2 Mixed irritable bowel syndrome; K22.10 Ulcer of esophagus without bleeding; E73.9 Lactose intolerance, unspecified; Z91.018 Allergy to other foods | CPT/HCPCS: 99212 ==

== ENCOUNTER → 2024-03-24 15:21 | Outpatient (AMB) | payer MEDICARE, MEDICAID, SELFPAY ==
--- NOTE | 2024-03-24 15:33 | AM.OFFWIN_ITS ---
Intake Intake Visit Reasons: Annual PE Patient Tobacco Use Status: Never used Tobacco Allergies oxycodone Allergy (Intermediate, Verified 03/21/24 10:28) itching adhesive tape Allergy (Mild, Verified 03/21/24 10:28) RASH ketorolac [From TORADOL] Allergy (Mild, Verified 03/21/24 10:28) HIVES latex [LATEX] Allergy (Mild, Verified 03/21/24 10:28) RASH fruit with skin Allergy (Intermediate, Uncoded 03/21/24 10:28) Hives [facility] Medical History (Updated 03/22/24 @ 12:33 by RIDGE Kevin) Foot pain, bilateral Abnormal EKG Labral tear of right hip joint Abnormal weight gain Odynophagia Pleuritic pain Environmental allergies Abdominal cramping History of irregular menstrual cycles Sinusitis Esophageal spasm Acetabular labrum tear Herpes labialis Dry eyes Yeast infection of the vagina Amenorrhea Metrorrhagia Bloating Epigastric discomfort Shortness of breath Pre-op examination Contusion of chest Exercise-induced asthma Pain of left thumb Rib pain on right side Bilateral otitis media with effusion Left shoulder strain Cellulitis Acute lumbar back pain Right shoulder pain Arthrosis Right knee pain Complex cyst of left ovary Chronic GERD Encounter for general adult medical examination with abnormal findings Encounter for IUD insertion Nausea Upper respiratory infection Leg pain, right Nausea Other specified hypothyroidism Otitis media Right hip pain Chest wall pain Lightheaded Acute sinusitis Goiter Elevated TSH Medicare annual wellness visit, subsequent Constipation Ill feeling Epigastric pain Constipation Cervical cancer screening Well woman exam with routine gynecological exam Medicare annual wellness visit, initial Abnormal thyroid stimulating hormone (TSH) level Patella francisco j Knee pain Neck pain Chest pain Migraines Eczema Fibromyalgia Heart murmur Asthma Hypothyroidism Surgical History History of hip surgery H/O shoulder surgery [place] teeth removed History of appendectomy Family History Mother Graves disease Hypothyroidism Father CHF (congestive heart failure) Other Substance use disorder Social History Housing: Apartment Alcohol intake: never Patient Tobacco Use Status: Never used Tobacco e-Cigarette/Vaping Use: Never Used Second Hand Smoke Exposure: Yes (as a child only) service: No Current occupational status: disabled Sexual orientation: Straight/Heterosexual Gender identity: Female Cognitive needs: No Hearing needs: No Vision needs: Yes Female Reproductive History Menstrual Age of Menarche: 15 Coding
[2024-03-24 15:35] VITALS: BP 126/80; PULSE 66; O2SAT 98
--- NOTE | 2024-03-24 15:36 | MHC.PC.OV ---
Vital Signs 03/24/24 15:35 Weight 233 lb BP 126/80 Blood Pressure Location Lt brachial Position Sitting Pulse 66 Pulse Source Pulse Oximeter Pulse Oximetry (%) 98 Oxygen Delivery Method Room Air Intake Visit Reasons: Annual PE Allergies oxycodone Allergy (Intermediate, Verified 03/24/24 15:36) itching adhesive tape Allergy (Mild, Verified 03/24/24 15:36) RASH ketorolac [From TORADOL] Allergy (Mild, Verified 03/24/24 15:36) HIVES latex [LATEX] Allergy (Mild, Verified 03/24/24 15:36) RASH fruit with skin Allergy (Intermediate, Uncoded 03/24/24 15:36) Hives Medication List - Last Reconciled 03/24/24 by Karen Broussard MD acetaminophen-codeine 300-30 mg 1 tab PO BID PRN amitriptyline 50 mg PO BEDTIME azelastine 1 spray intranasal DAILY cyclobenzaprine 5 mg PO BEDTIME PRN cyclosporine 0.05% (Restasis) drps ophthalmic (eye) diltiazem HCl CD 120 mg PO DAILY epinephrine 0.3 mg IM ONCE PRN famotidine 40 mg PO DAILY nnmfnizckms-mziwcgwxs-wtiexhnb 100-62.5-25 mcg (Trelegy Ellipta) 1 inh inhalation DAILY galcanezumab-gnlm (Emgality Pen) mg subcut Q4W ipratropium bromide 2 sprays intranasal BID 90 days levalbuterol HCl 1.25 mg (3 mL) inhalation Q4-6H PRN levalbuterol tartrate 45 mcg/actuation 1 puff inhalation Q4-6H PRN levonorgestrel (Mirena) intrauterine metoclopramide HCl (Reglan) 10 mg PO QID montelukast (Singulair) 10 mg PO BEDTIME pantoprazole 40 mg PO BID phentermine 15 mg PO DAILY propranolol 40 mg PO BID sucralfate (Carafate) 1 g PO QNOON Synthroid (levothyroxine) 125 mcg PO DAILY NS topiramate (Topamax) 100 mg PO BID valacyclovir 1,000 mg PO BID PRN Tobacco use date assessed: 02/12/23 Dental Screening Dental Screen Date: 02/12/23 HPI Annual PE HPI Details Physical exam appointment - The patient is a 39-year-old female presenting with voice alteration possibly secondary to inhaler use. - Reports voice alteration not fluctuating and lasting several months, predating the use of a steroid inhaler. - In the background of chronic conditions such as allergies leading to postnasal drip and gastroparesis. - Employs routine measures such as oral rinsing post-inhaler which have not alleviated symptoms. Health Maintenance: OBGYN visit up-to-date [place] [facility]: Neurology, intervention specialist, Gastroenterology, weight management Medications - Amitriptyline for migraine - Cyclobenzaprine for muscle spasms - Diltiazem prescribed by copy room technician - Famotidine prescribed by copy room technician - Fluticasone inhaler for allergic rhinitis - Ipratropium nasal spray from medical coding specialist - Metoclopramide for gastroparesis - Montelukast for allergies - Pantoprazole prescribed by copy room technician - Phentermine for weight management - Propranolol for headache prevention - Synthroid 125 mcg for hypothyroidism, through PCP office - Valacyclovir for cold sores, to be taken as needed - Topiramate for headache management Patient Instructions - Rinse and maintain oral hygiene after using inhaler. - Take Valacyclovir as prescribed at the onset of cold sore symptoms. - Continue current allergy and reflux management strategies. - Schedule a follow-up appointment for labs. Review of Systems - Ear/Nose/Throat: Reports persistent voice alteration. - Respiratory: Denies any acute respiratory distress. - Gastrointestinal: Reports gastroparesis and acid reflux. - Musculoskeletal: Denies new or concerning physical activity limitations. - Neurological: Reports managed migraine symptoms. - General: No fever no chills - Cardiovascular: No syncope, no chest pain, no palpitations - Endocrine: No polyuria polydipsia no heat intolerance - Genitourinary: No dysuria - Skin: No new complaints Physical Exam General: Cooperative, healthy appearing, comfortable, no acute distress Orientation: Patient oriented x3 Limitations: None Head: Normal to inspection Ears: Within normal limit visually Nose: Normal external nose present Face and sinus: Normal facial exam, hoarseness of voice present Eyes: Appearance normal, extraocular movement intact pupils reactive Neck: Normal visual inspection and supple Respiratory: Normal respiratory effort and able to speak in complete sentences. Clear to auscultation, no stridor Breast exam through OBGYN Cardiovascular: S1 and S2 GI: Normal to inspection. Soft to palpation and nontender Skin: Turgor normal, no acute findings Neuro: Patient oriented x3, motor sensory intact, balance intact, tandem pass Extremities: Normal to inspection [facility] Medical History Encounter for general adult medical examination with abnormal findings Foot pain, bilateral Abnormal EKG Labral tear of right hip joint Abnormal weight gain Odynophagia Pleuritic pain Environmental allergies Abdominal cramping History of irregular menstrual cycles Sinusitis Esophageal spasm Acetabular labrum tear Herpes labialis Dry eyes Yeast infection of the vagina Amenorrhea Metrorrhagia Bloating Epigastric discomfort Shortness of breath Pre-op examination Contusion of chest Exercise-induced asthma Pain of left thumb Rib pain on right side Bilateral otitis media with effusion Left shoulder strain Cellulitis Acute lumbar back pain Right shoulder pain Arthrosis Right knee pain Complex cyst of left ovary Chronic GERD Encounter for IUD insertion Nausea Upper respiratory infection Leg pain, right Nausea Other specified hypothyroidism Otitis media Right hip pain Chest wall pain Lightheaded Acute sinusitis Goiter Elevated TSH Medicare annual wellness visit, subsequent Constipation Ill feeling Epigastric pain Constipation Cervical cancer screening Well woman exam with routine gynecological exam Medicare annual wellness visit, initial Abnormal thyroid stimulating hormone (TSH) level Patella francisco j Knee pain Neck pain Chest pain Migraines Eczema Fibromyalgia Heart murmur Asthma Hypothyroidism Surgical History History of hip surgery H/O shoulder surgery [place] teeth removed History of appendectomy Family History Mother Graves disease Hypothyroidism Father CHF (congestive heart failure) Other Substance use disorder Social History Housing: Apartment Alcohol intake: never Patient Tobacco Use Status: Never used Tobacco e-Cigarette/Vaping Use: Never Used Second Hand Smoke Exposure: Yes (as a child only) service: No Current occupational status: disabled Sexual orientation: Straight/Heterosexual Gender identity: Female Cognitive needs: No Hearing needs: No Vision needs: Yes Female Reproductive History Menstrual Age of Menarche: 15 Questionnaire PHQ-9 Over the last 2 weeks, how often have you been bothered by any of the following problems? 1. Little interest or pleasure in doing things: not at all 2. Feeling down, depressed, or hopeless: several days 3. Trouble falling or staying asleep, or sleeping too much: several days 4. Feeling tired or having little energy: several days 5. Poor appetite or overeating: not at all 6. Feeling bad about yourself - or that you are a failure or have let yourself or your family down: not at all 7. Trouble concentrating on things, such as reading the newspaper or watching television: not at all 8. Moving or speaking so slowly that other people could have noticed. Or the opposite - being so fidgety or restless that you have been moving around a lot more than usual: several days 9. Thoughts that you would be better off or of hurting yourself in some way: not at all Total score: 4 Depression Screening Interpretation: Negative Depression Screening Done: Yes [id number] - PHQ-9 Billing: Yes Source: Developed by Drs. Oswald Alexandre, Raquel Kelly, Sascha Milton and colleagues, with an educational chai from [employer]. Thrive Questionnaire Date Thrive assessed: 03/17/24 I am a: Patient What is your living situation today?: I have a steady place to live Within the past 12 months, did the food you bought not last and you didn't have the money to get more?: Never true Within the past 12 months, did you worry whether your food would run out before you got money to buy more?: Never true Do you have trouble paying for medicines?: No Do you have trouble getting transportation to medical appointments?: No Do you have trouble paying your heating and electricity bill?: No Do you have trouble taking care of your child, family member or friend?: No Do you have trouble with day-to-day activities such as bathing, preparing meals, shopping, managing finances, etc.?: No Are you currently unemployed and looking for a job?: No Are you interested in more education?: No Please select the resources that you would like help with: None Currently or been in a relationship where the following occur: No concerns reported THRIVE Score: 0 AUDIT C Alcohol Use Questionnaire (AUDIT-C) 1. How often do you have a drink containing alcohol?: Never Total Score: 0 LAW-7 AMB Questionnaire LAW-7 Date LAW - 7 assessed: 01/19/23 Feeling nervous, anxious, or on edge: 1 = Several days Not being able to stop or control worryin = Not at all Worrying too much about different things: 0 = Not at all Trouble relaxin = Not at all Being so restless that it is hard to sit still: 0 = Not at all Becoming easily annoyed or irritable: 1 = Several days Feeling afraid as if something awful might happen: 0 = Not at all Total LAW-7 score (0-4 normal; 5-9 mild; 10-14 moderate; 15-21 severe): 2 Source: Developed by Drs. Oswald Alexandre, Raquel Kelly, Sascha Milton and colleagues, with an educational chai from [employer]. Physical exam (Primary Care) Vital Signs: Last Vital Signs Pulse 66 03/24/24 15:35 BP 126/80 03/24/24 15:35 Pulse Ox 98 03/24/24 15:35 Oxygen Delivery Method Room Air 03/24/24 15:35 Tobacco/Smoking Status: Tobacco use Status Tobacco use date assessed 02/12/23 09/07/23 13:43 Patient Tobacco Use Status Never used Tobacco 12/06/23 08:53 e-Cigarette/Vaping Use Never Used 09/07/23 13:43 Depression Screening Interpretation: Negative Thrive Assessment: Date of Thrive Assessment Date Thrive assessed 03/17/24 03/22/24 12:12 Currently or been in a relationship where the following occur: No concerns reported Coding Level of Care Code Est Pt Level 3 (78239) Est Pt Prev Care 18-39y(14385) Diagnoses Encounter for general adult medical examination with abnormal findings Z00.01 Hoarseness of voice R49.0 Moderate persistent asthma without complication J45.40 Asthma complication type: uncomplicated Hypothyroidism, unspecified type E03.9 Hypothyroidism type: unspecified Multiple food allergies Z91.018 Fibromyalgia M79.7 Intractable migraine with aura without status migrainosus G43.119 Intractability: intractable Status migrainosus presence: without status migrainosus Non-seasonal allergic rhinitis due to pollen J30.1 Allergic rhinitis seasonality: non-seasonal Allergic rhinitis trigger: pollen Additional Codes PHQ-9 - 59810 - PHQ-9 Billing: Yes ([id number]) Assessment & Plan Assessment & Plan (1) Encounter for general adult medical examination with abnormal findings: Code(s): Z00.01 - Encounter for general adult medical examination with abnormal findings Category: Medical (2) Hoarseness of voice: Code(s): R49.0 - Dysphonia Category: Medical (3) Asthma, moderate persistent: Code(s): J45.40 - Moderate persistent asthma, uncomplicated Category: Medical Qualifiers: Asthma complication type: uncomplicated Qualified Code(s): J45.40 - Moderate persistent asthma, uncomplicated (4) Hypothyroidism: Code(s): E03.9 - Hypothyroidism, unspecified Category: Medical Qualifiers: Hypothyroidism type: unspecified Qualified Code(s): E03.9 - Hypothyroidism, unspecified (5) Multiple food allergies: Comment: all fruit, avocado, seeded vegetables, carrots Code(s): Z91.018 - Allergy to other foods Category: Medical (6) Fibromyalgia: Code(s): M79.7 - Fibromyalgia Category: Medical (7) Migraine headache with aura: Code(s): G43.109 - Migraine with aura, not intractable, without status migrainosus Category: Medical Qualifiers: Intractability: intractable Status migrainosus presence: without status migrainosus Qualified Code(s): G43.119 - Migraine with aura, intractable, without status migrainosus (8) Allergic rhinitis: Code(s): J30.9 - Allergic rhinitis, unspecified Category: Medical Qualifiers: Allergic rhinitis seasonality: non-seasonal Allergic rhinitis trigger: pollen Qualified Code(s): J30.1 - Allergic rhinitis due to pollen Plan Physical exam appointment - The patient is a 39-year-old female presenting with voice alteration possibly secondary to inhaler use. - Reports voice alteration not fluctuating and lasting several months, predating the use of a steroid inhaler. - In the background of chronic conditions such as allergies leading to postnasal drip and gastroparesis. - Employs routine measures such as oral rinsing post-inhaler which have not alleviated symptoms. Health Maintenance: OBGYN visit up-to-date [place] [facility]: Neurology, intervention specialist, Gastroenterology, weight management Medications - Amitriptyline for migraine - Cyclobenzaprine for muscle spasms - Diltiazem prescribed by copy room technician - Famotidine prescribed by copy room technician - Fluticasone inhaler for allergic rhinitis - Ipratropium nasal spray from medical coding specialist - Metoclopramide for gastroparesis - Montelukast for allergies - Pantoprazole prescribed by copy room technician - Phentermine for weight management - Propranolol for headache prevention - Synthroid 125 mcg for hypothyroidism, through PCP office - Valacyclovir for cold sores, to be taken as needed - Topiramate for headache management Patient Instructions - Rinse and maintain oral hygiene after using inhaler. - Take Valacyclovir as prescribed at the onset of cold sore symptoms. - Continue current allergy and reflux management strategies. - Schedule a follow-up appointment for labs. Orders: Orders Comprehensive [place]. Panel Fast Today E03.9 - Hypothyroidism, unspecified, G43.119 - Migraine with aura, intractable, without status migrainosus, J30.1 - Allergic rhinitis due to pollen, J45.40 - Moderate persistent asthma, uncomplicated, M79.7 - Fibromyalgia, Z00.01 - Encounter for general adult medical examination with abnormal findings, Z91.018 - Allergy to other foods Vitamin D 25-OH (D2 and D3) Today E03.9 - Hypothyroidism, unspecified, G43.119 - Migraine with aura, intractable, without status migrainosus, J30.1 - Allergic rhinitis due to pollen, J45.40 - Moderate persistent asthma, uncomplicated, M79.7 - Fibromyalgia, Z00.01 - Encounter for general adult medical examination with abnormal findings, Z91.018 - Allergy to other foods TSH reflex Free T4 Today E03.9 - Hypothyroidism, unspecified, G43.119 - Migraine with aura, intractable, without status migrainosus, J30.1 - Allergic rhinitis due to pollen, J45.40 - Moderate persistent asthma, uncomplicated, M79.7 - Fibromyalgia, Z00.01 - Encounter for general adult medical examination with abnormal findings, Z91.018 - Allergy to other foods Complete Blood Count Auto Diff Today E03.9 - Hypothyroidism, unspecified, G43.119 - Migraine with aura, intractable, without status migrainosus, J30.1 - Allergic rhinitis due to pollen, J45.40 - Moderate persistent asthma, uncomplicated, M79.7 - Fibromyalgia, Z00.01 - Encounter for general adult medical examination with abnormal findings, Z91.018 - Allergy to other foods Lipid Panel Today E03.9 - Hypothyroidism, unspecified, G43.119 - Migraine with aura, intractable, without status migrainosus, J30.1 - Allergic rhinitis due to pollen, J45.40 - Moderate persistent asthma, uncomplicated, M79.7 - Fibromyalgia, Z00.01 - Encounter for general adult medical examination with abnormal findings, Z91.018 - Allergy to other foods Medications: New valacyclovir takes PRN 1,000 mg PO BID PRN 10 tabs 0RF cold sores
== END ==
PROVIDERS: PCP Internal Medicine; Visit Provider Internal Medicine
DX: Z00.00 Encounter for general adult medical examination without abnormal findings (principal); R49.0 Dysphonia; J45.40 Moderate persistent asthma, uncomplicated; E03.9 Hypothyroidism, unspecified; Z91.018 Allergy to other foods; M79.7 Fibromyalgia; G43.119 Migraine with aura, intractable, without status migrainosus; J30.1 Allergic rhinitis due to pollen

== ENCOUNTER → 2024-03-24 15:21 | Outpatient (BNVA) | payer MEDICARE, MEDICAID, SELFPAY | PROVIDERS: PCP Internal Medicine; Visit Provider Internal Medicine | DX: Z00.01 Encounter for general adult medical examination with abnormal findings (principal); R49.0 Dysphonia; J45.40 Moderate persistent asthma, uncomplicated; E03.9 Hypothyroidism, unspecified; M79.7 Fibromyalgia; G43.119 Migraine with aura, intractable, without status migrainosus; J30.1 Allergic rhinitis due to pollen; Z91.018 Allergy to other foods | CPT/HCPCS: 96127; 99212; 99395 ==

== ENCOUNTER 2024-03-27 08:05 | Outpatient (REF) | payer MEDICARE, MEDICAID, SELFPAY ==
[2024-03-27 08:21] LABS: MANUAL DIFF FLAG NO
[2024-03-27 08:59] LABS: Basophils Percent Auto 0.7 % (0-2); Eosinophils Absolute Auto 0.2 X10*3/uL (0.0-0.4); Eosinophils Percent Auto 5.3 % (0-4); Hematocrit 34.3 % (37.0-47.0); Imm Gran Abs Auto 0.02 X10*3/uL (0.00-0.03); Imm Gran Pct Auto 0.4 % (0.0-0.4); Lymphocytes Absolute Auto 1.4 X10*3/uL (1.2-4.9); Lymphocytes Percent Auto 31.1 % (20-40); Mean Corpuscular HGB Conc 32.1 g/dl (31.0-35.0); Mean Corpuscular Hemoglobin 30.6 pg (27.0-33.0); Mean Corpuscular Volume 95.5 fL (80.0-98.0); Mean Platelet Volume 11.7 fL (9.4-12.3); Monocytes Absolute Auto 0.3 X10*3/uL (0.1-1.2); Monocytes Percent Auto 7.3 % (2-11); Neutrophils Absolute Auto 2.5 x10*3/uL (2.0-8.3); Neutrophils Percent Auto 55.2 % (45-73); Platelet Count 156 X10*3/uL (160-400); Red Blood Count 3.59 X10*6/uL (4.20-5.50); Red Cell Distribution Width 12.9 % (11.0-16.0); White Blood Count 4.5 X10*3/uL (4.8-10.8)
[2024-03-27 09:26] LABS: Alanine Aminotransferase 12 U/L (0-31); Albumin Level 4.1 g/dL (3.5-5.0); Alkaline Phosphatase 74 U/L (39-117); Anion Gap 7 (12-20); Aspartate Amino Transferase 18 U/L (5-31); Bilirubin Total 0.4 mg/dL (0.0-1.0); Blood Urea Nitrogen 9 mg/dL (9-16); Calcium 9.1 mg/dL (8.4-10.2); Carbon Dioxide 25 mmol/L (22-29); Chloride 112 mmol/L (96-108); Cholesterol 145 mg/dL (<200); Estimated Glomerular Filt Rate > 60; Glucose Fasting 93 mg/dL (60-99); HDL Cholesterol 51 mg/dL (>40); LDL Cholesterol Calculated 79 mg/dL (<100); Potassium 3.9 mmol/L (3.3-5.1); Sodium 140 mmol/L (135-145); Total Protein 6.9 g/dL (6.5-8.0); Triglycerides 75 mg/dL (<150)
[2024-03-27 09:51] LABS: TSH reflex Free T4 0.08 uIU/mL (0.32-4.0)
[2024-03-27 10:30] LABS: Free T4 (Free Thyroxine) 1.17 ng/dL (0.71-1.85)
[2024-03-31 18:08] LABS: Vitamin D 25-OH, D2 <4 ng/mL; Vitamin D 25-OH, D3 21 ng/mL; Vitamin D 25-OH, Total 21 ng/mL (30-100)
== END 2024-03-27 08:06 | disposition home or self-care (01) ==
LOC: HO.LAB 08:05
PROVIDERS: PCP Internal Medicine; Visit Provider Internal Medicine
DX: Z00.01 Encounter for general adult medical examination with abnormal findings (principal); J45.40 Moderate persistent asthma, uncomplicated; E03.9 Hypothyroidism, unspecified; Z91.018 Allergy to other foods; M79.7 Fibromyalgia; G43.119 Migraine with aura, intractable, without status migrainosus; J30.1 Allergic rhinitis due to pollen
CPT/HCPCS: 36415; 80053; 80061; 82306; 84439; 84443; 85025

== ENCOUNTER 2024-04-25 09:56 | Outpatient (AMB) | payer MEDICARE, MEDICAID, SELFPAY ==
--- NOTE | 2024-04-25 09:59 | MHC.OFFVIS ---
Vital Signs 04/25/24 10:02 Height 5 ft 11.93 in Weight 227 lb 15.327 oz BMI 31.0 BP 100/78 Blood Pressure Location Rt brachial Position Sitting Pulse 65 Pulse Source Pulse Oximeter Pulse Oximetry (%) 99 Oxygen Delivery Method Room Air Intake Visit Reasons: Hypothyroidism Intake Note: Patient present today for Hypothyroidism office visit. Manager Cosmetics Required: No Accompanied by: Self / Same As Patient Allergies oxycodone Allergy (Intermediate, Verified 04/25/24 10:03) itching adhesive tape Allergy (Mild, Verified 04/25/24 10:03) RASH ketorolac [From TORADOL] Allergy (Mild, Verified 04/25/24 10:03) HIVES latex [LATEX] Allergy (Mild, Verified 04/25/24 10:03) RASH fruit with skin Allergy (Intermediate, Uncoded 03/24/24 15:36) Hives Medication List - Last Reconciled 04/25/24 by Nelly Melvin MD acetaminophen-codeine 300-30 mg 1 tab PO BID PRN amitriptyline 50 mg PO BEDTIME azelastine 1 spray intranasal DAILY cyclobenzaprine 5 mg PO BEDTIME PRN cyclosporine 0.05% (Restasis) drps ophthalmic (eye) diltiazem HCl CD 120 mg PO DAILY epinephrine 0.3 mg IM ONCE PRN famotidine 40 mg PO DAILY udrdldppdva-lgvjfkvjd-ycluooic 100-62.5-25 mcg (Trelegy Ellipta) 1 inh inhalation DAILY galcanezumab-gnlm (Emgality Pen) mg subcut Q4W ipratropium bromide 2 sprays intranasal BID 90 days levalbuterol HCl 1.25 mg (3 mL) inhalation Q4-6H PRN levalbuterol tartrate 45 mcg/actuation 1 puff inhalation Q4-6H PRN levonorgestrel (Mirena) intrauterine metoclopramide HCl (Reglan) 10 mg PO QID montelukast (Singulair) 10 mg PO BEDTIME pantoprazole 40 mg PO BID phentermine 30 mg PO QAM propranolol 40 mg PO BID sucralfate (Carafate) 1 g PO QNOON Synthroid (levothyroxine) 100 mcg PO DAILY NS topiramate (Topamax) 100 mg PO BID valacyclovir 1,000 mg PO BID PRN HPI Comments Details: 38 YO Female with a PMHx of hypothyroidism who is seen in F/U. HPI from previous visit Patient developed hyperthyroidism shortly after delivery of her daughter 18 years ago. This then progressed to hypothyroidism, and it was thought she developed thyroiditis which then progressed. 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 In late May 2022 labs were checked routinely and this revealed hypothyroidism with TSH of 12. Labs were repeated 1 week later, and TSH had declined to 5. Labs were repeated 1-2 weeks later and were WNL with TSH of 2.84. She remained on Synthroid 125 mcg QD She also reports hoarseness of voice. CT of the neck 2022 revealed a small thyroid. She also had an ultrasound of the thyroid in July 2022 which revealed a heterogenous gland with the increased vascularity with no discrete nodules. Thyroid antibodies were assessed, with elevated TPO and TSI antibodies in 2022. Mom has a history of Grave's disease, but otherwise no other family members with thyroid disease. Interval history 04/25/24 Most recent labs from March 2024 showed TSH low at 0.08, free T4 normal at 1.17. She was on Synthroid 125 mcg daily prior to these labs with appropriate administration in adherence. Dose reduced to 100 mcg daily on 03/31/24. Feels intermittent flutters chronically not new. Reports tiredness that is worse. Sleeping better but wakes up more tired. No tremors. Feels more depressed. Reports hair loss and dry skin. Wt loss of 20 lbs in 5 months or so with Phentermine. Says she has dry eyes chronicaly has punctal plugs in and is on eye drops. Gets some intermittent blurry vision. Reports voice hoarsess for the past 3-4 months. Says it lasts all day now ,worsening. Reports acid reflux on PPI. Reports difficulty swallowing. with both solids and liquids, reports intermittent pain. has GERD, follows with GI. Has regurgitation of food. This is all within the past year. 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 LMP: IUD doesnt get periods 2 pregancies , no misscarrigaes Patient denies any history of childhood neck radiation. Denies having ever used lithium, amiodarone or biotin supplements. Physical exam General: sitting comfortably in no acute distress HEENT: normocephalic/atraumatic, Neck: supple, symmetrical, no thyromegaly , Cardiac: normal heart sounds Pulm: normal breath sounds B/L, no added breath sounds Abd: not distended, no tenderness Extremities: no edema, no signs of myxedema, no tremor Neuro: AAO x3, Speech: normal, no facial droop, moving all 4 extremities US THYROID 07/14/22 CLINICAL INFORMATION: Hypothyroidism, unspecified. COMPARISON: None available. TECHNIQUE: Linear transducer grayscale and color Doppler examination with attention to the region of the thyroid. FINDINGS: SIZE: Measurements of the thyroid lobes and nodules are given in sagittal, anteroposterior and transverse dimensions respectively. Right Thyroid Lobe: 2.5 x 0.7 x 0.8 cm, volume 0.7 mL. Parenchyma: The gland echotexture is heterogeneous. Thyroid vascularity is increased. Left Thyroid Lobe: 4.0 x 1.0 x 1.0 cm, volume 2.1 mL. Parenchyma: The gland echotexture is heterogeneous. Thyroid vascularity is increased. Isthmus: 0.2 cm in maximum AP dimension. No focal thyroid nodule is seen. NODES: No lymphadenopathy is seen in the tissue surrounding the thyroid gland. US/US thyroid IMPRESSION: Heterogeneous hypervascular thyroid compatible with thyroiditis. CT Neck: 07/14/2022 FINDINGS: The thyroid gland is small. Note nodule is appreciated. There is diffuse shotty cervical lymphadenopathy. No enlarged cervical lymph nodes. There is mild soft tissue opacification of the sphenoid sinus. There is minimal soft tissue opacification of the left frontal and bilateral ethmoid sinuses. The maxillary sinuses, mastoid air cells and middle ear are clear. Visualized intracranial structures are normal. The visualized orbits are normal. The temporomandibular joints are normal. The naso, parker-and hypopharynx and larynx are normal. The salivary glands are normal. The superior mediastinum is normal. Visualized lung apices are clear. Bony structures are normal. CT/CT soft tissue neck wo IV con IMPRESSION: Small thyroid gland. No thyroid nodule appreciated by CT. Diffuse shotty cervical lymphadenopathy. Mild sinus disease, greatest in the sphenoid sinus. Labs: Laboratory Tests 06/25/22 09/17/22 13:53 07:34 TSH 5.35 H Free T4 0.89 Thyroid Stim Immunoglob 160 H Thyroglobulin Antibody 1 Thyroid Peroxidase Ab 470 H TSH Receptor Ab 1.06 Laboratory Tests 06/25/22 06/17/23 09/13/23 13:53 09:19 10:07 TSH 2.98 1.12 Free T4 1.02 Thyroid Stim Immunoglob 160 H Thyroglobulin Antibody 1 Thyroid Peroxidase Ab 470 H TSH Receptor Ab 1.06 03/27/24 08:19 TSH 0.08 L Free T4 1.17 Thyroid Stim Immunoglob Thyroglobulin Antibody Thyroid Peroxidase Ab TSH Receptor Ab [facility] Medical History Encounter for general adult medical examination with abnormal findings Foot pain, bilateral Abnormal EKG Labral tear of right hip joint Abnormal weight gain Odynophagia Pleuritic pain Environmental allergies Abdominal cramping History of irregular menstrual cycles Sinusitis Esophageal spasm Acetabular labrum tear Herpes labialis Dry eyes Yeast infection of the vagina Amenorrhea Metrorrhagia Bloating Epigastric discomfort Shortness of breath Pre-op examination Contusion of chest Exercise-induced asthma Pain of left thumb Rib pain on right side Bilateral otitis media with effusion Left shoulder strain Cellulitis Acute lumbar back pain Right shoulder pain Arthrosis Right knee pain Complex cyst of left ovary Chronic GERD Encounter for IUD insertion Nausea Upper respiratory infection Leg pain, right Nausea Other specified hypothyroidism Otitis media Right hip pain Chest wall pain Lightheaded Acute sinusitis Goiter Elevated TSH Medicare annual wellness visit, subsequent Constipation Ill feeling Epigastric pain Constipation Cervical cancer screening Well woman exam with routine gynecological exam Medicare annual wellness visit, initial Abnormal thyroid stimulating hormone (TSH) level Patella francisco j Knee pain Neck pain Chest pain Migraines Eczema Fibromyalgia Heart murmur Asthma Hypothyroidism Surgical History History of hip surgery H/O shoulder surgery [place] teeth removed History of appendectomy Family History Mother Graves disease Hypothyroidism Father CHF (congestive heart failure) Other Substance use disorder Social History Housing: Apartment Alcohol intake: never Patient Tobacco Use Status: Never used Tobacco e-Cigarette/Vaping Use: Never Used Second Hand Smoke Exposure: Yes (as a child only) service: No Current occupational status: disabled Sexual orientation: Straight/Heterosexual Gender identity: Female Cognitive needs: No Hearing needs: No Vision needs: Yes Female Reproductive History Menstrual Age of Menarche: 15 Physical Exam Vital Signs: Last Vital Signs Pulse 65 04/25/24 10:02 BP 100/78 04/25/24 10:02 Pulse Ox 99 04/25/24 10:02 Oxygen Delivery Method Room Air 04/25/24 10:02 BMI result Body Mass Index 31.0 Assessment & Plan Assessment & Plan (1) Hypothyroidism: Code(s): E03.9 - Hypothyroidism, unspecified Category: Medical Qualifiers: Hypothyroidism type: unspecified Qualified Code(s): E03.9 - Hypothyroidism, unspecified Plan: 39-year-old who has a history of hypothyroidism on Synthroid 100 mcg daily after he had blood work done in March 2024 which showed low TSH with normal free T4. She was prior to this 125 mcg of Synthroid. She has lost about 8% body weight due to being on weight loss medication phentermine. Requirement for dose reduction could be due to the weight loss. However interestingly also noted she had both positive TSI and TPO antibodies back in 2022. I will recheck these again, however it is important to keep the possibility in mind that some people rarely switch between hypothyroidism and I am hyperthyroidism of the have both antibodies with autoimmune thyroid disease. I will also check her T3 levels to see if those are elevated. At this point she has been on Synthroid 100 mcg daily for about 3-1/2 weeks, she would meet the 6 week mega end of April 2024 so I have asked her to repeat her labs at that time. She is also having compressive symptoms which she says have worsened over the past year, she does have asthma, as well as uncontrolled GERD/acid reflux for which she follows with GI which could be responsible for some of her dysphagia/voice hoarseness. Back in 2022 when she had a thyroid ultrasound it did show a heterogenous gland with the increased vascularity with no discrete nodules, however given these compressive symptoms I will also repeat a thyroid ultrasound. Plan: -continue Synthroid 100 mcg daily -do blood work with TSH, free T4, total T3, TSI and TPO antibody levels end of April 2024, we will reach out with the results over the portal -do thyroid ultrasound -follow up in 6 weeks to discuss results Plan I spent 30 minutes in reviewing the record, seeing the patient and documenting in the medical record. Orders: Orders Triiodothyronine T3 Total 05/12/24 E03.9 - Hypothyroidism, unspecified, E04.9 - Nontoxic goiter, unspecified Free T4 (Free Thyroxine) 05/12/24 E03.9 - Hypothyroidism, unspecified, E04.9 - Nontoxic goiter, unspecified Thyroid Peroxidase Antibodies 05/12/24 E03.9 - Hypothyroidism, unspecified, E04.9 - Nontoxic goiter, unspecified Thyroid Stimulating Immunoglob 05/12/24 E03.9 - Hypothyroidism, unspecified, E04.9 - Nontoxic goiter, unspecified Thyroid Stimulating Hormone 05/12/24 E03.9 - Hypothyroidism, unspecified, E04.9 - Nontoxic goiter, unspecified US thyroid Today E03.9 - Hypothyroidism, unspecified, E04.9 - Nontoxic goiter, unspecified Patient Instructions: Do labs end of Apr 2024 Do us thyroid , someone will call you to schedule this Follow up in 6 weeks Continue Synthroid 100 mcg daily Coding Level of Care Code Est Pt Level 4 (91400) Diagnoses Hypothyroidism, unspecified type E03.9 Hypothyroidism type: unspecified Time Spent (min) 30
[2024-04-25 10:02] VITALS: BP 100/78; PULSE 65; O2SAT 99; BMI 31.0
== END 2024-04-25 10:34 | disposition home or self-care (01) ==
PROVIDERS: PCP Internal Medicine; Visit Provider Student in an Organized Health Care Education/Training Program
DX: E03.9 Hypothyroidism, unspecified (principal)
CPT/HCPCS: 99214

== ENCOUNTER → 2024-04-25 09:56 | Outpatient (BNVA) | payer MEDICARE, MEDICAID, SELFPAY | PROVIDERS: PCP Internal Medicine; Visit Provider Student in an Organized Health Care Education/Training Program | DX: E03.9 Hypothyroidism, unspecified (principal) | CPT/HCPCS: 99212 ==

== ENCOUNTER 2024-05-10 14:18 | Outpatient (REF) | payer MEDICARE, MEDICAID, SELFPAY ==
--- NOTE | ~2024-05-10 | US_ITS ---
EXAMINATION: US THYROID HISTORY: E04.9 - Nontoxic goiter, unspecified TECHNIQUE: Real-time grayscale ultrasound imaging was performed and images were reviewed. COMPARISON: Comparison is made with the prior examination dated 07/14/2022. FINDINGS: SIZE: The right thyroid lobe measures 2.2 x 0.7 x 0.6 cm. The left thyroid lobe measures 4.8 x 1.0 x 1.5 cm. The isthmus measures 2 mm. FLOW: Flow to the gland is increased. ECHOGENICITY: The echotexture of the gland is heterogeneous. NODULES: No discrete nodules are identified. US/US thyroid IMPRESSION: Heterogeneous, hypervascular thyroid gland without evidence of focal nodules. ACR TI-RADS Guidelines TR1: Benign, No follow-up or biopsy required TR2: Not Suspicious, No biopsy indicated TR3: Mildly Suspicious, FNA if >= 2.5 cm, Follow if >= 1.5 cm TR4: Moderately Suspicious, FNA if >= 1.5 cm, Follow if >= 1.0 cm TR5: Highly Suspicious, FNA if >= 1.0 cm, Follow if >= 0.5 cm Electronically signed by: Oswald Song MD 05/10/2024 03:16 PM [facility]
--- OUTSIDE RECORDS SUMMARY | 2024-05-10 17:43 | XMS_ITS | Data Portability ---
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 Lab None recorded. Referral None recorded. Procedures None recorded. Surgeries None recorded. Imaging None recorded. Medication Orders budesonide 0.5 mg/2 mL suspension for nebulizatio n 2023 024 [id number], [address] [facility], [place], [address], 4 12:10:20 Patient TargetsNo targets recorded. Patient InstructionsNo instructions recorded. Reason for Referral None Reported. Problems Name Problem SNOMED Code Status Onset Date Resolution Date Notes Provider Name and Address Organization Details Recorded Time Bilateral temporoma ndibular joint pain 66945406285 875781 Active 2020 Arthralgi a of bilateral temporoma ndibular joint; Note: Date Diagnosed : 08/19/2020 10:57 AM (M26.623) Not Available [facility] 4 02:15:14 Allergic rhinitis 34291571 Active 2022 Allergic rhinitis: Due to other allergen; Note: Date Diagnosed : 3 9:37 AM (477.8) Allergi c rhinitis: Due to other allergen; Note: Date Diagnosed : 3 9:53 AM (477.8) ; Start Date : 3 Allergi c rhinitis: Due to other allergen; Note: Date Diagnosed : 01/21/2023 10:11 AM (477.8) ; Start Date : 3 Allergi c rhinitis: Due to other allergen; Note: Date Diagnosed : 01/14/2023 10:29 AM (477.8) ; Start Date : 3 Allergi c rhinitis: Due to other allergen; Note: Date Diagnosed : 3 9:50 AM (477.8) ; Start Date : 3 Allergi c rhinitis: Due to other allergen; Note: Date Diagnosed : 3 10:37 AM (477.8) ; Start Date : [...] to other allergen; Note: Date Not Available [facility] 4 02:16:00 Posterior rhinorrhe a 58636692 Active 2022 Postnasal drip; Note: Date Diagnosed : 11/09/2022 1:01 PM (R09.82) Not Available [facility] 4 02:15:19 Seasonal allergic rhinitis 107231638 Active 2020 Other seasonal allergic rhinitis; Note: Date Diagnosed : 08/19/2020 10:57 AM (J30.2) Not Available [facility] 4 02:15:54 Uncomplic ated mild persisten t asthma 935587777 Active 2022 Mild persisten t asthma, uncomplic ated; Note: Date Diagnosed : 04/24/2022 3:16 PM (J45.30) Not Available [facility] 4 02:15:40 Bilateral disorder of Eustachia n tubes 39062145550 20608 Active 2020 Other specified disorders of Eustachia n tube, bilateral ; Note: Date Diagnosed : 08/19/2020 10:27 AM (H69.83) Not Available [facility] 4 02:15:31 Migraine without aura, not refractor y 620525638 Active 2023 Migraine without aura, not intractab le, without status migrainos us; Note: Date Diagnosed : 04/30/2023 1:35 PM (G43.009) Not Available [facility] 4 02:15:48 Dysphonia 83243965 Active 2023 Hoarsenes s; Note: Date Diagnosed : 04/30/2023 1:35 PM (R49.0) Not Available [facility] 4 02:16:04 Problem Notes None recorded. Medical Equipment None Reported. Allergies Allergen ID Allergen Name Allergen Category Reaction Reaction Severity Criticality Documentation Date Start Date Code Code System Note Provider Name and Address Organization Details Recorded Time 96518 citrus flavor food other Not available Not available 07/27/2023 86052 UNK React ion: other react ion, Unkno wn; Not Available [facility] 4 00:53:39 78557 adhesive tape environme nt,medica tion other Not available Not available 07/27/2023 96386 UNK React ion: other react ion, Unkno wn; Not Available [facility] 4 00:53:42 35052 Toradol medicatio n other Not available Not available 07/27/2023 67325 RxNorm React ion: other react ion, Unkno wn; Not Available [facility] 4 00:53:46 24120 banana extract food,medi cation other Not available Not available 07/27/2023 26387 9 RxNorm React ion: other react ion, Unkno wn; Not Available [facility] 4 00:53:46 Medications Name Sig [...] mcg tablet 12/19 completed Medicati on ID: [id number] B rand Name: Synthroi d Send Method: [...] 2 spray 2021 active Medicati on ID: [id number] D uration Value: 30 Brand Name: azelasti [...] spray,cynthia pension 2020 active Medicati on ID: [id number] B rand Name: fluticas one propiona te [...] aerosol inhaler 12/19 completed Medicati on ID: [id number] B rand Name: Symbicor t Send Method: E-Prescr ibed Sub s Allowed: subs [facility] Symb[facility] t Not Available Not [...] pen injector 2021 active Medicati on ID: [id number] D uration Value: 1 Prescri bed By [...] Updated DateTime 12/20/2023 180.34 cm 34.2 kg/m2 785347.93 g Cheryl Ann [place] - [facility] 12/20/2023 11:43:25 Social History None recorded. [...] Diagnosis Note KEYSHA CAPPS MD [facility] [address] [id number] 12/20/2023 11:12:43 12/20/2023 12:13:17 Posterior rhinorrhea [id number] R09.82 Uncomplica twila mild persistent asthma 320277967 J45.30 Health Concerns Section Related Observation LastModified by Organization Detai ls LastModified Time None Recorded Concern Status LastModified by Organization Details LastModified Time None Recorded Advance Directives Directive None Recorded Payers Encounter Date Sequence Insurance Name Policy Number Policy Stafford Covered Member ID Stafford Member ID Guarantor Name 12/20/2023 1 [place]IC[place] B[place]: [employer] Kayla Ortega [id number] Kayla Ortega 12/20/2023 2 [place]la Ortega [id number] Kayla Ortega Notes Date Note Type Note Provider Name and Address Organization Details Recorded Time 12/20/2023 text/html On singulair and [place]. Nasal spray x 2. Some sinus congestion. Just finished prednisone course. 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 PV: 38-year-old female presents today for follow-up [...] the images from her CT scan from [place] in July 2022 and the sinus thickening was very mild. KEYSHA CAPPS MD [address] [place] [address], [place], [phone], [facility] - [facility] 12/20/2023 18:25:26 OBGyn Episode No OBEpisode recorded.
--- OUTSIDE RECORDS SUMMARY | 2024-05-10 17:43 | XMS_ITS | Clinical Summary ---
Author Organization 175 [facility] Address [address] [place] [address] Phone Care Team Providers Care Human Resource Analyst Name Role Phone Karen Broussard MD Primary Care Provider [phone] Allergies No known active allergies Medications acetaminophen- codeine (TYLENOL #3) 300-30 mg per tablet TAKE 2 TABLETS BY MOUTH NEEDED FOR HEADACHE FOR 30 DAYS 02/11/20 24 Active Ventolin HFA 90 mcg/actuation inhaler INHALE 1 PUFF BY MOUTH 4 TIMES A DAY NEEDED FOR SHORTNESS OF BREATH OR WHEEZING FOR 30 DAYS 06/21/19 24 Active amitriptyline (ELAVIL) 50 mg tablet Take 1 tablet (50 mg total) by mouth at bedtime. 12/14/19 24 Active budesonide (PULMICORT) 0.5 mg/2 mL nebulizer solution USE ONE VIAL IN NASAL IRRIGATION DAILY 12/25/19 24 Active cyclobenzaprin e (FLEXERIL) 10 mg tablet take 1 tablet by mouth every day at bedtime as needed for 30 days 02/16/20 24 Active Restasis 0.05 % ophthalmic emulsion PLACE 1 DROP INTO EACH EYE TWICE A DAY CONTINUOUSLY 01/11/20 24 Active dilTIAZem CD (CARDIZEM CD) 120 mg 24 hr capsule 02/21/20 24 Active EPINEPHrine (EPIPEN) 0.3 mg/0.3 mL injection NEEDED 01/25/20 24 Active famotidine (PEPCID) 40 mg tablet Take 1 tablet (40 mg total) by mouth. at bedtime. 10/22/19 24 Active Trelegy Ellipta 200-62.5-25 mcg inhaler 02/22/20 24 Active Emgality Pen 120 mg/mL injection pen DIRECTED SUBCUTANEOUS MONTHLY 90 DAYS 12/24/19 24 Active ipratropium (ATROVENT) 21 mcg (0.03 %) nasal spray TAKE 2 SPRAY INTRANASALLY 2 TIMES A DAY 02/02/20 24 Active levalbuterol (XOPENEX) 1.25 mg/3 mL nebulizer solution INHALE 1 PACKET BY MOUTH EVERY 4 TO 6 HOURS NEEDED FOR SHORTNESS OF BREATH OR WHEEZING 02/25/20 23 Active levalbuterol (XOPENEX HFA) 45 mcg/actuation inhaler 02/22/20 24 Active Synthroid 125 mcg tablet Take 1 tablet (125 mcg total) by mouth 1 (one) time each day. 02/03/20 24 Active loratadine (CLARITIN) 10 mg tablet Take 1 tablet (10 mg total) by mouth 1 (one) time each day. 01/25/20 24 Active metoclopramide (REGLAN) 10 mg tablet 02/20/20 24 Active montelukast (SINGULAIR) 10 mg tablet Take 1 tablet (10 mg total) by mouth at bedtime. 12/15/19 24 Active ondansetron (ZOFRAN) 8 mg tablet Take 1 tablet (8 mg total) by mouth. 01/22/20 Active pantoprazole (PROTONIX) 40 mg EC tablet TAKE 1 TABLET ORALLY 2 TIMES A DAY FOR 30 DAYS 10/31/19 24 Active propranoloL (INDERAL) 40 mg tablet Take 1 tablet (40 mg total) by mouth 2 (two) times a day. 02/14/20 24 Active topiramate (TOPAMAX) 100 mg tablet Take 1 tablet (100 mg total) by mouth 2 (two) times a day. for 90 days 12/14/19 24 Active phentermine 30 mg capsule TAKE 1 CAPSULE BY MOUTH EVERY DAY BEFORE BREAKFAST 30 capsule 05/03/19 25 Active phentermine 30 mg capsule TAKE 1 CAPSULE (30 MG TOTAL) BY MOUTH ONCE DAILY BEFORE BREAKFAST MAX DAILY AMOUNT: 30 MG 30 capsule 03/27/19 25 025 Discontinued Active Problems Problem Noted Date Diagnosed Date Class 1 obesity with body ma ss index (BMI) of 31.0 to 31.9 in adult 01/15/2024 Asthma 10/18/2023 GERD (gastroesophageal reflux disease) 4 Hypothyroidism 10/18/2023 Encounters Date Type Department Care Team Description 05/04/2024 9:00 AM EST Nutrition Bariatric Surgery - [address] [phone] Class 1 obesity with body mass index (BMI) of 31.0 to 31.9 in adult, unspecified obesity type, unspecified whether serious comorbidity present (Primary Dx) 02/23/2024 11:00 AM EST Office Visit Bariatric Surgery [address] [phone] Brianna Umanzor PA Class 1 obesity due to excess calories without serious comorbidity with body mass index (BMI) of 33.0 to 33.9 in adult (Primary Dx) 02/22/2024 1:00 PM EST Nutrition Bariatric Surgery [address] [phone] Class 1 obesity with body mass index (BMI) of 33.0 to 33.9 in adult, unspecified obesity type, unspecified whether serious comorbidity present (Primary Dx) from Last 3 Months Social History Tobacco Use Types Packs/Day Years Used Date Smoking Tobacco: Never Assessed Comments Unknown Sex and Gender Information Value Date Recorded Sex Assigned at Not on file Legal Sex Female 11:41 AM EDT Gender Identity Not on file Sexual Orientation Not on file Last Filed Vital Signs Vital Sign Reading Time Taken Comments Blood Pressure 114/74 02/23/2024 11:01 AM EST Pulse 69 02/23/2024 11:01 AM EST Temperature - - Respiratory Rate - - Oxygen Saturation - - Inhaled Oxygen Concentration - - Weight 103 kg (228 lb) 05/04/2024 9:00 AM EST Height 180.3 cm (5' 11 ) 02/23/2024 11:01 AM EST Body Mass Index 31.8 02/23/2024 11:01 AM EST Plan of Treatment Upcoming Encounters Date Type Department Care Team (Late st Contact Info) Description 06/07/2024 10:00 AM EDT Office Visit Bariatric Surgery [address] [place] [phone] Brianna Umanzor PA 271 [facility] [address] [place] [address] Health Maintenance Due Date Last Done Comments Hepatitis B Vaccines (1 of 3 - 19+ 3-dose series) 2005 Cervical Cancer Screening: P ap Smear 2007 Pneumococcal Vaccine: Pediat rics (0 to 5 Years) and At-Risk Patients (6 to 64 Years) (2 of 2 - PCV) 01/18/2015 01/18/2014 COVID-19 Vaccine (2023-2 5 season) 2023 Influenza Vaccine (#1) 2023 01/17/2014 Cholesterol Screening (Lipid Panel) 12/27/2023 Depression Screening 12/27/2023 HIV Screening 12/27/2023 Hepatitis C Screening 12/27/2023 Medicare Annual Wellness Visit 12/27/2023 Social Influencers of Health Screening 12/27/2023 DTaP,Tdap,and Td Vaccines (2 - Tdap) 01/18/2024 01/17/2014 MMR Vaccines Aged Out 01/18/2014 No longer eligi ble based on patient's age to complete this topic HIB Vaccines Aged Out No longer eligi ble based on patient's age to complete this topic HPV Vaccines Aged Out No longer eligi ble based on patient's age to complete this topic Hepatitis A Vaccines Aged Out No long er eligible based on patient's age to complete this topic IPV Vaccines Aged Out No longer eligi ble based on patient's age to complete this topic Meningococcal ACWY Vaccine Aged Out N o longer eligible based on patient's age to complete this topic Meningococcal B Vacine Aged Out No lo nger eligible based on patient's age to complete this topic RSV Immunization Patients Un jerald 20 months Aged Out No longer eligible b ased on patient's age to complete this topic Varicella Vaccines Aged Out No longer eligible based on patient's age to complete this topic Insurance MEDICARE MEDICAID - [place] Care Teams Human Resource Analyst Relationship Specialty Start Date End Date Karen Broussard MD [address] [place] [phone] PCP - General 09/03/23
--- OUTSIDE RECORDS SUMMARY | 2024-05-10 17:43 | XMS_ITS | Encounter Summary ---
Author Organization [facility] Address [address] [place] [address] Care Team Providers Care Heating And Ventilating Worker Name Role Phone Karen Broussard MD Primary Care Provider [phone] Reason for Visit * Reason Comments Obesity Encounter Details Date Type Department Care Team (Late st Contact Info) Description 05/04/2024 9:00 AM EST Nutrition Bariatric Surgery - [place] [address] [facility] [address] [place] [phone] Jyoti Acevedo RD [address] [facility] [address] [phone] Class 1 obesity with body mass index (BMI) of 31.0 to 31.9 in adult, unspecified obesity type, unspecified whether serious comorbidity present (Primary Dx) Social History Tobacco Use Types Packs/Day Years Used Date Smoking Tobacco: Never Assessed Comments Unknown Sex and Gender Information Value Date Recorded Sex Assigned at Not on file Legal Sex Female 11:41 AM EDT Gender Identity Not on file Sexual Orientation Not on file documented as of this encounter Last Filed Vital Signs Vital Sign Reading Time Taken Comments Blood Pressure - - Pulse - - Temperature - - Respiratory Rate - - Oxygen Saturation - - Inhaled Oxygen Concentration - - Weight 103 kg (228 lb) 05/04/2024 9:00 AM EST Height - - Body Mass Index 31.8 02/23/2024 11:01 AM EST documented in this encounter Progress Notes * Jyoti Acevedo RD - 05/04/2024 9:00 AM EST Patient-created Goals: Protein goal: 60-80g daily Continue to eat slowly and stop at the first sign of fullness Fluid goal: 64 ounces daily Wants to limit coffee intake Continue to reduce soda intake Idea: orgain protein powder (can use in coffee) Tracking: myfitness, baritastic Continue general multivitamin Aim to avoid eating a few hours before bed Sustain physical activity routine as able/strength training as able * Jyoti Acevedo RD - 05/04/2024 9:00 AM EST NUTRITION FOLLOW-UP NOTE: Patient Name: Kayla Ortega Date of : 1985 Date of Service: 05/04/2024 SURGEON: Dr. 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 female who presents for nutrition visit for weight loss mgt. This is their 3 visit. Ht Readings from Last 1 Encounters: 02/23/24 1.803 m (71 ) Wt Readings from Last 6 Encounters: 05/04/24 103 kg (228 lb) 02/23/24 108 kg (237 lb 3.2 oz) 02/22/24 108 kg (238 lb) 12/23/23 111 kg (245 lb) 12/13/23 112 kg (248 lb) 10/13/23 111 kg (244 lb) Body mass index is 31.8 kg/m??. Wt at initial: 244 Wt change since initial: -16 EBW = current - wt at BMI of 25: 228-180=48 Challenges: new thyroid medication- changed energy levels Changes since last visit: found yogurts she can eat- chobani lactose free yogurt- zero sugar, smaller portions with dinner, family support EATING HABITS/DIET RECALL: Breakfast: ethiopian yogurt with cheerios or protein waffles Lunch: ethiopian yogurt or low carb tortilla with cabot cheese with ham Snacks: ethiopian yogurt Dinner: rice meat veggie Snack: coffee or back to nature plant based cookie-1 Beverages: water 64 ounces daily, ice with soda, protein shake sometimes- shamrock MVI: barraza MVI gummies Exercise: low energy with new thyroid medication, at home workouts in the morning- cardio and strength training ALLERGIES: No Known Allergies Nutrition diagnosis: Class I obesity related to hx of skipped meals as evidenced by BMI of 31.8 Patient-created Goals: Protein goal: 60-80g daily Continue to eat slowly and stop at the first sign of fullness Fluid goal: 64 ounces daily Wants to limit coffee intake Continue to reduce soda intake Idea: orgain protein powder (can use in coffee) Tracking: myfitness, baritastic Continue general multivitamin Aim to avoid eating a few hours before bed Sustain physical activity routine as able/strength training as able Literature Provided: Pt centered goals and RD contact information Interventions: Discuss importance of eating at least 3 meals per day and the impact on metabolism, Discussed the need to have protein with each meal and snack, Discussed the importance of drinking enough water, Discussed the importance of multivitamin supplementation, and Discussed benefits of physical activity Nutrition assessment: Pt is 39 y.o. female with h/o has no past medical history on file. Class I obesity Stage of change/Barriers to understanding: Pt is open to RD suggestions no barriers to understanding Monitoring/Evaluation: monitor weight and monitor progress toward nutrition goals RD to see patient for follow-up nutrition visit in 2 months Visit Time: The total time of this visit was 30 minutes of which we spent 30 minutes (>50% of the time spent) in direct nonr-hk-qrym consultation for counseling, reviewing medical record and/or coordinating the plan as described above. Jyoti Acevedo RD NUTRITION SERVICES Cosigned by Alexus Galeas MD at 05/04/2024 3:53 PM EST documented in this encounter Plan of Treatment Upcoming Encounters Date Type Department Care Team (Late st Contact Info) Description 06/07/2024 10:00 AM EDT Office Visit Bariatric Surgery - [place] 175 [facility] 120 [place] [phone] Brianna Umanzor PA 271 [facility] [address] [place] [address] documented as of this encounter Visit Diagnoses Diagnosis Class 1 obesity with body mass index (BMI) of 31.0 to 31.9 in adult, unspecified obesity type, unspecified whether serious comorbidity present- Primary documented in this encounter Care Teams Heating And Ventilating Worker Relationship Specialty Start Date End Date Karen Broussard MD [address] [place] [phone] PCP - General 09/03/23 documented as of this encounter
== END 2024-05-10 14:19 | disposition home or self-care (01) ==
LOC: HO.US 14:18
PROVIDERS: PCP Internal Medicine; Visit Provider Student in an Organized Health Care Education/Training Program
DX: E04.9 Nontoxic goiter, unspecified (principal); E03.9 Hypothyroidism, unspecified
CPT/HCPCS: 76536

== ENCOUNTER → 2024-05-10 14:20 | Outpatient (BNV) | payer MEDICARE, MEDICAID, SELFPAY | PROVIDERS: PCP Internal Medicine; Visit Provider Radiology Diagnostic Radiology | DX: E07.89 Other specified disorders of thyroid (principal) | CPT/HCPCS: 76536 ==

== ENCOUNTER 2024-05-12 08:05 | Outpatient (REF) | payer MEDICARE, MEDICAID, SELFPAY ==
--- OUTSIDE RECORDS SUMMARY | 2024-05-12 08:16 | XMS_ITS | Encounter Summary ---
Author Organization [facility] Address [address] [place] [address] Care Team Providers Care Test Analyst Name Role Phone Karen Broussard MD Primary Care Provider [phone] Reason for Visit * Reason Comments Obesity Encounter Details Date Type Department Care Team (Late st Contact Info) Description 05/04/2024 9:00 AM EST Nutrition Bariatric Surgery - [place] [address] [facility] [address] [place] [phone] Jyoti Acevedo RD [address] [facility] [address] [phone] Class 1 obesity with body mass index [...] will start shots of food allergies 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 Jyoti Acevedo RD NUTRITION SERVICES Cosigned by Alexus Galeas MD at 05/04/2024 3:53 PM EST documented in this encounter Plan of Treatment Upcoming Encounters Date Type Department Care Team (Late st Contact Info) Description 06/07/2024 10:00 AM EDT Office Visit Bariatric Surgery - [place] 175 [facility] 120 [place] [phone] Brianna Umanzor PA 271 [facility] [address] [place] [address] documented as of this encounter Visit Diagnoses Diagnosis Class 1 obesity with body mass index (BMI) of 31.0 to 31.9 in adult, unspecified obesity type, unspecified whether serious comorbidity present- Primary documented in this encounter Care Teams Test Analyst Relationship Specialty Start Date End Date Karen Broussrad MD [address] [place] [phone] PCP - General 09/03/23 documented as of this encounter
--- OUTSIDE RECORDS SUMMARY | 2024-05-12 08:16 | XMS_ITS | Data Portability ---
Author Organization [place] - [facility], Allergy Address [address] [place] [phone] Care Team Providers Care Burrer Hand Name Role Phone SYLVAIN, KAYLAEra Primary Care Provider [phone] Assessment Encounter Date Assessment Date Assessment LastModified [...] mL suspension for nebulizatio n 2023 0[id number] [address] [facility], [place], [address], 4 12:10:20 Patient TargetsNo targets recorded. Patient InstructionsNo instructions recorded. Reason for Referral None Reported. Problems Name Problem SNOMED Code Status Onset Date Resolution Date Notes Provider Name and Address Organization Details Recorded Time Bilateral temporoma ndibular joint pain 11252544558 348992 Active 2020 Arthralgi a of bilateral temporoma ndibular joint; Note: Date Diagnosed : 08/19/2020 10:57 AM (M26.623) Not Available [facility] 4 02:15:14 Allergic rhinitis 84485089 Active 2022 Allergic rhinitis: Due to other [...] to other allergen; Note: Date Not Available [facility] 4 02:16:00 Posterior rhinorrhe a 66416409 Active 2022 Postnasal drip; Note: Date Diagnosed : 11/09/2022 1:01 PM (R09.82) Not Available [facility] 4 02:15:19 Seasonal allergic rhinitis 504561431 Active 2020 Other seasonal allergic rhinitis; Note: Date Diagnosed : 08/19/2020 10:57 AM (J30.2) Not Available [facility] 4 02:15:54 Uncomplic ated mild persisten t asthma 702989732 Active 2022 Mild persisten t asthma, uncomplic ated; Note: Date Diagnosed : 04/24/2022 3:16 PM (J45.30) Not Available [facility] 4 02:15:40 Bilateral disorder of Eustachia n tubes 99813645575 91671 Active 2020 Other specified disorders of Eustachia n tube, bilateral ; Note: Date Diagnosed : 08/19/2020 10:27 AM (H69.83) Not Available [facility] 4 02:15:31 Migraine without aura, not refractor y 497378229 Active 2023 Migraine without aura, not intractab le, without status migrainos us; Note: Date Diagnosed : 04/30/2023 1:35 PM (G43.009) Not Available [facility] 4 02:15:48 Dysphonia 98242756 Active 2023 Hoarsenes s; Note: Date Diagnosed : 04/30/2023 1:35 PM (R49.0) Not Available [facility] 4 02:16:04 Problem Notes None recorded. Medical Equipment None Reported. Allergies Allergen ID Allergen Name Allergen Category Reaction Reaction Severity Criticality Documentation Date Start Date Code Code System Note Provider Name and Address Organization Details Recorded Time 34356 citrus flavor food other Not available Not available 07/27/2023 08780 UNK React ion: other react ion, Unkno wn; Not Available [facility] 4 00:53:39 01638 adhesive tape environme nt,medica tion other Not available Not available 07/27/2023 97787 UNK React ion: other react ion, Unkno wn; Not Available [facility] 4 00:53:42 41416 Toradol medicatio n other Not available Not available 07/27/2023 05619 RxNorm React ion: other react ion, Unkno wn; Not Available [facility] 4 00:53:46 36439 banana extract food,medi cation other Not available Not available 07/27/2023 72768 9 RxNorm React ion: other react ion, Unkno wn; Not Available [facility] 4 00:53:46 Medications Name Sig Start Date [...] mcg tablet 12/19 completed Medicati on ID: [id number] B rand Name: Synthroi d Send Method: [...] 2 spray 2021 active Medicati on ID: [id number] D uration Value: 30 Brand Name: azelasti [...] spray,cynthia pension 2020 active Medicati on ID: [id number] B rand Name: fluticas one propiona te [...] aerosol inhaler 12/19 completed Medicati on ID: [id number] B rand Name: Symbicor t Send Method: E-Prescr ibed Sub s Allowed: subs OK [facility] Symbicor t Not Available Not [...] pen injector 2021 active Medicati on ID: [id number] D uration Value: 1 Prescri bed By [...] Updated DateTime 12/20/2023 180.34 cm 34.2 kg/m2 893118.93 g Cheryl Ann [place] - [facility] 12/20/2023 11:43:25 Social History None [...] Diagnosis Note KEYSHA CAPPS MD [facility] [address] [phone] 12/20/2023 11:12:43 12/20/2023 12:13:17 Posterior rhinorrhea 50074652 R09.82 Uncomplica twila mild persistent asthma 611722240 J45.30 Health Concerns Section Related Observation LastModified by Organization Detai ls LastModified Time None Recorded Concern Status LastModified by Organization Details LastModified Time None Recorded Advance Directives Directive None Recorded Payers Encounter Date Sequence Insurance Name Policy Number Policy Stafford Covered Member ID Stafford Member ID Guarantor Name 12/20/2023 1 [place] B[place]: [employer] Kayla Ortega [id number] Kayla Ortega 12/20/2023 2 [place] [facility] Kayla Ortega [id number] Kayla Ortega Notes Date Note Type Note Provider Name and Address Organization Details Recorded Time 12/20/2023 text/html On singulair and [place]. Nasal spray x 2. Some sinus congestion. Just finished prednisone course. 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 PV: 38-year-old female presents today for follow-up [...] the images from her CT scan from [place] in July 2022 and the sinus thickening was very mild. KEYSHA CAPPS MD [address] [place] [address], [place], [address], [facility] - [facility] 12/20/2023 18:25:26 OBGyn Episode No OBEpisode recorded.
--- OUTSIDE RECORDS SUMMARY | 2024-05-12 08:16 | XMS_ITS | Clinical Summary ---
Author Organization 175 [facility] Address [address] [place] [address] Phone Care Team Providers Care Dry Wall Applicator Name Role Phone Karen Broussard MD Primary Care Provider [phone] Allergies No known active allergies Medications acetaminophen- [...] 9:00 AM EST Nutrition Bariatric Surgery - [address] [phone] Class 1 obesity with body mass index (BMI) of 31.0 to 31.9 in adult, unspecified obesity type, unspecified whether serious comorbidity present (Primary Dx) 02/23/2024 11:00 AM EST Office Visit Bariatric Surgery [address] [phone] Brianna Umanzor PA Class 1 obesity due to excess calories without serious comorbidity with body mass index (BMI) of 33.0 to 33.9 in adult (Primary Dx) 02/22/2024 1:00 PM EST Nutrition Bariatric Surgery [address] [phone] Class 1 obesity with [...] 10:00 AM EDT Office Visit Bariatric Surgery [address] [place] [phone] Brianna Umanzor PA 271 [facility] [address] [place] [address] Health Maintenance Due Date Last Done Comments [...] Insurance MEDICARE MEDICAID - [place] Care Teams Dry Wall Applicator Relationship Specialty Start Date End Date Karen Broussard MD [address] [place] [phone] PCP - General 09/03/23
[2024-05-12 09:30] LABS: Free T4 (Free Thyroxine) 1.25 ng/dL (0.71-1.85); Thyroid Stimulating Hormone 0.82 uIU/mL (0.32-4.0)
[2024-05-13 09:29] LABS: Triiodothyronine T3 Total 80 ng/dL (76-181)
[2024-05-15 20:48] LABS: Thyroid Peroxidase Antibodies 167 IU/mL (<9)
[2024-05-16 18:13] LABS: Thyroid Stimulating Immunoglob 90 % baseline (<140)
== END 2024-05-12 08:06 | disposition home or self-care (01) ==
LOC: HO.LAB 08:05
PROVIDERS: PCP Internal Medicine; Visit Provider Student in an Organized Health Care Education/Training Program
DX: E03.9 Hypothyroidism, unspecified (principal); E04.9 Nontoxic goiter, unspecified
CPT/HCPCS: 36415; 84439; 84443; 84445; 84480; 86376

== ENCOUNTER 2024-05-16 11:08 | Outpatient (AMB) | payer MEDICARE, MEDICAID, SELFPAY ==
--- NOTE | 2024-05-16 11:10 | MHC.OFFVIS ---
Vital Signs 05/16/24 11:12 Height 5 ft 10 in Weight 229 lb BMI 32.9 BP 112/68 Blood Pressure Location Lt brachial Position Sitting Pulse 96 Pulse Source Pulse Oximeter Pulse Oximetry (%) 98 Oxygen Delivery Method Room Air Intake Visit Reasons: Asthma Putty Maker Required: No Bus And Trolley Inspecting Dispatcher: Bus And Trolley Inspecting Dispatcher offered & declined Accompanied by: Self / Same As Patient Allergies oxycodone Allergy (Intermediate, Verified 05/16/24 11:15) itching adhesive tape Allergy (Mild, Verified 05/16/24 11:15) RASH ketorolac [From TORADOL] Allergy (Mild, Verified 05/16/24 11:15) HIVES latex [LATEX] Allergy (Mild, Verified 05/16/24 11:15) RASH fruit with skin Allergy (Intermediate, Uncoded 05/16/24 11:15) Hives Medication List - Last Reconciled 05/16/24 by Pastora Kim LPN acetaminophen-codeine 300-30 mg 1 tab PO BID PRN amitriptyline 50 mg PO BEDTIME azelastine 1 spray intranasal DAILY cyclobenzaprine 5 mg PO BEDTIME PRN cyclosporine 0.05% (Restasis) drps ophthalmic (eye) diltiazem HCl CD 120 mg PO DAILY epinephrine 0.3 mg IM ONCE PRN erenumab-aooe (Aimovig Autoinjector) mg subcut .monthly famotidine 40 mg PO DAILY ccweekiufei-hplqoizwl-dfdiyukw 100-62.5-25 mcg (Trelegy Ellipta) 1 inh inhalation DAILY galcanezumab-gnlm (Emgality Pen) mg subcut Q4W ipratropium bromide 2 sprays intranasal BID 90 days levalbuterol HCl 1.25 mg (3 mL) inhalation Q4-6H PRN levalbuterol tartrate 45 mcg/actuation 1 puff inhalation Q4-6H PRN levonorgestrel (Mirena) intrauterine metoclopramide HCl (Reglan) 10 mg PO QID montelukast (Singulair) 10 mg PO BEDTIME pantoprazole 40 mg PO BID phentermine 30 mg PO QAM propranolol 40 mg PO BID sucralfate (Carafate) 1 g PO QNOON Synthroid (levothyroxine) 100 mcg PO DAILY NS topiramate (Topamax) 100 mg PO BID valacyclovir 1,000 mg PO BID PRN HPI HPI Asthma: Details: Kayla is a pleasant 39 year old female, never smoker, with underlying asthma since teens, atopic dermatitis, environmental allergies, allergic rhinitis and GERD. She was previously on Singulair, antihistamines, and Dulera with moderate effect however recently had allergy evaluation and was switched to Trelegy 100 mcg in addition to starting allergen immunotherapy. She reports notable improvement in the morning however as the day progresses she continues with dyspnea, chest tightness and intermittent wheezing. She denies any visits to urgent care or hospitalizations since the last visit related to respiratory distress. [facility] Medical History Encounter for general adult medical examination with abnormal findings Foot pain, bilateral Abnormal EKG Labral tear of right hip joint Abnormal weight gain Odynophagia Pleuritic pain Environmental allergies Abdominal cramping History of irregular menstrual cycles Sinusitis Esophageal spasm Acetabular labrum tear Herpes labialis Dry eyes Yeast infection of the vagina Amenorrhea Metrorrhagia Bloating Epigastric discomfort Shortness of breath Pre-op examination Contusion of chest Exercise-induced asthma Pain of left thumb Rib pain on right side Bilateral otitis media with effusion Left shoulder strain Cellulitis Acute lumbar back pain Right shoulder pain Arthrosis Right knee pain Complex cyst of left ovary Chronic GERD Encounter for IUD insertion Nausea Upper respiratory infection Leg pain, right Nausea Other specified hypothyroidism Otitis media Right hip pain Chest wall pain Lightheaded Acute sinusitis Goiter Elevated TSH Medicare annual wellness visit, subsequent Constipation Ill feeling Epigastric pain Constipation Cervical cancer screening Well woman exam with routine gynecological exam Medicare annual wellness visit, initial Abnormal thyroid stimulating hormone (TSH) level Patella francisco j Knee pain Neck pain Chest pain Migraines Eczema Fibromyalgia Heart murmur Asthma Hypothyroidism Surgical History History of hip surgery H/O shoulder surgery [place] teeth removed History of appendectomy Family History Mother Graves disease Hypothyroidism Father CHF (congestive heart failure) Other Substance use disorder Social History Housing: Apartment Alcohol intake: never Patient Tobacco Use Status: Never used Tobacco e-Cigarette/Vaping Use: Never Used Second Hand Smoke Exposure: Yes (as a child only) service: No Current occupational status: disabled Sexual orientation: Straight/Heterosexual Gender identity: Female Cognitive needs: No Hearing needs: No Vision needs: Yes Female Reproductive History Menstrual Age of Menarche: 15 Review of Systems Const Denies chills, Denies excessive sweating, Denies fever(s), Denies headache(s) and Denies night sweats Eyes Denies dry eyes and Denies irritation ENT Reports Normal hearing present, Denies headache(s) and Denies sore throat Card Denies chest pain, Denies chest pain at rest, Denies chest pain with activity, Denies claudication, Denies leg edema, Denies orthopnea and Denies paroxysmal nocturnal dyspnea Resp Denies chest congestion, Denies excessive phlegm production, Denies pain on inspiration, Denies pain with cough and Denies stridor Musc Denies myalgias Neuro Reports Normal hearing present and Denies headache(s) Endo Denies excessive sweating Sixto/Lymph Denies lymphadenopathy Physical Exam Vital Signs: Last Vital Signs Pulse 96 05/16/24 11:12 BP 112/68 05/16/24 11:12 Pulse Ox 98 05/16/24 11:12 Oxygen Delivery Method Room Air 05/16/24 11:12 BMI result Body Mass Index 32.9 Const General: cooperative, healthy appearing, comfortable, no acute distress, well developed and alert Nutritional Appearance: obese Orientation/consciousness: patient oriented x3 Limitations: no limitations HEENT Head: Yes normal to inspection, Yes normocephalic and Yes atraumatic Ears: hearing grossly normal bilaterally and external ears normal Eyes General: appearance normal, both eyes and all related structures Eyelids: Yes eyelids normal Sclerae: sclerae normal EOM: EOMs intact bilaterally Neck Neck: Yes normal visual inspection and Yes no lymphadenopathy Lymphatic: no lymphadenopathy noted Chest Chest palpation & inspection: normal inspection of the chest Resp Effort & Inspection: normal respiratory effort, able to speak in complete sentences, no audible wheezes, no cough, no stridor, not tachypneic, no tripod positioning and no use of accessory muscles Auscultation: diminished lung sounds Cardio Jugular venous distension: no JVD Rate: regular rate Rhythm: regular rhythm Skin Other: warm, dry General skin exam: no rashes or lesions noted Neuro General: patient oriented x3 Cranial nerves: Yes Normal hearing present Cognition (Neuro): normal cognition Gait exam (Neuro): Normal gait present Extrem General: Yes normal to inspection, Yes capillary refill normal, Yes no clubbing, cyanosis or edema and Yes no pedal edema Psych Appearance: grossly normal and well kempt Speech and movement: Normal speech and movement present and Clear speech present Affect: normal affect Attitude: cooperative Thought process: Normal thought process present Thought content: Normal thought content present Insight: Good insight present (Psych) Judgement: Good judgement present (Psych) Assessment & Plan Assessment & Plan (1) Asthma, moderate persistent: Code(s): J45.40 - Moderate persistent asthma, uncomplicated Category: Medical Qualifiers: Asthma complication type: uncomplicated Qualified Code(s): J45.40 - Moderate persistent asthma, uncomplicated (2) Allergic rhinitis: Code(s): J30.9 - Allergic rhinitis, unspecified Category: Medical Qualifiers: Allergic rhinitis trigger: pollen Allergic rhinitis seasonality: non-seasonal Qualified Code(s): J30.1 - Allergic rhinitis due to pollen Plan Will increase Trelegy and encouraged use of albuterol MDI. If no improvement with further progress with allergen immunotherapy and increased Trelegy, will initiate Xolair. All questions were answered and patient is in agreement of plan. Will follow up in 6-8 weeks or sooner if needed. Medications: New xiqfblrchbb-nevvtxxhi-dazobwfg 200-62.5-25 mcg (Trelegy Ellipta) 1 inh inhalation DAILY 60 ea 6RF Coding Level of Care Code Est Pt Level 4 (57009) Diagnoses Moderate persistent asthma without complication J45.40 Asthma complication type: uncomplicated Non-seasonal allergic rhinitis due to pollen J30.1 Allergic rhinitis trigger: pollen Allergic rhinitis seasonality: non-seasonal
[2024-05-16 11:12] VITALS: BP 112/68; PULSE 96; O2SAT 98; BMI 32.9
--- OUTSIDE RECORDS SUMMARY | 2024-05-16 13:59 | XMS_ITS | Encounter Summary ---
Author Organization [facility] Address [address] [place] [address] Care Team Providers Care French Lecturer Name Role Phone Karen Broussard MD Primary Care Provider [phone] Reason for Visit * Reason Comments Obesity Encounter Details Date Type Department Care Team (Late st Contact Info) Description 05/04/2024 9:00 AM EST Nutrition Bariatric Surgery - [place] [address] [place] [phone] Jyoti Acevedo RD [address] [id number] Class 1 obesity with body mass index [...] will start shots of food allergies 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 Jyoti Acevedo RD NUTRITION SERVICES Cosigned by Alexus Galeas MD at 05/04/2024 3:53 PM EST documented in this encounter Plan of Treatment Upcoming Encounters Date Type Department Care Team (Late st Contact Info) Description 08/09/2024 8:30 AM EDT Office Visit Bariatric Surgery - [place] [address] [facility] [address] [place] [phone] Brianna Umanzor PA [address] [facility] [address] [place] [address] documented as of this encounter Visit Diagnoses Diagnosis Class 1 obesity with body mass index (BMI) of 31.0 to 31.9 in adult, unspecified obesity type, unspecified whether serious comorbidity present- Primary documented in this encounter Care Teams French Lecturer Relationship Specialty Start Date End Date Karen Broussard MD [address] [place] [address] PCP - General 09/03/23 documented as of this encounter
--- OUTSIDE RECORDS SUMMARY | 2024-05-16 13:59 | XMS_ITS | Data Portability ---
Author Organization [place] - [facility], Allergy Address [address] [place] [phone] Care Team Providers Care Warp Bleaching Vat Tender Name Role Phone SYLVAIN, KAYLAEra Primary Care Provider [phone] Assessment Encounter Date Assessment Date Assessment LastModified [...] mL suspension for nebulizatio n 2023 024 [id number] [address] [facility], [place], [address], 4 12:10:20 Patient TargetsNo targets recorded. Patient InstructionsNo instructions recorded. Reason for Referral None Reported. Problems Name Problem SNOMED Code Status Onset Date Resolution Date Notes Provider Name and Address Organization Details Recorded Time Bilateral temporoma ndibular joint pain 87145936986 399778 Active 2020 Arthralgi a of bilateral temporoma ndibular joint; Note: Date Diagnosed : 08/19/2020 10:57 AM (M26.623) Not Available [facility] 4 02:15:14 Allergic rhinitis 31477512 Active 2022 Allergic rhinitis: Due to other [...] to other allergen; Note: Date Not Available [facility] 4 02:16:00 Posterior rhinorrhe a 26405438 Active 2022 Postnasal drip; Note: Date Diagnosed : 11/09/2022 1:01 PM (R09.82) Not Available [facility] 4 02:15:19 Seasonal allergic rhinitis 419554035 Active 2020 Other seasonal allergic rhinitis; Note: Date Diagnosed : 08/19/2020 10:57 AM (J30.2) Not Available [facility] 4 02:15:54 Uncomplic ated mild persisten t asthma 230046270 Active 2022 Mild persisten t asthma, uncomplic ated; Note: Date Diagnosed : 04/24/2022 3:16 PM (J45.30) Not Available [facility] 4 02:15:40 Bilateral disorder of Eustachia n tubes 92214943822 95901 Active 2020 Other specified disorders of Eustachia n tube, bilateral ; Note: Date Diagnosed : 08/19/2020 10:27 AM (H69.83) Not Available [facility] 4 02:15:31 Migraine without aura, not refractor y 867741990 Active 2023 Migraine without aura, not intractab le, without status migrainos us; Note: Date Diagnosed : 04/30/2023 1:35 PM (G43.009) Not Available [facility] 4 02:15:48 Dysphonia 23832989 Active 2023 Hoarsenes s; Note: Date Diagnosed : 04/30/2023 1:35 PM (R49.0) Not Available [facility] 4 02:16:04 Problem Notes None recorded. Medical Equipment None Reported. Allergies Allergen ID Allergen Name Allergen Category Reaction Reaction Severity Criticality Documentation Date Start Date Code Code System Note Provider Name and Address Organization Details Recorded Time 62932 citrus flavor food other Not available Not available 07/27/2023 46457 UNK React ion: other react ion, Unkno wn; Not Available [facility] 4 00:53:39 41675 adhesive tape environme nt,medica tion other Not available Not available 07/27/2023 28954 UNK React ion: other react ion, Unkno wn; Not Available [facility] 4 00:53:42 35394 Toradol medicatio n other Not available Not available 07/27/2023 75109 RxNorm React ion: other react ion, Unkno wn; Not Available [facility] 4 00:53:46 56629 banana extract food,medi cation other Not available Not available 07/27/2023 19271 9 RxNorm React ion: other react ion, Unkno wn; Not Available [facility] 4 00:53:46 Medications Name Sig [...] mcg tablet 12/19 completed Medicati on ID: [id number] B rand Name: Synthroi d Send Method: [...] 2 spray 2021 active Medicati on ID: [id number] D uration Value: 30 Brand Name: azelasti [...] spray,cynthia pension 2020 active Medicati on ID: [id number] B rand Name: fluticas one propiona te [...] aerosol inhaler 12/19 completed Medicati on ID: [id number] B rand Name: Symbicor t Send Method: E-Prescr ibed Sub s Allowed: subs [place] [facility] : Symbicor t Not Available Not [...] pen injector 2021 active Medicati on ID: [id number] D uration Value: 1 Prescri bed By [...] Updated DateTime 12/20/2023 180.34 cm 34.2 kg/m2 607082.93 g Cheryl Ann [place] - [facility] 12/20/2023 11:43:25 Social History None recorded. [...] Diagnosis Note KEYSHA CAPPS MD [facility] [address] [address] 12/20/2023 11:12:43 12/20/2023 12:13:17 Posterior rhinorrhea 88830279 R09.82 Uncomplica twila mild persistent asthma 945372493 J45.30 Health Concerns Section Related Observation LastModified by Organization Detai ls LastModified Time None Recorded Concern Status LastModified by Organization Details LastModified Time None Recorded Advance Directives Directive None Recorded Payers Encounter Date Sequence Insurance Name Policy Number Policy Stafford Covered Member ID Stafford Member ID Guarantor Name 12/20/2023 1 [place] B[place]: [email or web address] Kayla Ortega [id number] Kayla Ortega 12/20/2023 2 [place] [facility] Kayla Ortega [id number] Kayla Ortega Notes Date Note Type Note Provider Name and Address Organization Details Recorded Time 12/20/2023 text/html On singulair and [place]. Nasal spray x 2. Some sinus congestion. Just finished prednisone course. 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 Waiting to see another agricultural labor camp manager. PV: 38-year-old female presents today for follow-up [...] the images from her CT scan from [place] in July 2022 and the sinus thickening was very mild. KEYSHA CAPPS MD [address] [place] [address], [place], [address], [facility] - [facility] 12/20/2023 18:25:26 OBGyn Episode No OBEpisode recorded.
--- OUTSIDE RECORDS SUMMARY | 2024-05-16 13:59 | XMS_ITS | Clinical Summary ---
Author Organization [facility] Address [address] [place] [address] Phone Care Team Providers Care Line Installation Supervisor Name Role Phone Karen Broussard MD Primary Care Provider [phone] Allergies No known active allergies Medications acetaminophen- [...] 9:00 AM EST Nutrition Bariatric Surgery - [address] [phone] Class 1 obesity with body mass index (BMI) of 31.0 to 31.9 in adult, unspecified obesity type, unspecified whether serious comorbidity present (Primary Dx) 02/23/2024 11:00 AM EST Office Visit Bariatric Surgery [address] [phone] Brianna Umanzor PA Class 1 obesity due to excess calories without serious comorbidity with body mass index (BMI) of 33.0 to 33.9 in adult (Primary Dx) 02/22/2024 1:00 PM EST Nutrition Bariatric Surgery [address] [phone] Class 1 obesity with [...] 8:30 AM EDT Office Visit Bariatric Surgery [address] [place] [phone] Brianna Umanzor PA [address] [facility] [address] [place] [address] Health Maintenance Due Date Last Done Comments [...] Insurance MEDICARE MEDICAID - [place] Care Teams Line Installation Supervisor Relationship Specialty Start Date End Date Karen Broussard MD [address] [place] [address] PCP - General 09/03/23
== END 2024-05-16 11:47 | disposition home or self-care (01) ==
PROVIDERS: PCP Internal Medicine; Visit Provider Nurse Practitioner Family
DX: J45.40 Moderate persistent asthma, uncomplicated (principal); J30.1 Allergic rhinitis due to pollen
CPT/HCPCS: 99214

== ENCOUNTER → 2024-05-16 11:08 | Outpatient (BNVA) | payer MEDICARE, MEDICAID, SELFPAY | PROVIDERS: PCP Internal Medicine; Visit Provider Nurse Practitioner Family | DX: J45.40 Moderate persistent asthma, uncomplicated (principal); J30.1 Allergic rhinitis due to pollen | CPT/HCPCS: 99212 ==

== ENCOUNTER 2024-05-31 08:04 | Outpatient (AMB) | payer MEDICARE, MEDICAID, SELFPAY ==
[2024-05-31 08:18] VITALS: BP 118/70; PULSE 73; TEMP 36.8; O2SAT 98; BMI 32.6
--- NOTE | 2024-05-31 08:18 | AM.OFFWIN_ITS ---
Intake Vital Signs 05/31/24 08:18 Height 5 ft 10 in Weight 227 lb 4 oz BMI 32.6 BP 118/70 Blood Pressure Location Lt brachial Position Sitting Pulse 73 Pulse Source Pulse Oximeter Temp 98.2 F Temp Source Oral Pulse Oximetry (%) 98 Oxygen Delivery Method Room Air Intake Visit Reasons: EP Swelling/ pain RT side of ribs Intake Note: Pt presents to the office today for c/o right sided rib pain/swelling x3 days. Pt denies any known injury. Patient Tobacco Use Status: Never used Tobacco Allergies oxycodone Allergy (Intermediate, Verified 05/31/24 08:21) itching adhesive tape Allergy (Mild, Verified 05/31/24 08:21) RASH ketorolac [From TORADOL] Allergy (Mild, Verified 05/31/24 08:21) HIVES latex [LATEX] Allergy (Mild, Verified 05/31/24 08:21) RASH fruit with skin Allergy (Intermediate, Uncoded 05/31/24 08:21) Hives HPI EP Swelling/ pain RT side of ribs HPI Details This is a 39 year old female patient who presents to the [place] clinic with c/o right sided rib pain. This started about 3 days ago. She reports soreness on her right lower rib at the midaxillary line, which increases with deep breaths. Denies any rashes, denies are recent coughs/colds. Denies any trauma/injury to area. Denies dysuria, fever, chills, or any other symptoms. [facility] Medical History Encounter for general adult medical examination with abnormal findings Foot pain, bilateral Abnormal EKG Labral tear of right hip joint Abnormal weight gain Odynophagia Pleuritic pain Environmental allergies Abdominal cramping History of irregular menstrual cycles Sinusitis Esophageal spasm Acetabular labrum tear Herpes labialis Dry eyes Yeast infection of the vagina Amenorrhea Metrorrhagia Bloating Epigastric discomfort Shortness of breath Pre-op examination Contusion of chest Exercise-induced asthma Pain of left thumb Rib pain on right side Bilateral otitis media with effusion Left shoulder strain Cellulitis Acute lumbar back pain Right shoulder pain Arthrosis Right knee pain Complex cyst of left ovary Chronic GERD Encounter for IUD insertion Nausea Upper respiratory infection Leg pain, right Nausea Other specified hypothyroidism Otitis media Right hip pain Chest wall pain Lightheaded Acute sinusitis Goiter Elevated TSH Medicare annual wellness visit, subsequent Constipation Ill feeling Epigastric pain Constipation Cervical cancer screening Well woman exam with routine gynecological exam Medicare annual wellness visit, initial Abnormal thyroid stimulating hormone (TSH) level Patella francisco j Knee pain Neck pain Chest pain Migraines Eczema Fibromyalgia Heart murmur Asthma Hypothyroidism Surgical History History of hip surgery H/O shoulder surgery [place] teeth removed History of appendectomy Family History Mother Graves disease Hypothyroidism Father CHF (congestive heart failure) Other Substance use disorder Social History Housing: Apartment Alcohol intake: never Patient Tobacco Use Status: Never used Tobacco e-Cigarette/Vaping Use: Never Used Second Hand Smoke Exposure: Yes (as a child only) service: No Current occupational status: disabled Sexual orientation: Straight/Heterosexual Gender identity: Female Cognitive needs: No Hearing needs: No Vision needs: Yes Female Reproductive History Menstrual Age of Menarche: 15 Review of Systems Const All systems reviewed & are unremarkable except as noted in HPI and below Physical Exam Vital Signs: Last Vital Signs Temp 98.2 F 05/31/24 08:18 Pulse 73 05/31/24 08:18 BP 118/70 05/31/24 08:18 Pulse Ox 98 05/31/24 08:18 Oxygen Delivery Method Room Air 05/31/24 08:18 BMI result Body Mass Index 32.6 Const General: cooperative, healthy appearing and comfortable HEENT Head: Yes normal to inspection Ears: hearing grossly normal bilaterally Neck Neck: Yes no JVD Chest Chest palpation & inspection: normal inspection of the chest and tenderness (lower ribs, 8-10) rib right mid-clavicular line Breast/axilla palpation: no axillary lymphadenopathy Resp Effort & Inspection: normal respiratory effort Auscultation: clear to auscultation bilaterally Cardio Rate: regular rate Rhythm: regular rhythm Heart sounds: S1 normal heart sound present and S2 normal heart sound present Skin General skin exam: no rashes or lesions noted Extrem General: Yes capillary refill normal and Yes no clubbing, cyanosis or edema Psych Appearance: grossly normal Mental Status: mental status grossly normal Speech and movement: Normal speech and movement present Results AMB Urinalysis, Automated UA Leukoctes 0 Tanya/uL Last Edit by Ambika Bautista CMA on 05/31/24 08:57 UA Nitrite Negative Last Edit by Ambika Bautista, CONCEPCIÓN on 05/31/24 08:57 UA Urobilinogen 0.2 mg/dL Last Edit by Ambika Bautista, CONCEPCIÓN on 05/31/24 08:57 UA Protein 0 mg/dL Last Edit by Ambika Bautista, CONCEPCIÓN on 05/31/24 08:57 UA pH 6.0 Last Edit by Ambika Bautista, CONCEPCIÓN on 05/31/24 08:57 UA Blood 0 Mauro/uL Last Edit by Ambika Bautista, CONCEPCIÓN on 05/31/24 08:57 UA Specific Cidra 1.015 Last Edit by Ambika Bautista, CONCEPCIÓN on 05/31/24 08:57 UA Ketone Negative Last Edit by Ambika Bautista CMA on 05/31/24 08:57 UA Bilirubin 0 mg/dL Last Edit by Ambika Bautista, CONCEPCIÓN on 05/31/24 08:57 UA Glucose 0 mg/dL Last Edit by Ambika Bautista CMA on 05/31/24 08:57 Assessment & Plan Assessment & Plan (1) Rib pain on right side: Code(s): R07.81 - Pleurodynia Plan: Sent for CXR which was unremarkable. Urine dip was negative. No rashes. Her symptoms may represent some sort of muscle strain/sprain. We can trial an antiinflammatory and muscle relazer at HS to see if this provid es benefit. Also advised otc Lidocaine patches to area and ice prn. We reviewed indications, use, possible side effects of medication. If she does not improve with these measures she should return to the clinic or f/u with PCP Dr. Broussard. Patient verbalizes understanding and agrees to plan as discussed. Orders: Orders AMB Urinalysis Automated Today Z13.9 - Encounter for screening, unspecified XR chest 2V Today R07.81 - Pleurodynia Medications: New cyclobenzaprine Take 1 Tablet by mouth daily at bedtime. 5 mg PO BEDTIME 5 days PRN 5 tabs 0RF muscle spasm R07.81 - Pleurodynia meloxicam Take 1 tablet daily by mouth for 7 days 15 mg PO DAILY 7 days 7 tabs 0RF Coding Level of Care Code Est Pt Level 4 (23754) Diagnoses Rib pain on right side R07.81
== END 2024-05-31 09:18 | disposition home or self-care (01) ==
PROVIDERS: PCP Internal Medicine; Visit Provider Nurse Practitioner Family
DX: R07.81 Pleurodynia (principal)

== ENCOUNTER 2024-05-31 08:04 | Outpatient (REF) | payer MEDICARE, MEDICAID, SELFPAY ==
--- NOTE | ~2024-05-31 | XR_ITS ---
EXAMINATION: XR CHEST 2 VIEWS HISTORY: R07.81 - Pleurodynia COMPARISON: Comparison is made with the prior examination dated 02/17/2023. FINDINGS: PA and lateral views of the chest are submitted. The lungs are expanded and clear. There is no pleural effusion, pneumothorax, or pulmonary vascular congestion. The heart is normal in size. The bones are intact. XR/XR chest 2V IMPRESSION: No acute cardiopulmonary abnormality. Electronically signed by: Oswald Song MD 05/31/2024 09:41 AM EDT
== END 2024-05-31 08:05 | disposition home or self-care (01) ==
LOC: HO.HMGCX 08:04
PROVIDERS: PCP Internal Medicine; Visit Provider Nurse Practitioner Family
DX: R07.81 Pleurodynia (principal)
CPT/HCPCS: 71046; 81003; 99212

== ENCOUNTER → 2024-05-31 09:01 | Outpatient (BNV) | payer MEDICARE, MEDICAID, SELFPAY | PROVIDERS: PCP Internal Medicine; Visit Provider Radiology Diagnostic Radiology | DX: R07.81 Pleurodynia (principal) | CPT/HCPCS: 71046 ==

== ENCOUNTER 2024-06-24 09:45 | Outpatient (AMB) | payer MEDICARE, MEDICAID, SELFPAY ==
--- OUTSIDE RECORDS SUMMARY | 2024-06-24 09:46 | XMS_ITS | Clinical Summary ---
Author Organization 175 [facility] Address [address] [place] [address] Phone Care Team Providers Care Lodging House Keeper Name Role Phone Karen Broussard MD Primary Care Provider [phone] Allergies No known active allergies Medications acetaminophen- [...] MOUTH EVERY DAY BEFORE BREAKFAST 30 capsule 06/10/19 25 Active phentermine 30 mg capsule TAKE 1 CAPSULE BY MOUTH EVERY DAY BEFORE BREAKFAST 30 capsule 05/03/19 25 025 Discontinued Active Problems Problem Noted Date Diagnosed Date Class 1 obesity with body ma ss index (BMI) of 31.0 to 31.9 in adult 01/15/2024 Asthma 10/18/2023 GERD (gastroesophageal reflux disease) Hypothyroidism 10/18/2023 Encounters Date Type Department Care Team Description 05/04/2024 9:00 AM EST Nutrition Bariatric Surgery - [place] [address] [phone] Jyoti Acevedo RD Class 1 obesity with [...] 8:30 AM EDT Office Visit Bariatric Surgery [facility] [address] [phone] Brianna Umanzor PA [address] [address] Health Maintenance Due Date Last Done Comments Hepatitis B Vaccines (1 of 3 - 19+ 3-dose series) 2005 Cervical Cancer Screening: P ap Smear 2007 Pneumococcal Vaccine: Pediat rics (0 to 5 Years) and At-Risk Patients (6 to 64 Years) (2 of 2 - PCV) 01/18/2015 01/18/2014 COVID-19 Vaccine (2023-2 5 season) 2023 Cholesterol Screening (Lipid Panel) 12/27/2023 Depression Screening 12/27/2023 HIV Screening 12/27/2023 Hepatitis C Screening 12/27/2023 Medicare Annual Wellness Visit 12/27/2023 Social Influencers of Health Screening 12/27/2023 DTaP,Tdap,and Td Vaccines (2 - Tdap) 01/18/2024 01/17/2014 Influenza Vaccine (Season Ended) 2024 01/18/20 14 MMR Vaccines Aged Out 01/18/2014 No longer [...] age to complete this topic Meningococcal B Vaccine Aged Out No l onger eligible based on patient's age to complete this topic RSV Immunization Patients Un jerald 20 months Aged Out No longer eligible b ased on patient's age to complete this topic Varicella Vaccines Aged Out No longer eligible based on patient's age to complete this topic Insurance MEDICARE MEDICAID - [place] Care Teams Lodging House Keeper Relationship Specialty Start Date End Date Karen Broussard MD [address] [place] [phone] PCP - General 09/03/23
--- OUTSIDE RECORDS SUMMARY | 2024-06-24 09:46 | XMS_ITS | Data Portability ---
Author Organization [place] - [facility], Allergy Address [address] [place] [phone] Care Team Providers Care Pneumatic Press Hand Name Role Phone SYLVAIN, KAYLAEra Primary [...] mL suspension for nebulizatio n 2023 0[id number] [address] [facility], [place], [address], 4 12:10:20 Patient TargetsNo targets recorded. Patient InstructionsNo instructions recorded. Reason for Referral None Reported. Problems Name Problem SNOMED Code Status Onset Date Resolution Date Notes Provider Name and Address Organization Details Recorded Time Bilateral temporoma ndibular joint pain 12127044702 400832 Active 2020 Arthralgi a of bilateral temporoma ndibular joint; Note: Date Diagnosed : 08/19/2020 10:57 AM (M26.623) Not Available [facility] 4 02:15:14 Allergic rhinitis 03385721 Active 2022 Allergic rhinitis: Due to other [...] to other allergen; Note: Date Not Available [facility] 4 02:16:00 Posterior rhinorrhe a 05843812 Active 2022 Postnasal drip; Note: Date Diagnosed : 11/09/2022 1:01 PM (R09.82) Not Available [facility] 4 02:15:19 Seasonal allergic rhinitis 481214240 Active 2020 Other seasonal allergic rhinitis; Note: Date Diagnosed : 08/19/2020 10:57 AM (J30.2) Not Available [facility] 4 02:15:54 Uncomplic ated mild persisten t asthma 977239098 Active 2022 Mild persisten t asthma, uncomplic ated; Note: Date Diagnosed : 04/24/2022 3:16 PM (J45.30) Not Available [facility] 4 02:15:40 Bilateral disorder of Eustachia n tubes 24971908393 [address] Active 2020 Other specified disorders of Eustachia n tube, bilateral ; Note: Date Diagnosed : 08/19/2020 10:27 AM (H69.83) Not Available [facility] 4 02:15:31 Migraine without aura, not refractor y 256141957 Active 2023 Migraine without aura, not intractab le, without status migrainos us; Note: Date Diagnosed : 04/30/2023 1:35 PM (G43.009) Not Available [facility] 4 02:15:48 Dysphonia 33171175 Active 2023 Hoarsenes s; Note: Date Diagnosed : 04/30/2023 1:35 PM (R49.0) Not Available [facility] 4 02:16:04 Problem Notes None recorded. Medical Equipment None Reported. Allergies Allergen ID Allergen Name Allergen Category Reaction Reaction Severity Criticality Documentation Date Start Date Code Code System Note Provider Name and Address Organization Details Recorded Time 23173 citrus flavor food other Not available Not available 07/27/2023 00925 UNK React ion: other react ion, Unkno wn; Not Available [facility] 4 00:53:39 55839 adhesive tape environme nt,medica tion other Not available Not available 07/27/2023 03563 UNK React ion: other react ion, Unkno wn; Not Available [facility] 4 00:53:42 42612 Toradol medicatio n other Not available Not available 07/27/2023 77929 RxNorm React ion: other react ion, Unkno wn; Not Available [facility] 4 00:53:46 20135 banana extract food,medi cation other Not available Not available 07/27/2023 43400 9 RxNorm React ion: other react ion, Unkno wn; Not Available [facility] 4 00:53:46 Medications Name Sig Start Date [...] mcg tablet 12/19 completed Medicati on ID: [id number] B rand Name: Synthroi d Send Method: [...] 2 spray 2021 active Medicati on ID: [id number] D uration Value: 30 Brand Name: azelasti [...] spray,cynthia pension 2020 active Medicati on ID: [id number] B rand Name: fluticas one propiona te [...] aerosol inhaler 12/19 completed Medicati on ID: [id number] B rand Name: Symbicor t Send Method: E-Prescr ibed Sub s Allowed: subs OK [facility] Symbicor t Not Available [...] pen injector 2021 active Medicati on ID: [id number] D uration Value: 1 Prescri bed By Name: Keysha mcwilliams MD Brand Name: EpiPen 2-Jyay Se nd Method: E-Prescr ibed Sub s [...] Updated DateTime 12/20/2023 180.34 cm 34.2 kg/m2 048588.93 g Cheryl Ann [place] - [facility] 12/20/2023 11:43:25 Social History None [...] Diagnosis Note KEYSHA CAPPS MD [facility] [address] [phone] 12/20/2023 11:12:43 12/20/2023 12:13:17 Posterior rhinorrhea 67859988 R09.82 Uncomplica twila mild persistent asthma 281710823 J45.30 Health Concerns Section Related Observation LastModified by Organization Detai ls LastModified Time None Recorded Concern Status LastModified by Organization Details LastModified Time None Recorded Advance Directives Directive None Recorded Payers Encounter Date Sequence Insurance Name Policy Number Policy Stafford Covered Member ID Stafford Member ID Guarantor Name 12/20/2023 1 [place] B[place]: [employer] Kayla Ortega [id number] Kayla Ortega 12/20/2023 2 [place] [facility] Kayla Ortega [id number] Kayla Ortega Notes Date Note Type Note Provider Name and Address Organization Details Recorded Time 12/20/2023 text/html On singulair and [place]. Nasal spray x 2. Some sinus congestion. Just finished prednisone course. 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 Waiting to see another hospital security officer. PV: 38-year-old female presents today for follow-up [...] the images from her CT scan from [place] in July 2022 and the sinus thickening was very mild. KEYSHA CAPPS MD [address] [place] [address], [place], [phone], [facility] - [facility] 12/20/2023 18:25:26 OBGyn Episode No OBEpisode recorded.
--- NOTE | 2024-06-24 10:49 | MHC.OFFWIV ---
Intake Vital Signs 06/24/24 10:50 Height 5 ft 10 in Weight 227 lb BMI 32.6 BP 108/70 Blood Pressure Location Lt brachial Position Sitting Pulse 67 Pulse Source Pulse Oximeter Temp 98.6 F Temp Source Oral Pulse Oximetry (%) 100 Oxygen Delivery Method Room Air Intake Visit Reasons: PE Sinus congestion, pressure Patient Tobacco Use Status: Never used Tobacco Allergies oxycodone Allergy (Intermediate, Verified 06/24/24 10:50) itching adhesive tape Allergy (Mild, Verified 06/24/24 10:50) RASH ketorolac [From TORADOL] Allergy (Mild, Verified 06/24/24 10:50) HIVES latex [LATEX] Allergy (Mild, Verified 06/24/24 10:50) RASH fruit with skin Allergy (Intermediate, Uncoded 05/31/24 08:21) Hives Do you need a note to return to daycare/school/sports/work: No HPI HPI Comments History of Present Illness Details The patient reports experiencing sinus pressure and congestion, primarily on the left side of her face. She describes a sensation of water up her nose and feels bubbles when blowing her nose. Kayla mentions difficulty breathing through her nose, particularly on the left side. She also notes pressure behind her ears, which she attributes to the sinus congestion. The patient reports tenderness on the left side of her cheek. Kayla has been taking Motrin for symptom relief and tried Advil Cold and Sinus, but found it ineffective. She denies fever or chills. The patient has been using her regular allergy medications, including a nightly generic version of Singulair, morning loratadine, and Ipratropium nasal spray twice daily. She also receives allergy shots every two weeks. Kayla mentions having really, really bad allergies and difficulty distinguishing between allergy flare-ups and colds. The patient reports a history of frequent sinus issues and has recently started asthma injections. She decided to seek medical attention promptly at her 's urging, as she typically tends to wait and see if symptoms resolve on their own. ON LICENSE OF [facility] Medical History Encounter for general adult medical examination with abnormal findings Foot pain, bilateral Abnormal EKG Labral tear of right hip joint Abnormal weight gain Odynophagia Pleuritic pain Environmental allergies Abdominal cramping History of irregular menstrual cycles Sinusitis Esophageal spasm Acetabular labrum tear Herpes labialis Dry eyes Yeast infection of the vagina Amenorrhea Metrorrhagia Bloating Epigastric discomfort Shortness of breath Pre-op examination Contusion of chest Exercise-induced asthma Pain of left thumb Rib pain on right side Bilateral otitis media with effusion Left shoulder strain Cellulitis Acute lumbar back pain Right shoulder pain Arthrosis Right knee pain Complex cyst of left ovary Chronic GERD Encounter for IUD insertion Nausea Upper respiratory infection Leg pain, right Nausea Other specified hypothyroidism Otitis media Right hip pain Chest wall pain Lightheaded Acute sinusitis Goiter Elevated TSH Medicare annual wellness visit, subsequent Constipation Ill feeling Epigastric pain Constipation Cervical cancer screening Well woman exam with routine gynecological exam Medicare annual wellness visit, initial Abnormal thyroid stimulating hormone (TSH) level Patella francisco j Knee pain Neck pain Chest pain Migraines Eczema Fibromyalgia Heart murmur Asthma Hypothyroidism Surgical History History of hip surgery H/O shoulder surgery [place] teeth removed History of appendectomy Family History Mother Graves disease Hypothyroidism Father CHF (congestive heart failure) Other Substance use disorder Social History Housing: Apartment Alcohol intake: never Patient Tobacco Use Status: Never used Tobacco e-Cigarette/Vaping Use: Never Used Second Hand Smoke Exposure: Yes (as a child only) service: No Current occupational status: disabled Sexual orientation: Straight/Heterosexual Gender identity: Female Cognitive needs: No Hearing needs: No Vision needs: Yes Female Reproductive History Menstrual Age of Menarche: 15 Review of Systems Const Denies fever(s) ENT Reports nasal congestion, Reports sinus pain and Reports sinus pressure Physical Exam Vital Signs: Last Vital Signs Temp 98.6 F 06/24/24 10:50 Pulse 67 06/24/24 10:50 BP 108/70 06/24/24 10:50 Pulse Ox 100 06/24/24 10:50 Oxygen Delivery Method Room Air 06/24/24 10:50 BMI result Body Mass Index 32.6 Const General: cooperative, healthy appearing, no acute distress and alert Orientation/consciousness: patient oriented x3 Limitations: no limitations HEENT Other: left TM with clear fluid behind the tympanic membrane, TTP over the maxillary sinus on the left side Head: Yes normal to inspection Ears: hearing grossly normal bilaterally General nose exam: Normal external nose present Resp Effort & Inspection: normal respiratory effort and able to speak in complete sentences Cardio Rate: regular rate Skin General skin exam: no rashes or lesions noted Neuro General: patient oriented x3 Extrem General: Yes normal to inspection Assessment & Plan Assessment & Plan (1) Sinusitis: Code(s): J32.9 - Chronic sinusitis, unspecified Qualifiers: Sinusitis location: maxillary Chronicity: acute Recurrence: not specified as recurrent Qualified Code(s): J01.00 - Acute maxillary sinusitis, unspecified Plan: Acute Sinusitis: - Patient presents with sinus pressure, congestion, and ear pressure since yesterday - Reports feeling bubbles when blowing nose, particularly on left side - Tenderness in left cheek area - No fever or chills reported - History of sinus infections and severe allergies - Current allergy management includes Singulair (generic), loratadine, Ipratropium nasal spray, and biweekly allergy shots - Attempted self-treatment with Motrin and Advil Cold and Sinus without significant relief Plan: - Continue current allergy medications (Singulair generic, loratadine, Ipratropium nasal spray) - Add bmkd-ixh-xlmxvkf decongestant: - Option 1: Afrin nasal spray for no more than 3 days - Option 2: Oral Sudafed - Start saline nasal rinse - Prescribe antibiotics to be filled at [facility] - Patient instructed to start antibiotics if symptoms do not improve within 1-2 days or if fever develops - Follow up if symptoms worsen or persist Medications: New amoxicillin-pot clavulanate 875-125 mg 1 tab PO BID 10 days 20 tabs 0RF Coding Level of Care Code Est Pt Level 4 (47397) Diagnoses Acute maxillary sinusitis, recurrence not specified J01.00 Sinusitis location: maxillary Chronicity: acute Recurrence: not specified as recurrent
[2024-06-24 10:50] VITALS: BP 108/70; PULSE 67; TEMP 37; O2SAT 100; BMI 32.6
== END 2024-06-24 11:41 | disposition home or self-care (01) ==
PROVIDERS: PCP Internal Medicine; Visit Provider Physician Assistant
DX: J01.00 Acute maxillary sinusitis, unspecified (principal)

== ENCOUNTER → 2024-06-24 09:45 | Outpatient (BNVA) | payer MEDICARE, MEDICAID, SELFPAY | PROVIDERS: PCP Internal Medicine | DX: J01.00 Acute maxillary sinusitis, unspecified (principal) | CPT/HCPCS: 99212 ==

== ENCOUNTER 2024-06-27 09:10 | Outpatient (AMB) | payer MEDICARE, MEDICAID, SELFPAY ==
[2024-06-27 09:12] VITALS: BP 114/68; PULSE 75; O2SAT 99; BMI 32.1
--- NOTE | 2024-06-27 09:12 | MHC.OFFVIS ---
Vital Signs 06/27/24 09:12 Height 5 ft 10 in Weight 224 lb BMI 32.1 BP 114/68 Blood Pressure Location Rt brachial Position Sitting Pulse 75 Pulse Source Pulse Oximeter Pulse Oximetry (%) 99 Oxygen Delivery Method Room Air Intake Visit Reasons: Asthma Attending Pathologist Required: No Manager Mechanical Maintenance: Manager Mechanical Maintenance offered & declined Accompanied by: Self / Same As Patient Allergies oxycodone Allergy (Intermediate, Verified 06/27/24 09:20) itching adhesive tape Allergy (Mild, Verified 06/27/24 09:20) RASH ketorolac [From TORADOL] Allergy (Mild, Verified 06/27/24 09:20) HIVES latex [LATEX] Allergy (Mild, Verified 06/27/24 09:20) RASH fruit with skin Allergy (Intermediate, Uncoded 06/27/24 09:20) Hives Medication List - Last Reconciled 06/27/24 by Pastora Kim LPN acetaminophen-codeine 300-30 mg 1 tab PO BID PRN amitriptyline 50 mg PO BEDTIME amoxicillin-pot clavulanate 875-125 mg 1 tab PO BID 10 days azelastine 1 spray intranasal DAILY cyclobenzaprine 10 mg PO BEDTIME cyclosporine 0.05% (Restasis) drps ophthalmic (eye) diltiazem HCl CD 120 mg PO DAILY epinephrine 0.3 mg IM ONCE PRN famotidine 40 mg PO DAILY muldfawwfpy-hfyspxgao-jnjklvvy 200-62.5-25 mcg (Trelegy Ellipta) 1 inh inhalation DAILY galcanezumab-gnlm (Emgality Pen) mg subcut Q4W ipratropium bromide 2 sprays intranasal BID levalbuterol HCl 1.25 mg (3 mL) inhalation Q4-6H PRN levalbuterol tartrate 45 mcg/actuation 1 puff inhalation Q4-6H PRN levonorgestrel (Mirena) intrauterine loratadine 10 mg PO DAILY metoclopramide HCl (Reglan) 10 mg PO QID montelukast 10 mg PO BEDTIME pantoprazole 40 mg PO BID phentermine 30 mg PO QAM propranolol 20 mg PO BID sucralfate (Carafate) 1 g PO QNOON Synthroid (levothyroxine) 100 mcg PO DAILY NS topiramate (Topamax) 100 mg PO BID valacyclovir 1,000 mg PO BID PRN HPI HPI Asthma: Details: Kayla is a pleasant 39 year old female, never smoker, with underlying asthma since teens, atopic dermatitis, environmental allergies, allergic rhinitis and GERD. She was suboptimally controlled on Singulair, antihistamines, and Dulera, ultimately switched to Trelegy 200mcg, continuing with respiratory symptoms. She reports significant triggers due to allergens and under the care of allergy receiving allergen immunotherapy. She was started on Xolair as well, receiving 1 dose with no adverse reactions, scheduled 07/04 for second dose. Since the last visit, she was evaluated at the walk in for sinusitis, and continues to report sinus pressure, post nasal drip and ear pain. She has been using Afrin and Sudafed, holding off on Augmentin prescription as symptoms started a few days ago and seem to be improving. She denies any fevers, chills or chest congestion. [facility] Medical History Encounter for general adult medical examination with abnormal findings Foot pain, bilateral Abnormal EKG Labral tear of right hip joint Abnormal weight gain Odynophagia Pleuritic pain Environmental allergies Abdominal cramping History of irregular menstrual cycles Sinusitis Esophageal spasm Acetabular labrum tear Herpes labialis Dry eyes Yeast infection of the vagina Amenorrhea Metrorrhagia Bloating Epigastric discomfort Shortness of breath Pre-op examination Contusion of chest Exercise-induced asthma Pain of left thumb Rib pain on right side Bilateral otitis media with effusion Left shoulder strain Cellulitis Acute lumbar back pain Right shoulder pain Arthrosis Right knee pain Complex cyst of left ovary Chronic GERD Encounter for IUD insertion Nausea Upper respiratory infection Leg pain, right Nausea Other specified hypothyroidism Otitis media Right hip pain Chest wall pain Lightheaded Acute sinusitis Goiter Elevated TSH Medicare annual wellness visit, subsequent Constipation Ill feeling Epigastric pain Constipation Cervical cancer screening Well woman exam with routine gynecological exam Medicare annual wellness visit, initial Abnormal thyroid stimulating hormone (TSH) level Patella francisco j Knee pain Neck pain Chest pain Migraines Eczema Fibromyalgia Heart murmur Asthma Hypothyroidism Surgical History History of hip surgery H/O shoulder surgery [place] teeth removed History of appendectomy Family History Mother Graves disease Hypothyroidism Father CHF (congestive heart failure) Other Substance use disorder Social History Housing: Apartment Alcohol intake: never Patient Tobacco Use Status: Never used Tobacco e-Cigarette/Vaping Use: Never Used Second Hand Smoke Exposure: Yes (as a child only) service: No Current occupational status: disabled Sexual orientation: Straight/Heterosexual Gender identity: Female Cognitive needs: No Hearing needs: No Vision needs: Yes Female Reproductive History Menstrual Age of Menarche: 15 Review of Systems Const Denies chills, Denies excessive sweating, Denies fever(s) and Denies night sweats Eyes Denies dry eyes and Denies irritation ENT Reports Normal hearing present, Reports nasal congestion, Reports post nasal drip, Reports sinus pain and Reports sinus pressure Card Denies chest pain, Denies chest pain at rest, Denies chest pain with activity, Denies claudication, Denies leg edema, Reports dyspnea on exertion, Denies orthopnea and Denies paroxysmal nocturnal dyspnea Resp Denies change in phlegm color, Denies chest congestion, Denies cough, Denies hemoptysis, Denies excessive phlegm production, Denies pain on inspiration, Denies pain with cough, Reports dyspnea on exertion, Denies stridor and Reports wheezing Musc Denies myalgias Neuro Reports Normal hearing present Endo Denies excessive sweating Sixto/Lymph Denies lymphadenopathy Aller/Immun Reports wheezing Physical Exam Vital Signs: Last Vital Signs Pulse 75 06/27/24 09:12 BP 114/68 06/27/24 09:12 Pulse Ox 99 06/27/24 09:12 Oxygen Delivery Method Room Air 06/27/24 09:12 BMI result Body Mass Index 32.1 Neuro Cranial nerves: Yes Normal hearing present Assessment & Plan Assessment & Plan (1) Asthma, moderate persistent: Code(s): J45.40 - Moderate persistent asthma, uncomplicated Category: Medical Qualifiers: Asthma complication type: uncomplicated Qualified Code(s): J45.40 - Moderate persistent asthma, uncomplicated (2) Allergic rhinitis: Code(s): J30.9 - Allergic rhinitis, unspecified Category: Medical Qualifiers: Allergic rhinitis trigger: pollen Allergic rhinitis seasonality: non-seasonal Qualified Code(s): J30.1 - Allergic rhinitis due to pollen Plan Encouraged patient to continue current regimen of Xolair, Trelegy, Levalbuterol and Singulair. Discussed trialing saline rinse and recommended taking Augmentin if symptoms worsen or do not improve after 7-10 days of symptoms. She was previously under the care of ENT for recurrent sinusitis, encouraged to reestablish care. All questions were answered and patient is in agreement of plan. Will follow up in 3 months or sooner if needed. Coding Level of Care Code Est Pt Level 4 (90312) Diagnoses Moderate persistent asthma without complication J45.40 Asthma complication type: uncomplicated Non-seasonal allergic rhinitis due to pollen J30.1 Allergic rhinitis trigger: pollen Allergic rhinitis seasonality: non-seasonal
--- OUTSIDE RECORDS SUMMARY | 2024-06-27 09:50 | XMS_ITS | Clinical Summary ---
Author Organization 175 [facility] Address [address] [place] [address] Phone Care Team Providers Care Finance Lead Name Role Phone Karen Broussard MD Primary Care Provider [phone] Allergies No known active allergies Medications acetaminophen- [...] 9:00 AM EST Nutrition Bariatric Surgery - [place] [address] [phone] [address] Ace[address]o [address] Class 1 obesity with [...] 8:30 AM EDT Office Visit Bariatric Surgery [facility] [address] [phone] Brianna Umanzor PA [address] [address] Health Maintenance Due Date Last Done Comments [...] Insurance MEDICARE MEDICAID - [place] Care Teams Finance Lead Relationship Specialty Start Date End Date Karen Broussard MD [address] [place] [phone] PCP - General 09/03/23
--- OUTSIDE RECORDS SUMMARY | 2024-06-27 09:50 | XMS_ITS | Data Portability ---
Author Organization [place] - [facility], Allergy Address [address] [place] [address] Care Team Providers Care Actuarial Trainee Name Role Phone SYLVAIN, KAYLAEra Primary Care Provider [phone] Assessment Encounter Date Assessment Date Assessment LastModified [...] mL suspension for nebulizatio n 2023 024 [id number], [address] [facility], [place], [address], 4 12:10:20 Patient TargetsNo targets recorded. Patient InstructionsNo instructions recorded. Reason for Referral None Reported. Problems Name Problem SNOMED Code Status Onset Date Resolution Date Notes Provider Name and Address Organization Details Recorded Time Bilateral temporoma ndibular joint pain 75159045314 912316 Active 2020 Arthralgi a of bilateral temporoma ndibular joint; Note: Date Diagnosed : 08/19/2020 10:57 AM (M26.623) Not Available [facility] 4 02:15:14 Allergic rhinitis 18669318 Active 2022 Allergic rhinitis: Due to other [...] to other allergen; Note: Date Not Available [facility] 4 02:16:00 Posterior rhinorrhe a 78168574 Active 2022 Postnasal drip; Note: Date Diagnosed : 11/09/2022 1:01 PM (R09.82) Not Available [facility] 4 02:15:19 Seasonal allergic rhinitis 149804018 Active 2020 Other seasonal allergic rhinitis; Note: Date Diagnosed : 08/19/2020 10:57 AM (J30.2) Not Available [facility] 4 02:15:54 Uncomplic ated mild persisten t asthma 911284689 Active 2022 Mild persisten t asthma, uncomplic ated; Note: Date Diagnosed : 04/24/2022 3:16 PM (J45.30) Not Available [facility] 4 02:15:40 Bilateral disorder of Eustachia n tubes 89333701447 33572 Active 2020 Other specified disorders of Eustachia n tube, bilateral ; Note: Date Diagnosed : 08/19/2020 10:27 AM (H69.83) Not Available [facility] 4 02:15:31 Migraine without aura, not refractor y 252631607 Active 2023 Migraine without aura, not intractab le, without status migrainos us; Note: Date Diagnosed : 04/30/2023 1:35 PM (G43.009) Not Available [facility] 4 02:15:48 Dysphonia 63769264 Active 2023 Hoarsenes s; Note: Date Diagnosed : 04/30/2023 1:35 PM (R49.0) Not Available [facility] 4 02:16:04 Problem Notes None recorded. Medical Equipment None Reported. Allergies Allergen ID Allergen Name Allergen Category Reaction Reaction Severity Criticality Documentation Date Start Date Code Code System Note Provider Name and Address Organization Details Recorded Time 25869 citrus flavor food other Not available Not available 07/27/2023 64270 UNK React ion: other react ion, Unkno wn; Not Available [facility] 4 00:53:39 28039 adhesive tape environme nt,medica tion other Not available Not available 07/27/2023 49140 UNK React ion: other react ion, Unkno wn; Not Available [facility] 4 00:53:42 86347 Toradol medicatio n other Not available Not available 07/27/2023 83615 RxNorm React ion: other react ion, Unkno wn; Not Available [facility] 4 00:53:46 16519 banana extract food,medi cation other Not available Not available 07/27/2023 56395 9 RxNorm React ion: other react ion, Unkno wn; Not Available [facility] 4 00:53:46 Medications Name Sig Start Date [...] mcg tablet 12/19 completed Medicati on ID: 356110 B rand Name: Synthroi d Send Method: [...] 2 spray 2021 active Medicati on ID: [id number] D uration Value: 30 Brand Name: azelasti [...] spray,cynthia pension 2020 active Medicati on ID: [id number] B rand Name: fluticas one propiona te [...] aerosol inhaler 12/19 completed Medicati on ID: [id number] B rand Name: Symbicor t Send Method: [...] pen injector 2021 active Medicati on ID: [id number] D uration Value: 1 Prescri bed By [...] Updated DateTime 12/20/2023 180.34 cm 34.2 kg/m2 290882.93 g Cheryl Ann [place] - [facility] 12/20/2023 11:43:25 Social History None [...] Diagnosis Note KEYSHA CAPPS MD [facility] [address] [address] 12/20/2023 11:12:43 12/20/2023 12:13:17 Posterior rhinorrhea 04763788 R09.82 Uncomplica twila mild persistent asthma 089267323 J45.30 Health Concerns Section Related Observation LastModified by Organization Detai ls LastModified Time None Recorded Concern Status LastModified by Organization Details LastModified Time None Recorded Advance Directives Directive None Recorded Payers Encounter Date Sequence Insurance Name Policy Number Policy Stafford Covered Member ID Stafford Member ID Guarantor Name 12/20/2023 1 [place]IC[place] B[place] [employer] Kayla Ortega [id number] Kayla Ortega 12/20/2023 2 [place] [facility] Kayla Ortega [id number] Kayla Ortega Notes Date Note Type Note Provider Name and Address Organization Details Recorded Time 12/20/2023 text/html On singulair and [place]. Nasal spray x 2. Some sinus congestion. Just finished prednisone course. 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 Waiting to see another flosser. PV: 38-year-old female presents today for follow-up [...] the images from her CT scan from [place] in July 2022 and the sinus thickening was very mild. KEYSHA CAPPS MD [address] [place] [address], [place], [address], [facility] - [facility] 12/20/2023 18:25:26 OBGyn Episode No OBEpisode recorded.
== END 2024-06-27 09:40 | disposition home or self-care (01) ==
PROVIDERS: PCP Internal Medicine; Visit Provider Nurse Practitioner Family
DX: J45.40 Moderate persistent asthma, uncomplicated (principal); J30.1 Allergic rhinitis due to pollen
CPT/HCPCS: 99214

== ENCOUNTER → 2024-06-27 09:10 | Outpatient (BNVA) | payer MEDICARE, MEDICAID, SELFPAY | PROVIDERS: PCP Internal Medicine; Visit Provider Nurse Practitioner Family | DX: J45.40 Moderate persistent asthma, uncomplicated (principal); J30.1 Allergic rhinitis due to pollen | CPT/HCPCS: 99212 ==

== ENCOUNTER 2024-07-11 15:24 | Outpatient (AMB) | payer MEDICARE, MEDICAID, SELFPAY ==
--- NOTE | 2024-07-11 15:30 | A.OFFVIS_ITS ---
Vital Signs 07/11/24 15:32 Height 5 ft 10 in Weight 228 lb 2.855 oz BMI 32.7 BP 110/72 Blood Pressure Location Rt brachial Position Sitting Pulse 67 Pulse Source Pulse Oximeter Pulse Oximetry (%) 97 Oxygen Delivery Method Room Air Intake Visit Reasons: Hypothyroidism Intake Note: Patient present today for Hypothyroidism office visit. [employer] Required: No Accompanied by: Self / Same As Patient Allergies oxycodone Allergy (Intermediate, Verified 07/11/24 15:33) itching adhesive tape Allergy (Mild, Verified 07/11/24 15:33) RASH ketorolac [From TORADOL] Allergy (Mild, Verified 07/11/24 15:33) HIVES latex [LATEX] Allergy (Mild, Verified 07/11/24 15:33) RASH fruit with skin Allergy (Intermediate, Uncoded 07/11/24 15:33) Hives Medication List - Last Reconciled 07/11/24 by Nelly Melvin MD acetaminophen-codeine 300-30 mg 1 tab PO BID PRN amitriptyline 50 mg PO BEDTIME amoxicillin-pot clavulanate 875-125 mg 1 tab PO BID 10 days azelastine 1 spray intranasal DAILY cyclobenzaprine 10 mg PO BEDTIME cyclosporine 0.05% (Restasis) drps ophthalmic (eye) diltiazem HCl CD 120 mg PO DAILY epinephrine 0.3 mg IM ONCE PRN famotidine 40 mg PO DAILY wljtcjhentd-lpanqtybc-sdrcuosf 200-62.5-25 mcg (Trelegy Ellipta) 1 inh inhalation DAILY galcanezumab-gnlm (Emgality Pen) mg subcut Q4W ipratropium bromide 2 sprays intranasal BID levalbuterol HCl 1.25 mg (3 mL) inhalation Q4-6H PRN levalbuterol tartrate 45 mcg/actuation 1 puff inhalation Q4-6H PRN levonorgestrel (Mirena) intrauterine loratadine 10 mg PO DAILY metoclopramide HCl (Reglan) 10 mg PO QID montelukast 10 mg PO BEDTIME pantoprazole 40 mg PO BID phentermine 30 mg PO QAM propranolol 20 mg PO BID sucralfate (Carafate) 1 g PO QNOON Synthroid (levothyroxine) 100 mcg PO DAILY NS topiramate (Topamax) 100 mg PO BID valacyclovir 1,000 mg PO BID PRN HPI Comments Details: 39 YO Female with a PMHx of hypothyroidism who is seen in F/U. HPI from previous visit Patient developed hyperthyroidism shortly after delivery of her daughter 18 years ago. This then progressed to hypothyroidism, and it was thought she developed thyroiditis which then progressed. She was started on levothyroxine 112 mcg PO daily and was continued on this correction. In late May 2022 labs were checked routinely and this revealed hypothyroidism with TSH of 12. Labs were repeated 1 week later, and TSH had declined to 5. Labs were repeated 1-2 weeks later and were WNL with TSH of 2.84. She remained on Synthroid 125 mcg QD She also reports hoarseness of voice. CT of the neck 2022 revealed a small thyroid. She also had an ultrasound of the thyroid in July 2022 which revealed a heterogenous gland with the increased vascularity with no discrete nodules. Thyroid antibodies were assessed, with elevated TPO and TSI antibodies in 2022. Mom has a history of Grave's disease, but otherwise no other family members with thyroid disease. labs from March 2024 showed TSH low at 0.08, free T4 normal at 1.17. She was on Synthroid 125 mcg daily prior to these labs with appropriate administration in adherence. Dose reduced to 100 mcg daily on 03/31/24. Interval history 07/11/2024 Continues with the same symptoms as complaint during last appointment: Feels intermittent flutters chronically not new. Reports tiredness that is worse. Sle eping better but wakes up more tired. No tremors. Feels more depressed. Reports hair loss and dry skin. Wt loss of 20 lbs in 5 months or so with Phentermine. Says she has dry eyes chronicaly has punctal plugs in and is on eye drops. Gets some intermittent blurry vision. Reports voice hoarsess for the past 3-4 months. Says it lasts all day now ,worsening. Reports acid reflux on PPI. Reports difficulty swallowing. with both solids and liquids, reports intermittent pain. has GERD, follows with GI. Has regurgitation of food. This is all within the past year. Labs from April 2024 showed normal thyroid function. Ultrasound from April 2024 also did not show any nodules. 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 LMP: IUD doesnt get periods 2 pregancies , no misscarrigaes Patient denies any history of childhood neck radiation. Denies having ever used lithium, amiodarone or biotin supplements. She is on brand name synthroid , because on generic she was having a lot of symptoms of persistent hypothyroidism with tirdness, hair loss, symptoms improved with brand name. Physical exam General: sitting comfortably in no acute distress HEENT: normocephalic/atraumatic, Neck: supple, symmetrical, no thyromegaly , Cardiac: normal heart sounds Pulm: normal breath sounds B/L, no added breath sounds Abd: not distended, no tenderness Extremities: no edema, no signs of myxedema, no tremor Neuro: AAO x3, Speech: normal, no facial droop, moving all 4 extremities US THYROID 07/14/22 CLINICAL INFORMATION: Hypothyroidism, unspecified. COMPARISON: None available. TECHNIQUE: Linear transducer grayscale and color Doppler examination with attention to the region of the thyroid. FINDINGS: SIZE: Measurements of the thyroid lobes and nodules are given in sagittal, anteroposterior and transverse dimensions respectively. Right Thyroid Lobe: 2.5 x 0.7 x 0.8 cm, volume 0.7 mL. Parenchyma: The gland echotexture is heterogeneous. Thyroid vascularity is increased. Left Thyroid Lobe: 4.0 x 1.0 x 1.0 cm, volume 2.1 mL. Parenchyma: The gland echotexture is heterogeneous. Thyroid vascularity is increased. Isthmus: 0.2 cm in maximum AP dimension. No focal thyroid nodule is seen. NODES: No lymphadenopathy is seen in the tissue surrounding the thyroid gland. US/US thyroid IMPRESSION: Heterogeneous hypervascular thyroid compatible with thyroiditis. CT Neck: 07/14/2022 FINDINGS: The thyroid gland is small. Note nodule is appreciated. There is diffuse shotty cervical lymphadenopathy. No enlarged cervical lymph nodes. There is mild soft tissue opacification of the sphenoid sinus. There is minimal soft tissue opacification of the left frontal and bilateral ethmoid sinuses. The maxillary sinuses, mastoid air cells and middle ear are clear. Visualized intracranial structures are normal. The visualized orbits are normal. The temporomandibular joints are normal. The naso, parker-and hypopharynx and larynx are normal. The salivary glands are normal. The superior mediastinum is normal. Visualized lung apices are clear. Bony structures are normal. CT/CT soft tissue neck wo IV con IMPRESSION: Small thyroid gland. No thyroid nodule appreciated by CT. Diffuse shotty cervical lymphadenopathy. Mild sinus disease, greatest in the sphenoid sinus. Labs: Laboratory Tests 06/25/22 09/17/22 13:53 07:34 TSH 5.35 H Free T4 0.89 Thyroid Stim Immunoglob 160 H Thyroglobulin Antibody 1 Thyroid Peroxidase Ab 470 H TSH Receptor Ab 1.06 Laboratory Tests 06/25/22 06/17/23 09/13/23 13:53 09:19 10:07 TSH 2.98 1.12 Free T4 1.02 Thyroid Stim Immunoglob 160 H Thyroglobulin Antibody 1 Thyroid Peroxidase Ab 470 H TSH Receptor Ab 1.06 03/27/24 08:19 TSH 0.08 L Free T4 1.17 Thyroid Stim Immunoglob Thyroglobulin Antibody Thyroid Peroxidase Ab TSH Receptor Ab Laboratory Tests 05/12/24 08:13 TSH 0.82 Free T4 1.25 Total T3 80 Thyroid Stim Immunoglob 90 PFSH Medical History Encounter for general adult medical examination with abnormal findings Foot pain, bilateral Abnormal EKG Labral tear of right hip joint Abnormal weight gain Odynophagia Pleuritic pain Environmental allergies Abdominal cramping History of irregular menstrual cycles Sinusitis Esophageal spasm Acetabular labrum tear Herpes labialis Dry eyes Yeast infection of the vagina Amenorrhea Metrorrhagia Bloating Epigastric discomfort Shortness of breath Pre-op examination Contusion of chest Exercise-induced asthma Pain of left thumb Rib pain on right side Bilateral otitis media with effusion Left shoulder strain Cellulitis Acute lumbar back pain Right shoulder pain Arthrosis Right knee pain Complex cyst of left ovary Chronic GERD Encounter for IUD insertion Nausea Upper respiratory infection Leg pain, right Nausea Other specified hypothyroidism Otitis media Right hip pain Chest wall pain Lightheaded Acute sinusitis Goiter Elevated TSH Medicare annual wellness visit, subsequent Constipation Ill feeling Epigastric pain Constipation Cervical cancer screening Well woman exam with routine gynecological exam Medicare annual wellness visit, initial Abnormal thyroid stimulating hormone (TSH) level Patella francisco j Knee pain Neck pain Chest pain Migraines Eczema Fibromyalgia Heart murmur Asthma Hypothyroidism Surgical History History of hip surgery H/O shoulder surgery [place] teeth removed History of appendectomy Family History Mother Graves disease Hypothyroidism Father CHF (congestive heart failure) Other Substance use disorder Social History Housing: Apartment Alcohol intake: never Patient Tobacco Use Status: Never used Tobacco e-Cigarette/Vaping Use: Never Used Second Hand Smoke Exposure: Yes (as a child only) service: No Current occupational status: disabled Sexual orientation: Straight/Heterosexual Gender identity: Female Cognitive needs: No Hearing needs: No Vision needs: Yes Female Reproductive History Menstrual Age of Menarche: 15 Physical Exam Vital Signs: Last Vital Signs Pulse 67 07/11/24 15:32 BP 110/72 07/11/24 15:32 Pulse Ox 97 07/11/24 15:32 Oxygen Delivery Method Room Air 07/11/24 15:32 BMI result Body Mass Index 32.7 Assessment & Plan Assessment & Plan (1) Hypothyroidism: Code(s): E03.9 - Hypothyroidism, unspecified Category: Medical Qualifiers: Hypothyroidism type: unspecified Qualified Code(s): E03.9 - Hypothyroidism, unspecified Plan: 39-year-old who has a history of hypothyroidism on Synthroid 100 mcg daily most recent labs from April 2024 shows she is biochemically euthyroid. She has some nonspecific symptoms of voice hoarseness, trouble swallowing, however these are not related to her thyroid, could be from acid reflux or she might benefit from further evaluation with ENT if she has persistent symptoms. I told her to discuss further with her PCP. She also has persistent tiredness, this could be from the fact that she is anemic, she does not get periods because of IUD, would benefit from further evaluation of anemia as well. Plan: -continue Synthroid 100 mcg daily -do blood work with TSH, free T4, in 6 months -follow up in 1 year Plan See above Orders: Orders Thyroid Stimulating Hormone 6 Months E03.9 - Hypothyroidism, unspecified Free T4 (Free Thyroxine) 6 Months E03.9 - Hypothyroidism, unspecified Medications: Refilled Synthroid (levothyroxine) 100 mcg PO DAILY 90 tabs 3RF NS Patient Instructions: Do blood work in 6 months, we will reach out with results Follow up in 1 year Coding Level of Care Code Est Pt Level 3 (08816) Diagnoses Hypothyroidism, unspecified type E03.9 Hypothyroidism type: unspecified
[2024-07-11 15:32] VITALS: BP 110/72; PULSE 67; O2SAT 97; BMI 32.7
--- OUTSIDE RECORDS SUMMARY | 2024-07-11 18:11 | XMS_ITS | Data Portability ---
Author Organization [place] - [facility], Allergy Address [address] [place] [address] Care Team Providers Care Iron Melter Name Role Phone SYLVAIN, KAYLAEra Primary Care Provider [phone] Assessment Encounter Date Assessment Date Assessment LastModified [...] mL suspension for nebulizatio n 2023 024 [id number], [address] [facility], [place], [address], 4 12:10:20 Patient TargetsNo targets recorded. Patient InstructionsNo instructions recorded. Reason for Referral None Reported. Problems Name Problem SNOMED Code Status Onset Date Resolution Date Notes Provider Name and Address Organization Details Recorded Time Bilateral temporoma ndibular joint pain 23069503282 529790 Active 2020 Arthralgi a of bilateral temporoma ndibular joint; Note: Date Diagnosed : 08/19/2020 10:57 AM (M26.623) Not Available [facility] 4 02:15:14 Allergic rhinitis 78892966 Active 2022 Allergic rhinitis: Due to other [...] to other allergen; Note: Date Not Available [facility] 4 02:16:00 Posterior rhinorrhe a 88202875 Active 2022 Postnasal drip; Note: Date Diagnosed : 11/09/2022 1:01 PM (R09.82) Not Available [facility] 4 02:15:19 Seasonal allergic rhinitis 462615842 Active 2020 Other seasonal allergic rhinitis; Note: Date Diagnosed : 08/19/2020 10:57 AM (J30.2) Not Available [facility] 4 02:15:54 Uncomplic ated mild persisten t asthma 974196452 Active 2022 Mild persisten t asthma, uncomplic ated; Note: Date Diagnosed : 04/24/2022 3:16 PM (J45.30) Not Available [facility] 4 02:15:40 Bilateral disorder of Eustachia n tubes 80430919804 66026 Active 2020 Other specified disorders of Eustachia n tube, bilateral ; Note: Date Diagnosed : 08/19/2020 10:27 AM (H69.83) Not Available [facility] 4 02:15:31 Migraine without aura, not refractor y 801738955 Active 2023 Migraine without aura, not intractab le, without status migrainos us; Note: Date Diagnosed : 04/30/2023 1:35 PM (G43.009) Not Available [facility] 4 02:15:48 Dysphonia 00086403 Active 2023 Hoarsenes s; Note: Date Diagnosed : 04/30/2023 1:35 PM (R49.0) Not Available [facility] 4 02:16:04 Problem Notes None recorded. Medical Equipment None Reported. Allergies Allergen ID Allergen Name Allergen Category Reaction Reaction Severity Criticality Documentation Date Start Date Code Code System Note Provider Name and Address Organization Details Recorded Time 25326 citrus flavor food other Not available Not available 07/27/2023 03177 UNK React ion: other react ion, Unkno wn; Not Available [facility] 4 00:53:39 59395 adhesive tape environme nt,medica tion other Not available Not available 07/27/2023 66773 UNK React ion: other react ion, Unkno wn; Not Available [facility] 4 00:53:42 72274 Toradol medicatio n other Not available Not available 07/27/2023 78820 RxNorm React ion: other react ion, Unkno wn; Not Available [facility] 4 00:53:46 44699 banana extract food,medi cation other Not available Not available 07/27/2023 11866 9 RxNorm React ion: other react ion, Unkno wn; Not Available [facility] 4 00:53:46 Medications Name Sig Start [...] mcg tablet 12/19 completed Medicati on ID: [id number] B rand Name: Synthroi d Send Method: [...] 2 spray 2021 active Medicati on ID: [id number] D uration Value: 30 Brand Name: azelasti [...] spray,cynthia pension 2020 active Medicati on ID: [id number] B rand Name: fluticas one propiona te [...] aerosol inhaler 12/19 completed Medicati on ID: [id number] B rand Name: Symbicor t Send Method: E-Prescr ibed Sub s Allowed: subs OK [facility] : Symbicor t Not Available Not [...] pen injector 2021 active Medicati on ID: [id number] D uration Value: 1 Prescri bed By Name: Keysha mcwilliasm MD Brand Name: EpiPen 2-Jayy Se nd [...] Updated DateTime 12/20/2023 180.34 cm 34.2 kg/m2 876408.93 g Cheryl Ann [place] - [facility] 12/20/2023 11:43:25 Social History None recorded. [...] Diagnosis Note KEYSHA CAPPS MD [facility] [address] [address] 12/20/2023 11:12:43 12/20/2023 12:13:17 Posterior rhinorrhea 33271862 R09.82 Uncomplica twila mild persistent asthma 834544872 J45.30 Health Concerns Section Related Observation LastModified by Organization Detai ls LastModified Time None Recorded Concern Status LastModified by Organization Details LastModified Time None Recorded Advance Directives Directive None Recorded Payers Encounter Date Sequence Insurance Name Policy Number Policy Stafford Covered Member ID Stafford Member ID Guarantor Name 12/20/2023 1 [place]ICARE B-[place]: [employer] Kayla Ortega [id number] Kayla Ortega 12/20/2023 2 [place] [facility] Kayla Ortega [id number] Kayla Ortega Notes Date Note Type Note Provider Name and Address Organization Details Recorded Time 12/20/2023 text/html On singulair and [place]. Nasal spray x 2. Some sinus congestion. Just finished prednisone course. 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 PV: 38-year-old female presents today for follow-up [...] the images from her CT scan from [place] in July 2022 and the sinus thickening was very mild. KEYSHA CAPPS MD [address] [place] [address], [place], [address], [facility] - [facility] 12/20/2023 18:25:26 OBGyn Episode No OBEpisode recorded.
== END 2024-07-11 16:04 | disposition home or self-care (01) ==
LOC: HO.ENCR 15:25
PROVIDERS: PCP Internal Medicine; Visit Provider Student in an Organized Health Care Education/Training Program
DX: E03.9 Hypothyroidism, unspecified (principal)
CPT/HCPCS: 99213

== ENCOUNTER → 2024-07-11 15:24 | Outpatient (BNVA) | payer MEDICARE, MEDICAID, SELFPAY | PROVIDERS: PCP Internal Medicine; Visit Provider Student in an Organized Health Care Education/Training Program | DX: E03.9 Hypothyroidism, unspecified (principal) | CPT/HCPCS: 99212 ==

== ENCOUNTER 2024-07-22 09:55 | Outpatient (AMB) | payer MEDICARE, MEDICAID, SELFPAY ==
[2024-07-22 11:28] VITALS: BP 110/82; PULSE 62; RESP 16; TEMP 36.5; O2SAT 97; BMI 32.3
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
== END 2024-07-22 12:10 | disposition home or self-care (01) ==
PROVIDERS: PCP Internal Medicine; Visit Provider Family Medicine
DX: S13.9XXA Sprain of joints and ligaments of unspecified parts of neck, initial encounter (principal)

== ENCOUNTER → 2024-07-22 09:55 | Outpatient (BNVA) | payer MEDICARE, MEDICAID, SELFPAY | PROVIDERS: PCP Internal Medicine; Visit Provider Family Medicine | DX: S13.9XXA Sprain of joints and ligaments of unspecified parts of neck, initial encounter (principal); V89.2XXA Person injured in unspecified motor-vehicle accident, traffic, initial encounter | CPT/HCPCS: 99212 ==

== ENCOUNTER 2024-07-25 09:58 | Outpatient (AMB) | payer MEDICARE, MEDICAID, SELFPAY ==
--- NOTE | 2024-07-25 10:01 | MHC.OFFVIS ---
Vital Signs 07/25/24 10:02 Height 5 ft 10 in Weight 222 lb 10.67 oz BMI 31.9 BP 130/72 Blood Pressure Location Lt brachial Position Sitting Pulse 71 Pulse Source Pulse Oximeter Pulse Oximetry (%) 99 Oxygen Delivery Method Room Air Intake Visit Reasons: follow up GERD Intake Note: Pt presents to the office today for a follow up for GERD. Pt states some days she wont experience any GERD but other days she will have relfux all day long. Allergies oxycodone Allergy (Intermediate, Verified 07/25/24 10:06) itching adhesive tape Allergy (Mild, Verified 07/25/24 10:06) RASH ketorolac [From TORADOL] Allergy (Mild, Verified 07/25/24 10:06) HIVES latex [LATEX] Allergy (Mild, Verified 07/25/24 10:06) RASH fruit with skin Allergy (Intermediate, Uncoded 07/25/24 10:06) Hives HPI HPI follow up GERD: Details: Assessment & Plan (1) GERD with esophagitis: Code(s): K21.00 - Gastro-esophageal reflux disease with esophagitis, without bleeding Category: Medical (2) Gastroparesis: Code(s): K31.84 - Gastroparesis Category: Medical (3) Irritable bowel syndrome with both constipation and diarrhea: Code(s): K58.2 - Mixed irritable bowel syndrome Category: Medical (4) Lactose intolerance: Code(s): E73.9 - Lactose intolerance, unspecified Category: Medical (5) Multiple food allergies: Comment: all fruit, avocado, seeded vegetables, carrots Code(s): Z91.018 - Allergy to other foods Category: Medical (6) Erosive esophagitis: Code(s): K22.10 - Ulcer of esophagus without bleeding Category: Medical Plan She is only getting the pantoprazole qd r/t insurance. Continues to have GERD with acid brash and hoarse voice. Is seeing ENT as well for this. We will try having her get OTC prilosec to take in the evening and a temp supply of carafate tabs to create a slurry. She IS taking the reglan qid but she is unsure if it is helping the sx. I suggest a trial w/o the reglan to see if her sx worsen to determine if we need this. Next avail. Medications: New sucralfate (Carafate) Have pt crush tablet to create slurry 1 g PO QNOON 30 tabs 1RF K22.10 - Ulcer of esophagus without bleeding Refilled metoclopramide HCl (Reglan) 10 mg PO QID 120 tabs 6RF K21.00 - Gastro-esophageal reflux disease with esophagitis, without bleeding TODAYS VISIT Her voice is hoarse today. She is having worse subjective symptoms of heartburn with burning in her throat and sometimes having food reflux. She did go off of the Reglan for awhile when she did notice it made a slight difference. So she went back on it. She is on 10 mg 4 times a day. I ask about her stooling since this can have a big impact on burping and heartburn and reflux. She admits that she tends to experience incomplete evacuation and at times the stools will backup and then she will have what I would describe as a purge. Where she will have looser stools and it will take 2 days for complete emptying. Clearly this sounds like a reactive diarrhea to constipation as a baseline. We are going to stop her sucralfate which was given for erosive esophagitis and since she did not do well on senna, it seemed completely ineffective, we will progress to Dulcolax and titrate to affect her side effect. She did get her twice a day pantoprazole dosing so I encouraged her to continue that and will will use the famotidine only for breakthrough. Return office visit in 8 weeks [facility] Medical History Encounter for general adult medical examination with abnormal findings Foot pain, bilateral Abnormal EKG Labral tear of right hip joint Abnormal weight gain Odynophagia Pleuritic pain Environmental allergies Abdominal cramping History of irregular menstrual cycles Sinusitis Esophageal spasm Acetabular labrum tear Herpes labialis Dry eyes Yeast infection of the vagina Amenorrhea Metrorrhagia Bloating Epigastric discomfort Shortness of breath Pre-op examination Contusion of chest Exercise-induced asthma Pain of left thumb Rib pain on right side Bilateral otitis media with effusion Left shoulder strain Cellulitis Acute lumbar back pain Right shoulder pain Arthrosis Right knee pain Complex cyst of left ovary Chronic GERD Encounter for IUD insertion Nausea Upper respiratory infection Leg pain, right Nausea Other specified hypothyroidism Otitis media Right hip pain Chest wall pain Lightheaded Acute sinusitis Goiter Elevated TSH Medicare annual wellness visit, subsequent Constipation Ill feeling Epigastric pain Constipation Cervical cancer screening Well woman exam with routine gynecological exam Medicare annual wellness visit, initial Abnormal thyroid stimulating hormone (TSH) level Patella francisco j Knee pain Neck pain Chest pain Migraines Eczema Fibromyalgia Heart murmur Asthma Hypothyroidism Surgical History History of hip surgery H/O shoulder surgery [place] teeth removed History of appendectomy Family History Mother Graves disease Hypothyroidism Father CHF (congestive heart failure) Other Substance use disorder Social History Housing: Apartment Alcohol intake: never Patient Tobacco Use Status: Never used Tobacco e-Cigarette/Vaping Use: Never Used Second Hand Smoke Exposure: Yes (as a child only) service: No Current occupational status: disabled Sexual orientation: Straight/Heterosexual Gender identity: Female Cognitive needs: No Hearing needs: No Vision needs: Yes Female Reproductive History Menstrual Age of Menarche: 15 Review of Systems Const Denies fatigue, Denies fever(s), Denies night sweats, Denies poor appetite and Denies weight loss Eyes Details: glasses Reports requires corrective lenses ENT Reports Normal hearing present, Denies dental pain, Denies dysphagia, Denies hearing loss, Denies mouth pain, Denies odynophagia, Denies throat swelling, Denies tongue swelling and Reports other (Dentition adequate) Card Reports no additional complaints Resp Reports no additional complaints GI Details: Denies abdominal pain, Denies melena, Denies bloating, Denies hematochezia, Reports constipation, Denies GI cramping, Denies dysphagia, Denies excessive flatus, Denies early satiety, Reports heartburn, Denies diarrhea, Denies nausea, Denies odynophagia, Denies vomiting and Denies hematemesis Skin/Breast Denies pruritus, Denies lesions, Denies rash and Denies jaundice Neuro Reports Normal hearing present and Denies Abnormal speech present Endo Denies fatigue Aller/Immun Denies throat swelling and Denies tongue swelling Physical Exam Vital Signs: Last Vital Signs Pulse 71 07/25/24 10:02 BP 130/72 07/25/24 10:02 Pulse Ox 99 07/25/24 10:02 Oxygen Delivery Method Room Air 07/25/24 10:02 BMI result Body Mass Index 31.9 Const General: cooperative, no acute distress, well developed and well groomed Nutritional Appearance: average body habitus and well nourished Orientation/consciousness: oriented to person, oriented to place and oriented to time Limitations: No language barrier HEENT Head: Yes normocephalic and Yes atraumatic Eyes General: appearance normal, both eyes and all related structures Pupils: Equal, round and reactive pupils present Neck Neck: Yes normal visual inspection and Yes no lymphadenopathy Thyroid: Thyroid normal Resp Effort & Inspection: normal respiratory effort and able to speak in complete sentences Auscultation: clear to auscultation bilaterally Cardio Rate: regular rate Rhythm: regular rhythm Heart sounds: Normal, physiologic split S2 sound present Peripheral pulses: radial pulses present and posterior tibial pulses present GI Inspection: No distended and No Abdominal panniculus present Palpation (GI): Soft to palpation, nontender, no guarding, not rigid and No hepatosplenomegaly present Percussion: Yes normal to percussion Auscultation: normal bowel sounds Rectal Exam - Female: deferred Skin General skin exam: no rashes or lesions noted, turgor normal, skin not dry, no jaundice, No spider nevi and no striae Rashes: no rashes Nails: normal Neuro General: oriented to person, oriented to place and oriented to time Cranial nerves: Yes Equal, round and reactive pupils present and Yes Normal hearing present Speech: No Abnormal speech present Extrem General: Yes normal to inspection, No clubbing, No cyanosis and No edema Psych Appearance: grossly normal and well kempt Mental Status: mental status grossly normal Speech and movement: Normal speech and movement present Affect: normal affect Attitude: cooperative Thought process: Normal thought process present and not confabulating Thought content: Normal thought content present Insight: Good insight present (Psych) Judgement: Good judgement present (Psych) Assessment & Plan Assessment & Plan (1) Constipation: Code(s): K59.00 - Constipation, unspecified Category: Medical (2) GERD with esophagitis: Code(s): K21.00 - Gastro-esophageal reflux disease with esophagitis, without bleeding Category: Medical (3) Gastroparesis: Code(s): K31.84 - Gastroparesis Category: Medical (4) Erosive esophagitis: Code(s): K22.10 - Ulcer of esophagus without bleeding Category: Medical Plan Her voice is hoarse today. She is having worse subjective symptoms of heartburn with burning in her throat and sometimes having food reflux. She did go off of the Reglan for awhile when she did notice it made a slight difference. So she went back on it. She is on 10 mg 4 times a day. I ask about her stooling since this can have a big impact on burping and heartburn and reflux. She admits that she tends to experience incomplete evacuation and at times the stools will backup and then she will have what I would describe as a purge. Where she will have looser stools and it will take 2 days for complete emptying. Clearly this sounds like a reactive diarrhea to constipation as a baseline. We are going to stop her sucralfate which was given for erosive esophagitis and since she did not do well on senna, it seemed completely ineffective, we will progress to Dulcolax and titrate to affect her side effect. She did get her twice a day pantoprazole dosing so I encouraged her to continue that and will will use the famotidine only for breakthrough. Return office visit in 8 weeks Medications: New bisacodyl (Dulcolax (bisacodyl)) 10 mg (2 x 5 mg) PO BEDTIME 30 days 60 tabs 6RF K21.00 - Gastro-esophageal reflux disease with esophagitis, without bleeding, K22.10 - Ulcer of esophagus without bleeding, K31.84 - Gastroparesis, K59.00 - Constipation, unspecified Discontinued sucralfate (Carafate) Have pt crush tablet to create slurry Discontinued Reason: Doctor's Order 1 g PO QNOON 30 tabs 1RF K22.10 - Ulcer of esophagus without bleeding Coding Level of Care Code Est Pt Level 3 (58410) Diagnoses Constipation K59.00 GERD with esophagitis K21.00 Gastroparesis K31.84 Erosive esophagitis K22.10
[2024-07-25 10:02] VITALS: BP 130/72; PULSE 71; O2SAT 99; BMI 31.9
--- OUTSIDE RECORDS SUMMARY | 2024-07-25 10:49 | XMS_ITS | Data Portability ---
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 Patient InstructionsNo instructions recorded. Reason for Referral None Reported. Problems Name Problem SNOMED Code Status Onset Date Resolution Date Notes Provider Name and Address Organization Details Recorded Time Bilateral temporoma ndibular joint pain 16421335210 048215 Active 2020 Arthralgi a of bilateral temporoma ndibular joint; Note: Date Diagnosed : 08/19/2020 10:57 AM (M26.623) Not Available [facility] 4 02:15:14 Allergic rhinitis 48835793 Active 2022 Allergic rhinitis: Due to other [...] to other allergen; Note: Date Not Available [facility] 4 02:16:00 Posterior rhinorrhe a 88424203 Active 2022 Postnasal drip; Note: Date Diagnosed : 11/09/2022 1:01 PM (R09.82) Not Available [facility] 4 02:15:19 Seasonal allergic rhinitis 450929400 Active 2020 Other seasonal allergic rhinitis; Note: Date Diagnosed : 08/19/2020 10:57 AM (J30.2) Not Available [facility] 4 02:15:54 Uncomplic ated mild persisten t asthma 271850276 Active 2022 Mild persisten t asthma, uncomplic ated; Note: Date Diagnosed : 04/24/2022 3:16 PM (J45.30) Not Available [facility] 4 02:15:40 Bilateral disorder of Eustachia n tubes 16957494393 79619 Active 2020 Other specified disorders of Eustachia n tube, bilateral ; Note: Date Diagnosed : 08/19/2020 10:27 AM (H69.83) Not Available [facility] 4 02:15:31 Migraine without aura, not refractor y 401534048 Active 2023 Migraine without aura, not intractab le, without status migrainos us; Note: Date Diagnosed : 04/30/2023 1:35 PM (G43.009) Not Available [facility] 4 02:15:48 Dysphonia 52580645 Active 2023 Hoarsenes s; Note: Date Diagnosed : 04/30/2023 1:35 PM (R49.0) Not Available [facility] 4 02:16:04 Problem Notes None recorded. Medical Equipment None Reported. Allergies Allergen ID Allergen Name Allergen Category Reaction Reaction Severity Criticality Documentation Date Start Date Code Code System Note Provider Name and Address Organization Details Recorded Time 11014 citrus flavor food other Not available Not available 07/27/2023 93847 UNK React ion: other react ion, Unkno wn; Not Available [facility] 4 00:53:39 58318 adhesive tape environme nt,medica tion other Not available Not available 07/27/2023 51743 UNK React ion: other react ion, Unkno wn; Not Available [facility] 4 00:53:42 95243 Toradol medicatio n other Not available Not available 07/27/2023 58271 RxNorm React ion: other react ion, Unkno wn; Not Available [facility] 4 00:53:46 45165 banana extract food,medi cation other Not available Not available 07/27/2023 90026 9 RxNorm React ion: other react ion, Unkno wn; Not Available [facility] 4 00:53:46 Medications Name Sig [...] mcg tablet 12/19 completed Medicati on ID: [id number] B rand Name: Synthroi d Send Method: [...] 2 spray 2021 active Medicati on ID: [id number] D uration Value: 30 Brand Name: azelasti [...] spray,cynthia pension 2020 active Medicati on ID: [id number] B rand Name: fluticas one propiona te [...] aerosol inhaler 12/19 completed Medicati on ID: [id number] B rand Name: Symbicor t Send Method: E-Prescr ibed Sub s Allowed: subs [place] [facility] : Symbicor t Not Available Not [...] pen injector 2021 active Medicati on ID: [id number] D uration Value: 1 Prescri bed By [...] Updated DateTime 12/20/2023 180.34 cm 34.2 kg/m2 800967.93 g Cheryl Ann [place] - [facility] 12/20/2023 11:43:25 Social History None recorded. [...] Diagnosis Note KEYSHA CAPPS MD [facility] [address] [id number] 12/20/2023 11:12:43 12/20/2023 12:13:17 Posterior rhinorrhea [id number] R09.82 Uncomplica twila mild persistent asthma 448335882 J45.30 Health Concerns Section Related Observation LastModified by Organization Detai ls LastModified Time None Recorded Concern Status LastModified by Organization Details LastModified Time None Recorded Advance Directives Directive None Recorded Payers Insurance Date Sequence Insurance Name Policy Number Policy Stafford Covered Member ID Stafford Member ID Guarantor Name 12/20/2023 1 [place] B[place] [id number] Kayla Ortega [id number] Kayla Ortega 12/22/2023 2 [place] [facility] Kayla Ortega [id number] Kayla Ortega Notes Date Note Type Note Provider Name and Address Organization Details Recorded Time 12/20/2023 text/html On singulair and [place]. Nasal spray x 2. Some sinus congestion. Just finished prednisone course. 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 PV: 38-year-old female presents today for follow-up [...] the images from her CT scan from [place] in July 2022 and the sinus thickening was very mild. KEYSHA CAPPS MD [address] [place] [address], [place], [address], [facility] - [facility] 12/20/2023 18:25:26 OBGyn Episode No OBEpisode recorded.
--- OUTSIDE RECORDS SUMMARY | 2024-07-25 10:49 | XMS_ITS | Clinical Summary ---
Author Organization 175 [facility] Address [address] [place] [address] Phone Care Team Providers Care Parish Worker Name Role Phone Karen Broussard MD Primary Care Provider [phone] Allergies No known active allergies Medications acetaminophen- [...] MOUTH EVERY DAY BEFORE BREAKFAST 30 capsule 07/13/19 25 Active phentermine 30 mg capsule TAKE 1 CAPSULE BY MOUTH EVERY DAY BEFORE BREAKFAST 30 capsule 06/10/19 25 025 Discontinued Active Problems Problem Noted Date Diagnosed Date Class 1 obesity with body ma ss index (BMI) of 31.0 to 31.9 in adult 01/15/2024 Asthma 10/18/2023 GERD (gastroesophageal reflux disease) Hypothyroidism 10/18/2023 Encounters Date Type Department Care Team Description 05/04/2024 9:00 AM EST Nutrition Bariatric Surgery - [place] [address] [phone] Jyoti Ace[address] Class 1 obesity with [...] 8:30 AM EDT Office Visit Bariatric Surgery [facility] [address] [phone] Brianna Umanzor PA [address] [address] Health Maintenance Due Date Last Done Comments [...] Insurance MEDICARE MEDICAID - [place] Care Teams Parish Worker Relationship Specialty Start Date End Date Karen Broussard MD [address] [place] [phone] PCP - General 09/03/23
== END 2024-07-25 10:32 | disposition home or self-care (01) ==
LOC: HO.HGI 09:59
PROVIDERS: PCP Internal Medicine; Visit Provider Nurse Practitioner
DX: K59.00 Constipation, unspecified (principal); K21.00 Gastro-esophageal reflux disease with esophagitis, without bleeding; K31.84 Gastroparesis; K22.10 Ulcer of esophagus without bleeding
CPT/HCPCS: 99213

== ENCOUNTER → 2024-07-25 09:58 | Outpatient (BNVA) | payer MEDICARE, MEDICAID, SELFPAY | PROVIDERS: PCP Internal Medicine; Visit Provider Nurse Practitioner | DX: K21.00 Gastro-esophageal reflux disease with esophagitis, without bleeding (principal); K59.00 Constipation, unspecified; K31.84 Gastroparesis; K22.10 Ulcer of esophagus without bleeding | CPT/HCPCS: 99212 ==

== ENCOUNTER 2024-08-31 08:36 | Outpatient (AMB) | payer MEDICARE, MEDICAID, SELFPAY ==
--- OUTSIDE RECORDS SUMMARY | 2024-08-31 08:57 | XMS_ITS | Data Portability ---
Author Organization [place] - [facility], Allergy Address [address] [place] [id number] Care Team Providers Care Wildlife Refuge Specialist Name Role Phone SYLVAIN, KAYLAEra Primary Care Provider [phone] Assessment Encounter Date Assessment Date Assessment LastModified [...] mL suspension for nebulizatio n 2023 0[id number] [address] [facility], [place], [address], 4 12:10:20 Patient TargetsNo targets recorded. Patient InstructionsNo instructions recorded. Reason for Referral None Reported. Problems Name Problem SNOMED Code Status Onset Date Resolution Date Notes Provider Name and Address Organization Details Recorded Time Bilateral temporoma ndibular joint pain 27005665511 097099 Active 2020 Arthralgi a of bilateral temporoma ndibular joint; Note: Date Diagnosed : 08/19/2020 10:57 AM (M26.623) Not Available [facility] 4 02:15:14 Allergic rhinitis 66870515 Active 2022 Allergic rhinitis: Due to other [...] other allergen; Note: Date Not Available [facility] 4 02:16:00 Posterior rhinorrhe a 01281319 Active 2022 Postnasal drip; Note: Date Diagnosed : 11/09/2022 1:01 PM (R09.82) Not Available [facility] 4 02:15:19 Seasonal allergic rhinitis 249361125 Active 2020 Other seasonal allergic rhinitis; Note: Date Diagnosed : 08/19/2020 10:57 AM (J30.2) Not Available [facility] 4 02:15:54 Uncomplic ated mild persisten t asthma 790298410 Active 2022 Mild persisten t asthma, uncomplic ated; Note: Date Diagnosed : 04/24/2022 3:16 PM (J45.30) Not Available [facility] 4 02:15:40 Bilateral disorder of Eustachia n tubes 78900604022 37939 Active 2020 Other specified disorders of Eustachia n tube, bilateral ; Note: Date Diagnosed : 08/19/2020 10:27 AM (H69.83) Not Available [facility] 4 02:15:31 Migraine without aura, not refractor y 812890323 Active 2023 Migraine without aura, not intractab le, without status migrainos us; Note: Date Diagnosed : 04/30/2023 1:35 PM (G43.009) Not Available [facility] 4 02:15:48 Dysphonia 27010362 Active 2023 Hoarsenes s; Note: Date Diagnosed : 04/30/2023 1:35 PM (R49.0) Not Available [facility] 4 02:16:04 Problem Notes None recorded. Medical Equipment None Reported. Allergies Allergen ID Allergen Name Allergen Category Reaction Reaction Severity Criticality Documentation Date Start Date Code Code System Note Provider Name and Address Organization Details Recorded Time 81992 citrus flavor food other Not available Not available 07/27/2023 24837 UNK React ion: other react ion, Unkno wn; Not Available [facility] 4 00:53:39 63018 adhesive tape environme nt,medica tion other Not available Not available 07/27/2023 58432 UNK React ion: other react ion, Unkno wn; Not Available [facility] 4 00:53:42 58483 Toradol medicatio n other Not available Not available 07/27/2023 73420 RxNorm React ion: other react ion, Unkno wn; Not Available [facility] 4 00:53:46 04890 banana extract food,medi cation other Not available Not available 07/27/2023 29000 9 RxNorm React ion: other react ion, Unkno wn; Not Available [facility] 4 00:53:46 Medications Name Sig Start Date [...] mcg tablet 12/19 completed Medicati on ID: [id number] B rand Name: Synthroi d Send Method: [...] 2 spray 2021 active Medicati on ID: [id number] D uration Value: 30 Brand Name: azelasti [...] spray,cynthia pension 2020 active Medicati on ID: [id number] B rand Name: fluticas one propiona te [...] aerosol inhaler 12/19 completed Medicati on ID: [id number] B rand Name: Symbicor t Send Method: E-Prescr ibed Sub s Allowed: subs OK [facility] Not Available Not [...] pen injector 2021 active Medicati on ID: [id number] D uration Value: 1 Prescri bed By [...] Updated DateTime 12/20/2023 180.34 cm 34.2 kg/m2 709693.93 g Cheryl Ann [place] - [facility] 12/20/2023 11:43:25 Social History None recorded. [...] Diagnosis Note KEYSHA CAPPS MD [facility] [address] [phone] 12/20/2023 11:12:43 12/20/2023 12:13:17 Posterior rhinorrhea [id number] R09.82 Uncomplica twila mild persistent asthma 796477387 J45.30 Health Concerns Section Related Observation LastModified by Organization Detai ls LastModified Time None Recorded Concern Status LastModified by Organization Details LastModified Time None Recorded Advance Directives Directive None Recorded Payers Insurance Date Sequence Insurance Name Policy Number Policy Stafford Covered Member ID Stafford Member ID Guarantor Name 12/20/2023 1 [place] B[place] [employer] Kayla Ortega [id number] Kayla Ortega 12/22/2023 2 [place] [facility] Kayla Ortega [id number] Kayla Ortega Notes Date Note Type Note Provider Name and Address Organization Details Recorded Time 12/20/2023 text/html On singulair and [place]. Nasal spray x 2. Some sinus congestion. Just finished prednisone course. 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 PV: 38-year-old female presents today for follow-up [...] the images from her CT scan from [place] in July 2022 and the sinus thickening was very mild. KEYSHA CAPPS MD [address] [place] [address], [place], [phone], [facility] - [facility] 12/20/2023 18:25:26 OBGyn Episode No OBEpisode recorded.
--- NOTE | 2024-08-31 09:32 | A.OFFPC_ITS ---
Intake Visit Reasons: telemedicine Allergies oxycodone Allergy (Intermediate, Verified 07/25/24 10:06) itching adhesive tape Allergy (Mild, Verified 07/25/24 10:06) RASH ketorolac (From TORADOL) Allergy (Mild, Verified 07/25/24 10:06) HIVES latex (LATEX) Allergy (Mild, Verified 07/25/24 10:06) RASH fruit with skin Allergy (Intermediate, Uncoded 07/25/24 10:06) Hives Medication List - Last Reconciled 08/31/24 by Karen Broussard MD acetaminophen-codeine 300-30 mg 1 tab PO BID PRN amitriptyline 50 mg PO BEDTIME azelastine 1 spray intranasal DAILY bisacodyl (Dulcolax (bisacodyl)) 10 mg (2 x 5 mg) PO BEDTIME 30 days cyclobenzaprine 10 mg PO Q8H 7 days cyclosporine 0.05% (Restasis) drps ophthalmic (eye) diltiazem HCl CD 120 mg PO DAILY epinephrine 0.3 mg IM ONCE PRN lxtdkjbhhrs-kbilryakj-briqihsx 200-62.5-25 mcg (Trelegy Ellipta) 1 inh inhalation DAILY galcanezumab-gnlm (Emgality Pen) mg subcut Q4W ibuprofen 600 mg PO Q8H PRN 10 days ipratropium bromide 2 sprays intranasal BID levalbuterol HCl 1.25 mg (3 mL) inhalation Q4-6H PRN levalbuterol tartrate 45 mcg/actuation 1 puff inhalation Q4-6H PRN levocetirizine (Xyzal) 5 mg PO DAILY levonorgestrel (Mirena) intrauterine metoclopramide HCl (Reglan) 10 mg PO QID montelukast 10 mg PO BEDTIME pantoprazole 40 mg PO BID phentermine 30 mg PO QAM propranolol 20 mg PO BID Synthroid (levothyroxine) 100 mcg PO DAILY NS topiramate (Topamax) 100 mg PO BID valacyclovir 1,000 mg PO BID PRN Tobacco use date assessed: 02/12/23 Dental Screening Dental Screen Date: 02/12/23 HPI telemedicine HPI Details History - The patient is a 39-year-old female pr esenting with migraines., requesting to be excussed from up coming Jury duty in Dec - The patient has been experiencing migr aines and is currently on Emgality injections as a preventative measure. - Despite the preventative treatment, th e patient reports that migraines return stronger and in clusters as the medication wears off. - The patient is also taking topiramate, amitriptyline, propranolol, and Tylenol with Codeine as needed for headache management. - The patient experiences daily headache s, although they do not always progress to full-blown migraines. - The patient is under the care of a dami rologist for migraine management. - The patient has a history of requiring a letter for jury duty exemption due to migraines in 2022. - The patient reports symptoms of allerg ic rhinitis, attributing her voice changes to allergies. Problem List - Migraine - Allergic rhinitis Patient Instructions - Follow up with your neurologist regard ing migraine management and medication adjustments. 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 Review of Systems - General: No fever no chills - Neurological: No headaches no dizziness - Ear nose throat: No sore throat no hearing difficulty no ear pain - Cardiovascular: No syncope, no chest pain, no palpitations - Gastrointestinal: No nausea vomiting or diarrhea [facility] Medical History Constipation Encounter for general adult medical examination with abnormal findings Foot pain, bilateral Abnormal EKG Labral tear of right hip joint Abnormal weight gain Odynophagia Pleuritic pain Environmental allergies Abdominal cramping History of irregular menstrual cycles Sinusitis Esophageal spasm Acetabular labrum tear Herpes labialis Dry eyes Yeast infection of the vagina Amenorrhea Metrorrhagia Bloating Epigastric discomfort Shortness of breath Pre-op examination Contusion of chest Exercise-induced asthma Pain of left thumb Rib pain on right side Bilateral otitis media with effusion Left shoulder strain Cellulitis Acute lumbar back pain Right shoulder pain Arthrosis Right knee pain Complex cyst of left ovary Chronic GERD Encounter for IUD insertion Nausea Upper respiratory infection Leg pain, right Nausea Other specified hypothyroidism Otitis media Right hip pain Chest wall pain Lightheaded Acute sinusitis Goiter Elevated TSH Medicare annual wellness visit, subsequent Ill feeling Epigastric pain Constipation Cervical cancer screening Well woman exam with routine gynecological exam Medicare annual wellness visit, initial Abnormal thyroid stimulating hormone (TSH) level Patella francisco j Knee pain Neck pain Chest pain Migraines Eczema Fibromyalgia Heart murmur Asthma Hypothyroidism Surgical History History of hip surgery H/O shoulder surgery [place] teeth removed History of appendectomy Family History Mother Graves disease Hypothyroidism Father CHF (congestive heart failure) Other Substance use disorder Social History Housing: Apartment Alcohol intake: never Patient Tobacco Use Status: Never used Tobacco e-Cigarette/Vaping Use: Never Used Second Hand Smoke Exposure: Yes (as a child only) service: No Current occupational status: disabled Sexual orientation: Straight/Heterosexual Gender identity: Female Cognitive needs: No Hearing needs: No Vision needs: Yes Female Reproductive History Menstrual Age of Menarche: 15 Questionnaire Thrive Questionnaire Date Thrive assessed: 03/17/24 I am a: Patient What is your living situation today?: I have a steady place to live Within the past 12 months, did the food you bought not last and you didn't have the money to get more?: Never true Within the past 12 months, did you worry whether your food would run out before you got money to buy more?: Never true Do you have trouble paying for medicines?: No Do you have trouble getting transportation to medical appointments?: No Do you have trouble paying your heating and electricity bill?: No Do you have trouble taking care of your child, family member or friend?: No Do you have trouble with day-to-day activities such as bathing, preparing meals, shopping, managing finances, etc.?: No Are you currently unemployed and looking for a job?: No Are you interested in more education?: No Please select the resources that you would like help with: None Currently or been in a relationship where the following occur: No concerns reported THRIVE Score: 0 AUDIT C Alcohol Use Questionnaire (AUDIT-C) 3. How often do you have six or more drinks on one occasion?: Never Total Score: 0 LAW-7 AMB Questionnaire LAW-7 Date LAW - 7 assessed: 01/19/23 Source: Developed by Drs. Oswald Alexandre, Raquel Kelly, Sascha Milton and colleagues, with an educational chai from [employer]. Physical exam (Primary Care) Tobacco/Smoking Status: Tobacco use Status Tobacco use date assessed 02/12/23 08/31/24 09:33 Patient Tobacco Use Status Never used Tobacco 08/31/24 09:33 e-Cigarette/Vaping Use Never Used 08/31/24 09:33 Thrive Assessment: Date of Thrive Assessment Date Thrive assessed 03/17/24 08/31/24 09:33 Currently or been in a relationship where the following occur: No concerns reported Telehealth Telehealth Telehealth Platform: [employer] Location of provider rendering services: practice address Location of patient: address on file Patient Identification confirmed using: Name, : Yes Telehealth method: video Patient verbally consented to treatment: Yes Patient verbally consented to billing insurance company: Yes Patient informed of any privacy concerns related to visit: Yes Minutes spent on Phone/Video with Pt.: 13 Coding Level of Care Code Tele Est Pt Level 3 (19941) Diagnoses Intractable migraine with aura without status migrainosus G43.119 Status migrainosus presence: without status migrainosus Intractability: intractable Assessment & Plan Assessment & Plan (1) Migraine headache with aura: Code(s): G43.109 - Migraine with aura, not intractable, without status migrainosus Category: Medical Qualifiers: Status migrainosus presence: without status migrainosus Intractability: intractable Qualified Code(s): G43.119 - Migraine with aura, intractable, without status migrainosus Plan History - The patient is a 39-year-old female presenting with migraines., requesting to be excussed from up coming Jury duty in Dec - The patient has been experiencing migraines and is currently on Emgality injections as a preventative measure. - Despite the preventative treatment, the patient reports that migraines return stronger and in clusters as the medication wears off. - The patient is also taking topiramate, amitriptyline, propranolol, and Tylenol with Codeine as needed for headache management. - The patient experiences daily headaches, although they do not always progress to full-blown migraines. - The patient is under the care of a neurologist for migraine management. - The patient has a history of requiring a letter for jury duty exemption due to migraines in 2022. - The patient reports symptoms of allergic rhinitis, attributing her voice changes to allergies. Problem List - Migraine - Allergic rhinitis Patient Instructions - Follow up with your neurologist regarding migraine management and medication adjustments. 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
== END 2024-08-31 09:36 | disposition home or self-care (01) ==
LOC: HO.HMCC 08:36
PROVIDERS: PCP Internal Medicine; Visit Provider Internal Medicine
DX: G43.119 Migraine with aura, intractable, without status migrainosus (principal)

== ENCOUNTER → 2024-08-31 08:36 | Outpatient (BNVA) | payer MEDICARE, MEDICAID, SELFPAY | PROVIDERS: PCP Internal Medicine; Visit Provider Internal Medicine | DX: Z13.89 Encounter for screening for other disorder (principal) ==

== ENCOUNTER 2024-09-26 08:58 | Outpatient (AMB) | payer MEDICARE, MEDICAID, SELFPAY ==
--- NOTE | 2024-09-26 08:29 | A.OFFVIS_ITS ---
Vital Signs 09/26/24 09:03 Height 5 ft 10 in Weight 216 lb 8 oz BMI 31.1 BP 108/66 Blood Pressure Location Rt brachial Position Sitting Pulse 62 Pulse Source Pulse Oximeter Pulse Oximetry (%) 100 Oxygen Delivery Method Room Air Intake Visit Reasons: Asthma Allergies oxycodone Allergy (Intermediate, Verified 09/26/24 09:05) itching adhesive tape Allergy (Mild, Verified 09/26/24 09:05) RASH ketorolac (From TORADOL) Allergy (Mild, Verified 09/26/24 09:05) HIVES latex (LATEX) Allergy (Mild, Verified 09/26/24 09:05) RASH fruit with skin Allergy (Intermediate, Uncoded 09/26/24 09:05) Hives HPI HPI Asthma: Details: Kayla is a pleasant 39 year old female, never smoker, with underlying asthma, atopic dermatitis, environmental allergies, allergic rhinitis and GERD. She has been on Xolair for more than two months, receiving injections every two weeks, but has not noticed significant changes yet. The patient also reports using Trelegy, Singulair, antihistamines and has had to use her rescue inhaler due to humid weather conditions. She experiences chest tightness and shortness of breat h, which she describes as not severe and at her baseline as well as inability to fully inspire. The patient has a history of chronic sinusitis, which has led to sinus drainage into her ear, causing discomfort and requiring ibuprofen for pain management. She has not seen an ENT recently due to scheduling issues, but a referral will be placed again today. She is receiving allergy shots and has noticed swelling at the injection site, which she manages with ice packs and Benadryl spray. The shots have not exacerbated her asthma, but she experiences fatigue and headaches post-injection. [facility] Medical History Constipation Encounter for general adult medical examination with abnormal findings Foot pain, bilateral Abnormal EKG Labral tear of right hip joint Abnormal weight gain Odynophagia Pleuritic pain Environmental allergies Abdominal cramping History of irregular menstrual cycles Sinusitis Esophageal spasm Acetabular labrum tear Herpes labialis Dry eyes Yeast infection of the vagina Amenorrhea Metrorrhagia Bloating Epigastric discomfort Shortness of breath Pre-op examination Contusion of chest Exercise-induced asthma Pain of left thumb Rib pain on right side Bilateral otitis media with effusion Left shoulder strain Cellulitis Acute lumbar back pain Right shoulder pain Arthrosis Right knee pain Complex cyst of left ovary Chronic GERD Encounter for IUD insertion Nausea Upper respiratory infection Leg pain, right Nausea Other specified hypothyroidism Otitis media Right hip pain Chest wall pain Lightheaded Acute sinusitis Goiter Elevated TSH Medicare annual wellness visit, subsequent Ill feeling Epigastric pain Constipation Cervical cancer screening Well woman exam with routine gynecological exam Medicare annual wellness visit, initial Abnormal thyroid stimulating hormone (TSH) level Patella francisco j Knee pain Neck pain Chest pain Migraines Eczema Fibromyalgia Heart murmur Asthma Hypothyroidism Surgical History History of hip surgery H/O shoulder surgery [place] teeth removed History of appendectomy Family History Mother Graves disease Hypothyroidism Father CHF (congestive heart failure) Other Substance use disorder Social History (Reviewed 09/26/24 @ 09:05 by Carly Godinez [facility]) Housing: Apartment Alcohol intake: never Patient Tobacco Use Status: Never used Tobacco e-Cigarette/Vaping Use: Never Used Second Hand Smoke Exposure: Yes (as a child only) service: No Current occupational status: disabled Sexual orientation: Straight/Heterosexual Gender identity: Female Cognitive needs: No Hearing needs: No Vision needs: Yes Female Reproductive History Menstrual Age of Menarche: 15 Review of Systems Const Denies chills, Denies excessive sweating, Denies fever(s) and Denies night sweats Eyes Denies dry eyes and Denies irritation ENT Reports Normal hearing present, Reports nasal congestion and Reports post nasal drip Card Denies chest pain, Denies chest pain at rest, Denies chest pain with activity, Denies claudication, Denies leg edema, Reports dyspnea on exertion, Denies orthopnea and Denies paroxysmal nocturnal dyspnea Resp Denies change in phlegm color, Denies chest congestion, Denies cough, Denies hemoptysis, Denies excessive phlegm production, Denies pain on inspiration, Denies pain with cough, Reports dyspnea on exertion, Denies stridor and Reports wheezing Musc Denies myalgias Neuro Reports Normal hearing present Endo Denies excessive sweating Sixto/Lymph Denies lymphadenopathy Aller/Immun Reports wheezing Physical Exam Vital Signs: Last Vital Signs Pulse 62 09/26/24 09:03 BP 108/66 09/26/24 09:03 Pulse Ox 100 09/26/24 09:03 Oxygen Delivery Method Room Air 09/26/24 09:03 BMI result Body Mass Index 31.1 Const General: cooperative, healthy appearing, comfortable, no acute distress, well developed and alert Nutritional Appearance: obese Orientation/consciousness: patient oriented x3 Limitations: no limitations HEENT Head: Yes normal to inspection, Yes normocephalic and Yes atraumatic Ears: hearing grossly normal bilaterally and external ears normal Eyes General: appearance normal, both eyes and all related structures Eyelids: Yes eyelids normal Sclerae: sclerae normal EOM: EOMs intact bilaterally Neck Neck: Yes normal visual inspection and Yes no lymphadenopathy Lymphatic: no lymphadenopathy noted Chest Chest palpation & inspection: normal inspection of the chest Resp Effort & Inspection: normal respiratory effort, able to speak in complete sentences, no audible wheezes, no cough, no stridor, not tachypneic, no tripod positioning and no use of accessory muscles Auscultation: diminished lung sounds Cardio Jugular venous distension: no JVD Rate: regular rate Rhythm: regular rhythm Skin Other: warm, dry General skin exam: no rashes or lesions noted Neuro General: patient oriented x3 Cranial nerves: Yes Normal hearing present Cognition (Neuro): normal cognition Gait exam (Neuro): Normal gait present Extrem General: Yes normal to inspection, Yes capillary refill normal, Yes no clubbing, cyanosis or edema and Yes no pedal edema Psych Appearance: grossly normal and well kempt Speech and movement: Normal speech and movement present and Clear speech present Affect: normal affect Attitude: cooperative Thought process: Normal thought process present Thought content: Normal thought content present Insight: Good insight present (Psych) Judgement: Good judgement present (Psych) Assessment & Plan Assessment & Plan (1) Asthma, moderate persistent: Code(s): J45.40 - Moderate persistent asthma, uncomplicated Category: Medical Qualifiers: Asthma complication type: uncomplicated Qualified Code(s): J45.40 - Mo derate persistent asthma, uncomplicated (2) Allergic rhinitis: Code(s): J30.9 - Allergic rhinitis, unspecified Category: Medical Qualifiers: Allergic rhinitis seasonality: non-seasonal Allergic rhinitis trigger: pollen Qualified Code(s): J30.1 - Allergic rhinitis due to pollen Plan The patient will continue with Xolair for another two months to assess for improvement in asthma symptoms. If no significant benefit is observed, alternative treatments such as Dupixent may be considered. The patient is advised to continue using Trelegy and her rescue inhaler as needed, especially during humid weather. A refill for Levalbuterol has been sent to the pharmacy to ensure availability during periods of increased humidity. A referral to an ENT specialist has been made to address chronic sinusitis and associated ear discomfort. The patient is encouraged to monitor and document any reactions to allergy shots. All questions were answered and patient is in agreement of plan. Will follow up in 3 months or sooner if needed. Orders: Referrals Ear/Nose/Throat Referral J30.1 - Allergic rhinitis due to pollen Medications: Refilled levalbuterol HCl 1.25 mg (3 mL) inhalation Q4-6H PRN 75 mL 3RF shortness of breath or wheezing J45.40 - Moderate persistent asthma, uncomplicated Coding Level of Care Code Est Pt Level 4 (93392) Diagnoses Moderate persistent asthma without complication J45.40 Asthma complication type: uncomplicated Non-seasonal allergic rhinitis due to pollen J30.1 Allergic rhinitis seasonality: non-seasonal Allergic rhinitis trigger: pollen
[2024-09-26 09:03] VITALS: BP 108/66; PULSE 62; O2SAT 100; BMI 31.1
--- OUTSIDE RECORDS SUMMARY | 2024-09-26 09:16 | XMS_ITS | Data Portability ---
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 Patient InstructionsNo instructions recorded. Reason for Referral None Reported. Problems Name Problem SNOMED Code Status Onset Date Resolution Date Notes Provider Name and Address Organization Details Recorded Time Bilateral temporoma ndibular joint pain 77905090615 713541 Active 2020 Arthralgi a of bilateral temporoma ndibular joint; Note: Date Diagnosed : 08/19/2020 10:57 AM (M26.623) Not Available [facility] 4 02:15:14 Allergic rhinitis 91588892 Active 2022 Allergic rhinitis: Due to other [...] to other allergen; Note: Date Not Available [facility] 4 02:16:00 Posterior rhinorrhe a 87044434 Active 2022 Postnasal drip; Note: Date Diagnosed : 11/09/2022 1:01 PM (R09.82) Not Available [facility] 4 02:15:19 Seasonal allergic rhinitis 548439328 Active 2020 Other seasonal allergic rhinitis; Note: Date Diagnosed : 08/19/2020 10:57 AM (J30.2) Not Available [facility] 4 02:15:54 Uncomplic ated mild persisten t asthma 897913372 Active 2022 Mild persisten t asthma, uncomplic ated; Note: Date Diagnosed : 04/24/2022 3:16 PM (J45.30) Not Available [facility] 4 02:15:40 Bilateral disorder of Eustachia n tubes 06535802394 21122 Active 2020 Other specified disorders of Eustachia n tube, bilateral ; Note: Date Diagnosed : 08/19/2020 10:27 AM (H69.83) Not Available [facility] 4 02:15:31 Migraine without aura, not refractor y 523101288 Active 2023 Migraine without aura, not intractab le, without status migrainos us; Note: Date Diagnosed : 04/30/2023 1:35 PM (G43.009) Not Available [facility] 4 02:15:48 Dysphonia 94685283 Active 2023 Hoarsenes s; Note: Date Diagnosed : 04/30/2023 1:35 PM (R49.0) Not Available [facility] 4 02:16:04 Problem Notes None recorded. Medical Equipment None Reported. Allergies Allergen ID Allergen Name Allergen Category Reaction Reaction Severity Criticality Documentation Date Start Date Code Code System Note Provider Name and Address Organization Details Recorded Time 26830 citrus flavor food other Not available Not available 07/27/2023 89024 UNK React ion: other react ion, Unkno wn; Not Available [facility] 4 00:53:39 30244 adhesive tape environme nt,medica tion other Not available Not available 07/27/2023 54057 UNK React ion: other react ion, Unkno wn; Not Available [facility] 4 00:53:42 80011 Toradol medicatio n other Not available Not available 07/27/2023 67332 RxNorm React ion: other react ion, Unkno wn; Not Available [facility] 4 00:53:46 67656 banana extract food,medi cation other Not available Not available 07/27/2023 29103 9 RxNorm React ion: other react ion, Unkno wn; Not Available [facility] 4 00:53:46 Medications Name Sig Start [...] mcg tablet 12/19 completed Medicati on ID: [id number] B rand Name: Synthroi d Send Method: [...] 2 spray 2021 active Medicati on ID: [id number] D uration Value: 30 Brand Name: azelasti ne Send Method: E-Prescr ibed Sub s Allowed: subs [place] Medic ationGen ericName : azelasti ne Not Available Not Available Not Available topiramat e 100 mg tablet TAKE 1 TABLET BY MOUTH TWICE A DAY FOR 90 DAYS active Not Available Not Available No t Available fluticaso ne propionat e 50 mcg/actua tion nasal spray,cynthia penon 2020 active Medicati on ID: [id number] B rand Name: fluticas one propiona te [...] aerosol inhaler 12/19 completed Medicati on ID: [id number] B rand Name: Symbicor t Send Method: [...] pen injector 2021 active Medicati on ID: [id number] D uration Value: 1 Prescri bed By [...] Updated DateTime 12/20/2023 180.34 cm 34.2 kg/m2 935331.93 g Cheryl Ann [place] - [facility] [...] Diagnosis Note KEYSHA CAPPS MD [facility] [address] [address] 12/20/2023 11:12:43 12/20/2023 12:13:17 Posterior rhinorrhea 30220735 R09.82 Uncomplica twila mild persistent asthma 508881671 J45.30 Health Concerns Section Related Observation LastModified by Organization Detai ls LastModified Time None Recorded Concern Status LastModified by Organization Details LastModified Time None Recorded Advance Directives Directive None Recorded Payers Insurance Date Sequence Insurance Name Policy Number Policy Stafford Covered Member ID Stafford Member ID Guarantor Name 12/20/2023 1 [place] [employer] Kayla Ortega [id number] Kayla Ortega 12/22/2023 2 [place] [facility] Kayla Ortega [id number] Kayla Ortega Notes Date Note Type Note Provider Name and Address Organization Details Recorded Time 12/20/2023 text/html On singulair and [place]. Nasal spray x 2. Some sinus congestion. Just finished prednisone course. 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 PV: 38-year-old female presents today for follow-up [...] the images from her CT scan from [place] in July 2022 and the sinus thickening was very mild. KEYSHA CAPPS MD [address] [place] [address], [id number], [facility] - [facility] 12/20/2023 18:25:26 OBGyn Episode No OBEpisode recorded.
== END 2024-09-26 09:34 | disposition home or self-care (01) ==
LOC: HO.HPSW 08:59
PROVIDERS: PCP Internal Medicine; Visit Provider Nurse Practitioner Family
DX: J45.40 Moderate persistent asthma, uncomplicated (principal); J30.1 Allergic rhinitis due to pollen
CPT/HCPCS: 99214

== ENCOUNTER → 2024-09-26 08:58 | Outpatient (BNVA) | payer MEDICARE, MEDICAID, SELFPAY | PROVIDERS: PCP Internal Medicine; Visit Provider Nurse Practitioner Family | DX: J45.40 Moderate persistent asthma, uncomplicated (principal); J30.1 Allergic rhinitis due to pollen; Z79.69 Long term (current) use of other immunomodulators and immunosuppressants | CPT/HCPCS: 99212 ==

== ENCOUNTER 2024-09-27 09:46 | Outpatient (AMB) | payer MEDICARE, MEDICAID, SELFPAY ==
--- NOTE | 2024-09-27 09:49 | MHC.OFFVIS ---
Vital Signs 09/27/24 09:52 Height 5 ft 10 in Weight 211 lb 10.3 oz BMI 30.4 BP 97/59 L Blood Pressure Location Lt brachial Position Sitting Pulse 60 Intake Visit Reasons: 8 wks f/u GERD, CIC Intake Note: Kayla presents in the office as a 8 week follow up for GERD and CIC. CC: She states that she is not having any concerns at this time! 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 Allergies oxycodone Allergy (Intermediate, Verified 09/27/24 09:59) itching adhesive tape Allergy (Mild, Verified 09/27/24 09:59) RASH ketorolac (From TORADOL) Allergy (Mild, Verified 09/27/24 09:59) HIVES latex (LATEX) Allergy (Mild, Verified 09/27/24 09:59) RASH fruit with skin Allergy (Intermediate, Uncoded 09/27/24 09:59) Hives HPI HPI 8 wks f/u GERD, CIC: Details: Assessment & Plan (1) Constipation: Code(s): K59.00 - Constipation, unspecified Category: Medical (2) GERD with esophagitis: Code(s): K21.00 - Gastro-esophageal reflux disease with esophagitis, without bleeding Category: Medical (3) Gastroparesis: Code(s): K31.84 - Gastroparesis Category: Medical (4) Erosive esophagitis: Code(s): K22.10 - Ulcer of esophagus without bleeding Category: Medical Plan Her voice is hoarse today. She is having worse subjective symptoms of heartburn with burning in her throat and sometimes having food reflux. She did go off of the Reglan for awhile when she did notice it made a slight difference. So she went back on it. She is on 10 mg 4 times a day. I ask about her stooling since this can have a big impact on burping and heartburn and reflux. She admits that she tends to experience incomplete evacuation and at times the stools will backup and then she will have what I would describe as a purge. Where she will have looser stools and it will take 2 days for complete emptying. Clearly this sounds like a reactive diarrhea to constipation as a baseline. We are going to stop her sucralfate which was given for erosive esophagitis and since she did not do well on senna, it seemed completely ineffective, we will progress to Dulcolax and titrate to affect her side effect. She did get her twice a day pantoprazole dosing so I encouraged her to continue that and will will use the famotidine only for breakthrough. Return office visit in 8 weeks Medications: New bisacodyl (Dulcolax (bisacodyl)) 10 mg (2 x 5 mg) PO BEDTIME 30 days 60 tabs 6RF K21.00 - Gastro-esophageal reflux disease with esophagitis, without bleeding, K22.10 - Ulcer of esophagus without bleeding, K31.84 - Gastroparesis, K59.00 - Constipation, unspecified Discontinued sucralfate (Carafate) Have pt crush tablet to create slurry Discontinued Reason: Doctor's Order 1 g PO QNOON 30 tabs 1RF K22.10 - Ulcer of esophagus without bleeding TODAYS VISIT She continues on pantoprazole qam famotidine qhs, reglan 10mg qid, bisacodyl. At 1st the bisacodyl helped and this also seemed to make the feeling of fullness and the burping better. However her body seem to adjust and even taking 2 every day she was not moving her bowels well. At this point I think it is time to move on to Linzess. Because I do not want to give her diarrhea were start her at the lowest dose and titrate up to affect her side effect. She can continue 2 layer in the bisacodyl with the Linzess if she is not moving her bowels well until she sees me next. Return office visit in 4 weeks [facility] Medical History (Updated 09/27/24 @ 10:21 by RIDGE Kevin) Irritable bowel syndrome with both constipation and diarrhea Encounter for general adult medical examination with abnormal findings Foot pain, bilateral Abnormal EKG Labral tear of right hip joint Abnormal weight gain Odynophagia Pleuritic pain Environmental allergies Abdominal cramping History of irregular menstrual cycles Sinusitis Esophageal spasm Acetabular labrum tear Herpes labialis Dry eyes Yeast infection of the vagina Amenorrhea Metrorrhagia Bloating Epigastric discomfort Shortness of breath Pre-op examination Contusion of chest Exercise-induced asthma Pain of left thumb Rib pain on right side Bilateral otitis media with effusion Left shoulder strain Cellulitis Acute lumbar back pain Right shoulder pain Arthrosis Right knee pain Complex cyst of left ovary Chronic GERD Encounter for IUD insertion Nausea Upper respiratory infection Leg pain, right Nausea Other specified hypothyroidism Otitis media Right hip pain Chest wall pain Lightheaded Acute sinusitis Goiter Elevated TSH Medicare annual wellness visit, subsequent Ill feeling Epigastric pain Cervical cancer screening Well woman exam with routine gynecological exam Medicare annual wellness visit, initial Abnormal thyroid stimulating hormone (TSH) level Patella francisco j Knee pain Neck pain Chest pain Migraines Eczema Fibromyalgia Heart murmur Asthma Hypothyroidism Surgical History History of hip surgery H/O shoulder surgery [place] teeth removed History of appendectomy Family History Mother Graves disease Hypothyroidism Father CHF (congestive heart failure) Other Substance use disorder Social History Housing: Apartment Alcohol intake: never Patient Tobacco Use Status: Never used Tobacco e-Cigarette/Vaping Use: Never Used Second Hand Smoke Exposure: Yes (as a child only) service: No Current occupational status: disabled Sexual orientation: Straight/Heterosexual Gender identity: Female Cognitive needs: No Hearing needs: No Vision needs: Yes Female Reproductive History Menstrual Age of Menarche: 15 Review of Systems Const Denies fatigue, Denies fever(s), Denies night sweats, Denies poor appetite and Denies weight loss Eyes Details: glasses Reports requires corrective lenses ENT Reports Normal hearing present, Denies dental pain, Denies dysphagia, Denies hearing loss, Denies mouth pain, Denies odynophagia, Denies throat swelling, Denies tongue swelling and Reports other (Dentition adequate) Card Reports no additional complaints Resp Reports no additional complaints GI Details: Denies abdominal pain, Denies melena, Reports bloating, Denies hematochezia, Reports constipation, Denies GI cramping, Denies dysphagia, Denies excessive flatus, Reports early satiety, Reports heartburn, Denies diarrhea, Denies nausea, Denies odynophagia, Denies vomiting and Denies hematemesis Skin/Breast Denies pruritus, Denies lesions, Denies rash and Denies jaundice Neuro Reports Normal hearing present and Denies Abnormal speech present Endo Denies fatigue Aller/Immun Denies throat swelling and Denies tongue swelling Physical Exam Vital Signs: Last Vital Signs Pulse 60 09/27/24 09:52 BP 97/59 L 09/27/24 09:52 BMI result Body Mass Index 30.4 Const General: cooperative, no acute distress, well developed and well groomed Nutritional Appearance: well nourished and obese Orientation/consciousness: oriented to person, oriented to place and oriented to time Limitations: No language barrier HEENT Head: Yes normocephalic and Yes atraumatic Eyes General: appearance normal, both eyes and all related structures Pupils: Equal, round and reactive pupils present Neck Neck: Yes normal visual inspection and Yes no lymphadenopathy Thyroid: Thyroid normal Resp Effort & Inspection: normal respiratory effort and able to speak in complete sentences Auscultation: clear to auscultation bilaterally Cardio Rate: regular rate Rhythm: regular rhythm Heart sounds: Normal, physiologic split S2 sound present Peripheral pulses: radial pulses present and posterior tibial pulses present GI Inspection: No distended, No Abdominal panniculus present and Yes obesity Palpation (GI): Soft to palpation, nontender, no guarding, not rigid and No hepatosplenomegaly present Percussion: Yes normal to percussion Auscultation: normal bowel sounds Rectal Exam - Female: deferred Skin General skin exam: no rashes or lesions noted, turgor normal, skin not dry, no jaundice, No spider nevi and no striae Rashes: no rashes Nails: normal Neuro General: oriented to person, oriented to place and oriented to time Cranial nerves: Yes Equal, round and reactive pupils present and Yes Normal hearing present Speech: No Abnormal speech present Extrem General: Yes normal to inspection, No clubbing, No cyanosis and No edema Psych Appearance: grossly normal and well kempt Mental Status: mental status grossly normal Speech and movement: Normal speech and movement present Affect: normal affect Attitude: cooperative Thought process: Normal thought process present and not confabulating Thought content: Normal thought content present Insight: Good insight present (Psych) Judgement: Good judgement present (Psych) Assessment & Plan Assessment & Plan (1) Chronic idiopathic constipation: Code(s): K59.04 - Chronic idiopathic constipation Category: Medical (2) GERD with esophagitis: Code(s): K21.00 - Gastro-esophageal reflux disease with esophagitis, without bleeding Category: Medical (3) Gastroparesis: Code(s): K31.84 - Gastroparesis Category: Medical (4) Erosive esophagitis: Code(s): K22.10 - Ulcer of esophagus without bleeding Category: Medical (5) Lactose intolerance: Code(s): E73.9 - Lactose intolerance, unspecified Category: Medical Plan She continues on pantoprazole qam famotidine qhs, reglan 10mg qid, bisacodyl. At 1st the bisacodyl helped and this also seemed to make the feeling of fullness and the burping better. However her body seem to adjust and even taking 2 every day she was not moving her bowels well. At this point I think it is time to move on to Linzess. Because I do not want to give her diarrhea were start her at the lowest dose and titrate up to affect her side effect. She can continue 2 layer in the bisacodyl with the Linzess if she is not moving her bowels well until she sees me next. Return office visit in 4 weeks Medications: New linaclotide (Linzess) 72 mcg PO QAM 30 caps 3RF K59.04 - Chronic idiopathic constipation Refilled metoclopramide HCl (Reglan) 10 mg PO QID 120 tabs 6RF K21.00 - Gastro-esophageal reflux disease with esophagitis, without bleeding pantoprazole 40 mg PO BID 60 tabs 6RF On Hold bisacodyl (Dulcolax (bisacodyl)) Hold Comment: Doctor's Order 10 mg (2 x 5 mg) PO BEDTIME 30 days 60 tabs 6RF K21.00 - Gastro-esophageal reflux disease with esophagitis, without bleeding, K22.10 - Ulcer of esophagus without bleeding, K31.84 - Gastroparesis, K59.00 - Constipation, unspecified Coding Level of Care Code Est Pt Level 3 (77900) Diagnoses Chronic idiopathic constipation K59.04 GERD with esophagitis K21.00 Gastroparesis K31.84 Erosive esophagitis K22.10 Lactose intolerance E73.9
[2024-09-27 09:52] VITALS: BP 97/59; PULSE 60; BMI 30.4
--- OUTSIDE RECORDS SUMMARY | 2024-09-27 10:21 | XMS_ITS | Data Portability ---
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 Patient InstructionsNo instructions recorded. Reason for Referral None Reported. Problems Name Problem SNOMED Code Status Onset Date Resolution Date Notes Provider Name and Address Organization Details Recorded Time Bilateral temporoma ndibular joint pain 72848758410 967041 Active 2020 Arthralgi a of bilateral temporoma ndibular joint; Note: Date Diagnosed : 08/19/2020 10:57 AM (M26.623) Not Available [facility] 4 02:15:14 Allergic rhinitis 67042217 Active 2022 Allergic rhinitis: Due to other [...] to other allergen; Note: Date Not Available [facility] 4 02:16:00 Posterior rhinorrhe a 67493897 Active 2022 Postnasal drip; Note: Date Diagnosed : 11/09/2022 1:01 PM (R09.82) Not Available [facility] 4 02:15:19 Seasonal allergic rhinitis 257568879 Active 2020 Other seasonal allergic rhinitis; Note: Date Diagnosed : 08/19/2020 10:57 AM (J30.2) Not Available [facility] 4 02:15:54 Uncomplic ated mild persisten t asthma 520898936 Active 2022 Mild persisten t asthma, uncomplic ated; Note: Date Diagnosed : 04/24/2022 3:16 PM (J45.30) Not Available [facility] 4 02:15:40 Bilateral disorder of Eustachia n tubes 37315154680 32962 Active 2020 Other specified disorders of Eustachia n tube, bilateral ; Note: Date Diagnosed : 08/19/2020 10:27 AM (H69.83) Not Available [facility] 4 02:15:31 Migraine without aura, not refractor y 130771432 Active 2023 Migraine without aura, not intractab le, without status migrainos us; Note: Date Diagnosed : 04/30/2023 1:35 PM (G43.009) Not Available [facility] 4 02:15:48 Dysphonia 65448682 Active 2023 Hoarsenes s; Note: Date Diagnosed : 04/30/2023 1:35 PM (R49.0) Not Available [facility] 4 02:16:04 Problem Notes None recorded. Medical Equipment None Reported. Allergies Allergen ID Allergen Name Allergen Category Reaction Reaction Severity Criticality Documentation Date Start Date Code Code System Note Provider Name and Address Organization Details Recorded Time 12951 citrus flavor food other Not available Not available 07/27/2023 75609 UNK React ion: other react ion, Unkno wn; Not Available [facility] 4 00:53:39 09412 adhesive tape environme nt,medica tion other Not available Not available 07/27/2023 42841 UNK React ion: other react ion, Unkno wn; Not Available [facility] 4 00:53:42 06325 Toradol medicatio n other Not available Not available 07/27/2023 15874 RxNorm React ion: other react ion, Unkno wn; Not Available [facility] 4 00:53:46 17500 banana extract food,medi cation other Not available Not available 07/27/2023 76195 9 RxNorm React ion: other react ion, [...] mcg tablet 12/19 completed Medicati on ID: [id number] B rand Name: Synthroi d Send Method: [...] 2 spray 2021 active Medicati on ID: [id number] D uration Value: 30 Brand Name: azelasti [...] spray,cynthia penon 2020 active Medicati on ID: [id number] B rand Name: fluticas one propiona te [...] aerosol inhaler 12/19 completed Medicati on ID: [id number] B rand Name: Symbicor t Send Method: [...] pen injector 2021 active Medicati on ID: [id number] D uration Value: 1 Prescri bed By [...] Updated DateTime 12/20/2023 180.34 cm 34.2 kg/m2 391578.93 g Cheryl Ann [place] - [facility] 12/20/2023 11:43:25 Social History None recorded. Functional [...] Diagnosis Note KEYSHA CAPPS MD [facility] [address] [address] 12/20/2023 11:12:43 12/20/2023 12:13:17 Posterior rhinorrhea 40784695 R09.82 Uncomplica twila mild persistent asthma 941793399 J45.30 Health Concerns Section Related Observation LastModified by Organization Detai ls LastModified Time None Recorded Concern Status LastModified by Organization Details LastModified Time None Recorded Advance Directives Directive None Recorded Payers Insurance Date Sequence Insurance Name Policy Number Policy Stafford Covered Member ID Stafford Member ID Guarantor Name 12/20/2023 1 [place]: [employer] Kayla Ortega [id number] Kayla Ortega 12/22/2023 2 [place] [facility] Kayla Ortega [id number] Kayla Ortega Notes Date Note Type Note Provider Name and Address Organization Details Recorded Time 12/20/2023 text/html On singulair and [place]. Nasal spray x 2. Some sinus congestion. Just finished prednisone course. 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 PV: 38-year-old female presents today for follow-up [...] the images from her CT scan from [place] in July 2022 and the sinus thickening was very mild. KEYSHA CAPPS MD [address] [place] [address], [id number], [facility] - [facility] 12/20/2023 18:25:26 OBGyn Episode No OBEpisode recorded.
--- OUTSIDE RECORDS SUMMARY | 2024-09-27 10:21 | XMS_ITS | Clinical Summary ---
Author Organization [facility] Address [address] [place] [address] Phone Care Team Providers Care Ski Topper Name Role Phone Karen Broussard MD Primary Care Provider [phone] Allergies No known active allergies Medications acetaminophen- [...] tablet (8 mg total) by mouth. 01/22/20 20 Active pantoprazole (PROTONIX) 40 mg EC tablet [...] day. for 90 days 12/14/19 24 Active levocetirizine (XYZAL) 5 mg tablet Take 1 tablet (5 mg total) by mouth 1 (one) time each day. 07/25/19 25 Active phentermine 15 mg capsule Take 1 capsule (15 mg total) by mouth 1 (one) time each day before breakfast. Max Daily Amount: 15 mg 30 each 09/22/19 25 025 Active phentermine 37.5 mg capsule Take 1 capsule (37.5 mg total) by mouth 1 (one) time each day before breakfast. Max Daily Amount: 37.5 mg 30 each 08/10/19 25 025 Discontinued phentermine 30 mg capsule Take 1 capsule (30 mg total) by mouth 1 (one) time each day before breakfast. Max Daily Amount: 30 mg 30 each 09/07/19 25 025 Discontinued Active Problems Problem Noted Date Diagnosed Date Class 1 obesity due to exces s calories with serious comorbidity and body mass index (BMI) of 30.0 to 30.9 in adult 01/15/2024 Asthma 10/18/2023 GERD (gastroesophageal reflux disease) Hypothyroidism 10/18/2023 Encounters Date Type Department Care Team Description 09/21/2024 11:30 AM EDT Office Visit Bariatric Surgery [address] [address] Brianna Umanzor PA Class 1 obesity due to excess calories with serious comorbidity and body mass index (BMI) of 30.0 to 30.9 in adult (Primary Dx) 08/09/2024 8:30 AM EDT Office Visit Bariatric Surgery [address] [address] Brianna Umanzor PA Class 1 obesity due to excess calories with serious comorbidity and body mass index (BMI) of 30.0 to 30.9 in adult (Primary Dx) from Last 3 Months Social History Tobacco Use Types Packs/Day Years Used Date Smoking Tobacco: Never Assessed Comments Unknown Sex and Gender Information Value Date Recorded Sex Assigned at Not on file Legal Sex Female 11:41 AM EDT Gender Identity Not on file Sexual Orientation Not on file Last Filed Vital Signs Vital Sign Reading Time Taken Comments Blood Pressure 116/77 09/21/2024 11:23 AM EDT Pulse 68 09/21/2024 11:23 AM EDT Temperature 36.6 C (97.8 F) 08/09/2024 8:34 AM EDT Respiratory Rate - - Oxygen Saturation - - Inhaled Oxygen Concentration - - Weight 98.2 kg (216 lb 6.4 oz) 09/21/2024 11:23 AM EDT Height 180.3 cm (5' 11 ) 09/21/2024 11:23 AM EDT Body Mass Index 30.18 09/21/2024 11:23 AM EDT Plan of Treatment Upcoming Encounters Date Type Department Care Team (Late st Contact Info) Description 11/08/2024 9:45 AM EDT Office Visit Bariatric Surgery - [place] [address] [facility] [address] [place] [phone] Brianna Umanzor PA [address] [facility] [address] [place] [address] Health Maintenance Due Date Last Done Comments Hepatitis B Vaccines (1 of 3 - 19+ 3-dose series) 2005 Cervical Cancer Screening: P ap Smear 2007 Pneumococcal Vaccine: Pediat rics (0 to 5 Years) and At-Risk Patients (6 to 49 Years) (2 of 2 - PCV) 01/18/2015 01/18/2014 COVID-19 Vaccine (2023-2 5 season) 2023 Cholesterol Screening (Lipid Panel) 12/27/2023 Depression Screening 12/27/2023 HIV Screening 12/27/2023 Hepatitis C Screening 12/27/2023 Medicare Annual Wellness Visit 12/27/2023 Social Influencers of Health Screening 12/27/2023 DTaP,Tdap,and Td Vaccines (2 - Tdap) 01/18/2024 01/17/2014 Influenza Vaccine (#1) 2024 01/17/2014 MMR Vaccines Aged Out 01/18/2014 No [...] Insurance MEDICARE MEDICAID - [place] Care Teams Ski Topper Relationship Specialty Start Date End Date Karen Broussard MD [address] [place] [address] PCP - General 09/03/23
== END 2024-09-27 10:26 | disposition home or self-care (01) ==
LOC: HO.HGI 09:47
PROVIDERS: PCP Internal Medicine; Visit Provider Nurse Practitioner
DX: K59.04 Chronic idiopathic constipation (principal); K21.00 Gastro-esophageal reflux disease with esophagitis, without bleeding; K31.84 Gastroparesis; K22.10 Ulcer of esophagus without bleeding; E73.9 Lactose intolerance, unspecified
CPT/HCPCS: 99213

== ENCOUNTER → 2024-09-27 09:46 | Outpatient (BNVA) | payer MEDICARE, MEDICAID, SELFPAY | PROVIDERS: PCP Internal Medicine; Visit Provider Nurse Practitioner | DX: K59.04 Chronic idiopathic constipation (principal); K21.00 Gastro-esophageal reflux disease with esophagitis, without bleeding; K31.84 Gastroparesis; K22.10 Ulcer of esophagus without bleeding; E73.9 Lactose intolerance, unspecified; Z79.899 Other long term (current) drug therapy | CPT/HCPCS: 99212 ==

== ENCOUNTER 2024-10-03 10:09 | Outpatient (REF) | payer MEDICARE, MEDICAID, SELFPAY ==
--- OUTSIDE RECORDS SUMMARY | 2024-10-04 11:02 | XMS_ITS | Clinical Summary ---
Author Organization 175 [facility] Address [address] [place] [address] Phone Care Team Providers Care Local Telephone Operator Name Role Phone Karen Broussard MD Primary Care Provider [phone] Allergies No known active allergies Medications acetaminophen- [...] 11:30 AM EDT Office Visit Bariatric Surgery [address] [address] Brianna Umanzor PA Class 1 obesity due to excess calories with serious comorbidity and body mass index (BMI) of 30.0 to 30.9 in adult (Primary Dx) 08/09/2024 8:30 AM EDT Office Visit Bariatric Surgery [address] [address] Brianna Umanzor PA Class 1 obesity due [...] AM EDT Office Visit Bariatric Surgery - [place] [address] [facility] [address] [place] [phone] Brianna Umanzor PA [address] [facility] [address] [place] [address] Health Maintenance Due Date Last Done Comments [...] Insurance MEDICARE MEDICAID - [place] Care Teams Local Telephone Operator Relationship Specialty Start Date End Date Karen Broussard MD [address] [place] [address] PCP - General 09/03/23
== END 2024-10-03 10:10 | disposition home or self-care (01) ==
LOC: HO.LNP 10:09
PROVIDERS: Visit Provider Physician Assistant Medical
DX: N39.0 Urinary tract infection, site not specified (principal)
CPT/HCPCS: 87086

== ENCOUNTER 2024-10-03 14:39 | Outpatient (AMB) | payer MEDICARE, MEDICAID, SELFPAY ==
[2024-10-03 15:05] VITALS: PULSE 60; TEMP 36.7; O2SAT 98; BMI 31.4
--- NOTE | 2024-10-03 15:05 | AM.OFFWIN_ITS ---
Intake Vital Signs 10/03/24 15:05 Height 5 ft 10 in Weight 219 lb BMI 31.4 Pulse 60 Pulse Source Pulse Oximeter Temp 98.1 F Temp Source Oral Pulse Oximetry (%) 98 Oxygen Delivery Method Room Air Intake Visit Reasons: EP ? UTI Patient Tobacco Use Status: Never used Tobacco Paleobotanist Required: No Is last menstrual period known: No Post menopausal: No Patient : No Allergies oxycodone Allergy (Intermediate, Verified 09/27/24 09:59) itching adhesive tape Allergy (Mild, Verified 09/27/24 09:59) RASH ketorolac (From TORADOL) Allergy (Mild, Verified 09/27/24 09:59) HIVES latex (LATEX) Allergy (Mild, Verified 09/27/24 09:59) RASH fruit with skin Allergy (Intermediate, Uncoded 09/27/24 09:59) Hives Do you need a note to return to daycare/school/sports/work: No HPI HPI Comments History of Present Illness Details History - The patient is a 39-year-old female pr esenting with urinary discomfort and right flank pain. - Reports discomfort after urination, de scribed as non-burning but uncomfortable, occurring at the end of urination. - Symptoms began recently, with discomfo rt localized to the suprapubic area and accompanied by right flank pain. - No associated nausea, hematuria, foul- smelling urine, or increased urinary frequency beyond expected from increased fluid intake due to a new medication. - Denies history of kidney stones, vagin al pain, discharge, or rashes. - Recently started Linzess and has been on Mirena for two years, with no recent menstrual periods. - She denies fever, chills, vaginal disc harge or bleeding. She has no discharge or itching. Physical Exam General: Cooperative, healthy appearing, comfortable, no acute distress and well developed Cardiac: Normal S1 and S2. RRR, no M/R/G noted. Respiratory: Normal respiratory effort and able to speak in complete sentences. Clear to auscultation bilaterally. No w/r/r noted. Skin: No rashes or lesions noted. GI: Normal inspection. Normal BS noted. Soft, non-tender, non-distended. No TTP of all 4 quadrants. No guarding or rebound tenderness noted. Back: Negative CVA on the left, mild pain noted on the right side. Patient was informed and verbally consented to the use of an ambient scribe for clinic note documentation during this visit. [facility] Medical History (Updated 09/27/24 @ 10:21 by RIDGE Kevin) Irritable bowel syndrome with both constipation and diarrhea Encounter for general adult medical examination with abnormal findings Foot pain, bilateral Abnormal EKG Labral tear of right hip joint Abnormal weight gain Odynophagia Pleuritic pain Environmental allergies Abdominal cramping History of irregular menstrual cycles Sinusitis Esophageal spasm Acetabular labrum tear Herpes labialis Dry eyes Yeast infection of the vagina Amenorrhea Metrorrhagia Bloating Epigastric discomfort Shortness of breath Pre-op examination Contusion of chest Exercise-induced asthma Pain of left thumb Rib pain on right side Bilateral otitis media with effusion Left shoulder strain Cellulitis Acute lumbar back pain Right shoulder pain Arthrosis Right knee pain Complex cyst of left ovary Chronic GERD Encounter for IUD insertion Nausea Upper respiratory infection Leg pain, right Nausea Other specified hypothyroidism Otitis media Right hip pain Chest wall pain Lightheaded Acute sinusitis Goiter Elevated TSH Medicare annual wellness visit, subsequent Ill feeling Epigastric pain Cervical cancer screening Well woman exam with routine gynecological exam Medicare annual wellness visit, initial Abnormal thyroid stimulating hormone (TSH) level Patella francisco j Knee pain Neck pain Chest pain Migraines Eczema Fibromyalgia Heart murmur Asthma Hypothyroidism Surgical History History of hip surgery H/O shoulder surgery [place] teeth removed History of appendectomy Family History Mother Graves disease Hypothyroidism Father CHF (congestive heart failure) Other Substance use disorder Social History Housing: Apartment Alcohol intake: never Patient Tobacco Use Status: Never used Tobacco e-Cigarette/Vaping Use: Never Used Second Hand Smoke Exposure: Yes (as a child only) Patient : No service: No Current occupational status: disabled Sexual orientation: Straight/Heterosexual Gender identity: Female Cognitive needs: No Hearing needs: No Vision needs: Yes Female Reproductive History Menstrual Age of Menarche: 15 Review of Systems Const All systems reviewed & are unremarkable except as noted in HPI and below Physical Exam Vital Signs: Last Vital Signs Temp 98.1 F 10/03/24 15:05 Pulse 60 10/03/24 15:05 Pulse Ox 98 10/03/24 15:05 Oxygen Delivery Method Room Air 10/03/24 15:05 BMI result Body Mass Index 31.4 Results AMB Urinalysis, Automated UA Leukoctes 0 Tanya/uL Last Edit by Catrina Hdez MA on 10/03/24 15:16 UA Nitrite Negative Last Edit by Catrina Hdez MA on 10/03/24 15:16 UA Urobilinogen 1 mg/dL Last Edit by Catrina Hdez MA on 10/03/24 15:16 UA Protein 0 mg/dL Last Edit by Catrina Hdez MA on 10/03/24 15:16 UA pH 6.5 Last Edit by Catrina Hdez MA on 10/03/24 15:16 UA Blood 0 Mauro/uL Last Edit by Catrina Hdez MA on 10/03/24 15:16 UA Specific [place] 1.015 Last Edit by Catrina Hdez MA on 10/03/24 15:16 UA Ketone Negative Last Edit by Catrina Hdez MA on 10/03/24 15:16 UA Bilirubin 0 mg/dL Last Edit by Catrina Hdez MA on 10/03/24 15:16 UA Glucose 0 mg/dL Last Edit by Catrina Hdez MA on 10/03/24 15:16 Results Reviewed Results Reviewed: Laboratory Last Values Urine pH (Auto) 6.5 10/03/24 15:07 Specific [place] (Auto) 1.015 10/03/24 15:07 Urine Protein (Auto) 0 mg/dL 10/03/24 15:07 Glucose (UA)(Auto) 0 mg/dL 10/03/24 15:07 Urine Ketones (Auto) Negative 10/03/24 15:07 Urine Blood (Auto) 0 Mauro/uL 10/03/24 15:07 Urine Nitrite (Auto) Negative 10/03/24 15:07 Urine Bilirubin (Auto) 0 mg/dL 10/03/24 15:07 Urine Urobilinogen (Auto) 1 mg/dL 10/03/24 15:07 Leukocyte Esterase (Auto) 0 Tanya/uL 10/03/24 15:07 Assessment & Plan Assessment & Plan (1) Dysuria: Code(s): R30.0 - Dysuria Plan Most likely UTI vs bladder spasm vs pelvic pain vs stone? UA in the office- +uro Plan 1. Urinary Tract Infection (Uti) - Consider bladder spasm medication to alleviate symptoms. - Urine culture to be sent to rule out infection. - Drink lots of water - follow up if the pain continues 2. Right Flank Pain - Monitor for progression or resolution of symptoms. Orders: Orders Urine Culture Today N39.0 - Urinary tract infection, site not specified AMB Urinalysis Automated Today Z13.9 - Encounter for screening, unspecified Medications: New phenazopyridine 100 mg PO tid PRN 6 tabs 0RF Pain Coding Level of Care Code Est Pt Level 4 (03187) Diagnoses Dysuria R30.0
--- OUTSIDE RECORDS SUMMARY | 2024-10-03 15:51 | XMS_ITS | Clinical Summary ---
Author Organization 175 [facility] Address [address] [place] [address] Phone Care Team Providers Care Internet Webmaster Name Role Phone Karen Broussard MD Primary Care Provider [phone] Allergies No known active allergies Medications acetaminophen- [...] 11:30 AM EDT Office Visit Bariatric Surgery [address] [address] Brianna Umanzor PA Class 1 obesity due to excess calories with serious comorbidity and body mass index (BMI) of 30.0 to 30.9 in adult (Primary Dx) 08/09/2024 8:30 AM EDT Office Visit Bariatric Surgery [address] [address] Brianna Umanzor PA Class 1 obesity due [...] AM EDT Office Visit Bariatric Surgery - [place] [address] [facility] [address] [place] [phone] Brianna Umanzor PA [address] [facility] [address] [place] [address] Health Maintenance Due Date Last Done Comments Hepatitis B Vaccines (1 of 3 - 19+ 3-dose series) 2005 Cervical Cancer Screening: P ap Smear 2007 Pneumococcal Vaccine: Pediat rics (0 to 5 Years) and At-Risk Patients (6 to 49 Years) (2 of 2 - PCV) 01/18/2015 01/18/2014 COVID-19 Vaccine (2023-2 5 season) 2023 Cholesterol Screening (Lipid Panel) 12/27/2023 HIV Screening 12/27/2023 Hepatitis C Screening 12/27/2023 Medicare Annual Wellness Visit 12/27/2023 Social Influencers of Health Screening 12/27/2023 DTaP,Tdap,and Td Vaccines (2 - Tdap) 01/18/2024 01/17/2014 Depression Screening 03/15/2024 Influenza Vaccine (#1) 2024 01/17/2014 MMR Vaccines [...] Insurance MEDICARE MEDICAID - [place] Care Teams Internet Webmaster Relationship Specialty Start Date End Date Karen Broussard MD [address] [place] [address] PCP - General 09/03/23
--- OUTSIDE RECORDS SUMMARY | 2024-10-03 15:51 | XMS_ITS | Data Portability ---
Author Organization [place] [facility], Allergy Address [address] [address] Care Team Providers Care Sisal Picker Name Role Phone MARY NARAYAN Primary Care [...] mL suspension for nebulizatio n 2023 024 [facility]/Pharmacy #[id number], [address] [place], [address], 4 12:10:20 Patient TargetsNo targets recorded. Patient InstructionsNo instructions recorded. Reason for Referral None Reported. Problems Name Problem SNOMED Code Status Onset Date Resolution Date Notes Provider Name and Address Organization Details Recorded Time Bilateral temporoma ndibular joint pain 11164362910 154907 Active 2020 Arthralgi a of bilateral temporoma ndibular joint; Note: Date Diagnosed : 08/19/2020 10:57 AM (M26.623) Not Available [facility] 4 02:15:14 Seasonal allergic rhinitis 350712535 Active 2020 Other seasonal allergic rhinitis; Note: Date Diagnosed : 08/19/2020 10:57 AM (J30.2) Not Available [facility] 4 02:15:54 Bilateral disorder of Eustachia n tubes 51942806227 73396 Active 2020 Other specified disorders of Eustachia n tube, bilateral ; Note: Date Diagnosed : 08/19/2020 10:27 AM (H69.83) Not Available [facility] 4 02:15:31 Uncomplic ated mild persisten t asthma 387374916 Active 2022 Mild persisten t asthma, uncomplic ated; Note: Date Diagnosed : 04/24/2022 3:16 PM (J45.30) Not Available [facility] 4 02:15:40 Posterior rhinorrhe a 58595653 Active 2022 Postnasal drip; Note: Date Diagnosed : 11/09/2022 1:01 PM (R09.82) Not Available [facility] 4 02:15:19 Allergic rhinitis 71295509 Active 2022 Allergic rhinitis: Due to other allergen; Note: Date Diagnosed : 3 9:37 AM (477.8) Allergi c rhinitis: Due to other allergen; Note: Date Diagnosed : 3 9:53 AM (477.8) ; Start Date : Allergi [...] to other allergen; Note: Date Not Available [facility] 4 02:16:00 Migraine without aura, not refractor y 997863081 Active 2023 Migraine without aura, not intractab le, without status migrainos us; Note: Date Diagnosed : 04/30/2023 1:35 PM (G43.009) Not Available [facility] 4 02:15:48 Dysphonia 20786354 Active 2023 Hoarsenes s; Note: Date Diagnosed : 04/30/2023 1:35 PM (R49.0) Not Available [facility] 4 02:16:04 Problem Notes None recorded. Medical Equipment None Reported. Allergies Allergen ID Allergen Name Allergen Category Reaction Reaction Severity Criticality Documentation Date Start Date Code Code System Note Provider Name and Address Organization Details Recorded Time 91718 citrus flavor food other Not available Not available 07/27/2023 91017 UNK React ion: other react ion, Unkno wn; Not Available [facility] 4 00:53:39 56637 adhesive tape environme nt,medica tion other Not available Not available 07/27/2023 31636 UNK React ion: other react ion, Unkno wn; Not Available [facility] 4 00:53:42 43682 Toradol medicatio n other Not available Not available 07/27/2023 82207 RxNorm React ion: other react ion, Unkno wn; Not Available [facility] 4 00:53:46 54542 banana extract food,medi cation other Not available Not available 07/27/2023 73810 9 RxNorm React ion: other react ion, Unkno wn; Not Available [facility] 4 00:53:46 Medications Name Sig Start [...] mcg tablet 12/19 completed Medicati on ID: [id number] B rand Name: Synthroi d Send Method: [...] 2 spray 2021 active Medicati on ID: [id number] D uration Value: 30 Brand Name: azelasti [...] spray,cynthia penon 2020 active Medicati on ID: [id number] B rand Name: fluticas one propiona te [...] aerosol inhaler 12/19 completed Medicati on ID: [id number] B rand Name: Symbicor t Send Method: [...] pen injector 2021 active Medicati on ID: [id number] D uration Value: 1 Prescri bed By [...] Updated DateTime 12/20/2023 180.34 cm 34.2 kg/m2 759400.93 g Cheryl Ann [place] - [facility] 12/20/2023 11:43:25 Social History None recorded. Functional [...] Diagnosis Note KEYSHA CAPPS MD [facility] [address] [address] 12/20/2023 11:12:43 12/20/2023 12:13:17 Posterior rhinorrhea 83016846 R09.82 Uncomplica twila mild persistent asthma 654131907 J45.30 Health Concerns Section Related Observation LastModified by Organization Detai ls LastModified Time None Recorded Concern Status LastModified by Organization Details LastModified Time None Recorded Advance Directives Directive None Recorded Payers Insurance Date Sequence Insurance Name Policy Number Policy Stafford Covered Member ID Stafford Member ID Guarantor Name 12/20/2023 1 [place] B[place]: [employer] Kayla Ortega [id number] Kayla Ortega 12/22/2023 2 [place] [facility] Kayla Ortega [id number] Kayla Ortega Notes Date Note Type Note Provider Name and Address Organization Details Recorded Time 12/20/2023 text/html On singulair and [place]. Nasal spray x 2. Some sinus congestion. Just finished prednisone course. 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 Waiting to see another cage supervisor. PV: 38-year-old female presents today for follow-up [...] the images from her CT scan from [facility] in July 2022 and the sinus thickening was very mild. KEYSHA CAPPS MD [address] [place] [address], [phone], [facility] 12/20/2023 18:25:26 OBGyn Episode No OBEpisode recorded.
== END 2024-10-03 15:54 | disposition home or self-care (01) ==
PROVIDERS: PCP Internal Medicine; Visit Provider Physician Assistant Medical
DX: Z13.9 Encounter for screening, unspecified (principal); R30.0 Dysuria

== ENCOUNTER → 2024-10-03 14:39 | Outpatient (BNVA) | payer MEDICARE, MEDICAID, SELFPAY | PROVIDERS: PCP Internal Medicine; Visit Provider Physician Assistant Medical | DX: R30.0 Dysuria (principal) | CPT/HCPCS: 81003; 99212 ==

== ENCOUNTER 2024-10-19 10:07 | Outpatient (AMB) | payer MEDICARE, MEDICAID, SELFPAY ==
--- NOTE | 2024-10-19 10:19 | MHC.OFFVIS ---
Vital Signs 10/19/24 10:19 Height 5 ft 10 in Intake Visit Reasons: 3 Months F/U Allergies oxycodone Allergy (Intermediate, Verified 10/19/24 10:19) itching adhesive tape Allergy (Mild, Verified 10/19/24 10:19) RASH ketorolac (From TORADOL) Allergy (Mild, Verified 10/19/24 10:19) HIVES latex (LATEX) Allergy (Mild, Verified 10/19/24 10:19) RASH fruit with skin Allergy (Intermediate, Uncoded 10/19/24 10:19) Hives Medication List - Last Reconciled 10/19/24 by Kaela Brown CNP acetaminophen-codeine 300-30 mg 1 tab PO BID PRN amitriptyline 50 mg PO BEDTIME bisacodyl (Dulcolax (bisacodyl)) 10 mg (2 x 5 mg) PO BEDTIME 30 days Held on 09/27/24. Instructions: Doctor's Order cyclobenzaprine 10 mg PO Q8H 7 days cyclosporine 0.05% (Restasis) drps ophthalmic (eye) epinephrine 0.3 mg IM ONCE PRN fluticasone propionate 50 mcg/actuation 2 sprays intranasal DAILY xhlmpqfkrhw-mtrdlxjdw-ooceluep 200-62.5-25 mcg (Trelegy Ellipta) 1 inh inhalation DAILY galcanezumab-gnlm (Emgality Pen) mg subcut Q4W ipratropium bromide 2 sprays intranasal BID levalbuterol HCl 1.25 mg (3 mL) inhalation Q4-6H PRN levalbuterol tartrate 45 mcg/actuation 1 puff inhalation Q4-6H PRN levocetirizine (Xyzal) 5 mg PO DAILY levonorgestrel (Mirena) intrauterine linaclotide (Linzess) 72 mcg PO QAM metoclopramide HCl (Reglan) 10 mg PO QID montelukast 10 mg PO BEDTIME pantoprazole 40 mg PO BID propranolol 20 mg PO BID Synthroid (levothyroxine) 100 mcg PO DAILY NS topiramate (Topamax) 100 mg PO BID valacyclovir 1,000 mg PO BID PRN HPI Comments Details: Emgality helping with migraines, but seems to be wearing off sooner over the last 2 months. Headaches starting up about 1.5 weeks before next dose due. Previously would start up a few days to 1 week before next dose due. Tapered off phentermine and has been off medication for about 2 weeks. Getting allergy shots almost every week and Xolair injections every 2 weeks. Breathing has been better. Some stress and sleep was up and down. Her 10-year-old son with autism was going through some sleep regression, waking her a few times during the night. Tried Aimovig in 04/2024 and had more migraine. Had severe migraine that lasted four days and was unable to sleep due to pain. Constant, throbbing-type pain with photophobia, sonophobia, and some nausea. Cyclobenzaprine helping with tension headaches and tightness in neck and upper shoulders is better. Saw migration specialist who was concerned propranolol 40mg twice a day may be interfering with effectiveness of inhalers and inhalers are not lasting as long as they should. Following with weight management, headaches increased some after starting phentermine and cutting down on caffeine intake at end of 2023. Sharp pain from left eye along top of head 2-3x/month, lasting few hours with photophobia and sonophobia. Tylenol #3 helps take edge off. Dull, aching headache almost daily. Low heart rate with propranolol 60mg twice a day, tolerating 40mg twice a day. Car window tints denied by DMV because car is not just her car (family car). Allergy symptoms increased after stopping allergy shots. Normal sleep study ordered by pulmonary. She has an autistic son who is sleeping better now. She has a history of migraine headaches since her teenage years. Gets some ptosis and twitching in the eyelids. Left retro auricular stabbing pain. Her sister gets frequent headaches. She has not identified any triggers. [facility] Medical History (Updated 10/19/24 @ 10:22 by Kaela Brown CNP) Irritable bowel syndrome with both constipation and diarrhea Encounter for general adult medical examination with abnormal findings Foot pain, bilateral Abnormal EKG Labral tear of right hip joint Abnormal weight gain Odynophagia Pleuritic pain Environmental allergies Abdominal cramping History of irregular menstrual cycles Sinusitis Esophageal spasm Acetabular labrum tear Herpes labialis Dry eyes Yeast infection of the vagina Amenorrhea Metrorrhagia Bloating Epigastric discomfort Shortness of breath Pre-op examination Contusion of chest Exercise-induced asthma Pain of left thumb Rib pain on right side Bilateral otitis media with effusion Left shoulder strain Cellulitis Acute lumbar back pain Right shoulder pain Arthrosis Right knee pain Complex cyst of left ovary Chronic GERD Encounter for IUD insertion Nausea Upper respiratory infection Leg pain, right Nausea Other specified hypothyroidism Otitis media Right hip pain Chest wall pain Lightheaded Acute sinusitis Goiter Elevated TSH Medicare annual wellness visit, subsequent Ill feeling Epigastric pain Cervical cancer screening Well woman exam with routine gynecological exam Medicare annual wellness visit, initial Abnormal thyroid stimulating hormone (TSH) level Patella francisco j Knee pain Neck pain Chest pain Migraines Eczema Fibromyalgia Heart murmur Asthma Hypothyroidism Surgical History History of hip surgery H/O shoulder surgery [place] teeth removed History of appendectomy Family History Mother Graves disease Hypothyroidism Father CHF (congestive heart failure) Other Substance use disorder Social History Housing: Apartment Alcohol intake: never Patient Tobacco Use Status: Never used Tobacco e-Cigarette/Vaping Use: Never Used Second Hand Smoke Exposure: Yes (as a child only) service: No Current occupational status: disabled Sexual orientation: Straight/Heterosexual Gender identity: Female Cognitive needs: No Hearing needs: No Vision needs: Yes Female Reproductive History Menstrual Age of Menarche: 15 Review of Systems Const Denies chills, Denies daytime sleepiness, Reports difficulty sleeping, Reports fatigue, Denies fever(s), Denies frequent falls, Reports headache(s), Denies increased appetite, Denies poor appetite, Denies snoring, Denies weakness, Denies weight gain and Denies weight loss Eyes Denies loss of vision ENT Denies vertigo, Denies dizziness, Reports headache(s) and Denies neck pain Card Denies chest pain at rest, Denies chest pain with activity, Denies syncope, Denies leg edema, Denies palpitations, Denies dyspnea and Denies dyspnea on exertion Resp Denies cough, Denies dyspnea, Denies dyspnea on exertion and Denies snoring GI Denies abdominal pain, Denies constipation, Denies heartburn, Denies diarrhea and Denies nausea Denies urinary frequency, Denies urinary incontinence and Denies urinary urgency Musc Denies abnormal gait, Denies back pain, Reports myalgias, Reports arthralgias, Denies neck pain, Denies numbness and Denies tingling Neuro Denies abnormal gait, Denies vertigo, Denies dizziness, Denies syncope, Denies frequent falls, Reports headache(s), Denies lack of coordination, Denies loss of vision, Denies memory loss, Denies numbness, Denies Other visual disturbances, Denies restless legs, Denies seizure-like activity, Denies tingling, Denies paresthesias, Denies tremor(s) and Denies weakness Psych Reports anxiety, Reports depression, Denies auditory hallucinations, Denies memory loss and Denies visual hallucinations Endo Reports fatigue and Denies palpitations Physical Exam Const Other: General Appearance:? normal, in no acute distress. Heart:? S1, S2 normal, no murmurs. Lungs:? clear anteriorly and posteriorly. Musculoskeletal:? normal. Extremities:? no edema. Psych:? alert, oriented, cognitive function intact, cooperative with exam. Neuro Other: Abnormal Neurological Findings:?none.? Mental Status: alert and oriented X 3. Normal attention, orientation, memory, and affect. Cranial Nerves: Pupils are equal, round, and reactive to light. External ocular muscles are intact. Visual best are full, no ptosis. Face is symmetrical, no facial weakness or droop. Facial sensations are normal. Tongue protrudes in midline. Palate elevates symmetrically. Shoulder shrugging is normal Motor Examination: Normal muscle tone, bulk and strength. No atrophy or fasciculations. No drift of the extended upper extremities. DTR 2+. Plantars are flexor. Sensory Exam: Normal light touch, temperature, pinprick, vibration, and joint-position sensations. Rhomberg sign is absent. Coordination: No ataxia. No titubation. Fatnag-oy-symq, hqzd-zxki-rmpo test, and rapid alternating movements were normal. Gait Exam: Within normal limits. Cerebellar Signs: Srgios-af-kavr and sijp-pq-zkjz is normal. No dysdiadochokinesia. Extrapyramidal System: No tremor, rigidity with normal facial expressions. No bradykinesia. No bradyphrenia. Normal arm swing and posture. No propulsion or retropulsion. Speech: Normal. No dysphasia or dysarthria. Assessment & Plan Assessment & Plan (1) Migraines: Code(s): G43.909 - Migraine, unspecified, not intractable, without status migrainosus Category: Medical Qualifiers: Migraine type: chronic migraine (15 or more days per month) without aura Status migrainosus presence: without status migrainosus Intractability: not intractable Qualified Code(s): G43.709 - Chronic migraine without aura, not intractable, without status migrainosus Plan: Continue Emgality Solution Auto-injector 120mg/mL monthly subcutaneous Continue topiramate 100mg 1 tablet twice a day Continue propranolol 20mg 1 tablet twice a day Continue acetaminophen-codeine #3 300-30mg 2 tablets as needed for headache once a day #45 for 30 days (2) Tension headache: Code(s): G44.209 - Tension-type headache, unspecified, not intractable Category: Medical Plan: Continue amitriptyline 50mg 1 tablet at bedtime Continue cyclobenzaprine 10mg 1 tablet at bedtime as needed for muscle spasm/pain Plan Meds tried: Imitrex and Relpax without relief and side effects. Amitriptyline: too drowsy with dose higher than 50mg. Propranolol: unable to tolerate dose higher than 40mg BID due to low heart rate. Aimovig: more migraines 12/30/22 Emgality 240mg loading dose given Coding Level of Care Code Est Pt Level 4 (88045) Diagnoses Chronic migraine without aura without status migrainosus, not intractable G43.709 Migraine type: chronic migraine (15 or more days per month) without aura Status migrainosus presence: without status migrainosus Intractability: not intractable Tension headache G44.209
--- OUTSIDE RECORDS SUMMARY | 2024-10-19 10:38 | XMS_ITS | Clinical Summary ---
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 Name Role Phone Karen Broussard MD Primary Care Provider [phone] Allergies No known active allergies Medications acetaminophen- [...] 30 each 09/22/19 25 025 Active phentermine 30 mg capsule Take 1 capsule [...] 11:30 AM EDT Office Visit Bariatric Surgery [address] [phone] Brianna Umanzor PA Class 1 obesity due to excess calories with serious comorbidity and body mass index (BMI) of 30.0 to 30.9 in adult (Primary Dx) 08/09/2024 8:30 AM EDT Office Visit Bariatric Surgery [address] [phone] Brianna Umanzor PA Class 1 obesity due [...] AM EDT Office Visit Bariatric Surgery - [place] [address] [facility] [address] [place] [address] Brianna Umanzor PA [address] [facility] [address] [place] [address] Health Maintenance Due Date Last Done Comments Hepatitis B Vaccines (1 of 3 - 19+ 3-dose series) 2005 Cervical Cancer Screening: P ap Smear 2007 Pneumococcal Vaccine: Pediat rics (0 to 5 Years) and At-Risk Patients (6 to 49 Years) (2 of 2 - PCV) 01/18/2015 01/18/2014 COVID-19 Vaccine ( - 2023-2 5 season) 2023 Cholesterol Screening (Lipid Panel) [...] Insurance MEDICARE MEDICAID - [place] Care Teams General Ii Farmworker Relationship Specialty Start Date End Date Karen Broussard MD [address] [place] [phone] PCP - General 09/03/23
== END 2024-10-19 10:45 | disposition home or self-care (01) ==
LOC: HO.HSM 10:08
PROVIDERS: PCP Internal Medicine; Referring Provider Internal Medicine; Visit Provider Registered Nurse
DX: G43.709 Chronic migraine without aura, not intractable, without status migrainosus (principal); G44.209 Tension-type headache, unspecified, not intractable
CPT/HCPCS: 99214

== ENCOUNTER → 2024-10-19 10:07 | Outpatient (BNVA) | payer MEDICARE, MEDICAID, SELFPAY | PROVIDERS: PCP Internal Medicine; Referring Provider Internal Medicine; Visit Provider Registered Nurse | DX: G43.709 Chronic migraine without aura, not intractable, without status migrainosus (principal); G44.209 Tension-type headache, unspecified, not intractable | CPT/HCPCS: 99212 ==

== ENCOUNTER 2024-10-26 15:47 | Outpatient (AMB) | payer MEDICARE, MEDICAID, SELFPAY ==
[2024-10-26 15:57] VITALS: BP 109/62; PULSE 66; BMI 30.6
--- NOTE | 2024-10-26 15:57 | MHC.OFFVIS ---
Vital Signs 10/26/24 15:57 Height 5 ft 10 in Weight 213 lb 6.519 oz BMI 30.6 BP 109/62 Blood Pressure Location Rt brachial Position Sitting Pulse 66 Intake Visit Reasons: 4 week follow up Gerd, CIC Intake Note: Kayla presents to in office today in follow up of CIC. CC: She states that the Linzess is working to have BMs. [employer] Mechanic Required: No Accompanied by: Self / Same As Patient Allergies oxycodone Allergy (Intermediate, Verified 10/26/24 16:08) itching adhesive tape Allergy (Mild, Verified 10/26/24 16:08) RASH ketorolac (From TORADOL) Allergy (Mild, Verified 10/26/24 16:08) HIVES latex (LATEX) Allergy (Mild, Verified 10/26/24 16:08) RASH fruit with skin Allergy (Intermediate, Uncoded 10/19/24 10:19) Hives HPI HPI 4 week follow up Gerd, CIC: Details: Assessment & Plan (1) Chronic idiopathic constipation: Code(s): K59.04 - Chronic idiopathic constipation Category: Medical (2) GERD with esophagitis: Code(s): K21.00 - Gastro-esophageal reflux disease with esophagitis, without bleeding Category: Medical (3) Gastroparesis: Code(s): K31.84 - Gastroparesis Category: Medical (4) Erosive esophagitis: Code(s): K22.10 - Ulcer of esophagus without bleeding Category: Medical (5) Lactose intolerance: Code(s): E73.9 - Lactose intolerance, unspecified Category: Medical Plan She continues on pantoprazole qam famotidine qhs, reglan 10mg qid, bisacodyl. At 1st the bisacodyl helped and this also seemed to make the feeling of fullness and the burping better. However her body seem to adjust and even taking 2 every day she was not moving her bowels well. At this point I think it is time to move on to Linzess. Because I do not want to give her diarrhea were start her at the lowest dose and titrate up to affect her side effect. She can continue 2 layer in the bisacodyl with the Linzess if she is not moving her bowels well until she sees me next. Return office visit in 4 weeks Medications: New linaclotide (Linzess) 72 mcg PO QAM 30 caps 3RF K59.04 - Chronic idiopathic constipation Refilled metoclopramide HCl (Reglan) 10 mg PO QID 120 tabs 6RF K21.00 - Gastro-esophageal reflux disease with esophagitis, without bleeding pantoprazole 40 mg PO BID 60 tabs 6RF On Hold bisacodyl (Dulcolax (bisacodyl)) Hold Comment: Doctor's Order 10 mg (2 x 5 mg) PO BEDTIME 30 days 60 tabs 6RF K21.00 - Gastro-esophageal reflux disease with esophagitis, without bleeding, K22.10 - Ulcer of esophagus without bleeding, K31.84 - Gastroparesis, K59.00 - Constipation, unspecified TODAY'S VISIT [facility] Medical History (Updated 10/19/24 @ 10:22 by Kaela Brown CNP) Irritable bowel syndrome with both constipation and diarrhea Encounter for general adult medical examination with abnormal findings Foot pain, bilateral Abnormal EKG Labral tear of right hip joint Abnormal weight gain Odynophagia Pleuritic pain Environmental allergies Abdominal cramping History of irregular menstrual cycles Sinusitis Esophageal spasm Acetabular labrum tear Herpes labialis Dry eyes Yeast infection of the vagina Amenorrhea Metrorrhagia Bloating Epigastric discomfort Shortness of breath Pre-op examination Contusion of chest Exercise-induced asthma Pain of left thumb Rib pain on right side Bilateral otitis media with effusion Left shoulder strain Cellulitis Acute lumbar back pain Right shoulder pain Arthrosis Right knee pain Complex cyst of left ovary Chronic GERD Encounter for IUD insertion Nausea Upper respiratory infection Leg pain, right Nausea Other specified hypothyroidism Otitis media Right hip pain Chest wall pain Lightheaded Acute sinusitis Goiter Elevated TSH Medicare annual wellness visit, subsequent Ill feeling Epigastric pain Cervical cancer screening Well woman exam with routine gynecological exam Medicare annual wellness visit, initial Abnormal thyroid stimulating hormone (TSH) level Patella francisco j Knee pain Neck pain Chest pain Migraines Eczema Fibromyalgia Heart murmur Asthma Hypothyroidism Surgical History History of hip surgery H/O shoulder surgery [place] teeth removed History of appendectomy Family History Mother Graves disease Hypothyroidism Father CHF (congestive heart failure) Other Substance use disorder Social History Housing: Apartment Alcohol intake: never Patient Tobacco Use Status: Never used Tobacco e-Cigarette/Vaping Use: Never Used Second Hand Smoke Exposure: Yes (as a child only) service: No Current occupational status: disabled Sexual orientation: Straight/Heterosexual Gender identity: Female Cognitive needs: No Hearing needs: No Vision needs: Yes Female Reproductive History Menstrual Age of Menarche: 15 Review of Systems Const Denies fatigue, Denies fever(s), Denies night sweats, Denies poor appetite and Reports weight loss ENT Reports Normal hearing present, Denies dental pain, Denies dysphagia, Denies hearing loss, Denies mouth pain, Denies odynophagia, Denies throat swelling, Denies tongue swelling and Reports other (Dentition adequate) Card Reports no additional complaints Resp Reports no additional complaints GI Details: Came from only moving her bowels every 2-3 days to multiple daily soft bowel movements Denies abdominal pain, Denies melena, Denies bloating, Denies hematochezia, Reports constipation, Denies GI cramping, Denies dysphagia, Denies excessive flatus, Denies early satiety, Reports heartburn, Denies diarrhea, Denies nausea, Denies odynophagia, Denies vomiting and Denies hematemesis Skin/Breast Denies pruritus, Denies lesions, Denies rash and Denies jaundice Neuro Reports Normal hearing present and Denies Abnormal speech present Endo Denies fatigue Aller/Immun Denies throat swelling and Denies tongue swelling Physical Exam Vital Signs: Last Vital Signs Pulse 66 10/26/24 15:57 BP 109/62 10/26/24 15:57 BMI result Body Mass Index 30.6 Const General: cooperative, no acute distress, well developed and well groomed Nutritional Appearance: well nourished and overweight Orientation/consciousness: oriented to person, oriented to place and oriented to time Limitations: No language barrier HEENT Head: Yes normocephalic and Yes atraumatic Eyes General: appearance normal, both eyes and all related structures Pupils: Equal, round and reactive pupils present Neck Neck: Yes normal visual inspection and Yes no lymphadenopathy Thyroid: Thyroid normal Resp Effort & Inspection: normal respiratory effort and able to speak in complete sentences Auscultation: clear to auscultation bilaterally Cardio Rate: regular rate Rhythm: regular rhythm Heart sounds: Normal, physiologic split S2 sound present Peripheral pulses: radial pulses present and posterior tibial pulses present GI Inspection: No distended, No Abdominal panniculus present and Yes obesity Palpation (GI): Soft to palpation, nontender, no guarding, not rigid and No hepatosplenomegaly present Percussion: Yes normal to percussion Auscultation: normal bowel sounds Rectal Exam - Female: deferred Skin General skin exam: no rashes or lesions noted, turgor normal, skin not dry, no jaundice, No spider nevi and no striae Rashes: no rashes Nails: normal Neuro General: oriented to person, oriented to place and oriented to time Cranial nerves: Yes Equal, round and reactive pupils present and Yes Normal hearing present Speech: No Abnormal speech present Extrem General: Yes normal to inspection, No clubbing, No cyanosis and No edema Psych Appearance: grossly normal and well kempt Mental Status: mental status grossly normal Speech and movement: Normal speech and movement present Affect: normal affect Attitude: cooperative Thought process: Normal thought process present and not confabulating Thought content: Normal thought content present Insight: Good insight present (Psych) Judgement: Good judgement present (Psych) Assessment & Plan Assessment & Plan (1) Chronic idiopathic constipation: Code(s): K59.04 - Chronic idiopathic constipation Category: Medical (2) Lactose intolerance: Code(s): E73.9 - Lactose intolerance, unspecified Category: Medical (3) Erosive esophagitis: Code(s): K22.10 - Ulcer of esophagus without bleeding Category: Medical (4) GERD with esophagitis: Code(s): K21.00 - Gastro-esophageal reflux disease with esophagitis, without bleeding Category: Medical (5) Gastroparesis: Code(s): K31.84 - Gastroparesis Category: Medical (6) Multiple food allergies: Comment: all fruit, avocado, seeded vegetables, carrots Code(s): Z91.018 - Allergy to other foods Category: Medical Plan The patient is a 39-year-old female presenting with chronic constipation. Initially, upon starting Linzess, she went through a week of adjustment where she did not experience bowel movements. Following this period, her bowel movements increased significantly, occurring three to four times daily without the typical sensations of urgency or abdominal cramps. She noted the stool consistency as very soft, and while she reported episodes of diarrhea, they were infrequent. She also noted ongoing issues with gastroesophageal reflux disease, characterized by mild heartburn occurring a few times per week. Her current medication regimen includes pantoprazole twice daily, with past instances of omeprazole usage. Of note, about a month ago they discontinued her phentermine and this of course will also have an impact on her constipation. This was for weight loss. Continue taking increased Linzess dosage as prescribed. - Retain and do not throw away the lower dosage until instructed. - Continue pantoprazole twice daily for GERD management. - Use Tums for occasional heartburn as needed. - Follow-up in approximately three weeks for reassessment. - Report any new or worsening symptoms immediately. Medications: New linaclotide (Linzess) Take first thing in the morning with a full glass of water. 145 mcg PO QAM 30 caps 6RF K58.1 - Irritable bowel syndrome with constipation On Hold linaclotide (Linzess) Hold Comment: Doctor's Order 72 mcg PO QAM 30 caps 3RF K59.04 - Chronic idiopathic constipation Coding Level of Care Code Est Pt Level 3 (77083) Diagnoses Chronic idiopathic constipation K59.04 Lactose intolerance E73.9 Erosive esophagitis K22.10 GERD with esophagitis K21.00 Gastroparesis K31.84 Multiple food allergies Z91.018
--- OUTSIDE RECORDS SUMMARY | 2024-10-26 16:02 | XMS_ITS | Clinical Summary ---
Author Organization 175 [facility] Address [address] [place] [address] Phone Care Team Providers Care Line Therapist Name Role Phone Karen Broussard MD Primary Care Provider [phone] Allergies No known active allergies Medications acetaminophen-c odeine (TYLENOL #3) 300-30 mg per tablet TAKE 2 TABLETS BY MOUTH NEEDED FOR HEADACHE FOR 30 DAYS 4 Active Ventolin HFA 90 mcg/actuation inhaler INHALE 1 PUFF BY MOUTH 4 TIMES A DAY NEEDED FOR SHORTNESS OF BREATH OR WHEEZING FOR 30 DAYS 4 Active amitriptyline (ELAVIL) 50 mg tablet Take 1 tablet (50 mg total) by mouth at bedtime. 4 Active budesonide (PULMICORT) 0.5 mg/2 mL nebulizer solution USE ONE VIAL IN NASAL IRRIGATION DAILY 4 Active cyclobenzaprine (FLEXERIL) 10 mg tablet take 1 tablet by mouth every day at bedtime as needed for 30 days 4 Active Restasis 0.05 % ophthalmic emulsion PLACE 1 DROP INTO EACH EYE TWICE A DAY CONTINUOUSLY 4 Active dilTIAZem CD (CARDIZEM CD) 120 mg 24 hr capsule 4 Active EPINEPHrine (EPIPEN) 0.3 mg/0.3 mL injection NEEDED 4 Active famotidine (PEPCID) 40 mg tablet Take 1 tablet (40 mg total) by mouth. at bedtime. 4 Active Trelegy Ellipta 200-62.5-25 mcg inhaler 4 Active Emgality Pen 120 mg/mL injection pen DIRECTED SUBCUTANEOUS MONTHLY 90 DAYS 4 Active ipratropium (ATROVENT) 21 mcg (0.03 %) nasal spray TAKE 2 SPRAY INTRANASALLY 2 TIMES A DAY 4 Active levalbuterol (XOPENEX) 1.25 mg/3 mL nebulizer solution INHALE 1 PACKET BY MOUTH EVERY 4 TO 6 HOURS NEEDED FOR SHORTNESS OF BREATH OR WHEEZING 3 Active levalbuterol (XOPENEX HFA) 45 mcg/actuation inhaler 4 Active Synthroid 125 mcg tablet Take 1 tablet (125 mcg total) by mouth 1 (one) time each day. 4 Active loratadine (CLARITIN) 10 mg tablet Take 1 tablet (10 mg total) by mouth 1 (one) time each day. 4 Active metoclopramide (REGLAN) 10 mg tablet 4 Active montelukast (SINGULAIR) 10 mg tablet Take 1 tablet (10 mg total) by mouth at bedtime. 4 Active ondansetron (ZOFRAN) 8 mg tablet Take 1 tablet (8 mg total) by mouth. 0 Active pantoprazole (PROTONIX) 40 mg EC tablet TAKE 1 TABLET ORALLY 2 TIMES A DAY FOR 30 DAYS 4 Active propranoloL (INDERAL) 40 mg tablet Take 1 tablet (40 mg total) by mouth 2 (two) times a day. 4 Active topiramate (TOPAMAX) 100 mg tablet Take 1 tablet (100 mg total) by mouth 2 (two) times a day. for 90 days 4 Active levocetirizine (XYZAL) 5 mg tablet Take 1 tablet (5 mg total) by mouth 1 (one) time each day. 5 Active phentermine 15 mg capsule Take 1 capsule (15 mg total) by mouth 1 (one) time each day before breakfast. Max Daily Amount: 15 mg 30 each 5 Active Active Problems Problem Noted Date Diagnosed Date Class 1 obesity due to exces s calories with serious comorbidity and body mass index (BMI) of 30.0 to 30.9 in adult 01/15/2024 Asthma 10/18/2023 GERD (gastroesophageal reflux disease) Hypothyroidism 10/18/2023 Encounters Date Type Department Care Team Description 09/21/2024 11:30 AM EDT Office Visit Bariatric Surgery [address] [phone] Brianna Umanzor PA Class 1 obesity due to excess calories with serious comorbidity and body mass index (BMI) of 30.0 to 30.9 in adult (Primary Dx) 08/09/2024 8:30 AM EDT Office Visit Bariatric Surgery [address] [phone] Brianna Umanzor PA Class 1 obesity due [...] 9:45 AM EDT Office Visit Bariatric Surgery [address] [phone] Brianna Umanzor PA [address] [facility] [address] [place] [address] Health Maintenance Due Date Last Done Comments Hepatitis B Vaccines (1 of 3 - 19+ 3-dose series) 2005 Cervical Cancer Screening: P ap Smear 2007 Pneumococcal Vaccine: Pediat rics (0 to 5 Years) and At-Risk Patients (6 to 49 Years) (2 of 2 - PCV) 01/18/2015 01/18/2014 COVID-19 Vaccine (1 - 2023-2 5 season) 2023 Cholesterol Screening [...] patient's age to complete this [place] [phone] MEDICARE MEDICAID - [place] Care Teams Line Therapist Relationship Specialty Start Date End Date Karen Broussard MD [address] [place] [id number] PCP - General 09/03/23
== END 2024-10-26 16:35 | disposition home or self-care (01) ==
LOC: HO.HGI 15:48
PROVIDERS: PCP Internal Medicine; Visit Provider Nurse Practitioner
DX: K59.04 Chronic idiopathic constipation (principal); E73.9 Lactose intolerance, unspecified; K22.10 Ulcer of esophagus without bleeding; K21.00 Gastro-esophageal reflux disease with esophagitis, without bleeding; K31.84 Gastroparesis; Z91.018 Allergy to other foods
CPT/HCPCS: 99213

== ENCOUNTER → 2024-10-26 15:47 | Outpatient (BNVA) | payer MEDICARE, MEDICAID, SELFPAY | PROVIDERS: PCP Internal Medicine; Visit Provider Nurse Practitioner | DX: K59.04 Chronic idiopathic constipation (principal); K22.10 Ulcer of esophagus without bleeding; K21.00 Gastro-esophageal reflux disease with esophagitis, without bleeding; K31.84 Gastroparesis; E73.9 Lactose intolerance, unspecified; Z91.018 Allergy to other foods; Z79.899 Other long term (current) drug therapy | CPT/HCPCS: 99212 ==

== ENCOUNTER 2024-11-21 10:44 | Outpatient (AMB) | payer MEDICARE, MEDICAID, SELFPAY ==
--- NOTE | 2024-11-21 10:47 | MHC.OFFVIS ---
Vital Signs 11/21/24 11:04 Height 5 ft 10 in Weight 212 lb 8.41 oz BMI 30.5 BP 112/66 Blood Pressure Location Lt brachial Position Sitting Pulse 67 Intake Visit Reasons: 3wk Intake Note: Kayla presents in office today in follow up of [facility]. CC: Patient reports that she doesn't like the higher dose of Linzess becauase she feels is too strong. Alternative Dispute Resolution Mediator Required: No Accompanied by: Self / Same As Patient Allergies oxycodone Allergy (Intermediate, Verified 11/21/24 11:09) itching adhesive tape Allergy (Mild, Verified 11/21/24 11:09) RASH ketorolac (From TORADOL) Allergy (Mild, Verified 11/21/24 11:09) HIVES latex (LATEX) Allergy (Mild, Verified 11/21/24 11:09) RASH fruit with skin Allergy (Intermediate, Uncoded 10/19/24 10:19) Hives HPI HPI 3wk: Details: Assessment & Plan (1) Chronic idiopathic constipation: Code(s): K59.04 - Chronic idiopathic constipation Category: Medical (2) Lactose intolerance: Code(s): E73.9 - Lactose intolerance, unspecified Category: Medical (3) Erosive esophagitis: Code(s): K22.10 - Ulcer of esophagus without bleeding Category: Medical (4) GERD with esophagitis: Code(s): K21.00 - Gastro-esophageal reflux disease with esophagitis, without bleeding Category: Medical (5) Gastroparesis: Code(s): K31.84 - Gastroparesis Category: Medical (6) Multiple food allergies: Comment: all fruit, avocado, seeded vegetables, carrots Code(s): Z91.018 - Allergy to other foods Category: Medical Plan The patient is a 39-year-old female presenting with chronic constipation. Initially, upon starting Linzess, she went through a week of adjustment where she did not experience bowel movements. Following this period, her bowel movements increased significantly, occurring three to four times daily without the typical sensations of urgency or abdominal cramps. She noted the stool consistency as very soft, and while she reported episodes of diarrhea, they were infrequent. She also noted ongoing issues with gastroesophageal reflux disease, characterized by mild heartburn occurring a few times per week. Her current medication regimen includes pantoprazole twice daily, with past instances of omeprazole usage. Of note, about a month ago they discontinued her phentermine and this of course will also have an impact on her constipation. This was for weight loss. Continue taking increased Linzess dosage as prescribed. - Retain and do not throw away the lower dosage until instructed. - Continue pantoprazole twice daily for GERD management. - Use Tums for occasional heartburn as needed. - Follow-up in approximately three weeks for reassessment. - Report any new or worsening symptoms immediately. Medications: New linaclotide (Linzess) Take first thing in the morning with a full glass of water. 145 mcg PO QAM 30 caps 6RF K58.1 - Irritable bowel syndrome with constipation On Hold linaclotide (Linzess) Hold Comment: Doctor's Order 72 mcg PO QAM 30 caps 3RF K59.04 - Chronic idiopathic constipation TODAY'S VISIT [facility] Medical History Irritable bowel syndrome with both constipation and diarrhea Encounter for general adult medical examination with abnormal findings Foot pain, bilateral Abnormal EKG Labral tear of right hip joint Abnormal weight gain Odynophagia Pleuritic pain Environmental allergies Abdominal cramping History of irregular menstrual cycles Sinusitis Esophageal spasm Acetabular labrum tear Herpes labialis Dry eyes Yeast infection of the vagina Amenorrhea Metrorrhagia Bloating Epigastric discomfort Shortness of breath Pre-op examination Contusion of chest Exercise-induced asthma Pain of left thumb Rib pain on right side Bilateral otitis media with effusion Left shoulder strain Cellulitis Acute lumbar back pain Right shoulder pain Arthrosis Right knee pain Complex cyst of left ovary Chronic GERD Encounter for IUD insertion Nausea Upper respiratory infection Leg pain, right Nausea Other specified hypothyroidism Otitis media Right hip pain Chest wall pain Lightheaded Acute sinusitis Goiter Elevated TSH Medicare annual wellness visit, subsequent Ill feeling Epigastric pain Cervical cancer screening Well woman exam with routine gynecological exam Medicare annual wellness visit, initial Abnormal thyroid stimulating hormone (TSH) level Patella francisco j Knee pain Neck pain Chest pain Migraines Eczema Fibromyalgia Heart murmur Asthma Hypothyroidism Surgical History History of hip surgery H/O shoulder surgery [place] teeth removed History of appendectomy Family History Mother Graves disease Hypothyroidism Father CHF (congestive heart failure) Other Substance use disorder Social History Housing: Apartment Alcohol intake: never Patient Tobacco Use Status: Never used Tobacco e-Cigarette/Vaping Use: Never Used Second Hand Smoke Exposure: Yes (as a child only) service: No Current occupational status: disabled Sexual orientation: Straight/Heterosexual Gender identity: Female Cognitive needs: No Hearing needs: No Vision needs: Yes Female Reproductive History Menstrual Age of Menarche: 15 Review of Systems Const Denies fatigue, Denies fever(s), Denies night sweats, Denies poor appetite and Denies weight loss Eyes Details: Glasses Reports requires corrective lenses ENT Reports Normal hearing present, Denies dental pain, Denies dysphagia, Denies hearing loss, Denies mouth pain, Denies odynophagia, Denies throat swelling, Denies tongue swelling and Reports other (Dentition adequate) Card Reports no additional complaints Resp Reports no additional complaints GI Details: Denies abdominal pain, Denies melena, Denies bloating, Denies hematochezia, Reports constipation, Denies GI cramping, Denies dysphagia, Denies excessive flatus, Denies early satiety, Reports heartburn, Denies diarrhea, Denies nausea, Denies odynophagia, Denies vomiting and Denies hematemesis Skin/Breast Denies pruritus, Denies lesions, Denies rash and Denies jaundice Neuro Reports Normal hearing present and Denies Abnormal speech present Endo Denies fatigue Aller/Immun Denies throat swelling and Denies tongue swelling Physical Exam Vital Signs: Last Vital Signs Pulse 67 11/21/24 11:04 BP 112/66 11/21/24 11:04 BMI result Body Mass Index 30.5 Const General: cooperative, no acute distress, well developed and well groomed Nutritional Appearance: well nourished and obese Orientation/consciousness: oriented to person, oriented to place and oriented to time Limitations: No language barrier HEENT Head: Yes normocephalic and Yes atraumatic Eyes General: appearance normal, both eyes and all related structures Pupils: Equal, round and reactive pupils present Neck Neck: Yes normal visual inspection and Yes no lymphadenopathy Thyroid: Thyroid normal Resp Effort & Inspection: normal respiratory effort and able to speak in complete sentences Auscultation: clear to auscultation bilaterally Cardio Rate: regular rate Rhythm: regular rhythm Heart sounds: Normal, physiologic split S2 sound present Peripheral pulses: radial pulses present and posterior tibial pulses present GI Inspection: No distended, No Abdominal panniculus present and Yes obesity Palpation (GI): Soft to palpation, nontender, no guarding, not rigid and No hepatosplenomegaly present Percussion: Yes normal to percussion Auscultation: normal bowel sounds Rectal Exam - Female: deferred Skin General skin exam: no rashes or lesions noted, turgor normal, skin not dry, no jaundice, No spider nevi and no striae Rashes: no rashes Nails: normal Neuro General: oriented to person, oriented to place and oriented to time Cranial nerves: Yes Equal, round and reactive pupils present and Yes Normal hearing present Speech: No Abnormal speech present Extrem General: Yes normal to inspection, No clubbing, No cyanosis and No edema Psych Appearance: grossly normal and well kempt Mental Status: mental status grossly normal Speech and movement: Normal speech and movement present Affect: normal affect Attitude: cooperative Thought process: Normal thought process present and not confabulating Thought content: Normal thought content present Insight: Good insight present (Psych) Judgement: Good judgement present (Psych) Assessment & Plan Assessment & Plan (1) Gastroparesis: Code(s): K31.84 - Gastroparesis Category: Medical (2) GERD with esophagitis: Code(s): K21.00 - Gastro-esophageal reflux disease with esophagitis, without bleeding Category: Medical (3) Erosive esophagitis: Code(s): K22.10 - Ulcer of esophagus without bleeding Category: Medical (4) Chronic idiopathic constipation: Code(s): K59.04 - Chronic idiopathic constipation Category: Medical Plan Her current GI regimen is Linzess 145 micro g, pantoprazole twice a day, and Reglan 10 mg 4 times a day. Unfortunately, the Linzess at 145 micro g caused her too much diarrhea. Get the 72 micro g dose does not give her complete evacuation causing her multiple daily bowel movements. So what we will do is go back to the lower dose and add bisacodyl (since she has a so already at home) 1 at night which she can progress to 2 if needed to see if this can give her better bowel motility. If the bisacodyl is too strong she is to call the office in I will prescribe senna. She continues on her pantoprazole twice a day and her Reglan which was controlling her GERD and her delayed gastric emptying well. Return office visit in 4 weeks Medications: Discontinued linaclotide (Linzess) Take first thing in the morning with a full glass of water. Discontinued Reason: Doctor's Order 145 mcg PO QAM 30 caps 6RF K58.1 - Irritable bowel syndrome with constipation Resumed linaclotide (Linzess) 72 mcg PO QAM 30 caps 3RF K59.04 - Chronic idiopathic constipation bisacodyl (Dulcolax (bisacodyl)) 10 mg (2 x 5 mg) PO BEDTIME 30 days 60 tabs 6RF K21.00 - Gastro-esophageal reflux disease with esophagitis, without bleeding, K22.10 - Ulcer of esophagus without bleeding, K31.84 - Gastroparesis, K59.00 - Constipation, unspecified linaclotide (Linzess) 72 mcg PO QAM 30 caps 3RF K59.04 - Chronic idiopathic constipation Coding Level of Care Code Est Pt Level 3 (23095) Diagnoses Gastroparesis K31.84 GERD with esophagitis K21.00 Erosive esophagitis K22.10 Chronic idiopathic constipation K59.04
[2024-11-21 11:04] VITALS: BP 112/66; PULSE 67; BMI 30.5
--- OUTSIDE RECORDS SUMMARY | 2024-11-21 12:57 | XMS_ITS | Clinical Summary ---
Author Organization 175 [facility] Address [address] [place] [address] Phone Care Team Providers Care Net Developer Programmer Name Role Phone Karen Broussard MD Primary Care Provider [phone] Allergies No known active allergies Medications acetaminophen-c [...] Amount: 15 mg 30 each 5 Active linaCLOtide (Linzess) 145 mcg capsule Take 1 capsule (145 mcg total) by mouth 1 (one) time each day. Active Active Problems Problem Noted Date Diagnosed Date Overweight (BMI 25.0-29.9) 11/08/2024 Class 1 obesity due to exces s calories with serious comorbidity and body mass index (BMI) of 30.0 to 30.9 in adult 01/15/2024 Asthma 10/18/2023 GERD (gastroesophageal reflux disease) Hypothyroidism 10/18/2023 Encounters Date Type Department Care Team Description 11/08/2024 9:45 AM EDT Office Visit Bariatric Surgery [address] [phone] Brianna Umanzor PA Overweight (BMI 25.0-29.9) (Primary Dx) 09/21/2024 11:30 AM EDT Office Visit Bariatric [address] [phone] Brianna Umanzor PA Class 1 obesity due [...] Sign Reading Time Taken Comments Blood Pressure 111/72 11/08/2024 9:49 AM EDT Pulse 64 11/08/2024 9:49 AM EDT Temperature 36.6 C (97.8 F) 08/09/2024 8:34 AM EDT Respiratory Rate - - Oxygen Saturation - - Inhaled Oxygen Concentration - - Weight 96.5 kg (212 lb 12.8 oz) 11/08/2024 9:49 AM EDT Height 180.3 cm (5' 11 ) 11/08/2024 9:49 AM EDT Body Mass Index 29.68 11/08/2024 9:49 AM EDT Plan of Treatment Upcoming Encounters Date Type Department Care Team (Late st Contact Info) Description 05/08/2025 9:00 AM EST Office Visit Bariatric Surgery - [address] [place] [address] Brianna Umanzor PA [address] [place] [address] Health Maintenance Due Date Last Done Comments Hepatitis B Vaccines (1 of 3 - 19+ 3-dose series) 2005 Cervical Cancer Screening: P ap Smear 2007 Pneumococcal Vaccine: Pediat rics (0 to 5 Years) and At-Risk Patients (6 to 49 Years) (2 of 2 - PCV) 01/18/2015 01/18/2014 Cholesterol Screening (Lipid Panel) 12/27/2023 HIV Screening 12/27/2023 Hepatitis C Screening 12/27/2023 Medicare Annual Wellness Visit 12/27/2023 Social Influencers of Health Screening 12/27/2023 DTaP,Tdap,and Td Vaccines (2 - Tdap) 01/18/2024 01/17/2014 Depression Screening 03/15/2024 COVID-19 Vaccine (1 - 2023-2 5 season) 2024 Influenza Vaccine (#1) 2024 01/17/2014 MMR Vaccines [...] Insurance MEDICARE MEDICAID - [place] Care Teams Net Developer Programmer Relationship Specialty Start Date End Date Karen Broussard MD [address] [place] [id number] PCP - General 09/03/23
== END 2024-11-21 16:03 | disposition home or self-care (01) ==
LOC: HO.HGI 10:46
PROVIDERS: PCP Internal Medicine; Visit Provider Nurse Practitioner
DX: K31.84 Gastroparesis (principal); K21.00 Gastro-esophageal reflux disease with esophagitis, without bleeding; K22.10 Ulcer of esophagus without bleeding; K59.04 Chronic idiopathic constipation
CPT/HCPCS: 99213

== ENCOUNTER → 2024-11-21 10:44 | Outpatient (BNVA) | payer MEDICARE, MEDICAID, SELFPAY | PROVIDERS: PCP Internal Medicine; Visit Provider Nurse Practitioner | DX: K59.04 Chronic idiopathic constipation (principal); K31.84 Gastroparesis; K21.00 Gastro-esophageal reflux disease with esophagitis, without bleeding; K22.10 Ulcer of esophagus without bleeding; E66.9 Obesity, unspecified; Z68.30 Body mass index [BMI] 30.0-30.9, adult | CPT/HCPCS: 99212 ==

== ENCOUNTER 2024-11-29 08:50 | Outpatient (AMB) | payer MEDICARE, MEDICAID, SELFPAY ==
--- NOTE | 2024-11-29 08:55 | MHC.OFFVIS ---
Vital Signs 11/29/24 08:56 Height 5 ft 10 in Weight 213 lb 8 oz BMI 30.6 BP 108/64 Blood Pressure Location Rt brachial Position Sitting Pulse 52 Pulse Source Pulse Oximeter Pulse Oximetry (%) 98 Oxygen Delivery Method Room Air Intake Visit Reasons: Asthma Allergies oxycodone Allergy (Intermediate, Verified 11/29/24 08:59) itching adhesive tape Allergy (Mild, Verified 11/29/24 08:59) RASH ketorolac (From TORADOL) Allergy (Mild, Verified 11/29/24 08:59) HIVES latex (LATEX) Allergy (Mild, Verified 11/29/24 08:59) RASH fruit with skin Allergy (Intermediate, Uncoded 11/29/24 08:59) Hives HPI HPI Asthma: Details: Kayla is a pleasant 39 year old female, never smoker, with underlying asthma, atopic dermatitis, environmental allergies, allergic rhinitis and GERD. She has been on Xolair since July two months in addition to Trelegy and Singulair, receiving injections every two weeks, and reports less dyspnea on exertion. She is able to maintain a good pace for two miles without significant dyspnea and recovers quickly, which is a change from prior. She reports intermittent chest tightness and cough, denies wheezing. She has also been using albuterol MDI significantly less, now only 2-3 times per week. She continues to undergo allergen immunotherapy through [employer] [facility], now in the red vials which are the last of the weekly injections, reaching maintenance therapy in the near future. She has been tolerating well without any exacerbation of asthma. She denies any visits to urgent care or hospitalizations related to respiratory distress since the last visit. Her main focus today is right upper pleuritic discomfort which has waxed and waned over time, recurred over the last few weeks, CXR 05/2024 unremarkable, no further chest imaging. [facility] Medical History (Updated 11/29/24 @ 09:08 by Chyna Mayo NP) Pleuritic pain Irritable bowel syndrome with both constipation and diarrhea Encounter for general adult medical examination with abnormal findings Foot pain, bilateral Abnormal EKG Labral tear of right hip joint Abnormal weight gain Odynophagia Environmental allergies Abdominal cramping History of irregular menstrual cycles Sinusitis Esophageal spasm Acetabular labrum tear Herpes labialis Dry eyes Yeast infection of the vagina Amenorrhea Metrorrhagia Bloating Epigastric discomfort Shortness of breath Pre-op examination Contusion of chest Exercise-induced asthma Pain of left thumb Rib pain on right side Bilateral otitis media with effusion Left shoulder strain Cellulitis Acute lumbar back pain Right shoulder pain Arthrosis Right knee pain Complex cyst of left ovary Chronic GERD Encounter for IUD insertion Nausea Upper respiratory infection Leg pain, right Nausea Other specified hypothyroidism Otitis media Right hip pain Chest wall pain Lightheaded Acute sinusitis Goiter Elevated TSH Medicare annual wellness visit, subsequent Ill feeling Epigastric pain Cervical cancer screening Well woman exam with routine gynecological exam Medicare annual wellness visit, initial Abnormal thyroid stimulating hormone (TSH) level Patella francisco j Knee pain Neck pain Chest pain Migraines Eczema Fibromyalgia Heart murmur Asthma Hypothyroidism Surgical History History of hip surgery H/O shoulder surgery [place] teeth removed History of appendectomy Family History Mother Graves disease Hypothyroidism Father CHF (congestive heart failure) Other Substance use disorder Social History Housing: Apartment Alcohol intake: never Patient Tobacco Use Status: Never used Tobacco e-Cigarette/Vaping Use: Never Used Second Hand Smoke Exposure: Yes (as a child only) service: No Current occupational status: disabled Sexual orientation: Straight/Heterosexual Gender identity: Female Cognitive needs: No Hearing needs: No Vision needs: Yes Female Reproductive History Menstrual Age of Menarche: 15 Review of Systems Const Denies chills, Denies excessive sweating, Denies fever(s) and Denies night sweats Eyes Denies dry eyes and Denies irritation ENT Reports Normal hearing present, Reports nasal congestion and Reports post nasal drip Card Denies chest pain, Denies chest pain at rest, Denies chest pain with activity, Denies claudication, Denies leg edema, Denies orthopnea and Denies paroxysmal nocturnal dyspnea Resp Denies change in phlegm color, Denies chest congestion, Denies hemoptysis, Denies excessive phlegm production, Reports pain on inspiration and Denies stridor Musc Denies myalgias Neuro Reports Normal hearing present Endo Denies excessive sweating Sixto/Lymph Denies lymphadenopathy Physical Exam Vital Signs: Last Vital Signs Pulse 52 11/29/24 08:56 BP 108/64 11/29/24 08:56 Pulse Ox 98 11/29/24 08:56 Oxygen Delivery Method Room Air 11/29/24 08:56 BMI result Body Mass Index 30.6 Const General: cooperative, healthy appearing, comfortable, no acute distress, well developed and alert Nutritional Appearance: obese Orientation/consciousness: patient oriented x3 Limitations: no limitations HEENT Head: Yes normal to inspection, Yes normocephalic and Yes atraumatic Ears: hearing grossly normal bilaterally and external ears normal Eyes General: appearance normal, both eyes and all related structures Eyelids: Yes eyelids normal Sclerae: sclerae normal EOM: EOMs intact bilaterally Neck Neck: Yes normal visual inspection and Yes no lymphadenopathy Lymphatic: no lymphadenopathy noted Chest Chest palpation & inspection: normal inspection of the chest Resp Effort & Inspection: normal respiratory effort, able to speak in complete sentences, no audible wheezes, no cough, no stridor, not tachypneic, no tripod positioning and no use of accessory muscles Auscultation: clear to auscultation bilaterally Cardio Jugular venous distension: no JVD Rate: regular rate Rhythm: regular rhythm Skin Other: warm, dry General skin exam: no rashes or lesions noted Neuro General: patient oriented x3 Cranial nerves: Yes Normal hearing present Cognition (Neuro): normal cognition Gait exam (Neuro): Normal gait present Extrem General: Yes normal to inspection, Yes capillary refill normal, Yes no clubbing, cyanosis or edema and Yes no pedal edema Psych Appearance: grossly normal and well kempt Speech and movement: Normal speech and movement present and Clear speech present Affect: normal affect Attitude: cooperative Thought process: Normal thought process present Thought content: Normal thought content present Insight: Good insight present (Psych) Judgement: Good judgement present (Psych) Assessment & Plan Assessment & Plan (1) Asthma, moderate persistent: Code(s): J45.40 - Moderate persistent asthma, uncomplicated Category: Medical Qualifiers: Asthma complication type: uncomplicated Qualified Code(s): J45.40 - Moderate persistent asthma, uncomplicated (2) Allergic rhinitis: Code(s): J30.9 - Allergic rhinitis, unspecified Category: Medical Qualifiers: Allergic rhinitis trigger: pollen Allergic rhinitis seasonality: non-seasonal Qualified Code(s): J30.1 - Allergic rhinitis due to pollen Plan The patient will continue with Xolair as she notes improvements in dyspnea, decrease in chest tightness as well as wheezing and significant decrease in use of albuterol MDI. She continues to report inability to fully inspire despite PFT revealing no restrictive defect as well as intermittent pleuritic discomfort. Will send for CXR and consider chest CT. Encouraged to continue Trelegy, Singulair, Xyzal and albuterol MDI PRN. She is aware to call if symptoms change. The patient is encouraged to monitor and document any reactions to allergy shots. All questions were answered and patient is in agreement of plan. Will follow up in 3 months or sooner if needed. Orders: Orders XR chest 2V Today R07.81 - Pleurodynia Coding Level of Care Code Est Pt Level 4 (62731) Diagnoses Moderate persistent asthma without complication J45.40 Asthma complication type: uncomplicated Non-seasonal allergic rhinitis due to pollen J30.1 Allergic rhinitis trigger: pollen Allergic rhinitis seasonality: non-seasonal
[2024-11-29 08:56] VITALS: BP 108/64; PULSE 52; O2SAT 98; BMI 30.6
--- OUTSIDE RECORDS SUMMARY | 2024-11-29 10:24 | XMS_ITS | Clinical Summary ---
Author Organization [address] [facility] Address [address] [place] [address] Phone Care Team Providers Care Stem Dryer Maintainer Name Role Phone Karen Broussard MD Primary Care Provider [phone] Allergies No known active allergies Medications acetaminophen-c [...] 9:45 AM EDT Office Visit Bariatric Surgery [address] [phone] Brianna Umanzor PA Overweight (BMI 25.0-29.9) (Primary Dx) 09/21/2024 11:30 AM EDT Office Visit Bariatric [address] [phone] Brianna Umanzor PA Class 1 obesity due [...] AM EST Office Visit Bariatric Surgery - [address] [place] [address] Brianna Umanzor PA [address] [place] [address] Health Maintenance Due Date Last [...] Insurance MEDICARE MEDICAID - [place] Care Teams Stem Dryer Maintainer Relationship Specialty Start Date End Date Karen Broussard MD [address] [place] [phone] PCP - General 09/03/23
== END 2024-11-29 09:19 | disposition home or self-care (01) ==
LOC: HO.HPSW 08:51
PROVIDERS: PCP Internal Medicine; Visit Provider Nurse Practitioner Family
DX: J45.40 Moderate persistent asthma, uncomplicated (principal); J30.1 Allergic rhinitis due to pollen
CPT/HCPCS: 99214

== ENCOUNTER 2024-11-29 08:50 | Outpatient (REF) | payer MEDICARE, MEDICAID, SELFPAY ==
--- NOTE | ~2024-11-29 | XR_ITS ---
EXAMINATION: XR CHEST 2 VIEWS HISTORY: R07.81 - Pleurodynia COMPARISON: Comparison is made with the prior examination dated 05/31/2024. FINDINGS: PA and lateral views of the chest are submitted. The lungs are expanded and clear. There is no pleural effusion, pneumothorax, or pulmonary vascular congestion. The heart is normal in size. The bones are intact. XR/XR chest 2V IMPRESSION: No acute cardiopulmonary abnormality. Electronically signed by: Oswald Song MD 11/29/2024 10:06 AM EDT
== END 2024-11-29 08:51 | disposition home or self-care (01) ==
LOC: HO.HMGCX 08:50
PROVIDERS: PCP Internal Medicine; Visit Provider Nurse Practitioner Family
DX: J45.40 Moderate persistent asthma, uncomplicated (principal); R07.81 Pleurodynia; J30.1 Allergic rhinitis due to pollen; R06.00 Dyspnea, unspecified; Z77.22 Contact with and (suspected) exposure to environmental tobacco smoke (acute) (chronic); Z79.51 Long term (current) use of inhaled steroids; Z79.899 Other long term (current) drug therapy
CPT/HCPCS: 71046; 99212

== ENCOUNTER → 2024-11-29 09:56 | Outpatient (BNV) | payer MEDICARE, MEDICAID, SELFPAY | PROVIDERS: PCP Internal Medicine; Visit Provider Radiology Diagnostic Radiology | DX: R07.81 Pleurodynia (principal) | CPT/HCPCS: 71046 ==

== ENCOUNTER 2024-12-18 08:02 | Outpatient (AMB) | payer MEDICARE, MEDICAID, SELFPAY ==
--- OUTSIDE RECORDS SUMMARY | 2024-12-18 08:07 | XMS_ITS | Clinical Summary ---
Author Organization [address] [facility] Address [address] [place] [address] Phone Care Team Providers Care Van Owner Operator Name Role Phone Karen Broussard MD Primary Care Provider [phone] Allergies No known active allergies Medications acetaminophen-c [...] 9:45 AM EDT Office Visit Bariatric Surgery [address] [phone] Brianna Umanzor PA Overweight (BMI 25.0-29.9) (Primary Dx) 09/21/2024 11:30 AM EDT Office Visit Bariatric [address] [phone] Brianna Umanzor PA Class 1 obesity due [...] AM EST Office Visit Bariatric Surgery - [address] [place] [address] Brianna Umanzor PA [facility] [place] [address] Health Maintenance Due Date Last Done Comments Hepatitis B Vaccines (1 of 3 - 19+ 3-dose series) 2005 Cervical Cancer Screening: P ap Smear 2007 HPV Vaccines (1 - 3-dose SCD M series) 2013 Pneumococcal Vaccine: Pediat rics (0 to 5 [...] season) 2024 Influenza Vaccine (#1) 2024 01/17/2014 RSV Immunization Adult Patie nts (1 - 1-dose 75+ series) 2061 MMR Vaccines Aged Out 01/18/2014 No longer [...] Insurance MEDICARE MEDICAID - [place] Care Teams Van Owner Operator Relationship Specialty Start Date End Date Karen Broussard MD [address] [place] [phone] PCP - General 09/03/23
--- OUTSIDE RECORDS SUMMARY | 2024-12-18 08:07 | XMS_ITS | Data Portability ---
Author Organization [place] - [facility], Allergy Address [address] [address] Care Team Providers Care Soda Fountain Manager Name Role Phone MARY NARAYAN Primary Care [...] Time Details Appointments Establish ed 15 2024 02:00P M KEYSHA CAPPS MD Not available Not available Not available Lab None recorded. Referral None recorded. Procedures None recorded. Surgeries None recorded. Imaging None recorded. Medication Orders budesonid e 0.5 mg/2 mL suspensio n for nebulizat ion 2023 024 [id number], [address] [facility], [place], [address], 12/20/2023 12:10:20 Patient TargetsNo targets recorded. Patient InstructionsNo instructions recorded. Reason for Referral None Reported. Problems Name Problem SNOMED Code Status Onset Date Resolution Date Notes Provider Name and Address Organization Details Recorded Time Bilateral temporoma ndibular joint pain 70594363778 932282 Active 2020 Arthralgi a of bilateral temporoma ndibular joint; Note: Date Diagnosed : 08/19/2020 10:57 AM (M26.623) Not Available [facility] 4 02:15:14 Seasonal allergic rhinitis 242672327 Active 2020 Other seasonal allergic rhinitis; Note: Date Diagnosed : 08/19/2020 10:57 AM (J30.2) Not Available [facility] 4 02:15:54 Bilateral disorder of Eustachia n tubes 06899510220 08142 Active 2020 Other specified disorders of Eustachia n tube, bilateral ; Note: Date Diagnosed : 08/19/2020 10:27 AM (H69.83) Not Available [facility] 4 02:15:31 Uncomplic ated mild persisten t asthma 684382026 Active 2022 Mild persisten t asthma, uncomplic ated; Note: Date Diagnosed : 04/24/2022 3:16 PM (J45.30) Not Available [facility] 4 02:15:40 Posterior rhinorrhe a 32356360 Active 2022 Postnasal drip; Note: Date Diagnosed : 11/09/2022 1:01 PM (R09.82) Not Available [facility] 4 02:15:19 Allergic rhinitis 21953862 Active 2022 Allergic rhinitis: Due to other [...] 10:40 AM (477.8) ; Start Date : Allergi c rhinitis: Due to other allergen; Note: Date Diagnosed : 09/18/2022 12:05 PM (477.8) ; Start Date : Allergi c rhinitis: Due to other allergen; Note: Date Diagnosed : 09/11/2022 9:57 AM (477.8) ; Start Date : Allergi c rhinitis: Due to other allergen; Note: Date Diagnosed : 06/18/2022 10:54 AM (477.8) ; Start Date : Allergi c rhinitis: Due to other allergen; Note: Date Diagnosed : 05/07/2022 11:20 AM (477.8) ; Start Date : 3 Allergi c rhinitis: Due to other allergen; Note: Date Diagnosed : 04/28/2022 10:55 AM (477.8) ; Start Date : Allergi [...] to other allergen; Note: Date Not Available [facility] 4 02:16:00 Migraine without aura, not refractor y 307241147 Active 2023 Migraine without aura, not intractab le, without status migrainos us; Note: Date Diagnosed : 04/30/2023 1:35 PM (G43.009) Not Available [facility] 4 02:15:48 Dysphonia 20016813 Active 2023 Hoarsenes s; Note: Date Diagnosed : 04/30/2023 1:35 PM (R49.0) Not Available [facility] 4 02:16:04 Problem Notes None recorded. Medical Equipment None Reported. Allergies Allergen ID Allergen Name Allergen Category Reaction Reaction Severity Criticality Documentation Date Start Date Code Code System Note Provider Name and Address Organization Details Recorded Time 90895 citrus flavor food other Not available Not available 07/27/2023 React ion: other react ion, Unkno wn; Not Available [facility] 4 00:53:39 04454 adhesive tape environme nt,medica tion other Not available Not available 07/27/2023 React ion: other react ion, Unkno wn; Not Available [facility] 4 00:53:42 27967 Toradol medicatio n other Not available Not available 07/27/2023 04434 RxNorm React ion: other react ion, Unkno wn; Not Available [facility] 4 00:53:46 42847 banana extract food,medi cation other Not available Not available 07/27/2023 14772 9 RxNorm React ion: other react ion, Unkno wn; Not Available [facility] 4 00:53:46 Medications Name Sig Start Date [...] mcg tablet 12/19 completed Medicati on ID: [id number] B rand Name: Synthroi d Send Method: [...] 2 spray 2021 active Medicati on ID: [id number] D uration Value: 30 Brand Name: azelasti [...] spray,cynthia pension 2020 active Medicati on ID: [id number] B rand Name: fluticas one propiona te [...] aerosol inhaler 12/19 completed Medicati on ID: [id number] B rand Name: Symbicor t Send Method: [...] pen injector 2021 active Medicati on ID: [id number] D uration Value: 1 Prescri bed By [...] Updated DateTime 12/20/2023 180.34 cm 34.2 kg/m2 846062.93 g Cheryl Ann [place] - [facility] 12/20/2023 11:43:25 Social History None recorded. Functional Status None recorded. Mental Status None recorded. Family History Nothing Reported. Medical History No medical history recorded. Gynecological HistoryNo gynecological history recorded. Obstetrics History GPAL:G 0 P 0 0 0 0 Past Encounters Encounter ID Performer Location Encounter Start Date Encounter Closed Date Diagnosis/Indication Diagnosis SNOMED-CT Code Diagnosis ICD10 Code Diagnosis IMO Codes Diagnosis Note KEYSHA CAPPS MD [facility] [address] [address] 12/20/2023 11:12:43 12/20/2023 12:13:17 Posterior rhinorrhea 04755864 R09.82 Uncomplica twila mild persistent asthma 383903832 J45.30 Health Concerns Section Related Observation LastModified by Organization Detai ls LastModified Time None Recorded Concern Status LastModified by Organization Details LastModified Time None Recorded Advance Directives Directive None Recorded Payers Insurance Date Sequence Insurance Name Policy Number Policy Stafford Covered Member ID Stafford Member ID Guarantor Name 12/20/2023 1 [place]: [employer] Kayla Ortega [id number] Kayla Ortega 12/22/2023 2 [place] [facility] Kaylamanan Buenrostrona [id number] Kayla Ortega Notes Date Note Type Note Provider Name and Address Organization Details Recorded Time 12/20/2023 text/html On singulair and [place]. Nasal spray x 2. Some sinus congestion. Just finished prednisone course. 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 PV: 38-year-old female presents today for follow-up [...] the images from her CT scan from [place] in July 2022 and the sinus thickening was very mild. KEYSHA CAPPS MD [address] [place] [address],[place] [address], [place], [address], [facility] - [facility] 12/20/2023 18:25:26 OBGyn Episode No OBEpisode recorded.
[2024-12-18 08:10] VITALS: BP 118/68; PULSE 70; TEMP 36.7; O2SAT 98; BMI 30.3
--- NOTE | 2024-12-18 08:10 | MHC.OFFWIV ---
Intake Vital Signs 12/18/24 08:10 Height 5 ft 10 in Weight 211 lb BMI 30.3 BP 118/68 Blood Pressure Location Rt brachial Position Sitting Pulse 70 Pulse Source Pulse Oximeter Temp 98.1 F Temp Source Oral Pulse Oximetry (%) 98 Intake Visit Reasons: EP Sinus Pressure, ear ache Patient Tobacco Use Status: Never used Tobacco Allergies oxycodone Allergy (Intermediate, Verified 12/18/24 08:16) itching adhesive tape Allergy (Mild, Verified 12/18/24 08:16) RASH ketorolac (From TORADOL) Allergy (Mild, Verified 12/18/24 08:16) HIVES latex (LATEX) Allergy (Mild, Verified 12/18/24 08:16) RASH fruit with skin Allergy (Intermediate, Uncoded 11/29/24 08:59) Hives Do you need a note to return to daycare/school/sports/work: No HPI HPI Comments History of Present Illness Details History of Present Illness - The patient is a 39-year-old female presenting with sinus congestion, ear pain, and pressure. - Symptoms began on Wednesday, with no fever noted. - Frequent sinus infections are reported, with different antibiotics previously prescribed. - Current treatment includes Xyzal, Montelukast, and allergy injections. - She has no cough or sore throat. - The patient experiences hot flashes, but no fever was detected. - She denies fever, chills, CP, SOB, abd pain, n/v/d. - She has no sick contacts. Physical Exam General: Cooperative, healthy appearing, comfortable, no acute distress and well developed Head: Normal to inspection Ears: Hearing grossly normal bilaterally. No tragus or mastoid tenderness noted. Auditory canals clear bilaterally. TM's normal, not bulging. No fluid noted. Nose: Normal external nose present. Moist mucosa. Turbinates normal bilaterally, not boggy. Face and sinus: Tenderness to palpation of the frontal and maxillary sinuses bilaterally. Neck: Normal visual inspection and Yes full ROM. No lymphadenopathy noted. Respiratory: Normal respiratory effort and able to speak in complete sentences. Clear to auscultation bilaterally Cardiovascular: Regular rate and rhythm. Normal S1 and S2 Skin: No rashes or lesions noted [facility] Medical History (Updated 11/29/24 @ 09:08 by Chyna Mayo NP) Pleuritic pain Irritable bowel syndrome with both constipation and diarrhea Encounter for general adult medical examination with abnormal findings Foot pain, bilateral Abnormal EKG Labral tear of right hip joint Abnormal weight gain Odynophagia Environmental allergies Abdominal cramping History of irregular menstrual cycles Sinusitis Esophageal spasm Acetabular labrum tear Herpes labialis Dry eyes Yeast infection of the vagina Amenorrhea Metrorrhagia Bloating Epigastric discomfort Shortness of breath Pre-op examination Contusion of chest Exercise-induced asthma Pain of left thumb Rib pain on right side Bilateral otitis media with effusion Left shoulder strain Cellulitis Acute lumbar back pain Right shoulder pain Arthrosis Right knee pain Complex cyst of left ovary Chronic GERD Encounter for IUD insertion Nausea Upper respiratory infection Leg pain, right Nausea Other specified hypothyroidism Otitis media Right hip pain Chest wall pain Lightheaded Acute sinusitis Goiter Elevated TSH Medicare annual wellness visit, subsequent Ill feeling Epigastric pain Cervical cancer screening Well woman exam with routine gynecological exam Medicare annual wellness visit, initial Abnormal thyroid stimulating hormone (TSH) level Patella francisco j Knee pain Neck pain Chest pain Migraines Eczema Fibromyalgia Heart murmur Asthma Hypothyroidism Surgical History History of hip surgery H/O shoulder surgery Supai teeth removed History of appendectomy Family History Mother Graves disease Hypothyroidism Father CHF (congestive heart failure) Other Substance use disorder Social History Housing: Apartment Alcohol intake: never Patient Tobacco Use Status: Never used Tobacco e-Cigarette/Vaping Use: Never Used Second Hand Smoke Exposure: Yes (as a child only) service: No Current occupational status: disabled Sexual orientation: Straight/Heterosexual Gender identity: Female Cognitive needs: No Hearing needs: No Vision needs: Yes Female Reproductive History Menstrual Age of Menarche: 15 Review of Systems Const All systems reviewed & are unremarkable except as noted in HPI and below Physical Exam Vital Signs: Last Vital Signs Temp 98.1 F 12/18/24 08:10 Pulse 70 12/18/24 08:10 BP 118/68 12/18/24 08:10 Pulse Ox 98 12/18/24 08:10 BMI result Body Mass Index 30.3 Assessment & Plan Assessment & Plan (1) Sinusitis: Code(s): J32.9 - Chronic sinusitis, unspecified Qualifiers: Sinusitis location: frontal Chronicity: acute Recurrence: non-recurrent Qualified Code(s): J01.10 - Acute frontal sinusitis, unspecified Plan Most likely sinusitis vs URI vs allergic rhinitis plan - steam showers - tylenol or motrin as needed - Augmentin BID for 7 days - prednisone for 5 days - continue with montelukast - follow up with PCP Medications: New amoxicillin-pot clavulanate 875-125 mg 1 tab PO Q12H 14 tabs 0RF prednisone 40 mg (2 x 20 mg) PO DAILY 10 tabs 0RF 5 days Coding Level of Care Code Est Pt Level 3 (60584) Diagnoses Acute non-recurrent frontal sinusitis J01.10 Sinusitis location: frontal Chronicity: acute Recurrence: non-recurrent
== END 2024-12-18 08:46 | disposition home or self-care (01) ==
PROVIDERS: PCP Internal Medicine; Visit Provider Physician Assistant Medical
DX: J01.10 Acute frontal sinusitis, unspecified (principal)

== ENCOUNTER → 2024-12-18 08:02 | Outpatient (BNVA) | payer MEDICARE, MEDICAID, SELFPAY | PROVIDERS: PCP Internal Medicine; Visit Provider Physician Assistant Medical | DX: J01.10 Acute frontal sinusitis, unspecified (principal) | CPT/HCPCS: 99212 ==

== ENCOUNTER 2024-12-21 11:34 | Outpatient (AMB) | payer MEDICARE, MEDICAID, SELFPAY ==
--- NOTE | 2024-12-21 11:35 | A.OFFVIS_ITS ---
Vital Signs 12/21/24 11:40 Height 5 ft 10 in Weight 211 lb BMI 30.3 BP 118/66 Blood Pressure Location Rt brachial Position Sitting Pulse 64 Pulse Source Pulse Oximeter Pulse Oximetry (%) 100 Oxygen Delivery Method Room Air Intake Visit Reasons: 4 week FUV. Intake Note: Est pt for mgmt of IBS + GERD. CC: C.O. intermittent GERD persistence despite current therapy. Pt cannot recall if the sx have been worse per the Augmentin they have been on as of recently, or if the GERD was more persistent prior to this. Pt also states that they are doing much better with the lower dose of the linzess. Perfect Binder Setter Required: No Accompanied by: Self / Same As Patient Allergies oxycodone Allergy (Intermediate, Verified 01/17/25 09:59) itching adhesive tape Allergy (Mild, Verified 01/17/25 09:59) RASH ketorolac (From TORADOL) Allergy (Mild, Verified 01/17/25 09:59) HIVES latex (LATEX) Allergy (Mild, Verified 01/17/25 09:59) RASH fruit with skin Allergy (Intermediate, Uncoded 01/17/25 09:59) Hives HPI HPI 4 week FUV.: Details: Assessment & Plan (1) Gastroparesis: Code(s): K31.84 - Gastroparesis Category: Medical (2) GERD with esophagitis: Code(s): K21.00 - Gastro-esophageal reflux disease with esophagitis, without bleeding Category: Medical (3) Erosive esophagitis: Code(s): K22.10 - Ulcer of esophagus without bleeding Category: Medical (4) Chronic idiopathic constipation: Code(s): K59.04 - Chronic idiopathic constipation Category: Medical Plan Her current GI regimen is Linzess 145 micro g, pantoprazole twice a day, and Reglan 10 mg 4 times a day. Unfortunately, the Linzess at 145 micro g caused her too much diarrhea. Get the 72 micro g dose does not give her complete evacuation causing her multiple daily bowel movements. So what we will do is go back to the lower dose and add bisacodyl (since she has a so already at home) 1 at night which she can progress to 2 if needed to see if this can give her better bowel motility. If the bisacodyl is too strong she is to call the office in I will prescribe senna. She continues on her pantoprazole twice a day and her Reglan which was controlling her GERD and her delayed gastric emptying well. Return office visit in 4 weeks Medications: Discontinued linaclotide (Linzess) Take first thing in the morning with a full glass of water. Discontinued Reason: Doctor's Order 145 mcg PO QAM 30 caps 6RF K58.1 - Irritable bowel syndrome with constipation Resumed linaclotide (Linzess) 72 mcg PO QAM 30 caps 3RF K59.04 - Chronic idiopathic constipation bisacodyl (Dulcolax (bisacodyl)) 10 mg (2 x 5 mg) PO BEDTIME 30 days 60 tabs 6RF K21.00 - Gastro-esophageal reflux disease with esophagitis, without bleeding, K22.10 - Ulcer of esophagus without bleeding, K31.84 - Gastroparesis, K59.00 - Constipation, unspecified linaclotide (Linzess) 72 mcg PO QAM 30 caps 3RF K59.04 - Chronic idiopathic constipation [facility] Medical History Pleuritic pain Irritable bowel syndrome with both constipation and diarrhea Encounter for general adult medical examination with abnormal findings Foot pain, bilateral Abnormal EKG Labral tear of right hip joint Abnormal weight gain Odynophagia Environmental allergies Abdominal cramping History of irregular menstrual cycles Sinusitis Esophageal spasm Acetabular labrum tear Herpes labialis Dry eyes Yeast infection of the vagina Amenorrhea Metrorrhagia Bloating Epigastric discomfort Shortness of breath Pre-op examination Contusion of chest Exercise-induced asthma Pain of left thumb Rib pain on right side Bilateral otitis media with effusion Left shoulder strain Cellulitis Acute lumbar back pain Right shoulder pain Arthrosis Right knee pain Complex cyst of left ovary Chronic GERD Encounter for IUD insertion Nausea Upper respiratory infection Leg pain, right Nausea Other specified hypothyroidism Otitis media Right hip pain Chest wall pain Lightheaded Acute sinusitis Goiter Elevated TSH Medicare annual wellness visit, subsequent Ill feeling Epigastric pain Cervical cancer screening Well woman exam with routine gynecological exam Medicare annual wellness visit, initial Abnormal thyroid stimulating hormone (TSH) level Patella francisco j Knee pain Neck pain Chest pain Migraines Eczema Fibromyalgia Heart murmur Asthma Hypothyroidism Surgical History History of hip surgery H/O shoulder surgery [place] teeth removed History of appendectomy Family History Mother Graves disease Hypothyroidism Father CHF (congestive heart failure) Other Substance use disorder Social History Housing: Apartment Alcohol intake: never Patient Tobacco Use Status: Never used Tobacco e-Cigarette/Vaping Use: Never Used Second Hand Smoke Exposure: Yes (as a child only) service: No Current occupational status: disabled Sexual orientation: Straight/Heterosexual Gender identity: Female Cognitive needs: No Hearing needs: No Vision needs: Yes Female Reproductive History Menstrual Age of Menarche: 15 Review of Systems Const Denies fatigue, Denies fever(s), Reports malaise, Denies night sweats, Denies poor appetite and Denies weight loss Eyes Details: glasses Reports requires corrective lenses ENT Reports Normal hearing present, Denies dental pain, Denies dysphagia, Reports otalgia, Denies hearing loss, Denies mouth pain, Denies odynophagia, Denies throat swelling, Denies tongue swelling and Reports other (Dentition adequate) Card Reports no additional complaints Resp Reports no additional complaints GI Details: Denies abdominal pain, Denies melena, Denies bloating, Denies hematochezia, Reports constipation, Denies GI cramping, Denies dysphagia, Denies excessive flatus, Denies early satiety, Reports heartburn, Reports diarrhea, Denies nausea, Denies odynophagia, Denies vomiting and Denies hematemesis Skin/Breast Denies pruritus, Denies lesions, Denies rash and Denies jaundice Neuro Reports Normal hearing present and Denies Abnormal speech present Endo Denies fatigue Aller/Immun Denies throat swelling and Denies tongue swelling Physical Exam Vital Signs: Last Vital Signs Pulse 64 12/21/24 11:40 BP 118/66 12/21/24 11:40 Pulse Ox 100 12/21/24 11:40 Oxygen Delivery Method Room Air 12/21/24 11:40 BMI result Body Mass Index 30.3 Const General: cooperative, no acute distress, well developed and well groomed Nutritional Appearance: well nourished and obese Orientation/consciousness: oriented to person, oriented to place and oriented to time Limitations: No language barrier HEENT Head: Yes normocephalic and Yes atraumatic Eyes General: appearance normal, both eyes and all related structures Pupils: Equal, round and reactive pupils present Neck Neck: Yes normal visual inspection and Yes no lymphadenopathy Thyroid: Thyroid normal Resp Effort & Inspection: normal respiratory effort and able to speak in complete sentences Auscultation: clear to auscultation bilaterally Cardio Rate: regular rate Rhythm: regular rhythm Heart sounds: Normal, physiologic split S2 sound present Peripheral pulses: radial pulses present and posterior tibial pulses present GI Inspection: No distended, No Abdominal panniculus present and Yes obesity Palpation (GI): Soft to palpation, nontender, no guarding, not rigid and No hepatosplenomegaly present Percussion: Yes normal to percussion Auscultation: normal bowel sounds Rectal Exam - Female: deferred Skin General skin exam: no rashes or lesions noted, turgor normal, skin not dry, no jaundice, No spider nevi and no striae Rashes: no rashes Nails: normal Neuro General: oriented to person, oriented to place and oriented to time Cranial nerves: Yes Equal, round and reactive pupils present and Yes Normal hearing present Speech: No Abnormal speech present Extrem General: Yes normal to inspection, No clubbing, No cyanosis and No edema Psych Appearance: grossly normal and well kempt Mental Status: mental status grossly normal Speech and movement: Normal speech and movement present Affect: normal affect Attitude: cooperative Thought process: Normal thought process present and not confabulating Thought content: Normal thought content present Insight: Good insight present (Psych) Judgement: Good judgement present (Psych) Assessment & Plan Assessment & Plan (1) Chronic idiopathic constipation: Code(s): K59.04 - Chronic idiopathic constipation Category: Medical (2) Lactose intolerance: Code(s): E73.9 - Lactose intolerance, unspecified Category: Medical (3) Erosive esophagitis: Code(s): K22.10 - Ulcer of esophagus without bleeding Category: Medical (4) Gastroparesis: Code(s): K31.84 - Gastroparesis Category: Medical Plan Her current GI regimen is Linzess 72 micro g, bisacodyl, pantoprazole twice a day, and Reglan 10 mg 4 times a day. - The patient is a 39-year-old female presenting with constipation management difficulties and acute otitis media. - Chronic Idiopathic Constipation: She was prescribed Linzess 72 mcg and bisacodyl for constipation. At higher doses of Linzess, she previously experienced adverse effects and prefers the current dosing. She expressed hesitation with using bisacodyl due to concerns of inducing diarrhea. - Acute Otitis Media: She developed a bilateral ear infection recently and is being treated with Augmentin and prednisone. Prior to this, she used [id number] medications which may have affected her constipation regimen. - Gastroesophageal Reflux Disease: Persistent heartburn persists and could be affected by the antibiotic. She is on pantoprazole twice daily for management. - Continue taking Linzess as prescribed and discuss any bowel irregularities. - Use bisacodyl cautiously and record any side effects. - Finish the current course of Augmentin and prednisone. - Continue pantoprazole twice daily for heartburn. - Schedule a follow-up in 8 weeks or sooner if symptoms worsen. Coding Level of Care Code Est Pt Level 3 (69934) Diagnoses Chronic idiopathic constipation K59.04 Lactose intolerance E73.9 Erosive esophagitis K22.10 Gastroparesis K31.84
[2024-12-21 11:40] VITALS: BP 118/66; PULSE 64; O2SAT 100; BMI 30.3
== END 2024-12-21 12:09 | disposition home or self-care (01) ==
LOC: HO.HGI 11:35
PROVIDERS: PCP Internal Medicine; Visit Provider Nurse Practitioner
DX: K59.04 Chronic idiopathic constipation (principal); E73.9 Lactose intolerance, unspecified; K22.10 Ulcer of esophagus without bleeding; K31.84 Gastroparesis
CPT/HCPCS: 99213

== ENCOUNTER → 2024-12-21 11:34 | Outpatient (BNVA) | payer MEDICARE, MEDICAID, SELFPAY | PROVIDERS: PCP Internal Medicine; Visit Provider Nurse Practitioner | DX: K59.04 Chronic idiopathic constipation (principal); K31.84 Gastroparesis; E73.9 Lactose intolerance, unspecified; K22.10 Ulcer of esophagus without bleeding | CPT/HCPCS: 99212 ==

== ENCOUNTER 2025-01-03 07:52 | Outpatient (REF) | payer MEDICARE, MEDICAID, SELFPAY ==
--- OUTSIDE RECORDS SUMMARY | 2025-01-03 07:54 | XMS_ITS | Clinical Summary ---
Author Organization [facility] Address [address] [place] [address] Phone Care Team Providers Care Director Of User Experience Name Role Phone Karen Broussard MD Primary Care Provider [phone] Allergies No known active allergies Medications acetaminophen-c [...] AM EDT Office Visit Bariatric Surgery [address] [address] Brianna Umanzor PA Overweight (BMI 25.0-29.9) (Primary Dx) from Last 3 Months Social [...] 05/08/2025 9:00 AM EST Office Visit Bariatric [address] [address] Brianna Umanzor PA [address] [place] [phone] Health Maintenance Due Date Last Done [...] Insurance MEDICARE [place]ICAID - [place] Care Teams Director Of User Experience Relationship Specialty Start Date End Date Karen Broussard MD [address] [place] [address] PCP - General 09/03/23
--- OUTSIDE RECORDS SUMMARY | 2025-01-03 07:54 | XMS_ITS | Data Portability ---
Author Organization [place] - [facility], Allergy Address [address] [address] Care Team Providers Care Vocational Education Professional Name Role Phone MARY NARAYAN Primary Care [...] few weeks.. [email or web address] Not available 12/20/2023 18:24:44 12/29/2024 12/29/2024 39-year-old female with a history of migraines, severe allergies and asthma presents today with recurrent sinus infections with persistent ear soreness and pressure. On exam, middle ears are well aerated. I do not see any active mucus or polyps on exam. I recommended trying the budesonide again. She could drip this into the nose rather than using it is a rinse. I did recommend CT to evaluate the sinuses in more detail. We discussed that migraines and TMJ could be contributing to some of the ear soreness as well. [email or web address] Not available 01/01/2025 05:56:59 Plan of Treatment Reminders Order Date Submit Date Provider Last Modified By Organization Details Last Modified Time Details Appointments Establish ed 15 2025 09:45A M KEYSHA CAPPS MD Not available Not available Not available Lab None recorded. Referral None recorded. Procedures None recorded. Surgeries None recorded. Imaging CT, sinuses, w/o contrast 2024 025 [email or web address] [facility], [address], [place], [address], 01/02/2025 14:32:18 Medication Orders budesonid e 0.5 mg/2 mL suspensio n for nebulizat ion 2024 025 [facility]acy #[id number], [address] [place], [address], 12/29/2024 14:42:05 budesonid e 0.5 mg/2 mL suspensio n for nebulizat ion 2023 024 [facility] #[id number], [address] [place], [address], 12/20/2023 12:10:20 Patient TargetsNo targets recorded. Patient InstructionsNo instructions recorded. Reason for Referral None Reported. Problems Name Problem SNOMED Code Status Onset Date Resolution Date Notes Provider Name and Address Organization Details Recorded Time Bilateral temporoma ndibular joint pain 85669000563 223847 Active 2020 Arthralgi a of bilateral temporoma ndibular joint; Note: Date Diagnosed : 08/19/2020 10:57 AM (M26.623) Not Available [facility] 4 02:15:14 Seasonal allergic rhinitis 632574608 Active 2020 Other seasonal allergic rhinitis; Note: Date Diagnosed : 08/19/2020 10:57 AM (J30.2) Not Available [facility] 4 02:15:54 Bilateral disorder of Eustachia n tubes 61044290538 44237 Active 2020 Other specified disorders of Eustachia n tube, bilateral ; Note: Date Diagnosed : 08/19/2020 10:27 AM (H69.83) Not Available [facility] 4 02:15:31 Uncomplic ated mild persisten t asthma 895105907 Active 2022 Mild persisten t asthma, uncomplic ated; Note: Date Diagnosed : 04/24/2022 3:16 PM (J45.30) Not Available [facility] 4 02:15:40 Posterior rhinorrhe a 72349739 Active 2022 Postnasal drip; Note: Date Diagnosed : 11/09/2022 1:01 PM (R09.82) Not Available [facility] 4 02:15:19 Allergic rhinitis 69734101 Active 2022 Allergic rhinitis: Due to other [...] other allergen; Note: Date Diagnosed : 3 11:30 AM (477.8) ; Start Date : [...] to other allergen; Note: Date Diagnosed : 11:13 AM (477.8) ; Start Date : [...] to other allergen; Note: Date Not Available [facility] 4 02:16:00 Migraine without aura, not refractor y 921216522 Active 2023 Migraine without aura, not intractab le, without status migrainos us; Note: Date Diagnosed : 04/30/2023 1:35 PM (G43.009) Not Available [facility] 4 02:15:48 Dysphonia 10972417 Active 2023 Hoarsenes s; Note: Date Diagnosed : 04/30/2023 1:35 PM (R49.0) Not Available [facility] 4 02:16:04 Recurrent acute ethmoid sinusitis Active 2024 KEYSHA CAPPS MD [address] [place] [address], [place], [address] [facility] - [facility] 5 14:38:32 Problem Notes None recorded. Medical Equipment None Reported. Allergies Allergen ID Allergen Name Allergen Category Reaction Reaction Severity Criticality Documentation Date Start Date Code Code System Note Provider Name and Address Organization Details Recorded Time 44841 citrus flavor food other Not available Not available 07/27/2023 React ion: other react ion, Unkno wn; Not Available [facility] 4 00:53:39 72938 adhesive tape environme nt,medica tion other Not available Not available 07/27/2023 React ion: other react ion, Unkno wn; Not Available [facility] 4 00:53:42 08332 Toradol medicatio n other Not available Not available 07/27/2023 45141 RxNorm React ion: other react ion, Unkno wn; Not Available [facility] 4 00:53:46 42647 banana extract food,medi cation other Not available Not available 07/27/2023 94518 9 RxNorm React ion: other react ion, Unkno wn; Not Available [facility] 4 00:53:46 Medications Name Sig Start Date Stop Date Status Note LastModified by Organization Details LastModified Time cyclobenz aprine 10 mg tablet TAKE 1 TABLET BY MOUTH EVERY 8 HOURS FOR 7 DAYS active Not Available Not Available No t Available propranol ol 80 mg tablet TAKE 1 TABLET DAILY FOR 1 WEEK, THEN TAKE 1 TABLET TWICE A DAY 12/25 completed Not Available Not Available Not Available cetirizin e 10 mg tablet TAKE [...] gram tablet TAKE 1 TABLET BY MOUTH 2 TIMES A DAY NEEDED FOR COLD SORES TAKES NEEDED active Not Available Not Available No [...] BY MOUTH EVERY DAY FOR 7 DAYS active Not Available Not Available No t Available sucralfat e 1 gram tablet TAKE 1 TABLET BY MOUTH EVERY DAY AT NOON CRUSH TABLET TO MAKE SLURRY active Not Available Not Available No t Available Synthroid 125 mcg tablet TAKE 1 TABLET BY MOUTH EVERY DAY active Not Available Not Available No t Available famotidin e 40 mg tablet TAKE 1 TABLET BY MOUTH AT BEDTIME active Not Available Not Available No t Available prednison e 20 mg tablet TAKE 2 TABLETS ORALLY DAILY FOR 5 DAYS active Not Available Not Available No t Available Synthroid 100 mcg tablet TAKE 1 TABLET BY MOUTH EVERY DAY active Not Available Not Available No t Available prednison e 5 mg tablet TAKE 8 TABLETS ON DAY 1. 7 TABLETS ON DAY 2. THEN DECREASE BY 1 TABLET EVERY DAY UNTIL FINISHED 12/19 completed Not Available Not Available Not Available phentermi ne 15 mg capsule TAKE 1 CAPSULE (15 MG TOTAL) BY MOUTH ONCE DAILY BEFORE BREAKFAS T MAX DAILY AMOUNT: 15 MG 08/05 /2025 completed Not Available Not Available Not Available metronida zole 500 mg tablet TAKE [...] mg tablet TAKE 2 TABLETS BY MOUTH ONCE A DAY NEEDED FOR HEADACHE FOR 30 DAYS active Not Available Not Available No t Available hydrocodo ne 10 mg-acetam inophen 325 mg tablet TAKE 1 TABLET BY MOUTH EVERY 12 HOURS NEEDED FOR 30 DAYS 12/19 completed Not Available Not Available Not Available amitripty line 50 mg tablet TAKE 1 TABLET BY MOUTH EVERY DAY AT BEDTIME FOR 90 DAYS active Not Available Not Available No t Available phentermi ne 30 mg capsule TAKE 1 CAPSULE (30 MG TOTAL) BY MOUTH ONCE DAILY BEFORE BREAKFAS T MAX DAILY AMOUNT: 30 MG active Not Available Not Available No t Available Miconazol e-7 2 % vaginal cream INSERT 1 APPLICAT ORFUL VAGINALL Y AT BEDTIME FOR 7 DAYS 12/19 completed Not Available Not Available Not Available propranol ol 40 mg tablet 20 mg twice a day by oral route. 2024 active Not Available Not Available Not Avai lable amoxicill in 875 mg tablet TAKE 1 [...] completed Not Available Not Available Not Available phenazopy ridine 100 mg tablet TAKE 1 TABLET BY MOUTH 3 TIMES A DAY NEEDED FOR PAIN active Not Available Not Available No t Available pantopraz ole 40 mg tablet,de layed release TAKE 1 TABLET BY MOUTH TWICE A DAY active Not Available Not Available No t Available omeprazol e 20 mg capsule,d elayed release TAKE 1 CAPSULE BY MOUTH EVERY DAY 10/07 /2024 completed Not Available Not Available Not Available budesonid e 0.5 mg/2 mL suspensio n for nebulizat ion Use one vial in nasal irrigati on daily 2024 active Not Available Not Available Not Avai lable diltiazem CD 120 mg capsule,e xtended release 24 hr TAKE 1 CAPSULE BY MOUTH EVERY DAY 12/25 completed Not Available Not Available Not Available monteluka st 10 mg tablet 10 MG ORALLY BEDTIME active Not Available Not Available No t Available Synthroid 112 mcg tablet 12/19 completed Medicati on ID: [id number] B rand Name: Synthroi d Send Method: E-Prescr ibed Sub s Allowed: subs OK Medic ationGen ericName : Synthroi d Not Available Not Available Not Available levalbute rol 1.25 mg/3 mL solution for nebulizat ion INHALE 1.25 MG (3 ML) VIA NEBULIZE R EVERY 4 TO 6 HOURS NEEDED FOR SHORTNES S OF BREATH OR WHEEZING active Not Available Not Available No t Available azelastin e 137 mcg (0.1 %) nasal spray 2 spray 12/25 completed Medicati on ID: [id number] D uration Value: 30 Brand Name: azelasti ne Send Method: E-Prescr ibed Sub s Allowed: subs OK Medic ationGen ericName : azelasti ne Not Available Not Available Not Available epinephri ne 0.3 mg/0.3 mL injection , auto-inje ctor NEEDED active Not Available Not Available No t Available ibuprofen 600 mg tablet TAKE 1 TABLET ORALLY EVERY 8 HOURS NEEDED FOR PAIN FOR 10 DAYS active Not Available Not Available No t Available propranol ol 20 mg tablet TAKE 1 TABLET BY MOUTH TWICE A DAY active Not Available Not Available No t Available topiramat e 100 mg tablet TAKE 1 TABLET BY MOUTH TWICE A DAY FOR 90 DAYS active Not Available Not Available No t Available fluticaso ne propionat e 50 mcg/actua tion nasal spray,cynthia pension SPRAY 2 SPRAYS INTO EACH NOSTRIL EVERY DAY active Not Available Not Available No t Available amitripty line 100 mg tablet TAKE 1 TABLET BY MOUTH EVERYDAY AT BEDTIME 12/19 completed Not Available Not Available Not Available ipratropi um bromide 21 mcg (0.03 %) nasal spray USE 2 SPRAYS INTRANAS ALLY 2 TIMES A DAY active Not Available Not Available No t Available phentermi ne 37.5 mg capsule TAKE 1 CAPSULE (37.5 MG TOTAL) BY MOUTH 1 (ONE) TIME EACH DAY BEFORE BREAKFAS T active Not Available Not Available No t Available loratadin e 10 mg tablet TAKE 1 TABLET BY MOUTH EVERY DAY active Not Available Not Available No t Available metoclopr amide 10 mg tablet TAKE 1 TABLET BY MOUTH 4 TIMES A DAY active Not Available Not Available No t Available amoxicill in 875 mg-potass ium clavulana te 125 mg tablet TAKE 1 TABLET BY MOUTH TWICE A DAY FOR 10 DAYS 12/26 completed Not Available Not Available Not Available Ventolin HFA 90 mcg/actua tion aerosol [...] mg tablet,de layed release TAKE 2 TABLETS BY MOUTH EVERY DAY AT BEDTIME active Not Available Not Available No t Available cyclobenz aprine 5 mg tablet TAKE 1 TABLET BY MOUTH AT BEDTIME NEEDED FOR MUSCLE SPASM FOR 5 DAYS active Not Available Not Available No t Available Restasis 0.05 % eye drops in a dropperet te INSTILL 1 DROP INTO BOTH EYES TWICE A DAY active Not Available Not [...] aerosol inhaler 12/19 completed Medicati on ID: [id number] B rand Name: Symbicor t Send Method: E-Prescr ibed Sub s Allowed: subs OK Medic ationGen ericName : Symbicor t Not Available Not Available Not Available levocetir izine 5 mg tablet TAKE 1 TABLET BY MOUTH EVERY DAY active Not Available Not Available No t Available Creon 24,000-76 ,000-120, 000 unit capsule,d elayed release TAKE 1 CAPSULE BY MOUTH 4 TIMES A DAY FOR 30 DAYS ADMINIST ER WITH MEALS AND/OR SNACKS 12/19 completed Not Available Not Available Not Available Dulera 200 mcg-5 mcg/actua tion HFA aerosol inhaler INHALE 2 PUFFS BY MOUTH TWICE A DAY 12/25 completed Not Available Not Available Not Available Linzess 145 mcg capsule TAKE 1 CAPSULE BY MOUTH EVERY DAY IN THE MORNING WITH WATER active Not Available Not Available No t Available Breo Ellipta 200 mcg-25 mcg/dose powder for inhalatio n INHALE 1 PUFF DAILY 12/19 completed Not Available Not Available Not Available Linzess 72 mcg capsule TAKE 1 CAPSULE BY MOUTH EVERY DAY IN THE MORNING active Not Available Not Available No t Available Emgality Pen 120 mg/mL subcutane ous pen injector INJECT 1 PEN ONCE A MONTH active Not Available Not Available No t Available Aimovig Autoinjec tor 140 mg/mL subcutane ous auto-inje ctor 1ML SUBCUTAN EOUS MONTHLY 90 DAYS active Not Available Not Available No t Available Trelegy Ellipta 200 mcg-62.5 mcg-25 mcg powder for inhalatio n INHALE 1 PUFF DAILY active Not Available Not Available No t Available Vitals Date Recorded Body height Body mass index (BMI) Body weight Provider Name and Address Organization Details Last Updated DateTime 12/20/2023 180.34 cm 34.2 kg/m2 691152.93 g Cheryl Ann [place] - [facility] 12/20/2023 11:43:25 Date Recorded Body weight Body mass index (BMI) Body height Systolic And Diastolic Provider Name and Address Organization Details Last Updated DateTime 12/29/2024 149462.13 g 34.2 kg/m2 180.34 cm 128/80 mm[Hg] Carly Pederson [place] - [facility] 12/29/2024 14:16:11 Social History Question Answer Notes LastModified by Organizat ion Details LastModified Time Tobacco Smoking Status Never Smoker Carly stephenson [place] - [facility] 12/29/2024 14:16:51 What Type Of Activated Sludge Operator Do You Use? None [email or web address] Information not available 12/29/2024 Do You Have Any Pets? No [email or web address] Information not available 12/29/2024 Are You Passively Exposed To Smoke? No Information not available 12/29/2024 Are There Any Smokers In Your House? No [email or web address] Information not available 12/29/2024 Sex: Unknown Functional Status Question Answer Note LastModified by Organization Details LastModified Time Do you use any illicit or recreational drugs? No [email or web address] Information not available 12/29/2024 Do you or have you ever used any other forms of tobacco or nicotine? No [email or web address] Information not available 12/29/2024 What is your level of alcohol consumption? None [email or web address] Information not available 12/29/2024 What type of noise exposure are you exposed to? [email or web address] Infor mation not available 12/29/2024 Mental Status None recorded. Family History Nothing Reported. Medical History Condition Response Allergies/Hayfever Y Heart Problems N Anxiety Y Tonsil Infections N Emphysema N Migraines Y Thyroid Problems Y Depression N COPD N Developmental Delay N Glaucoma N Nasal or Sinus Problems N Anemia Y Immune System Disorder N Anesthesia Complications N Heart Attack ([place]) N Other Skin Condition N Diabetes N Rhinitis N Bleeding Disorder N Food Allergy Y Hearing Loss N Arthritis N Hyperlipidemia N Cancer N Stroke N Dementia N Nasal polyps N Asthma Y Sleep Disorder N High Cholesterol N GERD/Reflux Y Liver Disease N Headaches Y Fibromyalgia Y Hypertension N Speech Delay N Kidney Disease N Gynecological HistoryNo gynecological history recorded. Obstetrics History GPAL:G 0 P 0 0 0 0 Past Encounters Encounter ID Performer Location Encounter Start Date Encounter Closed Date Diagnosis/Indication Diagnosis SNOMED-CT Code Diagnosis ICD10 Code Diagnosis IMO Codes Diagnosis Note KEYSHA CAPPS MD [facility] [address] [place] [address] 12/20/2023 11:12:43 12/20/2023 12:13:17 Posterior rhinorrhea 52390535 R09.82 Uncomplica twila mild persistent asthma 346396427 J45.30 [id number] KEYSHA CAPPS MD [facility] [address] [place] [address] 12/29/2024 13:54:30 12/29/2024 14:44:46 Seasonal allergic rhinitis 476552938 J30.2 Bilateral temporomandibular joint pain 2235506361 1331666 M26.623 Posterior rhinorrhea 758 17925 R09.82 Migraine w ithout aura, not refractory 569918106 G43.009 Recurrent acute ethmoid sinusitis 0034676430 1696055 J01.21 9763223 Uncomplica twila mild persistent asthma 604696531 J45.30 Health Concerns Section Related Observation LastModified by Organization Detai ls LastModified Time None Recorded Concern Status LastModified by Organization Details LastModified Time None Recorded Advance Directives Directive None Recorded Payers Insurance Date Sequence Insurance Name Policy Number Policy Stafford Covered Member ID Stafford Member ID Guarantor Name 12/29/2024 1 [place]: [employer] Kayla Ortega [id number] Kayla Ortega 12/29/2024 2 [place] [facility] Kayla Buenrostrona [id number] Kayla Buenrostrona Notes Date Note Type Note Provider Name and Address Organization Details Recorded Time 12/20/2023 text/html On singulair and [place]. Nasal spray x 2. Some sinus congestion. Just finished prednisone course. 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 PV: 38-year-old female presents today for follow-up [...] the images from her CT scan from [place] in July 2022 and the sinus thickening was very mild. KEYSHA CAPPS MD [address] [facility],[place] [address], [place], [address], [facility] - [facility] 12/20/2023 18:25:26 12/29/2024 text/html She reports a history of recurrent sinus infections, with the most recent episode requiring a five-day course of prednisone and Augmentin. She has been experiencing persistent ear soreness and sinus pressure, which has improved slightly following antibiotic treatment but has not fully resolved. She also reports a history of migraines and allergies, for which she is currently receiving allergy injections and taking montelukast and Xyzal. She has tried budesonide nasal rinses in the past but experienced discomfort and discontinued use. She reports clenching his teeth, which may contribute to ear soreness. just finished abx and prednisone for ear and sinus infection fluticasone and ipratropium restarted allergy shots at [facility] budesonide rinses feels a little more congested runny nosesinus pressure less severe last audio 2020 KEYSHA CAPPS MD [address] [facility] [address], [place], [address], [facility] 01/01/2025 05:57:22 OBGyn Episode No OBEpisode recorded.
--- OUTSIDE RECORDS SUMMARY | 2025-01-03 07:54 | XMS_ITS | Continuity of Care Document ---
Author Organization [facility], [facility] Address [address] [place] [address] Care Team Providers Care Scientist/Engineer Name Role Phone MARY NARAYAN Primary Care Provider [phone] Assessment Encounter Date Assessment Date Assessment LastModified by Organization Details LastModified Time 12/29/2024 12/29/2024 39-year-old female with a history [...] Imaging CT, sinuses, w/o contrast 2024 025 [email or web address] [facility] [place], [address], [address], [place], [address], 01/02/2025 14:32:18 Medication Orders budesonid e 0.5 mg/2 mL suspensio n for nebulizat ion 2024 025 [facility][id number], [address] [facility], [place], [address], 12/29/2024 14:42:05 Patient TargetsNo targets recorded. Patient InstructionsNo instructions recorded. Reason for Referral None Reported. Problems Name Problem SNOMED Code Status Onset Date Resolution Date Notes Provider Name and Address Organization Details Recorded Time Bilateral temporoma ndibular joint pain 52900799763 410964 Active 2020 Arthralgi a of bilateral temporoma ndibular joint; Note: Date Diagnosed : 08/19/2020 10:57 AM (M26.623) Not Available [facility] 4 02:15:14 Seasonal allergic rhinitis 655701381 Active 2020 Other seasonal allergic rhinitis; Note: Date Diagnosed : 08/19/2020 10:57 AM (J30.2) Not Available [facility] 4 02:15:54 Bilateral disorder of Eustachia n tubes 51098055020 08296 Active 2020 Other specified disorders of Eustachia n tube, bilateral ; Note: Date Diagnosed : 08/19/2020 10:27 AM (H69.83) Not Available [facility] 4 02:15:31 Uncomplic ated mild persisten t asthma 120494495 Active 2022 Mild persisten t asthma, uncomplic ated; Note: Date Diagnosed : 04/24/2022 3:16 PM (J45.30) Not Available [facility] 4 02:15:40 Posterior rhinorrhe a 66271695 Active 2022 Postnasal drip; Note: Date Diagnosed : 11/09/2022 1:01 PM (R09.82) Not Available [facility] 4 02:15:19 Allergic rhinitis 71555305 Active 2022 Allergic rhinitis: Due to other [...] other allergen; Note: Date Not Available [facility] 4 02:16:00 Migraine without aura, not refractor y 525413586 Active 2023 Migraine without aura, not intractab le, without status migrainos us; Note: Date Diagnosed : 04/30/2023 1:35 PM (G43.009) Not Available [facility] 4 02:15:48 Dysphonia 35503756 Active 2023 Hoarsenes s; Note: Date Diagnosed : 04/30/2023 1:35 PM (R49.0) Not Available [facility] 4 02:16:04 Recurrent acute ethmoid sinusitis Active 2024 KEYSHA CAPPS MD [address] [place] [address], [place], [address] , [facility] - [facility] 5 14:38:32 Problem Notes None recorded. Medical Equipment None Reported. Allergies Allergen ID Allergen Name Allergen Category Reaction Reaction Severity Criticality Documentation Date Start Date Code Code System Note Provider Name and Address Organization Details Recorded Time 37197 citrus flavor food other Not available Not available 07/27/2023 React ion: other react ion, Unkno wn; Not Available [facility] 4 00:53:39 00557 adhesive tape environme nt,medica tion other Not available Not available 07/27/2023 React ion: other react ion, Unkno wn; Not Available [facility] 4 00:53:42 19649 Toradol medicatio n other Not available Not available 07/27/2023 75344 RxNorm React ion: other react ion, Unkno wn; Not Available [facility] 4 00:53:46 62580 banana extract food,medi cation other Not available Not available 07/27/2023 12387 9 RxNorm React ion: other react ion, Unkno wn; Not Available [facility] 4 00:53:46 Medications Name Sig Start [...] BREAKFAS T MAX DAILY AMOUNT: 15 MG 10/17 completed Not Available Not Available Not Available [...] mcg tablet 12/19 completed Medicati on ID: [id number] B rand Name: Synthroi elis Send Method: E-Prescr ibed Sub s Allowed: [...] 2 spray 12/25 completed Medicati on ID: [id number] D uration Value: 30 Brand Name: azelasti ne Send Method: E-Prescr ibed Sub s Allowed: subs OK Medic ationGen ericName : alejandro franco Not Available Not Available Not Available epinephri [...] aerosol inhaler 12/19 completed Medicati on ID: [id number] B rand Name: Symbicor t Send Method: [...] No t Available Vitals Date Recorded Body weight Body mass index (BMI) Body height Systolic And Diastolic Provider Name and Address Organization Details Last Updated DateTime 12/29/2024 072374.13 g 34.2 kg/m2 180.34 cm 128/80 mm[Hg] Carly Pederson [place] - [facility] 12/29/2024 14:16:11 Social History Question Answer Notes LastModified by Organizat ion Details LastModified Time Tobacco Smoking Status Never Smoker Carly stephenson [place] [facility] 12/29/2024 14:16:51 What Type Of Auto Detailer Do You Use? None Information not available 12/29/2024 Do You Have Any Pets? No [email or web address] Information not available 12/29/2024 Are You Passively Exposed To Smoke? No [email or web address] Information not available 12/29/2024 Are There Any Smokers In Your House? No [email or web address] Information not available 12/29/2024 Sex: Unknown Functional Status Question Answer Note LastModified by Organization Details LastModified Time Do you use any illicit or recreational drugs? No [email or web address] Information not available 12/29/2024 Do you or have you ever used any other forms of tobacco or nicotine? No [email or web address] Information not available 12/29/2024 What is your level of alcohol consumption? None [email or web address] Information not available 12/29/2024 What type of noise exposure are you exposed to? noExposureToExcessiveNoise Infor mation not available 12/29/2024 Mental Status None recorded. Family History Nothing Reported. Medical History Condition Response Allergies/Hayfever Y Heart Problems N Anxiety Y Tonsil Infections N Emphysema N Migraines Y Thyroid Problems Y COPD N Depression N Developmental Delay N Glaucoma N Nasal or Sinus Problems N Anemia Y Immune System Disorder N Anesthesia Complications N Heart Attack (IN) N Other Skin Condition N Diabetes N [...] ICD10 Code Diagnosis IMO Codes Diagnosis Note [id number] KEYSHA CAPPS MD [facility] [address] [address] 12/29/2024 13:54:30 12/29/2024 14:44:46 Seasonal allergic rhinitis 193707606 J30.2 Bilateral temporomandibular joint pain 8783634672 1053475 M26.623 Posterior rhinorrhea 758 49774 R09.82 Migraine w ithout aura, not refractory 753596722 G43.009 Recurrent acute ethmoid sinusitis 9357817875 7559195 J01.21 3994466 Uncomplica twila mild persistent asthma 350738306 J45.30 Health Concerns Section Related Observation LastModified by Organization Detai ls LastModified Time None Recorded Concern Status LastModified by Organization Details LastModified Time None Recorded Payers Encounter Date Sequence Insurance Name Policy Number Policy Stafford Covered Member ID Stafford Member ID Guarantor Name 12/29/2024 1 [place] [email or web address] Kayla Ortega [id number] Kayla Ortega 12/29/2024 2 [place] [facility] Kayla Ortega [id number] Kayla Ortega Notes Date Note Type Note Provider Name and Address Organization Details Recorded Time 12/29/2024 text/html She reports a history of [...] fluticasone and ipratropium restarted allergy shots at [facility] budesonide rinses feels a little more congested runny nosesinus pressure less severe last audio 2020 KEYSHA CAPPS MD [address] [place] [address], [place], [address], [place] - [facility] 01/01/2025 05:57:22 OBGyn Episode No OBEpisode recorded.
[2025-01-03 09:06] LABS: Free T4 (Free Thyroxine) 1.07 ng/dL (0.71-1.85); Thyroid Stimulating Hormone 0.94 uIU/mL (0.32-4.0)
== END 2025-01-03 07:53 | disposition home or self-care (01) ==
LOC: HO.LAB 07:52
PROVIDERS: PCP Internal Medicine; Visit Provider Student in an Organized Health Care Education/Training Program
DX: E03.9 Hypothyroidism, unspecified (principal)
CPT/HCPCS: 36415; 84439; 84443

== ENCOUNTER 2025-01-17 09:54 | Outpatient (AMB) | payer MEDICARE, MEDICAID, SELFPAY ==
--- NOTE | 2025-01-17 09:56 | MHC.OFFVIS ---
Intake Visit Reasons: 3m Migraine Allergies oxycodone Allergy (Intermediate, Verified 01/17/25 09:59) itching adhesive tape Allergy (Mild, Verified 01/17/25 09:59) RASH ketorolac (From TORADOL) Allergy (Mild, Verified 01/17/25 09:59) HIVES latex (LATEX) Allergy (Mild, Verified 01/17/25 09:59) RASH fruit with skin Allergy (Intermediate, Uncoded 01/17/25 09:59) Hives Medication List - Last Reconciled 01/17/25 by Kaela Brown CNP acetaminophen-codeine 300-30 mg 1 tab PO BID PRN amitriptyline 50 mg PO BEDTIME amoxicillin-pot clavulanate 875-125 mg 1 tab PO Q12H bisacodyl (Dulcolax (bisacodyl)) 10 mg (2 x 5 mg) PO BEDTIME 30 days cyclobenzaprine 10 mg PO Q8H 7 days cyclosporine 0.05% (Restasis) drps ophthalmic (eye) epinephrine 0.3 mg IM ONCE PRN fluticasone propionate 50 mcg/actuation 2 sprays intranasal DAILY scilelhiqjo-rpqpkxycq-fzlbrvxt 200-62.5-25 mcg (Trelegy Ellipta) 1 ea inhalation DAILY galcanezumab-gnlm (Emgality Pen) mg subcut Q4W ipratropium bromide 2 sprays intranasal BID levalbuterol HCl 1.25 mg (3 mL) inhalation Q4-6H PRN levocetirizine (Xyzal) 5 mg PO DAILY levonorgestrel (Mirena) intrauterine linaclotide (Linzess) 72 mcg PO QAM metoclopramide HCl (Reglan) 10 mg PO QID montelukast 10 mg PO BEDTIME pantoprazole 40 mg PO BID prednisone 40 mg (2 x 20 mg) PO DAILY 5 days propranolol 20 mg PO BID 90 days Synthroid (levothyroxine) 100 mcg PO DAILY NS topiramate (Topamax) 100 mg PO BID valacyclovir 1,000 mg PO BID PRN HPI Comments Details: Emgality not helping with migraines as much anymore, began wearing off sooner around 07/2024 with migraines starting up about 1.5 weeks before next dose due. Headaches happening more at night with headaches happening almost every day in the evening. Tylenol #3 helps with headaches, but cannot take at night as it keeps her awake. Breathing has been okay, getting allergy shots almost every week and Xolair injections every 2 weeks. Following with pulmonology. Some ongoing stress. Sleep was up and down. Tried Aimovig in 04/2024 and had more migraine. Had severe migraine that lasted four days and was unable to sleep due to pain. Constant, throbbing-type pain with photophobia, sonophobia, and some nausea. Cyclobenzaprine helping with tension headaches and tightness in neck and upper shoulders is better. 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 Following with weight management, headaches increased some after starting phentermine and cutting down on caffeine intake at end of 2023. Sharp pain from left eye along top of head 2-3x/month, lasting few hours with photophobia and sonophobia. Tylenol #3 helps take edge off. Dull, aching headache almost daily. Low heart rate with propranolol 60mg twice a day, tolerating 40mg twice a day. Car window tints denied by DMV because car is not just her car (family car). Allergy symptoms increased after stopping allergy shots. Normal sleep study ordered by pulmonary. She has an autistic son who is sleeping better now. She has a history of migraine headaches since her teenage years. Gets some ptosis and twitching in the eyelids. Left retro auricular stabbing pain. Her sister gets frequent headaches. She has not identified any triggers. [facility] Medical History Pleuritic pain Irritable bowel syndrome with both constipation and diarrhea Encounter for general adult medical examination with abnormal findings Foot pain, bilateral Abnormal EKG Labral tear of right hip joint Abnormal weight gain Odynophagia Environmental allergies Abdominal cramping History of irregular menstrual cycles Sinusitis Esophageal spasm Acetabular labrum tear Herpes labialis Dry eyes Yeast infection of the vagina Amenorrhea Metrorrhagia Bloating Epigastric discomfort Shortness of breath Pre-op examination Contusion of chest Exercise-induced asthma Pain of left thumb Rib pain on right side Bilateral otitis media with effusion Left shoulder strain Cellulitis Acute lumbar back pain Right shoulder pain Arthrosis Right knee pain Complex cyst of left ovary Chronic GERD Encounter for IUD insertion Nausea Upper respiratory infection Leg pain, right Nausea Other specified hypothyroidism Otitis media Right hip pain Chest wall pain Lightheaded Acute sinusitis Goiter Elevated TSH Medicare annual wellness visit, subsequent Ill feeling Epigastric pain Cervical cancer screening Well woman exam with routine gynecological exam Medicare annual wellness visit, initial Abnormal thyroid stimulating hormone (TSH) level Patella francisco j Knee pain Neck pain Chest pain Migraines Eczema Fibromyalgia Heart murmur Asthma Hypothyroidism Surgical History History of hip surgery H/O shoulder surgery [place] teeth removed History of appendectomy Family History Mother Graves disease Hypothyroidism Father CHF (congestive heart failure) Other Substance use disorder Social History Housing: Apartment Alcohol intake: never Patient Tobacco Use Status: Never used Tobacco e-Cigarette/Vaping Use: Never Used Second Hand Smoke Exposure: Yes (as a child only) service: No Current occupational status: disabled Sexual orientation: Straight/Heterosexual Gender identity: Female Cognitive needs: No Hearing needs: No Vision needs: Yes Female Reproductive History Menstrual Age of Menarche: 15 Review of Systems Const Denies chills, Denies daytime sleepiness, Reports difficulty sleeping, Reports fatigue, Denies fever(s), Denies frequent falls, Reports headache(s), Denies increased appetite, Denies poor appetite, Denies snoring, Denies weakness, Denies weight gain and Denies weight loss Eyes Denies loss of vision ENT Denies vertigo, Denies dizziness, Reports headache(s) and Denies neck pain Card Denies chest pain at rest, Denies chest pain with activity, Denies syncope, Denies leg edema, Denies palpitations, Denies dyspnea and Denies dyspnea on exertion Resp Denies cough, Denies dyspnea, Denies dyspnea on exertion and Denies snoring GI Denies abdominal pain, Denies constipation, Denies heartburn, Denies diarrhea and Denies nausea Denies urinary frequency, Denies urinary incontinence and Denies urinary urgency Musc Denies abnormal gait, Denies back pain, Reports myalgias, Reports arthralgias, Denies neck pain, Denies numbness and Denies tingling Neuro Denies abnormal gait, Denies vertigo, Denies dizziness, Denies syncope, Denies frequent falls, Reports headache(s), Denies lack of coordination, Denies loss of vision, Denies memory loss, Denies numbness, Denies Other visual disturbances, Denies restless legs, Denies seizure-like activity, Denies tingling, Denies paresthesias, Denies tremor(s) and Denies weakness Psych Reports anxiety, Reports depression, Denies auditory hallucinations, Denies memory loss and Denies visual hallucinations Endo Reports fatigue and Denies palpitations Physical Exam Const Other: General Appearance:? normal, in no acute distress. Heart:? S1, S2 normal, no murmurs. Lungs:? clear anteriorly and posteriorly. Musculoskeletal:? normal. Extremities:? no edema. Psych:? alert, oriented, cognitive function intact, cooperative with exam. Neuro Other: Abnormal Neurological Findings:?none.? Mental Status: alert and oriented X 3. Normal attention, orientation, memory, and affect. Cranial Nerves: Pupils are equal, round, and reactive to light. External ocular muscles are intact. Visual best are full, no ptosis. Face is symmetrical, no facial weakness or droop. Facial sensations are normal. Tongue protrudes in midline. Palate elevates symmetrically. Shoulder shrugging is normal Motor Examination: Normal muscle tone, bulk and strength. No atrophy or fasciculations. No drift of the extended upper extremities. DTR 2+. Plantars are flexor. Sensory Exam: Normal light touch, temperature, pinprick, vibration, and joint-position sensations. Rhomberg sign is absent. Coordination: No ataxia. No titubation. Gait Exam: Within normal limits. Cerebellar Signs: Trfiok-md-ishc is okay. Extrapyramidal System: No tremor, rigidity with normal facial expressions. No bradykinesia. No bradyphrenia. Normal arm swing and posture. No propulsion or retropulsion. Speech: Normal. Assessment & Plan Assessment & Plan (1) Migraines: Code(s): G43.909 - Migraine, unspecified, not intractable, without status migrainosus Category: Medical Qualifiers: Migraine type: chronic migraine (15 or more days per month) without aura Status migrainosus presence: without status migrainosus Intractability: not intractable Qualified Code(s): G43.709 - Chronic migraine without aura, not intractable, without status migrainosus Plan: Emgality was not helping as much anymore, with migraines increasing about 1.5 weeks before next dose was due. She was having headaches nearly every day in the evening for about a month. Stop Emgality and will try Ajovy instead. Start Ajovy 225mg/1.5mL subcutaneous monthly, use/side effects reviewed. Continue topiramate 100mg 1 tablet twice a day Continue propranolol 20mg 1 tablet twice a day Continue acetaminophen-codeine #3 300-30mg 2 tablets as needed for headache once a day #45 for 30 days (2) Tension headache: Code(s): G44.209 - Tension-type headache, unspecified, not intractable Category: Medical Plan: Continue amitriptyline 50mg 1 tablet at bedtime. Continue cyclobenzaprine 10mg 1 tablet at bedtime as needed for muscle spasm/pain #30 for 30 days. Plan Meds tried: Imitrex and Relpax without relief and side effects. Amitriptyline: too drowsy with dose higher than 50mg. Propranolol: unable to tolerate dose higher than 40mg BID due to low heart rate. Aimovig: more migraines 12/30/22 Emgality 240mg loading dose given Medications: New fremanezumab-vfrm (Ajovy) 225 mg (1.5 mL) subcut QMONTH 1 ea 5RF 30 days Changed From cyclobenzaprine 10 mg PO Q8H 7 days 21 tabs 0RF To cyclobenzaprine 10 mg PO BEDTIME 30 tabs 2RF 30 days Coding Level of Care Code Est Pt Level 4 (78198) Diagnoses Chronic migraine without aura without status migrainosus, not intractable G43.709 Migraine type: chronic migraine (15 or more days per month) without aura Status migrainosus presence: without status migrainosus Intractability: not intractable Tension headache G44.209
--- OUTSIDE RECORDS SUMMARY | 2025-01-17 11:18 | XMS_ITS | Data Portability ---
Author Organization [place] - [facility], Allergy Address [address] [address] Care Team Providers Care Brake Specialist Name Role Phone MARY NARAYAN Primary Care Provider [phone] Assessment Encounter Date Assessment Date Assessment LastModified [...] Imaging CT, sinuses, w/o contrast 2024 025 [facility] [place], [address], [place], [address], 01/12/2025 07:38:02 Medication Orders budesonid e 0.5 mg/2 mL suspensio n for nebulizat ion 2024 025 [facility]acy #[id number], [address] [place], [address], 12/29/2024 14:42:05 budesonid e 0.5 mg/2 mL suspensio n for nebulizat ion 2023 024 [facility]armacy #[id number], [address] [place], [address], 12/20/2023 12:10:20 Patient TargetsNo targets recorded. Patient InstructionsNo instructions recorded. Reason for Referral None Reported. Results Created Date Observation Date Name Description Value Unit Range Abnormal Flag Note LastModifiedBy Organization Detail LastModifiedTime 01/13/2001/11/2025 CT, sinus es, w/o contr ast No observ ation record ed. DINORAH [facility] [place] [address], [place], [address], 01/12/2025 09:11:55 Result Notes None recorded. Problems Name Problem SNOMED Code Status Onset Date Resolution Date Notes Provider Name and Address Organization Details Recorded Time Bilateral temporoma ndibular joint pain 45654251694 998796 Active 2020 Arthralgi a of bilateral temporoma ndibular joint; Note: Date Diagnosed : 08/19/2020 10:57 AM (M26.623) Not Available [facility] 4 02:15:14 Seasonal allergic rhinitis 473347843 Active 2020 Other seasonal allergic rhinitis; Note: Date Diagnosed : 08/19/2020 10:57 AM (J30.2) Not Available [facility] 4 02:15:54 Bilateral disorder of Eustachia n tubes 72027680262 89588 Active 2020 Other specified disorders of Eustachia n tube, bilateral ; Note: Date Diagnosed : 08/19/2020 10:27 AM (H69.83) Not Available [facility] 4 02:15:31 Uncomplic ated mild persisten t asthma 575424585 Active 2022 Mild persisten t asthma, uncomplic ated; Note: Date Diagnosed : 04/24/2022 3:16 PM (J45.30) Not Available [facility] 4 02:15:40 Posterior rhinorrhe a 79942424 Active 2022 Postnasal drip; Note: Date Diagnosed : 11/09/2022 1:01 PM (R09.82) Not Available [facility] 4 02:15:19 Allergic rhinitis 49103980 Active 2022 Allergic rhinitis: Due to other [...] to other allergen; Note: Date Not Available [facility] 4 02:16:00 Migraine without aura, not refractor y 140106690 Active 2023 Migraine without aura, not intractab le, without status migrainos us; Note: Date Diagnosed : 04/30/2023 1:35 PM (G43.009) Not Available [facility] 4 02:15:48 Dysphonia 81120043 Active 2023 Hoarsenes s; Note: Date Diagnosed : 04/30/2023 1:35 PM (R49.0) Not Available [facility] 4 02:16:04 Recurrent acute ethmoid sinusitis Active 2024 KEYSHA CAPPS MD [address] [place] [address], [address] , [facility] - [facility] 5 14:38:32 Problem Notes None recorded. Medical Equipment None Reported. Allergies Allergen ID Allergen Name Allergen Category Reaction Reaction Severity Criticality Documentation Date Start Date Code Code System Note Provider Name and Address Organization Details Recorded Time 02795 citrus flavor food other Not available Not available 07/27/2023 React ion: other react ion, Unkno wn; Not Available [facility] 4 00:53:39 96362 adhesive tape environme nt,medica tion other Not available Not available 07/27/2023 React ion: other react ion, Unkno wn; Not Available [facility] 05/14/202 4 00:53:42 72784 Toradol medicatio n other Not available Not available 07/27/2023 83346 RxNorm React ion: other react ion, Unkno wn; Not Available [facility] 4 00:53:46 48592 banana extract food,medi cation other Not available Not available 07/27/2023 34860 9 RxNorm React ion: other react ion, Unkno wn; Not Available [facility] 4 00:53:46 Medications Name Sig [...] mg/2 mL suspensio n for nebulizat ion active Not Available Not Available Not Available diltiazem CD 120 mg capsule,e xtended release 24 hr TAKE 1 CAPSULE BY MOUTH EVERY DAY 12/25 completed Not Available Not Available Not Available monteluka st 10 mg tablet 10 MG ORALLY BEDTIME active Not Available Not Available No t Available Synthroid 112 mcg tablet 12/19 completed Medicati on ID: [id number] rand Name: Synthroi d Send Method: [...] 2 spray 12/25 completed Medicati on ID: [id number] D uration Value: 30 Brand Name: azelasti [...] aerosol inhaler 12/19 completed Medicati on ID: [id number] B rand Name: Angle constantino Send Method: E-Prescr ibed Sub s Allowed: [...] Updated DateTime 12/20/2023 180.34 cm 34.2 kg/m2 489783.93 g Cheryl Ann [place] - [facility] 12/20/2023 11:43:25 Date Recorded Body weight Body mass index (BMI) Body height Systolic And Diastolic Provider Name and Address Organization Details Last Updated DateTime 12/29/2024 610918.13 g 34.2 kg/m2 180.34 cm 128/80 mm[Hg] Carly Pederson [place] - [facility] 12/29/2024 14:16:11 Social History Question Answer Notes LastModified by Organizat ion Details LastModified Time Tobacco Smoking Status Never Smoker Carly Pederson ROSA [facility] - [facility] 12/29/2024 14:16:51 What Type Of Hall Supervisor Do You Use? None Information not available 12/29/2024 Do You Have Any Pets? No [email or web address] Information not available 12/29/2024 Are You Passively Exposed To Smoke? No [email or web address] Information not available 12/29/2024 Are There Any Smokers In Your House? No [email or web address] Information not available 12/29/2024 Sex: Unknown Functional Status Question Answer Note LastModified by Organization Details LastModified Time Do you use any illicit or recreational drugs? No [email or web address] Information not available 12/29/2024 Do you or have you ever used any other forms of tobacco or nicotine? No [email or web address] Information not available 12/29/2024 What is your level of alcohol consumption? None [email or web address] Information not available 12/29/2024 What type of [...] Disorder N Anesthesia Complications N Heart Attack ([place]) N Other Skin Condition N Diabetes N [...] Diagnosis Note KEYSHA CAPPS MD [facility] [address] [place] [address] 12/20/2023 11:12:43 12/20/2023 12:13:17 Posterior rhinorrhea 91878352 R09.82 Uncomplica twila mild persistent asthma 867682429 J45.30 45801 KEYSHA CAPPS MD [facility] [address] [place] [address] 12/29/2024 13:54:30 12/29/2024 14:44:46 Seasonal allergic rhinitis 641713491 J30.2 Bilateral temporomandibular joint pain 1787385468 7497921 M26.623 Posterior rhinorrhea 758 42341 R09.82 Migraine w ithout aura, not refractory 387681034 G43.009 Recurrent acute ethmoid sinusitis 4382781009 5980922 J01.21 9236837 Uncomplica twila mild persistent asthma 743060931 J45.30 Health Concerns Section Related Observation LastModified by Organization Detai ls LastModified Time None Recorded Concern Status LastModified by Organization Details LastModified Time None Recorded Advance Directives Directive None Recorded Payers Insurance Date Sequence Insurance Name Policy Number Policy Stafford Covered Member ID Stafford Member ID Guarantor Name 12/29/2024 1 [place]ICARE B-[place]: [employer] Kayla Ortega [id number] Kayla Ortega 12/29/2024 2 [place] [facility] Kayla Ortega [id number] Kayla Ortega Notes Date Note Type Note Provider Name and Address Organization Details Recorded Time 12/20/2023 text/html On singulair and [place]. Nasal spray x 2. Some sinus congestion. Just finished prednisone course. 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 Waiting to see another gaming director. PV: 38-year-old female presents today for follow-up [...] the images from her CT scan from [place] in July 2022 and the sinus thickening was very mild. KEYSHA CAPPS MD [address] [facility],[place] [address], [place], [address], [place] - [facility] 12/20/2023 18:25:26 12/29/2024 text/html She reports [...] fluticasone and ipratropium restarted allergy shots at [facility] budesonide rinses feels a little more congested runny nosesinus pressure less severe last audio 2020 KEYSHA CAPPS MD [address] [facility],[place] [address], [place], [address], [facility] - [facility] 01/01/2025 05:57:22 OBGyn Episode No OBEpisode recorded.
--- OUTSIDE RECORDS SUMMARY | 2025-01-17 11:18 | XMS_ITS | Clinical Summary ---
Author Organization [address] [facility] Address [address] [place] [address] Phone Care Team Providers Care School Custodian Name Role Phone Karen Broussard MD Primary Care Provider [phone] Allergies No known active allergies Medications acetaminophen-c [...] 9:45 AM EDT Office Visit Bariatric Surgery [address] [address] Brianna Umanzor PA Overweight (BMI [...] 05/08/2025 9:00 AM EST Office Visit Bariatric [address] [address] Brianna Umanzor PA [address] [place] [address] Health Maintenance Due Date Last Done [...] Insurance MEDICARE MEDICAID - [place] Care Teams School Custodian Relationship Specialty Start Date End Date Karen Broussard MD [address] [place] [address] PCP - General 09/03/23
== END 2025-01-17 10:20 | disposition home or self-care (01) ==
LOC: HO.HSM 09:55
PROVIDERS: PCP Internal Medicine; Visit Provider Registered Nurse
DX: G43.709 Chronic migraine without aura, not intractable, without status migrainosus (principal); G44.209 Tension-type headache, unspecified, not intractable
CPT/HCPCS: 99214

== ENCOUNTER → 2025-01-17 09:54 | Outpatient (BNVA) | payer MEDICARE, MEDICAID, SELFPAY | PROVIDERS: PCP Internal Medicine; Visit Provider Registered Nurse | DX: G43.709 Chronic migraine without aura, not intractable, without status migrainosus (principal); G44.209 Tension-type headache, unspecified, not intractable | CPT/HCPCS: 99212 ==

== ENCOUNTER 2025-02-21 09:54 | Outpatient (AMB) | payer MEDICARE, MEDICAID, SELFPAY ==
--- NOTE | 2025-02-21 09:57 | MHC.OFFVIS ---
Vital Signs 02/21/25 10:06 Height 5 ft 10 in Weight 203 lb BMI 29.1 BP 107/55 L Blood Pressure Location Lt brachial Position Sitting Pulse 75 Intake Visit Reasons: 4 week FUV. Intake Note: Patient in office today in follow up of CIC. CC: Patient states that the Linzess was working well at first but then began to give her abd pain and frequent diarrhea. She states that she has been under a lot of stress and is not sure if this contributed. She states that she is now having BMs but not as regular she reports about 3 BMs weekly and she does not feel like she empty her bowels completely. Tube Room Supervisor Required: No Allergies oxycodone Allergy (Intermediate, Verified 02/21/25 10:12) itching adhesive tape Allergy (Mild, Verified 02/21/25 10:12) RASH ketorolac (From TORADOL) Allergy (Mild, Verified 02/21/25 10:12) HIVES latex (LATEX) Allergy (Mild, Verified 02/21/25 10:12) RASH fruit with skin Allergy (Intermediate, Uncoded 01/17/25 09:59) Hives HPI HPI 4 week FUV.: Details: Assessment & Plan (1) Chronic idiopathic constipation: Code(s): K59.04 - Chronic idiopathic constipation Category: Medical (2) Lactose intolerance: Code(s): E73.9 - Lactose intolerance, unspecified Category: Medical (3) Erosive esophagitis: Code(s): K22.10 - Ulcer of esophagus without bleeding Category: Medical (4) Gastroparesis: Code(s): K31.84 - Gastroparesis Category: Medical Plan Her current GI regimen is Linzess 72 micro g, bisacodyl, pantoprazole twice a day, and Reglan 10 mg 4 times a day. - The patient is a 39-year-old female presenting with constipation management difficulties and acute otitis media. - Chronic Idiopathic Constipation: She was prescribed Linzess 72 mcg and bisacodyl for constipation. At higher doses of Linzess, she previously experienced adverse effects and prefers the current dosing. She expressed hesitation with using bisacodyl due to concerns of inducing diarrhea. - Acute Otitis Media: She developed a bilateral ear infection recently and is being treated with Augmentin and prednisone. Prior to this, she used [id number] medications which may have affected her constipation regimen. - Gastroesophageal Reflux Disease: Persistent heartburn persists and could be affected by the antibiotic. She is on pantoprazole twice daily for management. - Continue taking Linzess as prescribed and discuss any bowel irregularities. - Use bisacodyl cautiously and record any side effects. - Finish the current course of Augmentin and prednisone. - Continue pantoprazole twice daily for heartburn. - Schedule a follow-up in 8 weeks or sooner if symptoms worsen. [facility] VISIT [facility] Medical History Pleuritic pain Irritable bowel syndrome with both constipation and diarrhea Encounter for general adult medical examination with abnormal findings Foot pain, bilateral Abnormal EKG Labral tear of right hip joint Abnormal weight gain Odynophagia Environmental allergies Abdominal cramping History of irregular menstrual cycles Sinusitis Esophageal spasm Acetabular labrum tear Herpes labialis Dry eyes Yeast infection of the vagina Amenorrhea Metrorrhagia Bloating Epigastric discomfort Shortness of breath Pre-op examination Contusion of chest Exercise-induced asthma Pain of left thumb Rib pain on right side Bilateral otitis media with effusion Left shoulder strain Cellulitis Acute lumbar back pain Right shoulder pain Arthrosis Right knee pain Complex cyst of left ovary Chronic GERD Encounter for IUD insertion Nausea Upper respiratory infection Leg pain, right Nausea Other specified hypothyroidism Otitis media Right hip pain Chest wall pain Lightheaded Acute sinusitis Goiter Elevated TSH Medicare annual wellness visit, subsequent Ill feeling Epigastric pain Cervical cancer screening Well woman exam with routine gynecological exam Medicare annual wellness visit, initial Abnormal thyroid stimulating hormone (TSH) level Patella francisco j Knee pain Neck pain Chest pain Migraines Eczema Fibromyalgia Heart murmur Asthma Hypothyroidism Surgical History History of hip surgery H/O shoulder surgery [place] teeth removed History of appendectomy Family History Mother Graves disease Hypothyroidism Father CHF (congestive heart failure) Other Substance use disorder Social History Housing: Apartment Alcohol intake: never Patient Tobacco Use Status: Never used Tobacco e-Cigarette/Vaping Use: Never Used Second Hand Smoke Exposure: Yes (as a child only) service: No Current occupational status: disabled Sexual orientation: Straight/Heterosexual Gender identity: Female Cognitive needs: No Hearing needs: No Vision needs: Yes Female Reproductive History Menstrual Age of Menarche: 15 Review of Systems Const Denies fatigue, Denies fever(s), Denies night sweats, Denies poor appetite and Denies weight loss Eyes Details: glasses Reports requires corrective lenses ENT Reports Normal hearing present, Denies dental pain, Denies dysphagia, Denies hearing loss, Denies mouth pain, Denies odynophagia, Denies throat swelling, Denies tongue swelling and Reports other (Dentition adequate) GI Details: Denies abdominal pain, Denies melena, Denies bloating, Denies hematochezia, Denies constipation, Denies GI cramping, Denies dysphagia, Denies excessive flatus, Denies early satiety, Denies heartburn, Denies diarrhea, Denies nausea, Denies odynophagia, Denies vomiting and Denies hematemesis Skin/Breast Denies pruritus, Denies lesions, Denies rash and Denies jaundice Neuro Reports Normal hearing present and Denies Abnormal speech present Endo Denies fatigue Aller/Immun Denies throat swelling and Denies tongue swelling Physical Exam Vital Signs: Last Vital Signs Pulse 75 02/21/25 10:06 BP 107/55 L 02/21/25 10:06 BMI result Body Mass Index 29.1 Const General: cooperative, no acute distress, well developed and well groomed Nutritional Appearance: average body habitus and well nourished Orientation/consciousness: oriented to person, oriented to place and oriented to time Limitations: No language barrier HEENT Head: Yes normocephalic and Yes atraumatic Eyes General: appearance normal, both eyes and all related structures Pupils: Equal, round and reactive pupils present Neck Neck: Yes normal visual inspection and Yes no lymphadenopathy Thyroid: Thyroid normal Resp Effort & Inspection: normal respiratory effort and able to speak in complete sentences Auscultation: clear to auscultation bilaterally Cardio Rate: regular rate Rhythm: regular rhythm Heart sounds: Normal, physiologic split S2 sound present Peripheral pulses: radial pulses present and posterior tibial pulses present GI Inspection: No distended and No Abdominal panniculus present Palpation (GI): Soft to palpation, nontender, no guarding, not rigid and No hepatosplenomegaly present Percussion: Yes normal to percussion Auscultation: normal bowel sounds Rectal Exam - Female: deferred Skin General skin exam: no rashes or lesions noted, turgor normal, skin not dry, no jaundice, No spider nevi and no striae Rashes: no rashes Nails: normal Neuro General: oriented to person, oriented to place and oriented to time Cranial nerves: Yes Equal, round and reactive pupils present and Yes Normal hearing present Speech: No Abnormal speech present Extrem General: Yes normal to inspection, No clubbing, No cyanosis and No edema Psych Appearance: grossly normal and well kempt Mental Status: mental status grossly normal Speech and movement: Normal speech and movement present Affect: normal affect Attitude: cooperative Thought process: Normal thought process present and not confabulating Thought content: Normal thought content present Insight: Good insight present (Psych) Judgement: Good judgement present (Psych) Assessment & Plan Assessment & Plan (1) GERD with esophagitis: Code(s): K21.00 - Gastro-esophageal reflux disease with esophagitis, without bleeding Category: Medical (2) Chronic idiopathic constipation: Code(s): K59.04 - Chronic idiopathic constipation Category: Medical (3) Lactose intolerance: Code(s): E73.9 - Lactose intolerance, unspecified Category: Medical (4) Erosive esophagitis: Code(s): K22.10 - Ulcer of esophagus without bleeding Category: Medical (5) Gastroparesis: Code(s): K31.84 - Gastroparesis Category: Medical (6) Multiple food allergies: Comment: all fruit, avocado, seeded vegetables, carrots Code(s): Z91.018 - Allergy to other foods Category: Medical (7) Acute otitis media: Code(s): H66.90 - Otitis media, unspecified, unspecified ear Category: Medical Plan Her current GI regimen is <del>Linzess</del> <del>72</del> <del>micro</del> <del>g</del> (she did not tolerate higher doses), bisacodyl, pantoprazole twice a day, and Reglan 10 mg 4 times a day. Subjective Follow-up for chronic constipation management. Previously well-controlled on Linzess, which recently led to abrupt onset of profuse diarrhea with urgency and no warning, without abdominal pain, nausea, vomiting, or fevers. No sick contacts. Patient stopped Linzess, after which diarrhea tapered and resolved over 1?2 weeks. Bowel habits have returned to baseline pattern of constipation with incomplete evacuation; currently averaging approximately three bowel movements per week, which is better than prior but still feels incompletely emptied. Prior nighttime bisacodyl up to two tablets provided minimal benefit. Currently using a fiber supplement. Reports significant life stress that may have contributed to GI variability. Continues metoclopramide four times daily and pantoprazole twice daily with acceptable control of upper GI symptoms. Relevant Past Medical, Social, and Family History Currently taking metoclopramide QID and pantoprazole BID for upper GI symptom control. Using fiber supplement. Objective Assessment & Plan Chronic constipation with recent intolerance to linaclotide: Constipation with incomplete evacuation; recent trial of Linzess resulted in sudden diarrhea with urgency, resolved after discontinuation. Currently having ~3 BMs/week with incomplete emptying. - Start bisacodyl: begin with 1 tablet; may titrate up to a maximum of 3 tablets as needed. - Titration guidance: if no bowel movement in 3 days, increase dose. - Continue daily fiber supplement. - Hold Linzess for now given prior adverse effect. - If inadequate response or intolerance, consider switch to lubiprostone (Amitiza); note potential insurance barriers, GoodRx may assist if needed. - Counseling provided that daily bowel movements are not required; focus on comfort and avoiding straining. - Prescriptions refilled as needed, including bisacodyl. - Follow up in 8 weeks to reassess. Upper GI symptoms (controlled): Stable on current regimen. - Continue metoclopramide four times daily. - Continue pantoprazole twice daily. - Refills provided as needed. Medications: Refilled pantoprazole 40 mg PO BID 60 tabs 6RF bisacodyl (Dulcolax (bisacodyl)) 10 mg (2 x 5 mg) PO BEDTIME 60 tabs 6RF 30 days K21.00 - Gastro-esophageal reflux disease with esophagitis, without bleeding, K22.10 - Ulcer of esophagus without bleeding, K31.84 - Gastroparesis, K59.00 - Constipation, unspecified metoclopramide HCl (Reglan) 10 mg PO QID 120 tabs 6RF K21.00 - Gastro-esophageal reflux disease with esophagitis, without bleeding On Hold linaclotide (Linzess) Hold Comment: Doctor's Order 72 mcg PO QAM 30 caps 3RF K59.04 - Chronic idiopathic constipation Coding Level of Care Code Est Pt Level 3 (75736) Diagnoses GERD with esophagitis K21.00 Chronic idiopathic constipation K59.04 Lactose intolerance E73.9 Erosive esophagitis K22.10 Gastroparesis K31.84 Multiple food allergies Z91.018 Acute otitis media H66.90
[2025-02-21 10:06] VITALS: BP 107/55; PULSE 75; BMI 29.1
== END 2025-02-21 10:30 | disposition home or self-care (01) ==
PROVIDERS: PCP Internal Medicine; Visit Provider Nurse Practitioner
DX: K21.00 Gastro-esophageal reflux disease with esophagitis, without bleeding (principal); K59.04 Chronic idiopathic constipation; E73.9 Lactose intolerance, unspecified; K22.10 Ulcer of esophagus without bleeding; K31.84 Gastroparesis; Z91.018 Allergy to other foods; H66.90 Otitis media, unspecified, unspecified ear
CPT/HCPCS: 99213

== ENCOUNTER → 2025-02-21 09:54 | Outpatient (BNVA) | payer MEDICARE, MEDICAID, SELFPAY | PROVIDERS: PCP Internal Medicine; Visit Provider Nurse Practitioner | DX: K59.04 Chronic idiopathic constipation (principal); K31.84 Gastroparesis; K22.10 Ulcer of esophagus without bleeding; E73.9 Lactose intolerance, unspecified; K21.00 Gastro-esophageal reflux disease with esophagitis, without bleeding; Z91.018 Allergy to other foods; H66.93 Otitis media, unspecified, bilateral | CPT/HCPCS: 99212 ==

== ENCOUNTER 2025-02-27 08:52 | Outpatient (REF) | payer MEDICARE, MEDICAID, SELFPAY ==
[2025-02-28 14:23] LABS: Antibody to SS-A Antigen <1.0 NEG AI (<1.0 NEG); Antibody to SS-B Antigen <1.0 NEG AI (<1.0 NEG)
== END 2025-02-27 08:53 | disposition home or self-care (01) ==
LOC: HO.WFDLDS 08:52
PROVIDERS: PCP Internal Medicine; Visit Provider Nurse Practitioner Family
DX: Z01.84 Encounter for antibody response examination (principal); J45.40 Moderate persistent asthma, uncomplicated; R07.81 Pleurodynia; H04.123 Dry eye syndrome of bilateral lacrimal glands; I73.00 Raynaud's syndrome without gangrene; M25.50 Pain in unspecified joint; Z79.899 Other long term (current) drug therapy
CPT/HCPCS: 36415; 86038; 86200; 86225; 86235; 86431; 99212

== ENCOUNTER 2025-02-27 08:52 | Outpatient (AMB) | payer MEDICARE, MEDICAID, SELFPAY ==
[2025-02-27 08:54] VITALS: BP 116/72; PULSE 60; O2SAT 100; BMI 29.4
--- NOTE | 2025-02-27 08:54 | MHC.OFFVIS ---
Vital Signs 02/27/25 08:54 Height 5 ft 10 in Weight 205 lb 4 oz BMI 29.4 BP 116/72 Blood Pressure Location Rt brachial Position Sitting Pulse 60 Pulse Source Pulse Oximeter Pulse Oximetry (%) 100 Oxygen Delivery Method Room Air Intake Visit Reasons: Asthma Allergies oxycodone Allergy (Intermediate, Verified 02/27/25 08:59) itching adhesive tape Allergy (Mild, Verified 02/27/25 08:59) RASH ketorolac (From TORADOL) Allergy (Mild, Verified 02/27/25 08:59) HIVES latex (LATEX) Allergy (Mild, Verified 02/27/25 08:59) RASH fruit with skin Allergy (Intermediate, Uncoded 02/27/25 08:59) Hives HPI HPI Asthma: Details: Kayla is a pleasant 40 year old female, never smoker, with underlying asthma, atopic dermatitis, environmental allergies, allergic rhinitis and GERD. She has been on Xolair since May two months in addition to Trelegy and Singulair, receiving injections every two weeks, and reports less dyspnea on exertion. She reports persistent, localized pain on the right side of her ribs, which occurs specifically upon taking a deep breath. She describes the pain as a sharp, hard pain that does not radiate. Her primary care provider has previously diagnosed this as pleurisy and treated it with prednisone or muscle relaxers, which provided relief for episodes lasting 2-3 weeks at a time. Previous chest x-rays have been normal. The patient also reports several systemic symptoms. She experiences joint pain in her wrists, knees, and hips, and has a history of rotator cuff and hip surgeries. She endorses symptoms consistent with Raynaud's phenomenon, where her hands and feet become very cold and change color to a purplish hue. She has severe dry eyes requiring punctal plugs and has been experiencing severe, drenching night sweats for the past couple of months, which have recently become more persistent. Her mother has a history of rheumatoid arthritis. Regarding her pulmonary status, she feels her breathing is generally okay and has improved with Xolair and Trelegy. She uses her rescue inhaler infrequently, about once or twice a month. She notes that the benefit of Xolair has become more apparent over time, particularly for her food allergies. She recently had a walk-in clinic visit for a sinus cold and saw an ENT specialist for persistent sinus congestion. A sinus CT scan was normal, and a prescribed sinus rinse was not obtained due to insurance coverage issues. She also has ongoing acid reflux and gastroparesis, managed with pantoprazole twice daily and another medication four times daily. [facility] Medical History (Updated 02/27/25 @ 09:18 by Chyna Mayo NP) Dry eyes Pleuritic pain Irritable bowel syndrome with both constipation and diarrhea Encounter for general adult medical examination with abnormal findings Foot pain, bilateral Abnormal EKG Labral tear of right hip joint Abnormal weight gain Odynophagia Environmental allergies Abdominal cramping History of irregular menstrual cycles Sinusitis Esophageal spasm Acetabular labrum tear Herpes labialis Yeast infection of the vagina Amenorrhea Metrorrhagia Bloating Epigastric discomfort Shortness of breath Pre-op examination Contusion of chest Exercise-induced asthma Pain of left thumb Rib pain on right side Bilateral otitis media with effusion Left shoulder strain Cellulitis Acute lumbar back pain Right shoulder pain Arthrosis Right knee pain Complex cyst of left ovary Chronic GERD Encounter for IUD insertion Nausea Upper respiratory infection Leg pain, right Nausea Other specified hypothyroidism Otitis media Right hip pain Chest wall pain Lightheaded Acute sinusitis Goiter Elevated TSH Medicare annual wellness visit, subsequent Ill feeling Epigastric pain Cervical cancer screening Well woman exam with routine gynecological exam Medicare annual wellness visit, initial Abnormal thyroid stimulating hormone (TSH) level Patella francisco j Knee pain Neck pain Chest pain Migraines Eczema Fibromyalgia Heart murmur Asthma Hypothyroidism Surgical History History of hip surgery H/O shoulder surgery [place] teeth removed History of appendectomy Family History Mother Graves disease Hypothyroidism Father CHF (congestive heart failure) Other Substance use disorder Social History (Reviewed 02/27/25 @ 08:58 by Carly Godinez [facility]) Housing: Apartment Alcohol intake: never Patient Tobacco Use Status: Never used Tobacco e-Cigarette/Vaping Use: Never Used Second Hand Smoke Exposure: Yes (as a child only) service: No Current occupational status: disabled Sexual orientation: Straight/Heterosexual Gender identity: Female Cognitive needs: No Hearing needs: No Vision needs: Yes Female Reproductive History Menstrual Age of Menarche: 15 Review of Systems Narrative Const Denies chills, Denies excessive sweating and Denies fever(s) Eyes Denies dry eyes and Denies irritation ENT Reports Normal hearing present, Reports nasal congestion and Reports post nasal drip Card Denies chest pain, Denies chest pain at rest, Denies chest pain with activity, Denies claudication, Denies leg edema, Denies orthopnea and Denies paroxysmal nocturnal dyspnea Resp Denies change in phlegm color, Denies chest congestion, Denies hemoptysis, Denies excessive phlegm production, Reports pain on inspiration and Denies stridor Musc Denies myalgias Neuro Reports Normal hearing present Endo Denies excessive sweating Sixto/Lymph Denies lymphadenopathy Physical Exam Exam Exam: Vital Signs: Last Vital Signs Pulse 60 02/27/25 08:54 BP 116/72 02/27/25 08:54 Pulse Ox 100 02/27/25 08:54 Oxygen Delivery Method Room Air 02/27/25 08:54 BMI result Body Mass Index 29.4 Const General: cooperative, healthy appearing, comfortable, no acute distress, well developed and alert Nutritional Appearance: obese Orientation/consciousness: patient oriented x3 Limitations: no limitations HEENT Head: Yes normal to inspection, Yes normocephalic and Yes atraumatic Ears: hearing grossly normal bilaterally and external ears normal Eyes General: appearance normal, both eyes and all related structures Eyelids: Yes eyelids normal Sclerae: sclerae normal EOM: EOMs intact bilaterally Neck Neck: Yes normal visual inspection and Yes no lymphadenopathy Lymphatic: no lymphadenopathy noted Chest Chest palpation & inspection: normal inspection of the chest Resp Effort & Inspection: normal respiratory effort, able to speak in complete sentences, no audible wheezes, no cough, no stridor, not tachypneic, no tripod positioning and no use of accessory muscles Auscultation: diminished lung sounds Cardio Jugular venous distension: no JVD Rate: regular rate Rhythm: regular rhythm Skin Other: warm, dry General skin exam: no rashes or lesions noted Neuro General: patient oriented x3 Cranial nerves: Yes Normal hearing present Cognition (Neuro): normal cognition Gait exam (Neuro): Normal gait present Extrem General: Yes normal to inspection, Yes capillary refill normal, Yes no clubbing, cyanosis or edema and Yes no pedal edema Psych Appearance: grossly normal and well kempt Speech and movement: Normal speech and movement present and Clear speech present Affect: normal affect Attitude: cooperative Thought process: Normal thought process present Thought content: Normal thought content present Insight: Good insight present (Psych) Judgement: Good judgement present (Psych) Assessment & Plan Assessment & Plan (1) Asthma, moderate persistent: Code(s): J45.40 - Moderate persistent asthma, uncomplicated Category: Medical Qualifiers: Asthma complication type: uncomplicated Qualified Code(s): J45.40 - Moderate persistent asthma, uncomplicated (2) Pleuritic pain: Code(s): R07.81 - Pleurodynia Category: Medical Plan Discussed with the patient that while her breathing has improved on Xolair, her persistent right-sided chest pain warrants further investigation, especially given her constellation of other symptoms such as joint pain, severe dry eyes, night sweats, and Raynaud's phenomenon. Explained the rationale for ordering a chest CT scan to get a more detailed image regarding pleuritic discomfort, as her prior chest x-rays were normal. Explained that because of her symptoms and family history of rheumatoid arthritis, we would order blood work to test for an autoimmune condition. We will plan to follow up after the CT scan is completed, around the end of April. Also advised her to follow up with her ENT regarding the ongoing sinus issues and prescribed medication. All questions were answered and patient is in agreement of plan. Patient Instructions - Continue your current medications, including Xolair, Trelegy, and your rescue inhaler as needed. - Please have the blood work done today here in the office. - The imaging department will call you to schedule your chest CT scan. - Contact your Ear, Nose, and Throat (ENT) doctor's office about the sinus rinse medication that your insurance did not cover. - Schedule a follow-up appointment to see us after your CT scan is done, likely around the end of April. - Call our office if your symptoms change or worsen before your next appointment. Orders: Orders Rheumatoid Factor Today M25.50 - Pain in unspecified joint Cyclic Citrullinated Peptide Today M25.50 - Pain in unspecified joint Anti DNA DS Antibody Today M25.50 - Pain in unspecified joint Sjogren's Antibodies Today H04.123 - Dry eye syndrome of bilateral lacrimal glands CT chest wo IV con Today R07.81 - Pleurodynia CAROLINE Reflex Titer and Pattern Today M25.50 - Pain in unspecified joint Scleroderma 70 Antibody Today I73.00 - Raynaud's syndrome without gangrene Coding Level of Care Code Est Pt Level 4 (54104) Add On Problem Visit Only Diagnoses Moderate persistent asthma without complication J45.40 Asthma complication type: uncomplicated Pleuritic pain R07.81
--- OUTSIDE RECORDS SUMMARY | 2025-02-27 09:49 | XMS_ITS | Clinical Summary ---
Author Organization [facility] Address [address] [place] [address] Phone Care Team Providers Care Coke Loader Name Role Phone Karen Broussard MD Primary Care Provider [phone] Allergies No known active allergies Medications acetaminophen-c [...] GERD (gastroesophageal reflux disease) 4 Hypothyroidism 10/18/2023 Social History Tobacco Use Types Packs/Day Years [...] AM EST Office Visit Bariatric Surgery - [address] [place] [id number] Brianna Umanzor, GOSIA [address] [place] [id number] Health Maintenance Due Date Last Done [...] Depression Screening 03/15/2024 COVID-19 Vaccine (1 - 2024-2 6 season) 2024 Influenza Vaccine (#1) 2024 01/17/2014 [...] to complete this [place] [id number] MEDICARE MEDICAID - [place] Care Teams Coke Loader Relationship Specialty Start Date End Date Karen Broussard MD [address] [place] [address] PCP - General 09/03/23
== END 2025-02-27 09:23 | disposition home or self-care (01) ==
LOC: HO.HPSW 08:53
PROVIDERS: PCP Internal Medicine; Visit Provider Nurse Practitioner Family
DX: J45.40 Moderate persistent asthma, uncomplicated (principal); R07.81 Pleurodynia
CPT/HCPCS: 99214; G2211